=== PATIENT | female | born 1935 | race Caucasian/White ===

== ENCOUNTER 2017-11-16 11:58 | Emergency (ER) | payer MEDICARE, SELFPAY ==
--- NOTE | 2017-11-16 12:06 | DI.CT.S_ITS ---
PROCEDURE: CT HEAD/BRAIN WO CON INDICATIONS: syncope TECHNIQUE: Noncontrast 4.5 mm thick angled axial sections acquired from the foramen magnum to the vertex, with coronal and sagittal reformats. For radiation dose reduction, the following was used: automated exposure control, adjustment of mA and/or kV according to patient size. COMPARISON: None. FINDINGS: Image quality: Excellent. CSF spaces: Basal cisterns are patent. No extra-axial fluid collections. The ventricles are symmetric in size and shape. Brain: No intracranial bleeds or masses. There is cerebral volume loss for age, with resultant ventricular and sulcal prominence. There are periventricular and deep white matter chronic small vessel ischemic changes. There is intracranial internal carotid artery atherosclerosis. Skull and face: Calvarium and visualized facial bones appear intact, without suspicious lesions. Sinuses: Visualized sinuses and mastoids are clear. IMPRESSION: No trauma found, no source of syncopal episode is identified. Moderate microvascular atherosclerotic change in the deep white matter of each hemisphere is seen. Dictated by: Larry Lord M.D. on 11/16/2017 at 12:28 Approved by: Larry Lord M.D. on 11/16/2017 at 12:28
[2017-11-16 12:07] VITALS: BP 134/98; PULSE 77; RESP 20; TEMP 35.8; O2SAT 96; BMI 22.6
--- NOTE | 2017-11-16 12:22 | PC.NURSE ---
Miller Jesus left phone number for nurse to call if needed [phone]
[2017-11-16 12:35] VITALS: BP 124/86; PULSE 70; RESP 20; O2SAT 95
[2017-11-16 13:09] VITALS: BP 120/76; PULSE 77; RESP 16; O2SAT 94
[2017-11-16] MEDS: SODIUM CHLORIDE 0.9% 1,000 ML 200 ML IV (13:14)
[2017-11-16 13:57] LABS: Add Manual Diff / Slide Review NO; Basophils Percent Auto 0.4 % (0-2); Eosinophils Percent Auto 0.7 % (2-4); Hematocrit 36.4 % (36-46); Hemoglobin 11.9 g/dL (12.0-16.0); Lymphocytes Percent Auto 17.3 % (25-40); Mean Corpuscular HGB Conc 32.6 % (30-36); Mean Corpuscular Hemoglobin 28.5 PG (26-34); Mean Corpuscular Volume 87.4 fL (80-100); Neutrophils Absolute Auto 5300 /uL (3000-5900); Neutrophils Percent Auto 71.6 % (50-75); Platelet Count 136 X10^3/uL (150-400); Red Blood Cell Count 4.17 X10^6/uL (4.0-5.2); White Blood Cell Count 7.4 X10^3/uL (4.5-11.0)
[2017-11-16 14:04] LABS: INR 1.3 (0.9-1.3); Prothrombin Time 13.7 SECONDS (10.1-12.7)
[2017-11-16 14:10] VITALS: BP 128/95; PULSE 69; RESP 23; O2SAT 100
[2017-11-16 14:13] LABS: Alanine Aminotransferase 18 IU/L (9-52); Albumin Globulin Ratio 1.4 (1.0-2.8); Alkaline Phosphatase 78 U/L (38-126); Aspartate Aminotransferase 27 IU/L (14-36); BUN Creatinine Ratio 33.3 (6-22); Bilirubin Total 0.8 mg/dL (0.2-1.3); Blood Urea Nitrogen 20 mg/dL (7-17); Calcium 9.5 mg/dL (8.4-10.2); Carbon Dioxide 30 mmol/L (22-32); Chloride 105 mmol/L (98-107); Creatine Kinase 21 U/L (30-135); Estimated Glomerular Filt Rate > 60.0 mL/min (>60); Globulin 2.9 g/dL (1.7-4.1); Glucose 89 mg/dL (80-110); HEMOLYSIS 22 (0-50); Potassium 3.6 mmol/L (3.4-5.1); Sodium 144 mmol/L (137-145); Total Protein 6.9 g/dL (6.3-8.2)
[2017-11-16 14:29] LABS: Troponin I < 0.012 ng/mL (0.01-0.034)
--- NOTE | 2017-11-16 15:03 | ED.SYNCOPE ---
HPI - Syncope General Chief Complaint: Syncope Stated Complaint: Syncope Time Seen by Provider: 11/16/17 12:04 Source: patient, family and EMS Mode of arrival: EMS Limitations: no limitations History of Present Illness HPI narrative: Patient is a 81-year-old female presents after a syncopal episode. She is normally non-ambulatory in wheelchair. However today the son who is her primary caregiver saw her walking down the hallway. She Needed to use the restroom he got her into the restroom. When she was done she stood up and sat in the wheelchair off and then passed out for about 10 sec. He was able to get her out of the wheelchair and have her lie flat and she woke up. There was no trauma. She is acting normally except that she does not normally walk. She has no complaints she is able to follow commands and no sign of trauma MD complaint: almost passed out Prodromal symptoms: lightheaded Related Data Home Medications Medication Instructions Recorded Confirmed ascorbic acid (vitamin C) 500 mg PO QDAY #0 04/19/17 aspirin 81 mg PO QDAY #0 04/19/17 atorvastatin [Lipitor] 20 mg PO HS #0 04/19/17 escitalopram oxalate [Lexapro] 10 mg PO QDAY #0 04/19/17 losartan-hydrochlorothiazide 1 tab PO QDAY #0 04/19/17 [Hyzaar] Previous Rx's Medication Instructions Recorded metoprolol tartrate 100 mg PO BID #60 tab 04/22/17 Review of Systems Review of Systems All systems reviewed & are unremarkable except as noted in HPI and below Constitutional Denies chills, Denies fever(s), Denies lethargy and Denies weakness Eyes Denies change in vision, Denies eye discharge, Denies irritation and Denies loss of vision Cardiovascular Denies chest pain, Reports syncope, Denies irregular heart rhythm, Reports lightheadedness, Denies palpitations, Denies dyspnea, Denies dyspnea on exertion and Denies orthopnea Respiratory Denies cough, Denies dyspnea, Denies dyspnea on exertion and Denies wheezing Gastrointestinal Gastrointestinal: Denies abdominal pain, Denies change in bowel habits, Denies diarrhea, Denies nausea and Denies vomiting Musculoskeletal Denies back pain, Denies muscle weakness, Denies numbness and Denies tingling Integumentary/Breasts Denies pruritus, Denies erythema, Denies rash and Denies wounds Neurologic Reports syncope, Denies loss of vision, Denies numbness, Denies tingling and Denies weakness Endocrine Denies palpitations Allergic/Immunologic Denies wheezing Exam Initial Vital Signs Initial Vital Signs: Vital Signs Temperature 96.5 F L 11/16/17 12:07 Pulse Rate 77 11/16/17 12:07 Respiratory Rate 20 11/16/17 12:07 Blood Pressure 134/98 H 11/16/17 12:07 Pulse Oximetry 96 11/16/17 12:07 Const General: cooperative and frail appearing Nutritional Appearance: average body habitus Neck Neck: normal visual inspection, trachea midline, No midline deformity and No JVD Resp Effort & Inspection: normal respiratory effort, able to speak in complete sentences, no respiratory distress and no use of accessory muscles Auscultation: clear to auscultation bilaterally, no rales, no rhonchi and no wheezes Cardio Rate: regular rate Rhythm: regular rhythm Heart Sounds: no click, no gallops, no murmurs and no rubs Pulses: normal peripheral pulses Skin General: no rashes or lesions noted, No jaundice and No petechiae Neuro General: alert, oriented x3, gait normal and no focal motor deficits Speech: speech normal Course Orders Ordered: Discontinued Medications Sodium Chloride (Normal Saline 0.9%) 1,000 mls @ 200 mls/hr IV BOLUS ONE Stop: 11/16/17 17:04 Last Infusion: 11/16/17 15:19 Dose: 0 mls/hr Admin: 11/16/17 13:14 Dose: 200 mls/hr Vital Signs - 8 hr 11/16/17 12:07 11/16/17 12:35 11/16/17 13:09 Temperature 96.5 F L Pulse Rate 77 70 77 Respiratory Rate 20 20 16 Blood Pressure 134/98 H Blood Pressure [Left Arm] 124/86 H 120/76 Pulse Oximetry 96 95 94 11/16/17 14:10 Temperature Pulse Rate 69 Respiratory Rate 23 Blood Pressure Blood Pressure [Left Arm] 128/95 H Pulse Oximetry 100 MDM - Syncope Lab Data Result diagrams: 11/16/17 13:44 11/16/17 13:44 Lab Results 11/16/17 11/16/17 11/16/17 Range/Units 13:44 13:44 13:44 WBC 7.4 (4.5-11.0) X10^3/uL RBC 4.17 (4.0-5.2) X10^6/uL Hgb 11.9 L (12.0-16.0) g/dL Hct 36.4 (36-46) % MCV 87.4 (80-100) fL MCH 28.5 (26-34) PG MCHC 32.6 (30-36) % RDW 15.0 H (11.6-14.8) % Plt Count 136 L (150-400) X10^3/uL Neut % (Auto) 71.6 (50-75) % Lymph % (Auto) 17.3 L (25-40) % [place] % (Auto) 10.0 (3-14) % Eos % (Auto) 0.7 L (2-4) % Baso % (Auto) 0.4 (0-2) % Neut # (Auto) 5300 (8086-7862) /uL PT 13.7 H (10.1-12.7) SECONDS INR 1.3 (0.9-1.3) Sodium 144 (137-145) mmol/L Potassium 3.6 (3.4-5.1) mmol/L Chloride 105 (98-107) mmol/L Carbon Dioxide 30 (22-32) mmol/L BUN 20 H (7-17) mg/dL Creatinine 0.60 (0.52-1.04) mg/dL Estimated GFR > 60.0 (>60) mL/min BUN/Creatinine Ratio 33.3 H (6-22) Glucose 89 (80-110) mg/dL Calcium 9.5 (8.4-10.2) mg/dL Total Bilirubin 0.8 (0.2-1.3) mg/dL AST 27 (14-36) IU/L ALT 18 (9-52) IU/L Alkaline Phosphatase 78 (38-126) U/L Total Creatine Kinase 21 L (30-135) U/L Troponin I < 0.012 (0.01-0.034) ng/mL Total Protein 6.9 (6.3-8.2) g/dL Albumin 4.0 (3.5-5.0) g/dL Globulin 2.9 (1.7-4.1) g/dL Albumin/Globulin Ratio 1.4 (1.0-2.8) ECG Data Attestation: I personally reviewed and interpreted this ECG as follows: Prior ECG tracings: not available for review Interpretation: #1: AFib rate and with STDs freshened in precordial leads ST depressions have been present in the past and this is similar to previous EKG EKG 2. AFib rate 69 ST depressions persists no acute ST elevation MDM Narrative Medical decision making narrative: patient has no complaints home blood work within normal limits. The son is willing and able to take her home though he does admit they are looking for other alternatives. I urged him to discuss options with his primary care provider. But they were both of ready to go. Discharge Plan Departure Patient Disposition: Home, Self-Care Clinical Impression: Near syncope Discharge Date/Time: 11/16/17 15:21 Interventions: ED Discharge Assessment Last Done: 11/16/17 15:19 Instructions: DI for Syncope in Adults (Fainting) Activity Restrictions/Additional Instructions: *You have been diagnosed with lightheaded, fainting *What to do: Increase fluid intake,, monitor closely *Continue to take medications as directed *Follow up with your primary care provider in 2-3 days *Return to ER if you should have any new, worsening or concerning symptoms Prescriptions: No Action escitalopram oxalate [Lexapro] 10 MG tablet 10 mg PO QDAY Qty: 0 RF: 0 atorvastatin [Lipitor] 20 MG tablet 20 mg PO HS Qty: 0 RF: 0 losartan-hydrochlorothiazide [Hyzaar] 100 MG/25 MG tablet 1 tab PO QDAY Qty: 0 RF: 0 ascorbic acid (vitamin C) 500 MG tablet 500 mg PO QDAY Qty: 0 RF: 0 aspirin 81 MG tablet,chewable 81 mg PO QDAY Qty: 0 RF: 0 metoprolol tartrate 50 MG tablet 100 mg PO BID Qty: 60 RF: 0 Referrals: Shellie Philip MD [Primary Care Provider] -
[2017-11-16 15:19] VITALS: BP 135/87; PULSE 77; RESP 21
== END 2017-11-16 15:21 | disposition home or self-care (01) ==
PROVIDERS: Emergency Provider Emergency Medicine; PCP Internal Medicine
DX: R55 Syncope and collapse (principal)
CPT/HCPCS: 36415; 70450; 80053; 82550; 82553; 84484; 85025; 85610; 93005; 96360; 96361; 99283; 99285

== ENCOUNTER 2017-11-25 13:42 | Inpatient (IN) | payer MEDICARE, SELFPAY ==
[2017-11-25 13:45] VITALS: BP 152/112; PULSE 73; RESP 17; TEMP 36.9; O2SAT 100
[2017-11-25 13:54] LABS: Hemoglobin 12.8 g/dL (12.0-16.0); Mean Corpuscular HGB Conc 32.8 % (30-36); Mean Corpuscular Hemoglobin 28.4 PG (26-34); Mean Corpuscular Volume 86.6 fL (80-100); Platelet Count 141 X10^3/uL (150-400); Red Cell Distribution Width 15.1 % (11.6-14.8)
[2017-11-25 13:56] LABS: INR 1.2 (0.9-1.3); Prothrombin Time 13.4 SECONDS (10.1-12.7)
[2017-11-25 13:58] LABS: PTT Partial Thromboplastin Tim 41 SECONDS (26.4-36.2)
[2017-11-25 14:00] LABS: BUN Creatinine Ratio 22.9 (6-22); Blood Urea Nitrogen 16 mg/dL (7-17); Carbon Dioxide 33 mmol/L (22-32); Chloride 101 mmol/L (98-107); Estimated Glomerular Filt Rate > 60.0 mL/min (>60); Glucose 111 mg/dL (80-110); HEMOLYSIS < 15 (0-50); Potassium 3.5 mmol/L (3.4-5.1); Sodium 142 mmol/L (137-145)
--- NOTE | 2017-11-25 14:03 | DI.CT.S_ITS ---
PROCEDURE: CT ANGIO HEAD AND NECK INDICATIONS: sudden onset confussion TECHNIQUE: Pre-contrast 4.5 mm thick sections acquired from the foramen magnum to the vertex. After the administration of intravenous contrast, 1 mm thick sections acquired from the aortic arch through the [place] of [place]. Post-contrast 4.5 mm thick sections then re-acquired from the foramen magnum to the vertex. 3-dimensional pwtkjzy-whuabhbvd-ffmdgquadm (MIP) and/or volume rendering reformats were acquired of the central intracranial vasculature and neck separately. COMPARISON: [facility], CT, CT HEAD/BRAIN WO CON, 11/16/2017, 12:14. FINDINGS: Image quality: Diagnostic. BRAIN: CSF spaces: Ventricles are symmetrical in size and shape. Basal cisterns are patent. No extra-axial fluid collections. Brain: No midline shift. No intracranial bleeds or masses. [place]-white matter interface appears intact. There is ventricular and enlargement and widening of the sulci consistent with cerebral atrophy. Mild to moderate chronic deep white matter ischemic changes. Chronic lacunar infarct right basal ganglia. Skull and face: Calvarium and facial bones appear intact, without suspicious lesions. Orbits appear normal. Calcifications internal carotid arteries. Sinuses: Sinuses and mastoids are clear. HEAD CT ANGIOGRAPHY: Anterior circulation: Intracranial internal carotid arteries are normal in size and flow. The flow within the paired anterior cerebral arteries is normal and symmetric. There are mild irregularities throughout most of the anterior cerebral arteries. The flow within the middle cerebral arteries is normal and symmetric. The anterior communicating artery is seen with no aneurysms. On the sagittal sequence series 9, image 18, there is a calcification within the falx. Posterior circulation: Visualized portions of the vertebral arteries demonstrate normal caliber, and join to form a normal appearing basilar artery. Flow within the posterior cerebral arteries is normal and symmetric. No aneurysms are seen. NECK CT ANGIOGRAPHY: Carotid system: The great vessels demonstrate a conventional anatomy as they arise from the aortic arch. 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 The origins of the common carotid arteries appear patent. The common carotid arteries demonstrate normal caliber and courses. The bifurcation regions are both widely patent. The internal carotid arteries demonstrate normal calibers and courses. Posterior circulation: The origins of the vertebral arteries both appear widely patent. The more superior extracranial portions of both vertebral arteries also demonstrate normal courses and calibers. They join to form a normal appearing basilar artery. Soft tissues: Visualized neck soft tissues demonstrate no suspicious abnormalities. Bones: No suspicious bony lesions. Visualized cervical spine appears normally aligned. IMPRESSION: 1. No intracranial hemorrhage. 2. Age-related atrophy and chronic deep white matter ischemic changes. Chronic lacunar infarct right basal ganglia. 3. Carotid bifurcations show no significant stenosis on either side. 4. Intracranial vasculature shows calcifications at the siphons and mild atheromatous changes distally without focal stenosis or obstruction. Any quantitative measurements of stenosis were performed using NASCET criteria. Dictated by: Jm Jones M.D. on 11/25/2017 at 14:33 Approved by: Jm Jones M.D. on 11/25/2017 at 14:54
--- NOTE | 2017-11-25 14:03 | PC.NURSE ---
Code Stroke called 5 minutes prior to patient's arrival to the Emergency Department. Stroke team at bedside.
[2017-11-25 14:12] LABS: Troponin I < 0.012 ng/mL (0.01-0.034)
[2017-11-25 14:23] LABS: Neutrophils Absolute Manual 3300 /uL (3000-5900); Total Cells Counted 100
[2017-11-25 14:24] LABS: RBC Morphology Normal Morphology
--- NOTE | 2017-11-25 14:30 | PC.NURSE ---
son states pt has alzhiemers and dementia.
--- NOTE | 2017-11-25 14:48 | ED.WEAKNESS ---
HPI - Weakness General Chief complaint: Weakness Stated complaint: Stroke Time Seen by Provider: 11/25/17 13:46 Source: family and EMS Mode of arrival: EMS Limitations: altered mental status History of Present Illness HPI Narrative: Patient is an 82-year-old female brought in by EMS for concerns of a possible stroke. EMS was called by the patient's son whom she lives with. Patient has done reports that patient was at her baseline state of health yesterday evening when she went to bed. This was approximately 8 o'clock. He states that this morning when he went to check on his mother he thought that she was just more tired than normal so he let her sleep in. He states that he went to check on her multiple times in she seemed to be very tired so he continue to let her sleep. At approximately 1230 he got her up out of bed and took her to the kitchen and tried to give her her medications when he noticed that she did not want to take her medications and then he noticed that the left side of her face was drooping he called 911. He reports that the patient does have a history of Alzheimer's dementia and the patient's son states that she has ?good days and bad days ?where she sometimes interacts and sometimes does not. Related Data Home Medications Medication Instructions Recorded Confirmed ascorbic acid (vitamin C) 500 mg PO QDAY #0 04/19/17 11/25/17 atorvastatin [Lipitor] 20 mg PO BEDTIME #0 04/19/17 11/25/17 escitalopram oxalate [Lexapro] 10 mg PO QDAY #0 04/19/17 11/25/17 losartan-hydrochlorothiazide 1 tab PO QDAY #0 04/19/17 11/25/17 [Hyzaar] aspirin 81 mg PO DAILY 11/25/17 11/25/17 calcium carbonate [Calcium 500] 1 tab PO BIDWM 11/25/17 11/25/17 Previous Rx's Medication Instructions Recorded metoprolol tartrate 100 mg PO BID #60 tab 04/22/17 Allergies Allergy/AdvReac Type Severity Reaction Status Date / Time No Known Drug Allergies Allergy Verified 11/25/17 14:32 Review of Systems Review of Systems unobtainable due to mental condition PFS Comment: Past medical history surgical history family history reviewed Exam Initial Vital Signs Initial Vital Signs: Vital Signs Temperature 98.4 F 11/25/17 13:45 Pulse Rate 73 11/25/17 13:45 Respiratory Rate 17 11/25/17 13:45 Blood Pressure 152/112 H 11/25/17 13:45 Pulse Oximetry 100 11/25/17 13:45 Const General: comfortable and No acute distress Orientation: alert, awake and not oriented x3 Limitations: altered mental status HENMT Head: normal to inspection, normocephalic and atraumatic Eyes Pupils: PERRL Resp Effort & Inspection: normal respiratory effort Auscultation: clear to auscultation bilaterally Cardio Rate: regular rate Rhythm: regular rhythm Pulses: radial pulses present GI Inspection: non-distended Palpation: soft and No tender Skin Lesions: no lesions Rashes: no rashes Neuro General: alert and awake Other: Patient was alert and arousable Knew her name but did not know the year she did state that she was in the hospital she did not know the circumstances while she was here She did follow some commands like wiggling her toes and moving her arms however would not follow all commands During my exam would not look to the left however on nursing exam they stated that the patient was looking to the left Patient did have some words that were coherent however did slur many for words Did have left-sided facial droop compared to the right Head difficulty closing her eyes Was able to hold both hands up in the air her they did drift toward the bed. I have suspicion that this was due to effort Patient was unable to lift her legs up off the bed or hold them up I also suspicion that this was due to effort Extrem Other: No gross deformities Psych Appearance: grossly normal and well kempt Course Orders Ordered: ED Orders 11/25/17 13:48 EKG-12 Lead Stat 11/25/17 14:03 CT angio head and neck Stat Vital Signs - 8 hr 11/25/17 13:45 Temperature 98.4 F Pulse Rate 73 Respiratory Rate 17 Blood Pressure 152/112 H Pulse Oximetry 100 MDM - Weakness Medical Records Attestation: I reviewed the patient's medical records. Lab Data Attestation: I reviewed the patient's lab results. Result diagrams: 11/25/17 Unknown 11/25/17 Unknown Lab Results 11/25/17 11/25/17 11/25/17 Range/Units 16:00 Unknown Unknown WBC 6.0 (4.5-11.0) X10^3/uL RBC 4.50 (4.0-5.2) X10^6/uL Hgb 12.8 (12.0-16.0) g/dL Hct 39.0 (36-46) % MCV 86.6 (80-100) fL MCH 28.4 (26-34) PG MCHC 32.8 (30-36) % RDW 15.1 H (11.6-14.8) % Plt Count 141 L (150-400) X10^3/uL Total Counted 100 Seg Neutrophils % 54.0 (38-70) % Band Neutrophils % 1.0 L (3-7) % Lymphocytes % (Manual) 32.0 (25-45) % Monocytes % (Manual) 12.0 H (2-11) % Eosinophils % (Manual) 1.0 L (2-4) % Neutrophils # (Manual) 3300 (7633-5345) /uL RBC Morphology Normal morphology PT 13.4 H (10.1-12.7) SECONDS INR 1.2 (0.9-1.3) APTT 41 H (26.4-36.2) SECONDS Sodium (137-145) mmol/L Potassium (3.4-5.1) mmol/L Chloride (98-107) mmol/L Carbon Dioxide (22-32) mmol/L BUN (7-17) mg/dL Creatinine (0.52-1.04) mg/dL Estimated GFR (>60) mL/min BUN/Creatinine Ratio (6-22) Glucose (80-110) mg/dL Calcium (8.4-10.2) mg/dL Troponin I (0.01-0.034) ng/mL Urine Color Cancelled Urine Appearance Cancelled Urine pH Cancelled Ur Specific [place] Cancelled Urine Protein Cancelled Urine Glucose (UA) Cancelled Urine Ketones Cancelled Urine Occult Blood Cancelled Urine Nitrate Cancelled Urine Bilirubin Cancelled Urine Urobilinogen Cancelled Ur Leukocyte Esterase Cancelled Urine RBC Cancelled Urine WBC Cancelled Ur Squamous Epith Cells Cancelled Ur Transition Epith Cell Cancelled Ur Renal Epithelial Cell Cancelled Calcium Oxalate Crystal Cancelled Uric Acid Crystals Cancelled Triple Phos Crystals Cancelled Other Crystals Cancelled Amorphous Sediment Cancelled Urine Bacteria Cancelled Hyaline Casts Cancelled Granular Casts Cancelled RBC Casts Cancelled WBC Casts Cancelled Other Casts Cancelled Urine Mucus Cancelled Urine Trichomonas Cancelled Urine Yeast Cancelled Urine Sperm Cancelled Ur Culture Indicated? Cancelled Micro UA Comment Cancelled 11/25/17 11/25/17 Range/Units Unknown Unknown WBC (4.5-11.0) X10^3/uL RBC (4.0-5.2) X10^6/uL Hgb (12.0-16.0) g/dL Hct (36-46) % MCV (80-100) fL MCH (26-34) PG MCHC (30-36) % RDW (11.6-14.8) % Plt Count (150-400) X10^3/uL Total Counted Seg Neutrophils % (38-70) % Band Neutrophils % (3-7) % Lymphocytes % (Manual) (25-45) % Monocytes % (Manual) (2-11) % Eosinophils % (Manual) (2-4) % Neutrophils # (Manual) (4409-3224) /uL RBC Morphology PT (10.1-12.7) SECONDS INR (0.9-1.3) APTT (26.4-36.2) SECONDS Sodium 142 (137-145) mmol/L Potassium 3.5 (3.4-5.1) mmol/L Chloride 101 (98-107) mmol/L Carbon Dioxide 33 H (22-32) mmol/L BUN 16 (7-17) mg/dL Creatinine 0.70 (0.52-1.04) mg/dL Estimated GFR > 60.0 (>60) mL/min BUN/Creatinine Ratio 22.9 H (6-22) Glucose 111 H (80-110) mg/dL Calcium 10.0 (8.4-10.2) mg/dL Troponin I < 0.012 (0.01-0.034) ng/mL Urine Color Urine Appearance Urine pH Ur Specific [place] Urine Protein Urine Glucose (UA) Urine Ketones Urine Occult Blood Urine Nitrate Urine Bilirubin Urine Urobilinogen Ur Leukocyte Esterase Urine RBC 0-1/hpf Urine WBC 1-5/hpf Ur Squamous Epith Cells 0-1 /hpf Ur Transition Epith Cell Ur Renal Epithelial Cell Calcium Oxalate Crystal Uric Acid Crystals Triple Phos Crystals Other Crystals Amorphous Sediment Urine Bacteria Many (>30) H Hyaline Casts Granular Casts RBC Casts WBC Casts Other Casts Urine Mucus Urine Trichomonas Urine Yeast Urine Sperm Ur Culture Indicated? Specimen cultured Micro UA Comment Not Reportable Imaging Data CT scan - head: Radiologist's impression: PROCEDURE: CT HEAD/BRAIN WO CON INDICATIONS: syncope TECHNIQUE: Noncontrast 4.5 mm thick angled axial sections acquired from the foramen magnum to the vertex, with coronal and sagittal reformats. For radiation dose reduction, the following was used: automated exposure control, adjustment of mA and/or kV according to patient size. COMPARISON: None. FINDINGS: Image quality: Excellent. CSF spaces: Basal cisterns are patent. No extra-axial fluid collections. The ventricles are symmetric in size and shape. Brain: No intracranial bleeds or masses. There is cerebral volume loss for age, with resultant ventricular and sulcal prominence. There are periventricular and deep white matter chronic small vessel ischemic changes. There is intracranial internal carotid artery atherosclerosis. Skull and face: Calvarium and visualized facial bones appear intact, without suspicious lesions. Sinuses: Visualized sinuses and mastoids are clear. IMPRESSION: No trauma found, no source of syncopal episode is identified. Moderate microvascular atherosclerotic change in the deep white matter of each hemisphere is seen. Dictated by: Larry Lord M.D. on 11/16/2017 at 12:28 Approved by: Larry Lord M.D. on 11/16/2017 at 12:28 CTA head and neck: Radiologist's impression: PROCEDURE: CT ANGIO HEAD AND NECK INDICATIONS: sudden onset confussion TECHNIQUE: Pre-contrast 4.5 mm thick sections acquired from the foramen magnum to the vertex. After the administration of intravenous contrast, 1 mm thick sections acquired from the aortic arch through the [place] of [place]. Post-contrast 4.5 mm thick sections then re-acquired from the foramen magnum to the vertex. 3-dimensional kncxfkm-xbmyhwuju-hgdoaniqya (MIP) and/or volume rendering reformats were acquired of the central intracranial vasculature and neck separately. COMPARISON: [facility], CT, CT HEAD/BRAIN WO CON, 11/16/2017, 12:14. FINDINGS: Image quality: Diagnostic. BRAIN: CSF spaces: Ventricles are symmetrical in size and shape. Basal cisterns are patent. No extra-axial fluid collections. Brain: No midline shift. No intracranial bleeds or masses. [place]-white matter interface appears intact. There is ventricular and enlargement and widening of the sulci consistent with cerebral atrophy. Mild to moderate chronic deep white matter ischemic changes. Chronic lacunar infarct right basal ganglia. Skull and face: Calvarium and facial bones appear intact, without suspicious lesions. Orbits appear normal. Calcifications internal carotid arteries. Sinuses: Sinuses and mastoids are clear. HEAD CT ANGIOGRAPHY: Anterior circulation: Intracranial internal carotid arteries are normal in size and flow. The flow within the paired anterior cerebral arteries is normal and symmetric. There are mild irregularities throughout most of the anterior cerebral arteries. The flow within the middle cerebral arteries is normal and symmetric. The anterior communicating artery is seen with no aneurysms. On the sagittal sequence series 9, image 18, there is a calcification within the falx. Posterior circulation: Visualized portions of the vertebral arteries demonstrate normal caliber, and join to form a normal appearing basilar artery. Flow within the posterior cerebral arteries is normal and symmetric. No aneurysms are seen. NECK CT ANGIOGRAPHY: Carotid system: The great vessels demonstrate a conventional anatomy as they arise from the aortic arch. 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 The origins of the common carotid arteries appear patent. The common carotid arteries demonstrate normal caliber and courses. The bifurcation regions are both widely patent. The internal carotid arteries demonstrate normal calibers and courses. Posterior circulation: The origins of the vertebral arteries both appear widely patent. The more superior extracranial portions of both vertebral arteries also demonstrate normal courses and calibers. They join to form a normal appearing basilar artery. Soft tissues: Visualized neck soft tissues demonstrate no suspicious abnormalities. Bones: No suspicious bony lesions. Visualized cervical spine appears normally aligned. IMPRESSION: 1. No intracranial hemorrhage. 2. Age-related atrophy and chronic deep white matter ischemic changes. Chronic lacunar infarct right basal ganglia. 3. Carotid bifurcations show no significant stenosis on either side. 4. Intracranial vasculature shows calcifications at the siphons and mild atheromatous changes distally without focal stenosis or obstruction. Any quantitative measurements of stenosis were performed using NASCET criteria. Dictated by: Jm Jones M.D. on 11/25/2017 at 14:33 Approved by: Jm Jones M.D. on 11/25/2017 at 14:54 ECG Data Attestation: I personally reviewed and interpreted this ECG as follows: Prior ECG tracings: not available for review Interpretation: Atrial fibrillation Ventricular rate is 71 LVH Wandering baseline Normal QRS No ST T wave changes MDM Narrative Medical decision making narrative: Patient's last known normal was sometime last evening. Initially NIH score was 18 however I did have some concerns as to whether not the patient actually had deficits or whether it was a effort issue. Patient does have a history of atrial fibrillation. Patient is outside the window for tPA. No findings on the CTA that would warrant catheter directed tPA. After my initial evaluation some of the deficits such as the patient's lower extremity weakness and left-sided neglect seem to have resolved because she was moving all 4 extremities without problems. Discussed case with Dr. Burrell who will admit the patient for further evaluation and treatment. Discharge Plan Departure Patient Disposition: Admitted as Observation Clinical Impression: Acute CVA (cerebrovascular accident)
[2017-11-25 16:27] LABS: Bacteria Urine Many (>30); Culture Indicated Urine Specimen Cultured; RBC Urine 0-1/HPF (0-5/HPF); Squamous Epithelial Cell Urine 0-1 /HPF; WBC Urine 1-5/HPF (0-5/HPF)
[2017-11-25 18:10] VITALS: BP 116/114; PULSE 78; RESP 18; TEMP 36.2; O2SAT 96
[2017-11-25 18:26] VITALS: BMI 20.9
[2017-11-25] MEDS: SODIUM CHLORIDE 0.45% 1,000 ML 60 ML IV (20:20)
[2017-11-25 20:31] VITALS: BP 147/106; PULSE 70; RESP 18; TEMP 36.8; O2SAT 93
--- NOTE | 2017-11-25 20:44 | PC.NURSE ---
Patient is alert to self sometimes, was able to verbalize her age and that she just had a birthday recently. Patient was also able to recognize son at bedside but was not able to give name when asked. Patient is calm and cooperative w/ staff and able to follow some but not all ques. NIH screen done w/ patient but it is unclear if this is a true scoring as patient often times was unable to not perform task or gave a blank stare and was not able to articulate information in NIH screen packet likely due to advanced dementia. Patient performed a bedside nurse swallow eval and passed with flying colors, discussed eval with Dr. Burrell and he gave the verbal orders to change patients diet to GEN. Care management order to be placed to discuss options for outside services of care for patient. Patient's son cares for patient currently at home but needs are becoming more advanced and Son and Daughter have both voiced concerns of advancement in Dementia. Discussed with Son at bedside regarding care management coming in to discuss further options for d/c and care facilities and Son is onboard for discussing options.
[2017-11-25 21:01] VITALS: O2SAT 93
[2017-11-25] MEDS: ASPIRIN 81 MG TAB 324 MG PO (21:17)
[2017-11-25] MEDS: METOPROLOL 50 MG TABLET 100 MG PO (21:18)
[2017-11-25] MEDS: ATORVASTATIN 20 MG TABLET PO (21:18)
[2017-11-26] VITALS (12 sets, daily range): BP systolic 107–163; BP diastolic 49–117; PULSE 60–81; RESP 15–20; TEMP 36.7–37.6; O2SAT 92–97
--- NOTE | 2017-11-26 06:37 | PC.NURSE ---
[employer] Dipper- Monitored BP throughout night. BP range 151/107-145/109, pulse 60's and irregular, on telemetry monitoring. Paged Dr. Burrell at 0255 for prn BP med or parameters. Dr. Burrell called unit right away. New order rec'd for Labetalol 10mg IV Q4hr prn for diastolic BP above 100. At bedside, BP rechecked prior to giving medication and BP 133/74, therefore held Labetalol prn at this time. Blood pressure checked on SHAVON. NIH scale score 12 at 0020. no new symptoms noted.
[2017-11-26] MEDS: LABETALOL 100 MG/20ML MDV 10 MG IV (08:36)
[2017-11-26] MEDS: LOSARTAN 50 MG TABLET 100 MG PO (09:03)
[2017-11-26] MEDS: ASCORBIC ACID 500 MG TABLET PO (09:03)
[2017-11-26] MEDS: CALCIUM CARBONATE 500 MG TAB PO (09:03)
[2017-11-26] MEDS: hydroCHLOROthiazide 25 MG TABLET PO (09:03)
[2017-11-26] MEDS: ASPIRIN EC 81 MG TABLET PO (09:03)
[2017-11-26] MEDS: ESCITALOPRAM 10 MG TABLET PO (09:03)
[2017-11-26] MEDS: METOPROLOL 50 MG TABLET 100 MG PO ×2 (09:49→20:40)
--- NOTE | 2017-11-26 10:25 | P.HP_ITS ---
History of Present Illness Date Patient Seen: 11/26/17 Time Patient Seen: 10:00 Chief complaint: Stroke Narrative: 82-year-old female, under the primary care of Dr. Shellie Philip who was admitted to the [facility] yesterday with concern of possible stroke. Patient was noticed to have left-sided weakness and left facial droop yesterday around noon. She was brought to the [facility] Emergency Room. She does have history of atrial fibrillation. She was followed by Dr. Yepez. Anticoagulation was not recommended. She was on a baby aspirin. Her CT angiogram yesterday did not reveal significant stenosis in the blood vessels. MRI of the brain was ordered and is still pending. Patient herself has dementia and is not able to provide much history. 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 She lives with her son who is her primary caregiver. No alcohol drinking or cigarette smoking. Meds Home Medications Medication Instructions Recorded Confirmed Type ascorbic acid (vitamin C) 500 mg PO QDAY #0 04/19/17 11/25/17 History atorvastatin [Lipitor] 20 mg PO BEDTIME #0 04/19/17 11/25/17 History escitalopram oxalate [Lexapro] 10 mg PO QDAY #0 04/19/17 11/25/17 History losartan-hydrochlorothiazide 1 tab PO QDAY #0 04/19/17 11/25/17 History [Hyzaar] metoprolol tartrate 100 mg PO BID #60 tab 04/22/17 11/25/17 Rx aspirin 81 mg PO DAILY 11/25/17 11/25/17 History calcium carbonate [Calcium 500] 1 tab PO BIDWM 11/25/17 11/25/17 History Allergies Allergy/AdvReac Type Severity Reaction Status Date / Time No Known Drug Allergies Allergy Verified 11/25/17 14:32 Review of Systems Review of Systems Complete review of systems unable to obtain due to patient's severe dementia Exam Vital Signs (past 8 hours): - 11/26/17 02:40 11/26/17 03:51 11/26/17 03:54 Temperature 98.2 F Pulse Rate 61 Respiratory Rate 15 Blood Pressure 145/109 H 133/74 H Pulse Oximetry 92 Oxygen Delivery Method Room Air Oxygen Flow Rate 0 Narrative Exam Narrative: GENERAL: Elderly woman in no acute distress. HEENT: Head normocephalic, atraumatic. Eyes pupils equal round NECK: Supple, no JVD, CHEST: Breath sounds equal bilaterally, no wheezes rales or rhonchi. CARDIAC: Irregular rhythm, 2/6 systolic murmur best heard at the left sternal border.no rubs or gallops. ABDOMEN: Soft, nontender. Normoactive bowel sounds all 4 quadrants. No guarding or rebound. EXTREMITIES: Normal range of motion, no clubbing or edema. NEUROLOGICAL: Alert and oriented to self; left-sided facial weakness, left arm was able to lift against gravity, however weaker compared to the right. She was not lifting both of her legs off the bed, possibly secondary to not able to follow commands.. SKIN: Warm, dry, no petechiae, no rashes or lesions. Objective Imaging CT scan - head: Radiologist's impression: 1. No intracranial hemorrhage. 2. Age-related atrophy and chronic deep white matter ischemic changes. Chronic lacunar infarct right basal ganglia. 3. Carotid bifurcations show no significant stenosis on either side. 4. Intracranial vasculature shows calcifications at the siphons and mild atheromatous changes distally without focal stenosis or obstruction. Labs Result Diagrams: 11/25/17 Unknown 11/25/17 Unknown Labs: Laboratory Results - last 24 hr 11/25/17 11/25/17 11/25/17 16:00 Unknown Unknown WBC 6.0 RBC 4.50 Hgb 12.8 Hct 39.0 MCV 86.6 MCH 28.4 MCHC 32.8 RDW 15.1 H Plt Count 141 L Total Counted 100 Seg Neutrophils % 54.0 Band Neutrophils % 1.0 L Lymphocytes % (Manual) 32.0 Monocytes % (Manual) 12.0 H Eosinophils % (Manual) 1.0 L Neutrophils # (Manual) 3300 RBC Morphology Normal morphology PT 13.4 H INR 1.2 APTT 41 H Sodium Potassium Chloride Carbon Dioxide BUN Creatinine Estimated GFR BUN/Creatinine Ratio Glucose Calcium Troponin I Urine Color Cancelled Urine Appearance Cancelled Urine pH Cancelled Ur Specific [place] Cancelled Urine Protein Cancelled Urine Glucose (UA) Cancelled Urine Ketones Cancelled Urine Occult Blood Cancelled Urine Nitrate Cancelled Urine Bilirubin Cancelled Urine Urobilinogen Cancelled Ur Leukocyte Esterase Cancelled Urine RBC Cancelled Urine WBC Cancelled Ur Squamous Epith Cells Cancelled Ur Transition Epith Cell Cancelled Ur Renal Epithelial Cell Cancelled Calcium Oxalate Crystal Cancelled Uric Acid Crystals Cancelled Triple Phos Crystals Cancelled Other Crystals Cancelled Amorphous Sediment Cancelled Urine Bacteria Cancelled Hyaline Casts Cancelled Granular Casts Cancelled RBC Casts Cancelled WBC Casts Cancelled Other Casts Cancelled Urine Mucus Cancelled Urine Trichomonas Cancelled Urine Yeast Cancelled Urine Sperm Cancelled Ur Culture Indicated? Cancelled Micro UA Comment Cancelled 11/25/17 11/25/17 Unknown Unknown WBC RBC Hgb Hct MCV MCH MCHC RDW Plt Count Total Counted Seg Neutrophils % Band Neutrophils % Lymphocytes % (Manual) Monocytes % (Manual) Eosinophils % (Manual) Neutrophils # (Manual) RBC Morphology PT INR APTT Sodium 142 Potassium 3.5 Chloride 101 Carbon Dioxide 33 H BUN 16 Creatinine 0.70 Estimated GFR > 60.0 BUN/Creatinine Ratio 22.9 H Glucose 111 H Calcium 10.0 Troponin I < 0.012 Urine Color Urine Appearance Urine pH Ur Specific [place] Urine Protein Urine Glucose (UA) Urine Ketones Urine Occult Blood Urine Nitrate Urine Bilirubin Urine Urobilinogen Ur Leukocyte Esterase Urine RBC 0-1/hpf Urine WBC 1-5/hpf Ur Squamous Epith Cells 0-1 /hpf Ur Transition Epith Cell Ur Renal Epithelial Cell Calcium Oxalate Crystal Uric Acid Crystals Triple Phos Crystals Other Crystals Amorphous Sediment Urine Bacteria Many (>30) H Hyaline Casts Granular Casts RBC Casts WBC Casts Other Casts Urine Mucus Urine Trichomonas Urine Yeast Urine Sperm Ur Culture Indicated? Specimen cultured Micro UA Comment Not Reportable Assessment & Plan Plan: Assessment/Plan Narrative: 1. Probable acute CVA: MRI of the brain is still pending. Continue full-dose aspirin. Increase atorvastatin from 20 mg once a day to 40 mg once a day. Discontinue hydrochlorothiazide. Continue losartan and metoprolol. Add amlodipine if her blood pressure becomes elevated. Continue PT/OT/speech therapy evaluation and treatment. 2. Chronic atrial fibrillation: Her ventricular rate is adequately controlled. She is not currently on anticoagulation due to risk of bleeding and frequent falls. 3. Hypertension: Discontinue hydrochlorothiazide due to risk of dehydration. Continue metoprolol and losartan. Add amlodipine if her blood pressure is not adequately controlled. 4. Hyperlipidemia: Her last lipid panel was done in 2017. Her LDL was 104. We will increase her atorvastatin from 20 mg once a day to 40 mg once a day. 5. Code status: Do not resuscitate. Code status was discussed with patient's son 6. Disposition: Likely require penitentiary facility placement at the time of discharge. Quality VTE Deep Vein Thrombosis/Pulmonary Embolism Present on Admission: No
--- NOTE | 2017-11-26 11:25 | PT.IIE ---
Medical History (Last Reviewed 11/26/17 @ 10:26 by Shellie Philip MD) Dementia (Acute) Broken foot (Acute) 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) A-fib (Acute) Stroke (Acute) Physical Therapy Inpatient Evaluation/Re-Eval M1 PT/OT-IP Prior Functional Status Start: 11/26/17 12:42 Freq: Status: Active Protocol: Document 11/26/17 11:25 [facility] (Rec: 11/26/17 12:56 [facility] [id number]) Medical Review Prior Functional Status Medical History Reviewed Yes Communication responds to some comments/ questions (h/o Alzheimer's) Mobility and Gait per son, pt using w/c with assistance most days. She has not left the home in quite some time, the last 2 times being by ambulance. She is able to stand occasionally with no assitance. Activities of Daily Living and IADL's assistance required. Social History Household Members family Living Arrangements House Number of Floors (Floors) One Floor Number of Stairs To Enter/Railing? 1 step up Home Environment Walk in Shower Tub/Shower Home Equipment Manual Wheelchair Additional Social History Comment son lives with pt, has been 24 /7 caregiver. M2 PT-IP Current Condition Start: 11/26/17 12:42 Freq: Status: Active Protocol: Document 11/26/17 11:25 [facility] (Rec: 11/26/17 12:56 [facility] [id number]) Physical Therapy Current Condition Current Condition Evaluation Date 11/26/17 Treatment Diagnosis possible CVA, impaired mobility M3 PT-IP Subjective Start: 11/26/17 12:42 Freq: Status: Active Protocol: Document 11/26/17 11:25 RCC (Rec: 11/26/17 12:56 [facility] [id number]) Subjective Physical Therapy Visit Type Type Initial Evaluation Visit Start Time 11:00 Visit Stop Time 11:25 Total Visit Minutes 25 Notes son in room during session. Pt presented with L sided facial droop to ER, possibly LE and UE weakness but unable to be formally tested. MRI is ordered and pending. Number of GENERAL FARM HAND Visits 0 Physical Therapy Visit Comments Patient Comments Pt agreeable to get to chair. Short Term Goals unable to state. Therapy Pain Assessment Pain Present Pain Present Denied Pain M4 PT-IP Mobility and Gait Start: 11/26/17 12:42 Freq: Status: Active Protocol: Document 07/28/18 11:25 [facility] (Rec: 11/26/17 12:56 [facility] [id number]) PT-Bed Mobility Assessment Supine to Sit Supine to Sit Moderate Assistance 1 Person Assistance Head of Bed Elevated Scooting Scooting to Edge of Bed Maximum Assistance PT-Transfer Assessment Sit to and From Stand Sit to and from Stand Moderate Assistance 1 Person Assistance Use of Upper Extremities Equipment Transfer Assistive Device Gait Belt Front Wheeled Walker Transfers Transfer Destination Chair Transfer Technique Stand Step Pivot Transfer Ability Level of Assist Maximum Assistance 1 Person Assistance Use of Upper Extremities Comments Mobility Comments posterior lean, greater difficulty moving the LLE vs the RLE for stepping PT-Balance Assessment Sitting Balance and Reactions Static Sitting Balance Ability Good Dynamic Sitting Balance Ability Poor Standing Balance and Reactions Static Standing Balance Ability Poor Dynamic Standing Balance Ability Poor Device Used FWW M5 PT-IP Objective Assessments Start: 11/26/17 12:42 Freq: Status: Active Protocol: Document 11/26/17 11:25 [facility] (Rec: 11/26/17 12:56 [facility] [id number]) Orientation Orientation/Cognition Orientation Birthday Gross Range of Motion Lower Extremity ROM Impairments able to lift B shoulders to > 90 deg of flexion and hold for at least 3 sec. Strength Comments Strength Comments able to lift B shoulders to > 90 deg of flexion and hold for at least 3 sec. Unable to perform MMT due to cognitiion. Coordination Assessment Assessment Coordination Comments difficult to assess, does not follow commands of formal testing. M6 PT-IP Treatment Start: 11/26/17 12:42 Freq: Status: Active Protocol: Document 11/26/17 11:25 RCC (Rec: 11/26/17 12:56 [facility] [id number]) Physical Therapy Treatment Education Education Provided Safety M7 PT-IP Assessment and Plan Start: 11/26/17 12:42 Freq: Status: Active Protocol: Document 11/26/17 11:25 RCC (Rec: 11/26/17 12:56 [facility] [id number]) PT Summary Assessment and Plan Potential Rehabilitation Potential Good Status of Condition at Evaluation Evolving Summary Impairments Strength Balance Cognition Bed Mobility Transfers Assessment Summary Pt with greater difficulty stepping with the L foot compared to the R foot with transfer steps, but unable to perform manual muscle testing on pt due to cognitive status. Pt was able to stand and transfer using a FWW to the chair, with mod to max assist for mobility. At this time the burden of care is too high for the pt's son to safely manage at home, and she would greatly benefit from SNF rehabilitation to progress her mobility and improve strength and function. Pt may need higher level of care once appropriate to d/c from SNF ( likely memory care facility). Goals Bed Mobility Goal Minimal Assistance Transfer Goal Minimal Assistance Front Wheeled Walker Gait Goal Minimal Assistance Front Wheel Walker Gait Distance 10 Frequency of Treatment Frequency Of Treatment Once a Day Treatment Plan Physical Therapy Treatment Plan Bed Mobility Training Transfer Training Gait Training Therapeutic Exercise Balance Retraining Discharge Planning Neuromuscular Re-ed Recommendations To Nursing Amount of Assist Needed 2 Person Assist Discharge Recommendations PT Discharge Recommendations SNF Rehab
[2017-11-26] MEDS: ASPIRIN EC 325 MG TABLET PO (12:19)
[2017-11-26] MEDS: SODIUM CHLORIDE 0.45% 1,000 ML 60 ML IV (13:09)
--- NOTE | 2017-11-26 14:31 | ST.IPIE ---
Visit Care Team Role Provider Type Shellie Philip MD Primary Care Provider Physician Specialty: Internal Medicine Address: [address] [place] [address] Email: Aly Kang DO Emergency Provider Physician Specialty: Emergency Medicine Address: [address] [place] [address] Email: Abilio Burrell MD Admit Provider Physician Attending Provider Specialty: Internal Medicine Address: [address] [place] [address] Email: Past Medical History (Last Reviewed 11/26/17 @ 10:26 by Shellie Philip MD) Dementia (Acute Medical) Broken foot (Acute Medical) 1999, tried to stop a golf cart while rolling away. 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 Medical) A-fib (Acute Medical) Stroke (Acute Medical) in 2002 ST IP Initial Evaulation Report ENGLISH COMPOSITION INSTRUCTOR Clinical Swallow Evaluation Start: 11/26/17 14:09 Freq: Status: Active Protocol: Document 11/26/17 14:09 LNK (Rec: 11/26/17 14:10 [facility] [id number]) Clinical Swallow Evaluation Session Time Visit Start Time 12:00 Visit Stop Time 12:45 Total Visit Minutes 45 Setting Assessment Location Acute Care Visit Type Note Type Initial Evaluation Next Note Type Next Note Type Discharge Summary Patient Information Identification Type Name ID Wristband History 82-year-old female, under the primary care of Dr. Shellie Philip who was admitted to the [facility] yesterday with concern of possible stroke. Patient was noticed to have left-sided weakness and left facial droop yesterday around noon. She was brought to the [facility] Emergency Room. She does have history of atrial fibrillation. 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 Pt indicated that she was hungry. She was able to answer simple questions. She was unable to tell me the names of the family members present. Evaluation Liquids Trialed Ice Chips Thin Solids Trialed Dysphagia Advanced Mechanical Soft Regular Administration Type Tea Spoon Cup Single Sip Controlled Cup Sip Cup Consecutive Sips Straw Oral Impairment WFL Oral Strategies Upright at 90 degrees Dementia Strategies Oral Phase Comments Good bolus formation and control. No oral residue observed. Good lip seal. a left side droop was initially described. During the evaluation there was no observable left side droop or weakness. No pocketing left side. Pt chews her pills. When given a coated aspirin, the pt chewed it nd did not swallow the pill whole. Pharyngeal Impairment WFL Pharyngeal Strategies Sitting Upright (90 deg) Pharyngeal Phase Comments Prompt swallow response with good hyolaryngeal elevation and hyoid excursion. No wet voicing, no cough or throat- clear observed Findings Dysphagia Type No dysphagia noted. Swallow WFL Impressions The pt presented with swallowing WFL. Pt was able to safely tolerate regular diet and thin liquids. She needed 1:1 assisted feeding secondary to cognition. The pt was very distractable, watching her tv, listening to and watching people in the [place] and looking outside. These distractions would interupther chewing and she needed cues to continue to chew/swallow. Diet Recommendations Liquids Order Thin Diet Order Regular Medication Recommendations Crushed Crushed in Carrier Additional Dietary Needs 1:1 Assistance Encourage to Self-Feed Aspiration Precautions Recommended Precautions Upright at 90 Degrees Small Bites/Sips Treatment Plan Placement Recommendations after Financial Administrative Assistant Care Facility Discharge Appropriate for Therapy No ENGLISH COMPOSITION INSTRUCTOR Follow Up n/a
--- NOTE | 2017-11-26 15:47 | CM.DANOTE ---
[facility] Assessment: Primary CG is fausto Jesus- althea [phone] Contacted Harper @ [facility] to consider rehab placement. Informed that pt has only MCR A/B Questions about financial POA- he states writes the checks but no formal document. Informed to f/u with her bank. Plan: F/U w/ [facility] for rehab at [place]. Son will probably need help w/ [facility] jose. F/U to see if JANET contacted him. Continue to support. Daniel Thompson RN
--- NOTE | 2017-11-26 15:55 | PC.NURSE ---
Pt had an elevated bp of 152/118 at approx. 0800. Pt was administered 10mg PRN labetolol. BP dropped to a diastoloc of 101. Pt was further administered morning dose of 100mg metoprolol at approx. 0900. BP's normalized to 123/49 upon reassessment
--- NOTE | 2017-11-26 16:32 | OT.IP.TRT ---
Occupational Therapy Treatment Note M3 OT- IP Subjective and Pain Start: 11/26/17 16:29 Freq: Status: Active Protocol: Document 11/26/17 16:29 [facility] (Rec: 11/26/17 16:32 [facility] [id number]) OT- Subjective Occupational Therapy Visit Type Type Treatment Note Visit Start Time 16:15 Visit Stop Time 16:25 Total Visit Minutes 10 Notes Pt sitting in recliner, pleasant and delayed time to respond to questions. Pt O x name, year , and age. Pt needing increased time and PECHANGA assist for comb to initiate to brush her hair and needing MODA for completeness . Pt able to wash her face after vc cue and wash cloth placed in her hand. Unable to do OT eval, therefore OT eval on Tuesday when OT next available.
--- NOTE | 2017-11-26 17:07 | PC.NURSE ---
patient is A&O to age and being in the hospital. Patient otherwise is very advanced dementia. NIH screen was 17, though this is a difficult task with patient as she has advanced dementia and it is unclear if this is a true scoring. Patient was able to follow some commands but not all, patient was unable to do any of the NIH packet. If asked questions patient will accurately agree to nurse but is not able to accurate articulate correct answers. Patient is up to chair now, dinner has arrived, patient is a one on one feeding to help and monitor for pocketing of food. Patient has a good appetite and will eat meal if assisted. Call light w/ in reach, however, patient does not use w/ needs. Patient's door is left open an patient is located close to nursing station for close monitoring.
[2017-11-26] MEDS: ATORVASTATIN 20 MG TABLET 40 MG PO (20:35)
[2017-11-27] VITALS (9 sets, daily range): BP systolic 118–153; BP diastolic 66–106; PULSE 62–98; RESP 14–20; TEMP 36.1–37.1; O2SAT 92–98
--- NOTE | 2017-11-27 | DI.MRI.S_ITS ---
PROCEDURE: MR HEAD/BRAIN WO CON INDICATIONS: Confusion TECHNIQUE: Non-contrast axial T1 spin echo, axial T2 fast spin echo, sagittal and axial FLAIR, coronal T2 fast spin echo, axial gradient echo, axial diffusion and ADC through the brain. COMPARISON: [facility], CT, CT ANGIO HEAD AND NECK, 11/25/2017, 13:38. [facility], CT, HEAD WITHOUT CONTRAST, 04/19/2017, 14:19. [facility], CT, CT HEAD/BRAIN WO CON, 11/16/2017, 12:14. [facility], MR, BRAIN WITHOUT CONTRAST, 05/12/2016, 15:12. FINDINGS: Image quality: Excellent. CSF spaces: Ventricles appear symmetric in size and shape. Basal cisterns are patent. No extra-axial fluid collections. Brain: No definite acute intracranial bleeds, or mass effects. There is cerebral volume loss for age. There are periventricular and deep white matter chronic small vessel ischemic changes. Brainstem appears normal. Diffusion-weighted images show definite acute ischemic insults involving the right hemisphere, but small in size. These are located superiorly at the right parietal cortex (series 3 image 64) and within the right occipital lobe (series 3 image 58). A more subtle focus is seen within the right posterior temporal occipital junction, series 3 image 56. There is a new finding of hemosiderin deposition or other cause of susceptibility artifact at the deep white matter of the lentiform nuclei medially near the right lateral border of the third ventricle (series 8 image 12). This is posterior to the frontal horn of the right lateral ventricle in an area previously free of such abnormality during MR scanning 05/12/16. A small lacunar infarction involving the posterior margin of the head of the caudate nucleus on the right is again noted. No chronic ischemic insults. Normal intravascular flow voids are present. Skull and face: Calvarial bone marrow is normal in signal. Orbits are normal. Sinuses: Sinuses and mastoids are clear. IMPRESSION: 3 separate disparate foci of acute/subacute ischemic injury are present at the right hemisphere as discussed above, superior parietal cortex, posterior occipital lobe, and right temporal occipital junction. Each of these are small in size, without mass effect. Microembolic disease is the likely cause given the separate vascular distributions involved. Focal hemosiderin deposition or susceptibility artifact has developed within the deep white matter of the right lentiform nuclei, centrally. This was not present in May 2016 but the focus is very small and indeterminate in etiology. No hemorrhagic transformation of the current small foci of acute/subacute ischemic injury is found. Moderate microvascular atherosclerotic change in the deep white matter of each hemisphere. Dictated by: Larry Lord M.D. on 11/28/2017 at 16:23 Approved by: Larry Lord M.D. on 11/28/2017 at 16:32
[2017-11-27] MEDS: LABETALOL 100 MG/20ML MDV 10 MG IV (02:20)
--- NOTE | 2017-11-27 02:46 | PC.NURSE ---
Pt asleep, assumed care of pt from outgoing shift at 2300. Pt woken around 0130 to be changed and assess. Pt unable to comprehend much of NIH scale. needs frequent cueing, and still does not follow directions. unable to assess many items on NIH scale. Pt did squeeze left hand a bit. Patient has a strange tick that she jolts her head forward. Pt repositioned. Pt changed. Pt BP elevated and lebatolol administered per JUN. Pt bed alarm on, side rails upx3. belongings and call light within reach. tolerating fluids well. pt mimics this creative services writer but unable to answer questions. will continue to monitor. bed alarm on. side rails upx3.
[2017-11-27 05:23] LABS: Cholesterol 96 mg/dL (140-199); HDL Cholesterol 38 mg/dL (40-60); LDL Cholesterol Calculated 47 mg/dL (<100); Triglycerides 54 mg/dL (35-150)
[2017-11-27] MEDS: SODIUM CHLORIDE 0.45% 1,000 ML 60 ML IV ×2 (05:54→20:31)
--- NOTE | 2017-11-27 08:50 | PC.NURSE ---
Pt has been unable to completely participate in NIH stroke scale this am most like r/t advanced dementia. She often cannot follow commands and sometimes appears not to register conversation/questions.
--- NOTE | 2017-11-27 09:35 | PT.IPTN ---
Addendum entered and electronically signed by Keith Sepulveda, PT 11/27/17 10:16: BP prior to session in L arm: 120/90 Original Note: Current Diagnoses Cerebral infarction, unspecified (11/25/17) Physical Therapy Treatment Note M2 PT-IP Current Condition Start: 11/26/17 12:42 Freq: Status: Active Protocol: Document 11/26/17 11:25 RCC (Rec: 11/26/17 12:56 [facility] [id number]) Physical Therapy Current Condition Current Condition Evaluation Date 11/26/17 Treatment Diagnosis possible CVA, impaired mobility M3 PT-IP Subjective Start: 11/26/17 12:42 Freq: Status: Active Protocol: Document 11/27/17 09:35 RCC (Rec: 11/27/17 10:16 RCC [id number]) Subjective Physical Therapy Visit Type Type Treatment Note Visit Start Time 09:00 Visit Stop Time 09:35 Total Visit Minutes 35 Number of SAP HANA DEVELOPER Visits 0 Physical Therapy Visit Comments Patient Comments Pt agreeable to get up Therapy Pain Assessment Pain Present Pain Present Denied Pain M4 PT-IP Mobility and Gait Start: 11/26/17 12:42 Freq: Status: Active Protocol: Document 11/27/17 09:35 RCC (Rec: 11/27/17 10:16 RCC [id number]) PT-Bed Mobility Assessment Supine to Sit Supine to Sit Moderate Assistance 1 Person Assistance Scooting Scooting to Edge of Bed Moderate Assistance PT-Transfer Assessment Sit to and From Stand Sit to and from Stand Moderate Assistance 1 Person Assistance Equipment Transfer Assistive Device Gait Belt Front Wheeled Walker Transfers Transfer Destination Chair Bedside Commode Transfer Technique Stand Step Pivot Transfer Ability Level of Assist Maximum Assistance 1 Person Assistance Comments Mobility Comments Initially attempted transfer again with FWW- pt distracted by IV and pulse ox lines, frequent cuing and redirecting . Pt kept attempting to take hands off walker to touch the IV and pulse ox lines, therefore the transfer to chair and BSC and back all occurred with PT in front of pt, no FWW used. Gait Assessment Gait Gait Assistance Required: Maximum Assistance 1 Person Assist Distance (Feet) (feet) 5 Assistive Devices Assistive Device Gait Belt Orthotic/Prosthetic Devices or Brace: No Gait Deviations General Gait Pattern Decreased Stride Length Decreased Feet Clearance Narrow Based Gait Comments Gait Comments PT in front of pt, max assist for anterolateral weight shifting and advancement of lower body for gait. M5 PT-IP Objective Assessments Start: 11/26/17 12:42 Freq: Status: Active Protocol: Document 11/27/17 09:35 RCC (Rec: 11/27/17 10:16 RCC [id number]) Orientation Orientation/Cognition Safety Awareness Decreased Safety Awareness M6 PT-IP Treatment Start: 11/26/17 12:42 Freq: Status: Active Protocol: Document 11/27/17 09:35 RCC (Rec: 11/27/17 10:16 RCC [id number]) Physical Therapy Treatment Education Education Provided Safety M7 PT-IP Assessment and Plan Start: 11/26/17 12:42 Freq: Status: Active Protocol: Document 11/27/17 09:35 RCC (Rec: 11/27/17 10:16 RCC [id number]) PT Summary Assessment and Plan Summary Impairments Strength Balance Cognition Bed Mobility Transfers Gait Activity Tolerance Assessment Summary Pt unable to use a FWW for transfer or gait today, likely due to increased distractions in room environment. Pt had incontinence of bowel and bladder, CANTEEN OPERATOR assisted with pericare after transfer to [facility] . Pt would be unable to care for herself with ADLs without assistance, and right now the burden of care is too high for her son to be able to manage safely. Goals Bed Mobility Goal Minimal Assistance Transfer Goal Minimal Assistance Front Wheeled Walker Gait Goal Minimal Assistance Front Wheel Walker Gait Distance 10 Frequency of Treatment Frequency Of Treatment Once a Day Treatment Plan Other Recommendations and Next Treatment transfers, bed mobility, gait Focus if appropriate Recommendations To Nursing Amount of Assist Needed 2 Person Assist Discharge Recommendations PT Discharge Recommendations SNF Rehab
[2017-11-27] MEDS: CALCIUM CARBONATE 500 MG TAB PO ×2 (09:44→16:19)
[2017-11-27] MEDS: ASCORBIC ACID 500 MG TABLET PO (09:44)
[2017-11-27] MEDS: ASPIRIN EC 325 MG TABLET PO (09:44)
[2017-11-27] MEDS: METOPROLOL 50 MG TABLET 100 MG PO ×2 (09:45→20:31)
[2017-11-27] MEDS: ESCITALOPRAM 10 MG TABLET PO (09:45)
[2017-11-27] MEDS: LOSARTAN 50 MG TABLET 100 MG PO (09:45)
--- NOTE | 2017-11-27 11:09 | CM.DPC ---
DCP Cont: Met with patient and son. Son stated that he would be going by [facility] office tomorrow to get paperwork filled out for [facility] paperwork. Patient has been living at home with son, but he stated that she needs a permanent placement, as is difficult for him to care for her. Stated that he had looked at assisted living facilities that were too expensive, and she could not afford. P: Patient admission status on 11/26. Would need 3 days to qualify for skilled. Plan is to go to [facility], and son is to complete paperwork for [facility]. Arianna Rivero RN/District Court Administrator
--- NOTE | 2017-11-27 12:00 | PM.PN.1 ---
Subjective Date Patient Seen: 11/27/17 Time Patient Seen: 11:45 Exam Vital Signs (past 8 hours): - 11/27/17 05:05 11/27/17 07:20 Temperature 97 F L 98 F Pulse Rate 97 H 98 H Respiratory Rate 14 16 Blood Pressure 149/106 H 123/86 H Pulse Oximetry 95 97 Oxygen Delivery Method Room Air Oxygen Flow Rate 0 Narrative Exam Narrative: GENERAL: Elderly woman in no acute distress. CHEST: Breath sounds equal bilaterally, no wheezes rales or rhonchi. CARDIAC: Irregular rhythm, 2/6 systolic murmur best heard at the left sternal border.no rubs or gallops. ABDOMEN: Soft, nontender. Normoactive bowel sounds all 4 quadrants. No guarding or rebound. EXTREMITIES: Normal range of motion, no clubbing or edema. NEUROLOGICAL: Alert and oriented to self; left-sided facial weakness, she was not lifting her left arm off the chair. Her cessation systems outreach specialist strength was also weak.. She was not lifting both of her legs off the bed, possibly secondary to not able to follow commands.. SKIN: Warm, dry, no petechiae, no rashes or lesions. Objective Labs Result Diagrams: 11/25/17 Unknown 11/25/17 Unknown Labs: Laboratory Results - last 24 hr 11/27/17 04:55 Triglycerides 54 Cholesterol 96 L LDL Cholesterol, Calc 47 HDL Cholesterol 38 L Assessment & Plan Plan: Assessment/Plan Narrative: 1. Probable acute CVA: MRI of the brain is still pending. Continue full-dose aspirin. Atorvastatin was increased from 20 mg once a day to 40 mg once a day. Hhydrochlorothiazide was discontinued. Continue losartan and metoprolol. Continue PT/OT/speech therapy evaluation and treatment. 2. Chronic atrial fibrillation: Her ventricular rate is adequately controlled. She is not currently on anticoagulation due to risk of bleeding and frequent falls. 3. Hypertension: Continue metoprolol and losartan. Hydrochlorothiazide was discontinued on November 26 2017 due to risk of dehydration. Add amlodipine if her blood pressure is not adequately controlled. 4. Hyperlipidemia: Her last lipid panel was done in 2016. Her LDL was 104. Atorvastatin was increased from 20 mg once a day to 40 mg once a day for higher intensity statin treatment. 5. Code status: Do not resuscitate. Code status was discussed with patient's son 6. Disposition: Likely require nursing home facility placement at the time of discharge, possibly in 1-2 days. Quality VTE Deep Vein Thrombosis/Pulmonary Embolism Present on Admission: No
--- NOTE | 2017-11-27 12:05 | P.PN_ITS ---
Subjective Date Patient Seen: 11/27/17 Time Patient Seen: 11:45 Exam Vital Signs (past 8 hours): - 11/27/17 05:05 11/27/17 07:20 Temperature 97 F L 98 F Pulse Rate 97 H 98 H Respiratory Rate 14 16 Blood Pressure 149/106 H 123/86 H Pulse Oximetry 95 97 Oxygen Delivery Method Room Air Oxygen Flow Rate 0 Narrative Exam Narrative: GENERAL: Elderly woman in no acute distress. CHEST: Breath sounds equal bilaterally, no wheezes rales or rhonchi. CARDIAC: Irregular rhythm, 2/6 systolic murmur best heard at the left sternal border.no rubs or gallops. ABDOMEN: Soft, nontender. Normoactive bowel sounds all 4 quadrants. No guarding or rebound. EXTREMITIES: Normal range of motion, no clubbing or edema. NEUROLOGICAL: Alert and oriented to self; left-sided facial weakness, she was not lifting her left arm off the chair. Her driver guard strength was also weak.. She was not lifting both of her legs off the bed, possibly secondary to not able to follow commands.. SKIN: Warm, dry, no petechiae, no rashes or lesions. Objective Labs Result Diagrams: 11/25/17 Unknown 11/25/17 Unknown Labs: Laboratory Results - last 24 hr 11/27/17 04:55 Triglycerides 54 Cholesterol 96 L LDL Cholesterol, Calc 47 HDL Cholesterol 38 L Assessment & Plan Plan: Assessment/Plan Narrative: 1. Probable acute CVA: MRI of the brain is still pending. Continue full-dose aspirin. Atorvastatin was increased from 20 mg once a day to 40 mg once a day. Hhydrochlorothiazide was discontinued. Continue losartan and metoprolol. Continue PT/OT/speech therapy evaluation and treatment. 2. Chronic atrial fibrillation: Her ventricular rate is adequately controlled. She is not currently on anticoagulation due to risk of bleeding and frequent falls. 3. Hypertension: Continue metoprolol and losartan. Hydrochlorothiazide was discontinued on November 26 2017 due to risk of dehydration. Add amlodipine if her blood pressure is not adequately controlled. 4. Hyperlipidemia: Her last lipid panel was done in 2016. Her LDL was 104. Atorvastatin was increased from 20 mg once a day to 40 mg once a day for higher intensity statin treatment. 5. Code status: Do not resuscitate. Code status was discussed with patient's son 6. Disposition: Likely require intermediate facility placement at the time of discharge, possibly in 1-2 days. Quality VTE Deep Vein Thrombosis/Pulmonary Embolism Present on Admission: No
--- NOTE | 2017-11-27 15:50 | PC.NURSE ---
Patient is resting peacfully in bed at this time. Minimal engagement w/ staff during day per day nurse. A&O to self (sometimes) is able to state her age but not much else. Patient denies pain at this time. NIH screen is unobtainable as patient just laughs and will mainly stare at this nurse. Dementia is advanced and it is in this nurses opinion that this is contributing to why patient is not able to perform commands or articulate through NIH packet. I believe that had patient not have such advanced dementia that many commands and task would be accomplished. Patient was really only able to follow commands of squezzing hands and smiling at this nurse otherwise patient just looked at nurse and laughed. Call light w/in reach, bed in low pos. alarm active. Patient to be a 1:1 for eating meals and monitoring for pocketing. Pills to be crushed in carrier, perf. apple sauce.
[2017-11-27] MEDS: ATORVASTATIN 20 MG TABLET 40 MG PO (20:31)
--- NOTE | 2017-11-28 01:09 | PC.NURSE ---
Pt asleep, assumed care of pt from outgoing shift at 2300 7-29. Pt awake, assessment completed and charted. pt knew month of birthday when asked specifically- knew year as well but had a difficult time remembering the day. I started to ask specific dates, when i.e.6th?, 20? 32? ? 16?-- then she interrupted, yeah, it was the . she did know that it was recent that she had a birthday. this speech writer and SOILS ENGINEER were talking about pt's BP as it was elevated and pt states you know, I never used to have this high of blood pressure, I do take medicine, I used to take two pills but now I only take one because it got better, but I don't know (and pt shrugged). able to participate and mimic part of NIH scale (see intervention) - pt seems to not know that she has a left hand/arm, she looks at it as if she doesn't recognize it. Pt does not comprehend the majority of the questions and tasks in order to complete the scale. Pt bed alarm on, side rails upx3. belongings and call light within reach. will continue to monitor. bed alarm on. side rails upx3.
[2017-11-28 03:36] VITALS: BP 140/84; PULSE 66; RESP 20; TEMP 36.7; O2SAT 97
[2017-11-28] MEDS: CALCIUM CARBONATE 500 MG TAB PO ×2 (08:40→17:21)
[2017-11-28] MEDS: ASPIRIN EC 325 MG TABLET PO (08:40)
[2017-11-28] MEDS: ESCITALOPRAM 10 MG TABLET PO (08:40)
[2017-11-28] MEDS: METOPROLOL 50 MG TABLET 100 MG PO ×2 (08:40→20:50)
[2017-11-28] MEDS: LOSARTAN 50 MG TABLET 100 MG PO (08:40)
[2017-11-28] MEDS: ASCORBIC ACID 500 MG TABLET PO (08:40)
--- NOTE | 2017-11-28 10:04 | PC.NURSE ---
Addendum entered by Mae Fontanez R.N. 11/28/17 14:28: neuro - when pt more awake this afternoon, was able to perform smile and able to raise both arms equally without drift, does have l weakness when asked to smile, following basic directions, fed yogurt and took sips boost, does have the exaggerated head/neck movement at times, not just when taking in po, no cough present. Original Note: Addendum entered by Mae Fontanez R.N. 11/28/17 14:02: NEURO - napped this am after breakfast, awoken for lunch, does not want po yet, later brought in boost, continues to have l arm weakness but pt is unable to follow any commands for NIH evaluation. Incont soft stool, sylvain care performed. bed alarm set after repositioning. Original Note: AM NOTE - pt is sitting up in bed, oriented to self only, can follow basic short instructions , I didn't know you were open all night, oriented to hospital, denies discomfort, speech is clear, hr irreg 70, bs coarse 98% ra, doesn't lay still, checked brief, repositioned for breakfast, sat upright, pt has an exaggerated facial movement with swallow, assisted with cues and taking in po, swallows without coughing, slight weakness l ue but pt unable to follow instructions NIH, occupational therapy was at bedside throughout meal.
[2017-11-28 10:15] VITALS: BP 151/97; PULSE 71; RESP 16; TEMP 36.6; O2SAT 98
--- NOTE | 2017-11-28 10:35 | OT.IP.EVAL ---
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 She has not left the home in quite some time, the last 2 times being by ambulance. She is able to stand occasionally with no assitance. Activities of Daily Living and IADL's assistance required. Social History Household Members family Living Arrangements House Number of Floors (Floors) One Floor Number of Stairs To Enter/Railing? 1 step up Home Environment Walk in Shower Tub/Shower Home Equipment Manual Wheelchair Additional Social History Comment son lives with pt, has been 24 /7 caregiver. M1 PT/OT-IP Prior Functional Status Start: 11/26/17 16:29 Freq: NEEDED Status: Active Protocol: Document 11/28/17 10:06 [facility] (Rec: 11/28/17 10:35 [facility] [id number]) Medical Review Prior Functional Status Medical History Reviewed Yes Communication responds to some comments/ questions (h/o Alzheimer's) Mobility and Gait per son, pt using w/c with assistance most days. She has not left the home in quite some time, the last 2 times being by ambulance. She is able to stand occasionally with no assitance. Activities of Daily Living and IADL's assistance required. Social History Household Members family Living Arrangements Apartment/Condo Number of Floors (Floors) One Floor Number of Stairs To Enter/Railing? 1 step up Home Environment Walk in Shower Tub/Shower Home Equipment Manual Wheelchair Additional Social History Comment son lives with pt, has been 24 /7 caregiver. M2 OT-IP Current Condition Start: 11/26/17 16:29 Freq: Status: Active Protocol: Document 11/28/17 10:06 [facility] (Rec: 11/28/17 10:35 [facility] [id number]) Occupational Therapy Current Condition Current Condition Evaluation Date 11/28/17 Treatment Diagnosis Possible CVA/weakness Diagnosis Onset Date 11/25/17 Weight Bearing Status Weight Bearing Status Full Weight Bearing M3 OT- IP Subjective and Pain Start: 11/26/17 16:29 Freq: Status: Active Protocol: Document 11/28/17 10:06 [facility] (Rec: 11/28/17 10:35 [facility] [id number]) OT- Subjective Occupational Therapy Visit Type Type Initial Evaluation Visit Start Time 08:40 Visit Stop Time 09:25 Total Visit Minutes 45 Occupational Therapy Visit Comments Patient Comments Pt cooperative however has trouble follow directions due to dementia. OT Pain Assessment Pain When Pain Assessed At Rest Pain Present Pain Present Denied Pain M4 OT- IP ADL's Start: 11/26/17 16:29 Freq: Status: Active Protocol: Document 11/28/17 10:06 [facility] (Rec: 11/28/17 10:35 [facility] [id number]) OT GNQ-Eceg-[id number] General Evaluation Self-Feeding Ability Moderate Assistance Areas Needing Assistance Opening Containers Comments OT Self-Feeding Comments VC to initiate, at times placement of utensil to start, vc for use of correct utensil as pt noted trying to use left hand to eat versus her right hand , and trying to sip her spoon as forgot that she was eating her yogurt. OT ADL-Grooming General Evaluation Grooming Ability Moderate Assistance Areas Needing Assistance Retrieving/Set-up of Grooming Items Combing/Brushing Hair Comments OT Grooming Comments Pt able to wash her face after set-up of wash cloth. OT ADL-Dressing General Eval Lower Body Dressing Ability Total Assistance Areas Needing Assistance Underpants/Brief Socks OT ADL-Toileting General Evaluation Toileting Ability Total Assistance Areas Needing Assistance Manage Clothing Perform Perineal Hygiene Comments OT Toileting Comments Pt incontinent. Two person , one to stand pt and another for pericare needs. OT ADL-Bathing Bathing Type Bathing Type Sponge Bath General Evaluation Bathing Ability Maximal Assistance Areas Needing Assistance Retrieving/Setting Up Items Wash/Dry Back Wash/Dry Perineal Area Wash/Dry Lower Extremities Comments OT Bathing Comments pt ablee to wash her face, arm , and some of her body after given cues. M6 OT- IP Functional Cognition Start: 11/26/17 16:29 Freq: Status: Active Protocol: Document 11/28/17 10:06 [facility] (Rec: 11/28/17 10:35 [facility] [id number]) Cognitive Factors Limiting Selfcare Function Cognitive Ability Level of Alertness Alert Patient Orientation Name Attention Span Ability Capable of Focused Attention Unable to Focus Unable to Sustain Attention Ability to Follow Commands Able to Follow One Step Commands with Increased Time Able to Follow One Step Commands with Repetition Memory Description Immediate Impaired Short Term Impaired Staff Editor Impaired Working Impaired Safety Awareness Underestimates Need for Assistance Problem Solving Ability Needs Assist to Identify Solutions Cognitive Comments Cognitive Assessment Comments Pt able to state eating breakfast, however 5 minutes later thought she was eating dinner. Pt needing MOD vc for seuquencing through task of eating. Pt will need 24/ asisst if going home. OT- Vision and Hearing OT- Hearing Assessment OT- Hearing Assessment WFL M7 OT- IP Mobility and Balance Start: 11/26/17 16:29 Freq: Status: Active Protocol: Document 11/28/17 10:06 [facility] (Rec: 11/28/17 10:35 [facility] [id number]) OT- Bed Mobility Assessment Rolling Type of Rolling Roll to Left Supine to Sit Supine to Sit Assist Maximum Assistance Sit to Supine Sit to Supine Assist Maximum Assistance Scooting Scooting to Edge of Bed Moderate Assistance OT-Transfer Assessment Sit to and From Stand Sit to and from Stand Maximum Assistance 1 Person Assistance Transfers Transfer Ability Maximum Assistance 2 Person Assistance Technique Transfer Destination Bed Bedside Commode Transfer Technique Stand Step Pivot Devices Transfer Assistive Devices Gait Belt Front Wheeled Walker Comments Mobility Comments Pt tends to lean into posterior tilt and needing NIKOLAI assist to place hands on the walker. OT- Balance Assessment Sitting Balance and Reactions Static Sitting Balance Ability Fair M8 OT- IP Objective Assessments Start: 11/26/17 16:29 Freq: Status: Active Protocol: Document 11/28/17 10:06 [facility] (Rec: 11/28/17 10:35 [facility] [id number]) OT Gross Range of Motion Upper Extremity Range of Motion ROM Impairments Pt AROM RUE 0-90 and LUE 0-80. M9 OT- IP Assessment and Plan Start: 11/26/17 16:29 Freq: Status: Active Protocol: Document 11/28/17 10:06 [facility] (Rec: 11/28/17 10:35 [facility] [id number]) OT Summary Assessment and Plan Potential Rehabilitation Potential Fair Analytic Complexity at Evaluation Low Summary OT Impairments Strength Balance Coordination Functional Cognition Functional Mobility Self-Feeding Grooming Dressing Toileting Bathing Toilet Transfers Shower Transfers Progress Towards Goals Slow Progress due to Activity Tolerance Slow Progress due to Cognition Assessment Summary Pt here for possible CVA, prior has dementia and therefore has difficulty to follow directions and now needing two person assist for all ADL and functional mobility needs. Pt will benefit from SNF. Goals Self-Feeding Goal Minimal Assistance Grooming Goal Minimal Assistance Dressing Goal Moderate Assistance Toilet Transfer Goal Moderate Assistance Patient/Caregiver Education Goal Caregiver Independent Assisting Patient Days to Meet Goals 7 Frequency of Treatment Frequency Of Treatment Once a Day Treatment Plan OT Treatment Plan ADL Training Functional Cognition Training Functional Mobility Patient/Family Education Discharge Planning Other Treatment Recommendations and Next [place] with eating/ Treatment Focus grooming needs. Discharge Recommendations OT Discharge Recommendations SNF Rehab Home Equipment Needs Defer to SNF
[2017-11-28 11:47] VITALS: BMI 20.8
--- NOTE | 2017-11-28 12:05 | CM.DPC ---
DCP Cont: Per PT/OT, still recommending SNF rehab at d/c. Pt was changed to Inpt Status on 11/26/17 and will meet 3 night qualifying stay after midnight tonight. Per RN, pt to have MRI today. [facility] Catrina assessed bedside and confirmed that they can accept the pt at d/c. SW met bedside with pt, who is demented and did not participate in conversation but rested and then smiled, and pt's son Edin and explained role and son confirmed that his preference is [facility] at d/c. Son states that he went down to [facility] and their volunteer was not available today but he also plans to go to the [facility] towards working on Medicaid application that d/c train planner gave him this weekend towards LTC in the near future for the pt. Son also states that his sister, pt's Dtr, will be up to visit from [place] next week and can help with future plans for the pt's needs. SW provided pt's Medicare Rights to the pt's son and he acknowledged understanding and signed her Medicare Message due to pt's dementia. SW completed PASRR. Plan: SW to follow for possible d/c to [facility] tomorrow if medically stable. SW to keep son updated if he is not bedside and son is following through with applying for Medicaid for the pt towards LTC. CJ Henderson
[2017-11-28] MEDS: SODIUM CHLORIDE 0.45% 1,000 ML 60 ML IV (13:46)
[2017-11-28] MEDS: LORazepam 0.5 MG TABLET PO (14:23)
[2017-11-28 15:43] VITALS: BP 117/75; PULSE 63; RESP 16; TEMP 36.7; O2SAT 98
--- NOTE | 2017-11-28 16:49 | PT.IPTN ---
Current Diagnoses Cerebral infarction, unspecified (11/25/17) Physical Therapy Treatment Note M2 PT-IP Current Condition Start: 11/26/17 12:42 Freq: Status: Active Protocol: Document 11/26/17 11:25 [facility] (Rec: 11/26/17 12:56 [facility] [id number]) Physical Therapy Current Condition Current Condition Evaluation Date 11/26/17 Treatment Diagnosis possible CVA, impaired mobility M3 PT-IP Subjective Start: 11/26/17 12:42 Freq: Status: Active Protocol: Document 11/28/17 16:49 MDD (Rec: 11/28/17 16:56 MDD [id number]) Subjective Physical Therapy Visit Type Type Treatment Note Visit Start Time 16:32 Visit Stop Time 16:49 Total Visit Minutes 17 Number of COOK DESSERT Visits 0 Physical Therapy Visit Comments Patient Comments Pt minimally responding to cueing. Does nod her head when asked if she'd like to get up to the chair. M4 PT-IP Mobility and Gait Start: 11/26/17 12:42 Freq: Status: Active Protocol: Document 11/27/17 09:35 [facility] (Rec: 11/27/17 10:16 [facility] [id number]) PT-Bed Mobility Assessment Supine to Sit Supine to Sit Moderate Assistance 1 Person Assistance Scooting Scooting to Edge of Bed Moderate Assistance PT-Transfer Assessment Sit to and From Stand Sit to and from Stand Moderate Assistance 1 Person Assistance Equipment Transfer Assistive Device Gait Belt Front Wheeled Walker Transfers Transfer Destination Chair Bedside Commode Transfer Technique Stand Step Pivot Transfer Ability Level of Assist Maximum Assistance 1 Person Assistance Comments Mobility Comments Initially attempted transfer again with FWW- pt distracted by IV and pulse ox lines, frequent cuing and redirecting . Pt kept attempting to take hands off walker to touch the IV and pulse ox lines, therefore the transfer to chair and BSC and back all occurred with PT in front of pt, no FWW used. Gait Assessment Gait Gait Assistance Required: Maximum Assistance 1 Person Assist Distance (Feet) (feet) 5 Assistive Devices Assistive Device Gait Belt Orthotic/Prosthetic Devices or Brace: No Gait Deviations General Gait Pattern Decreased Stride Length Decreased Feet Clearance Narrow Based Gait Comments Gait Comments PT in front of pt, max assist for anterolateral weight shifting and advancement of lower body for gait. M5 PT-IP Objective Assessments Start: 11/26/17 12:42 Freq: Status: Active Protocol: Document 11/27/17 09:35 [facility] (Rec: 11/27/17 10:16 [facility] [id number]) Orientation Orientation/Cognition Safety Awareness Decreased Safety Awareness M6 PT-IP Treatment Start: 11/26/17 12:42 Freq: Status: Active Protocol: Document 11/28/17 16:49 MDD (Rec: 11/28/17 16:56 MDD [id number]) Physical Therapy Treatment Other Treatments Other Treatment Performed Max A for log roll to left. Pt responding to minimal cues. Max A for supine to sit. Max A x 2 scooting to EOB and mod A x2 for sit to stand. Able to hold onto the walker this day, and shuffle her feet for stand pivot transfer to chair. Mod A x2 to maintain standing due to posterior right lean. Max cueing for stepping and reaching for the recliner before sitting. M7 PT-IP Assessment and Plan Start: 11/26/17 12:42 Freq: Status: Active Protocol: Document 11/28/17 16:49 MDD (Rec: 11/28/17 16:56 MDD [id number]) PT Summary Assessment and Plan Potential Rehabilitation Potential Good Status of Condition at Evaluation Evolving Summary Impairments Cognition Bed Mobility Transfers Gait Progress Towards Goals Slow Progress due to Medical Issues Assessment Summary Pt required max A for all bed mobility and max A x2 for stand pivot transfer, but was able to use walker today. Difficult to lang progress due to minimal response to cues. She should continue to benefit from inpatient therapy to maximize function. Goals Bed Mobility Goal Minimal Assistance Transfer Goal Minimal Assistance Front Wheeled Walker Gait Goal Minimal Assistance Front Wheel Walker Gait Distance 10 Frequency of Treatment Frequency Of Treatment Once a Day Treatment Plan Physical Therapy Treatment Plan Bed Mobility Training Transfer Training Gait Training Therapeutic Exercise Balance Retraining Discharge Planning Neuromuscular Re-ed Other Recommendations and Next Treatment transfers, bed mobility, gait Focus if appropriate Recommendations To Nursing Amount of Assist Needed 2 Person Assist Discharge Recommendations PT Discharge Recommendations SNF Rehab
--- NOTE | 2017-11-28 18:07 | PM.PN.1 ---
Subjective Date Patient Seen: 11/28/17 Time Patient Seen: 14:14 Interval history: History of present illness Follow-up on patient with suspected stroke. MRI today of the brain is pending to be done. Review of systems Patient denies having any chest pain or shortness of breath nor nausea Exam Vital Signs (past 8 hours): - 11/28/17 10:15 11/28/17 15:43 Temperature 98 F 98.1 F Pulse Rate 71 63 Respiratory Rate 16 16 Blood Pressure 151/97 H 117/75 Pulse Oximetry 98 98 Oxygen Delivery Method Room Air Oxygen Flow Rate 0 Const General: cooperative, healthy appearing, comfortable, well developed, well groomed and No acute distress Nutritional Appearance: average body habitus and well nourished Orientation: alert, awake and oriented to person Limitations: altered mental status Chest Chest: normal inspection of the chest, No crepitus and No pacemaker Resp Effort & Inspection: normal respiratory effort, no audible wheezes, no cough, no respiratory distress and no stridor Auscultation: clear to auscultation bilaterally, no rales, no rhonchi and no wheezes Cardio Rate: regular rate Rhythm: abnormal rhythm Heart Sounds: murmur (2/6 systolic murmur noted. ) and no rubs GI Inspection: normal to inspection Palpation: soft, no hepatosplenomegaly and No tender Auscultation: normal bowel sounds Skin General: no rashes or lesions noted Trauma: no lacerations or abrasions Neuro Motor: No strength 5/5 throughout, movement abnormality noted and strength abnormal (left arm strength diminished ) Objective Labs Result Diagrams: 11/25/17 Unknown 11/25/17 Unknown Assessment & Plan Plan: Assessment/Plan Narrative: 1. Probable acute CVA: MRI of the brain to be done today. Continue 325 mg aspirin daily. Atorvastatin increased to 40 mg once a day. Hhydrochlorothiazide was discontinued. Continue losartan and metoprolol continued. Continue physical therapy occupational therapy and speech 2. Chronic atrial fibrillation: Ventricular rate is controlled. Patient is not currently on anticoagulation due to risk of bleeding and frequent falls. 3. Hypertension: Continue metoprolol and losartan. Hydrochlorothiazide was discontinued on November 26 2017 due to risk of dehydration. Add amlodipine if her blood pressure is not adequately controlled. 4. Hyperlipidemia: Her last lipid panel was done in 2016. Her LDL was 104. Atorvastatin was increased to 40 mg once a day for higher intensity statin treatment. Code status: Do not resuscitate, as discussed with patient's son Discharge Planning: [facility] at the time of discharge in 1 to 2 days. Time Spent With Patient Time with patient: 25 - 35 minutes Quality VTE Deep Vein Thrombosis/Pulmonary Embolism Present on Admission: No
[2017-11-28 18:52] VITALS: BP 121/93; PULSE 72; RESP 16; TEMP 36.7; O2SAT 97
[2017-11-28] MEDS: ATORVASTATIN 20 MG TABLET 40 MG PO (20:50)
[2017-11-29] VITALS (7 sets, daily range): BP systolic 104–161; BP diastolic 67–108; PULSE 62–74; RESP 16–19; TEMP 36.1–36.9; O2SAT 93–97
--- NOTE | 2017-11-29 | DI.ECHO.S_ITS ---
[facility] +---------+ : : [address] : : : : [id number] : : : : Phone: [phone]+ Echocardiogram Report + + :Name: SANTOS DAVIES Study Date: 11/29/2017 Height: 69 in : :[facility] Weight: 141 lb : : Gender: Female BSA: 1.8 m2 : :: 1935 Age: 82 yrs BP: 117/75 mmHg: :Reason For Study: CVA : : Performed By: Becky Murphy : :Referring: UNSPECIFIED : + + Interpretation Summary Left ventricular wall thickness is mildly increased. Left ventricular systolic function is normal without focal wall motion abnormalities. The ejection fraction is estimated to be 60-65%. LVEF has not changed. The right ventricle is not well visualized. The right ventricle grossly appears normal in size with probable normal systolic function. The right ventricular systolic pressure is estimated at 34 mmHg assuming a right atrial pressure of 8 mm Hg. The left atrium is severely dilated. The right atrium is severely dilated. Injection of contrast documented no interatrial shunt. The interatrial septum is intact with no evidence for an atrial septal defect. No obvious thrombus for cardiac emoblic stroke but patient does have a-fib which could be the source for CVA. There is moderate aortic valve sclerosis. There is moderate aortic stenosis. The calculated aortic valve area is 1.1 cm2. The peak aortic velocity is 2.6 m/sec. The peak aortic velocity on the previous exam was 2.7 m/sec. This is unchanged compared to the previous study. There is mild to moderate tricuspid regurgitation. There is no other significant valvular heart disease. The aortic root is mildly dilated. The ascending aorta is moderate-severely enlarged which has borderline increased since prior study. The aortic arch is mild-moderately enlarged. Procedure: A two-dimensional transthoracic echocardiogram with color flow and Doppler was performed. The study quality was technically adequate. Comparison is made with the echocardiogram of 04-20-17. The patient was in atrial fibrillation with controlled ventricular rate during the exam. Left Ventricle: The left ventricle is normal in size. Left ventricular wall thickness is mildly increased. Left ventricular systolic function is normal without focal wall motion abnormalities. The ejection fraction is estimated to be 60-65%. Diastolic function could not be accurately assessed due to unobtainable data. Right Ventricle: The right ventricle is not well visualized. The right ventricle grossly appears normal in size with probable normal systolic function. Atria: The left atrium is severely dilated. The right atrium is severely dilated. Injection of contrast documented no interatrial shunt. The interatrial septum is intact with no evidence for an atrial septal defect. Mitral Valve: The mitral valve is grossly normal. There is trace mitral regurgitation. Aortic Valve: There is moderate aortic valve sclerosis. There is moderate aortic stenosis. The calculated aortic valve area is 1.1 cm2. The peak aortic velocity is 2.6 m/sec. The peak aortic velocity on the previous exam was 2.7 m/sec. The aortic valve mean gradient is 14 mmHg. Severity ratio is 0.27. This is unchanged compared to the previous study. There is trace aortic regurgitation. Tricuspid Valve: The tricuspid valve leaflets are thin and pliable. There is mild to moderate tricuspid regurgitation. The right ventricular systolic pressure is estimated at 34 mmHg assuming a right atrial pressure of 8 mm Hg. Pulmonic Valve: The pulmonic valve is normal in structure and function. There is no pulmonic valvular regurgitation. There is no other significant valvular heart disease. Great Vessels: The aortic root is mildly dilated. The ascending aorta is moderate-severely enlarged. The aortic arch is mild-moderately enlarged. The IVC is dilated (diameter is greater than 2.1 cm) yet it collapses greater than 50% with a sniff. This suggests a right atrial pressure of 8 mm Hg. Pericardium/ Pleura There is no pericardial effusion. There is no pleural effusion. MMode/2D Measurements & Calculations LVIDd: 4.6 cm LVOT diam: 2.3 cm LVIDs: 2.8 cm Ao root diam: 3.9 cm FS: 40.1 % Aortic Jxn: 3.8 cm IVSd: 1.2 cm asc Aorta Diam: 5.1 cm LVPWd: 0.94 cm Ao Arch Diam (Prox Trans): 3.7 cm LV cohn. diameter/BSA (cm/m^2): 2.6 LV sys. diameter/BSA (cm/m^2): 1.5 LA dimension: 4.7 cm RA long axis: 6.3 cm LA A2 area: 44.2 cm2 RA area: 30.2 cm2 LA A4 area: 40.4 cm2 RA vol: 123.2 ml LA length (vol): 6.8 cm RA : 69.2 ml/m2 LA vol: 221.8 ml IVC diam: 2.2 cm LA vol index: 124.6 ml/m2 VIJAY (plan): 1.1 cm2 Doppler Measurements & Calculations Ao V2 max: 259.3 cm/sec LVOT Max Lacho: 67.3 cm/sec Ao V2 mean: 174.9 cm/sec LV V1 max P.8 mmHg Ao max P.9 mmHg LV V1 VTI: 12.6 cm Ao mean P.1 mmHg VIJAY(I,D): 1.2 cm2 Ao V2 VTI: 46.6 cm VIJAY(V,D): 1.1 cm2 sev ratio: 0.27 VIJAY indexed to BSA (cm^2/m^2): 0.65 Med Peak E' Lacho: 5.1 cm/sec TR max lacho: 252.3 cm/sec Lat Peak E' Lacho: 7.3 cm/sec TR max P.5 mmHg MV P1/2t: 69.4 msec PA V2 max: 49.4 cm/sec MVA(VTI): 3.8 cm2 PA V2 mean: 31.5 cm/sec PA mean P.47 mmHg PA Accel Time: 0.15 sec MV V2 mean: 32.9 cm/sec MV P1/2t max lacho: 87.2 cm/sec MV mean P.72 mmHg MVA(P1/2t): 3.2 cm2 MV V2 VTI: 14.2 cm Reading Physician:PM
--- NOTE | 2017-11-29 04:15 | PC.NURSE ---
assumed care of pt from outgoing shift at 2300 7-30. Pt asleep and lethargic, difficult to arouse. unable to complete most of NIH scale as pt difficult to arouse, uncooperative and communication barrier. Patient uncooperative with brief change, brief wet with dark colored urine, very strong odor. Iv infusing. tolerating. Pt bed alarm on, side rails upx3. belongings and call light within reach. will continue to monitor.
[2017-11-29] MEDS: CALCIUM CARBONATE 500 MG TAB PO ×2 (08:35→17:07)
[2017-11-29] MEDS: ASPIRIN EC 325 MG TABLET PO (08:35)
[2017-11-29] MEDS: ASCORBIC ACID 500 MG TABLET PO (08:35)
[2017-11-29] MEDS: LOSARTAN 50 MG TABLET 100 MG PO (08:36)
[2017-11-29] MEDS: ESCITALOPRAM 10 MG TABLET PO (08:36)
[2017-11-29] MEDS: METOPROLOL 50 MG TABLET 100 MG PO ×2 (08:36→21:00)
--- NOTE | 2017-11-29 09:41 | PT.IPTN ---
Current Diagnoses Cerebral infarction, unspecified (11/25/17) Physical Therapy Treatment Note M2 PT-IP Current Condition Start: 11/26/17 12:42 Freq: Status: Active Protocol: Document 11/26/17 11:25 RCC (Rec: 11/26/17 12:56 RCC [id number]) Physical Therapy Current Condition Current Condition Evaluation Date 11/26/17 Treatment Diagnosis possible CVA, impaired mobility M3 PT-IP Subjective Start: 11/26/17 12:42 Freq: Status: Active Protocol: Document 11/29/17 09:41 AB (Rec: 11/29/17 10:34 AB [id number]) Subjective Physical Therapy Visit Type Type Treatment Note Visit Start Time 09:41 Visit Stop Time 10:15 Total Visit Minutes 34 Number of PANTOGRAPHER Visits 0 Physical Therapy Visit Comments Patient Comments i am fine Therapy Pain Assessment Pain Present Pain Present Denied Pain M4 PT-IP Mobility and Gait Start: 11/26/17 12:42 Freq: Status: Active Protocol: Document 11/29/17 09:41 AB (Rec: 11/29/17 10:34 AB [id number]) PT-Transfer Assessment Sit to and From Stand Sit to and from Stand Maximum Assistance 1 Person Assistance Use of Upper Extremities Equipment Transfer Assistive Device Bed Rail Front Wheeled Walker Transfers Transfer Destination Toilet Transfer Technique pt ambulated to the toile using FWW Gait Assessment Gait Gait Assistance Required: Maximum Assistance 1 Person Assist Distance (Feet) (feet) 12 Able to Maintain Weight Bearing Status Yes During Gait Assistive Devices Assistive Device Gait Belt Front Wheeled Walker Orthotic/Prosthetic Devices or Brace: No Gait Deviations General Gait Pattern Narrow Based Gait Factors Limiting Gait Function Factors Limiting Gait Function Decreased Activity Tolerance Decreased Strength Difficulty Following Directions Incoordination Poor Balance Poor Safety Awareness Comments Gait Comments pt completed sit to stand max A and max cues pt instructed to ambulate but unable to follow. pt with (+) posterior LOB requiring max A for recovery. instructed pt to sit back down with max cues. pt completed sit to stand again max A and instructed to ambulate in room using FWW completed ~ 5 ft max A and max cues and stated that she needs to use the toilet requiring max A and max cues for ambulated using FWW to the toilet. pt tends to leave walker and put to the side during ambulation. pt educated on safety. pt instructed to turn and sit on the toilet but pt with confusion. provided DESIGN ENGINEER instead to turn and be in front of the toilet max A an max cues. pt required max A for sit to stand from the toilet and nurse assisted with hygiene care. pt ambulated to the chair using FWW max A and max cues. chair alarm on. call light and table placed within reach. pt required max A with ambulation for balance and required assist with weight shifting to take steps. PT-Balance Assessment Standing Balance and Reactions Static Standing Balance Ability Poor Dynamic Standing Balance Ability Poor M5 PT-IP Objective Assessments Start: 11/26/17 12:42 Freq: Status: Active Protocol: Document 11/27/17 09:35 RCC (Rec: 11/27/17 10:16 RCC [id number]) Orientation Orientation/Cognition Safety Awareness Decreased Safety Awareness M6 PT-IP Treatment Start: 11/26/17 12:42 Freq: Status: Active Protocol: Document 11/28/17 16:49 MDD (Rec: 11/28/17 16:56 MDD [id number]) Physical Therapy Treatment Other Treatments Other Treatment Performed Max A for log roll to left. Pt responding to minimal cues. Max A for supine to sit. Max A x 2 scooting to EOB and mod A x2 for sit to stand. Able to hold onto the walker this day, and shuffle her feet for stand pivot transfer to chair. Mod A x2 to maintain standing due to posterior right lean. Max cueing for stepping and reaching for the recliner before sitting. M7 PT-IP Assessment and Plan Start: 11/26/17 12:42 Freq: Status: Active Protocol: Document 11/29/17 09:41 AB (Rec: 11/29/17 10:34 AB [id number]) PT Summary Assessment and Plan Potential Rehabilitation Potential Fair Summary Impairments Pain ROM Strength Balance Coordination Sensation Tone Cognition Bed Mobility Transfers Gait Activity Tolerance Progress Towards Goals Slow Progress due to Medical Issues Slow Progress due to Activity Tolerance Slow Progress - Other Assessment Summary pt required 1-2 person assist with mobility for balance and safety. pt with decrease cognitive level affecting instruction following and mobility. pt will require SNF rehab. Goals Bed Mobility Goal Minimal Assistance Transfer Goal Minimal Assistance Front Wheeled Walker Gait Goal Minimal Assistance Front Wheel Walker Gait Distance 40 Frequency of Treatment Frequency Of Treatment Once a Day Treatment Plan Physical Therapy Treatment Plan Bed Mobility Training Transfer Training Gait Training Therapeutic Exercise Balance Retraining Discharge Planning Neuromuscular Re-ed Other Recommendations and Next Treatment transfers, bed mobility, gait Focus if appropriate Recommendations To Nursing Amount of Assist Needed 2 Person Assist Discharge Recommendations PT Discharge Recommendations SNF Rehab
--- NOTE | 2017-11-29 09:49 | PC.NURSE ---
AM NOTE - awakened for breakfast, incont urine, assist x 2 person up to bsc,brief changed and sylvain care performed, tsf to chair, pt does lean to l side when seated, feet can slide under when standing but with enc did stand briefly and maintain balance before tsf to chair, needs freq cues and has difficulty following directions, can perform some tasks, smile has some l side weakness and she was able to hold out l arm without drift but not equal height to r, uvaldo weakness le and couldn't really follow eval commands, did swallow medications crushed without coughing and speech is clear, solid center winder fed meal, chair alarm set.
[2017-11-29] MEDS: SODIUM CHLORIDE 0.45% 1,000 ML 60 ML IV (10:01)
--- NOTE | 2017-11-29 12:25 | OT.IP.TRT ---
Current Diagnoses Cerebral infarction, unspecified (11/25/17) Occupational Therapy Treatment Note M2 OT-IP Current Condition Start: 11/26/17 16:29 Freq: Status: Active Protocol: Document 11/28/17 10:06 [facility] (Rec: 11/28/17 10:35 [facility] [id number]) Occupational Therapy Current Condition Current Condition Evaluation Date 11/28/17 Treatment Diagnosis Possible CVA/weakness Diagnosis Onset Date 11/25/17 Weight Bearing Status Weight Bearing Status Full Weight Bearing M3 OT- IP Subjective and Pain Start: 11/26/17 16:29 Freq: Status: Active Protocol: Document 11/29/17 12:25 PJM (Rec: 11/29/17 14:08 PJM [id number]) OT- Subjective Occupational Therapy Visit Type Type Treatment Note Visit Start Time 11:54 Visit Stop Time 12:25 Total Visit Minutes 31 Notes Son, Romain, present for part of tx. He reports able to feed self at home with no spilling. Occupational Therapy Visit Comments Patient/Caregiver Goals none verbalized OT Pain Assessment Pain When Pain Assessed After Treatment Pain Present Pain Present Denied Pain M4 OT- IP ADL's Start: 11/26/17 16:29 Freq: Status: Active Protocol: Document 11/29/17 12:25 PJM (Rec: 11/29/17 14:08 PJM [id number]) OT HUS-Mwds-Rqlnhfz General Evaluation Self-Feeding Ability Minimal Assistance Areas Needing Assistance Cutting Food Drinking From Cup/Glass Loading Utensil Opening Containers Comments OT Self-Feeding Comments Pt able to feed self after set up to open containers and cut food. Pt needs intermittent min assist to load utensil near bottom of bowl. Pt exhibited min spilling of food and moderates spilling when drinking from cup. Pt did better with straw and would benefit from cup with lid. Pt is R handed and using R hand to feed self today. OT ADL-Grooming General Evaluation Grooming Ability Standby Assistance Areas Needing Assistance Combing/Brushing Hair Face Washing Comments OT Grooming Comments Pt SBA with mod cues to wash face and hands after meal with fair thoroughness on hands, poor thoroughness on face. Pt combed hair with good thoroughness, spontaneously combing both sides, OT ADL-Oral Care Comments Oral Care Comments No pocketing noted after meal. M6 OT- IP Functional Cognition Start: 11/26/17 16:29 Freq: Status: Active Protocol: Document 11/29/17 12:25 PJM (Rec: 11/29/17 14:08 [facility] [id number]) Cognitive Factors Limiting Selfcare Function Cognitive Ability Level of Alertness Alert Patient Orientation Name Attention Span Ability Capable of Focused Attention Ability to Follow Commands Able to Follow One Step Commands Memory Description Short Term Impaired Problem Solving Ability Unable to Identify Errors Needs Assist to Identify Solutions Executive Function Ability Unable to Filter Distractions Cognitive Comments Cognitive Assessment Comments Pt distractible during meal and needs low stimulation environment during self care tasks. Pt oriented to self and son's name only. She is cooperative and follows one step commands with mild to moderate processing delay noted. M7 OT- IP Mobility and Balance Start: 11/26/17 16:29 Freq: Status: Active Protocol: Document 11/29/17 12:25 PJM (Rec: 11/29/17 14:08 [facility] [id number]) OT- Balance Assessment Sitting Balance and Reactions Static Sitting Balance Ability Poor Comments Other Balance Tests/Deviations/Treatment Pt leaning to left in chair : and unable to self correct, requires pillow for support. Document 11/29/17 12:25 PJM (Rec: 11/29/17 14:08 [facility] [id number]) OT Summary Assessment and Plan Summary OT Impairments Balance Functional Cognition Functional Mobility Self-Feeding Grooming Dressing Toileting Bathing Toilet Transfers Shower Transfers Assessment Summary Per son, pt is not at her baseline level of function for self feeding and grooming. Pt normally leans more to right in her w/c. Pt does not ambulate at home; son propels her w/c. Pt oriented to self only, but is cooperative and follows one step commands after processing delay. Pt currently needs 24 hr assist for safety with higher care needs than her baseline. Recommend SNF vs terminal operations supervisor memory care unit at d/c. Goals Self-Feeding Goal Standby Assistance Grooming Goal Minimal Assistance Dressing Goal Moderate Assistance Toilet Transfer Goal Moderate Assistance Days to Meet Goals 7 Frequency of Treatment Frequency Of Treatment Once a Day Treatment Plan OT Treatment Plan ADL Training Functional Cognition Training Functional Mobility Patient/Family Education Discharge Planning Discharge Recommendations OT Discharge Recommendations SNF Rehab Other Discharge Recommendations vs terminal operations supervisor memory care unit Home Equipment Needs defer to next rehab setting
--- NOTE | 2017-11-29 18:21 | PM.PN.1 ---
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 Review of systems Patient denies have any chest pain or shortness of breath or nausea Exam Vital Signs (past 8 hours): - 11/29/17 15:02 11/29/17 15:15 Temperature 98 F 97.4 F L Pulse Rate 64 71 Respiratory Rate 18 16 Blood Pressure 146/89 H 104/67 Pulse Oximetry 94 Oxygen Delivery Method Room Air Oxygen Flow Rate 0 Narrative Exam Narrative: Const General: cooperative, healthy appearing, comfortable, well developed, well groomed and No acute distress Nutritional Appearance: average body habitus and well nourished Orientation: alert, awake but only oriented to person Limitations: altered mental status Chest: normal inspection of the chest, No crepitus and No pacemaker Resp Effort & Inspection: normal respiratory effort, no audible wheezes, no cough, no respiratory distress and no stridor Auscultation: clear to auscultation bilaterally, no rales, no rhonchi and no wheezes Cardio Rate: regular rate Rhythm: abnormal rhythm Heart Sounds: murmur (2/6 systolic murmur noted. ) and no rubs GI Inspection: normal to inspection Palpation: soft, no hepatosplenomegaly and No tender Auscultation: normal bowel sounds Skin General: no rashes or lesions noted Trauma: no lacerations or abrasions Neuro Motor: No strength 5/5 throughout, movement abnormality noted and strength abnormal (left arm strength diminished ) Objective Labs Result Diagrams: 11/25/17 Unknown 11/25/17 Unknown Assessment & Plan Plan: Assessment/Plan Narrative: 1. 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 Continue 325 mg aspirin daily. Atorvastatin was increased to 40 mg once a day. Hydrochlorothiazide was discontinued. Continuing the losartan and metoprolol. Continue physical therapy occupational therapy and speech 2. Chronic atrial fibrillation: Ventricular rate is controlled. Patient is not currently on anticoagulation due to risk of bleeding and frequent falls. Echo 2D today notes Mod Aortic Valve Stenosis and Mild tricuspid valve regurgitation with right greater than left bi-atrial enlargement. 3. Hypertension: Continue metoprolol and losartan. Hydrochlorothiazide was discontinued on November 26 2017 due to risk of dehydration. Add amlodipine if her blood pressure is not adequately controlled. 4. Hyperlipidemia: Her last lipid panel was done in 2017. Her LDL was 104. Atorvastatin was increased to 40 mg once a day for higher intensity statin treatment. Code status: Do not resuscitate, as discussed with patient's son Discharge Planning: Patient tentatively planned for discharge to half-way facility tomorrow. Time Spent With Patient Time with patient: 25 - 35 minutes Quality VTE Deep Vein Thrombosis/Pulmonary Embolism Present on Admission: No
[2017-11-29] MEDS: ATORVASTATIN 20 MG TABLET 40 MG PO (21:00)
[2017-11-30] MEDS: SODIUM CHLORIDE 0.45% 1,000 ML 60 ML IV (02:33)
[2017-11-30 03:50] VITALS: BP 164/100; PULSE 70; RESP 18; TEMP 36.6; O2SAT 98
[2017-11-30 07:50] VITALS: BP 184/102; PULSE 76; RESP 16; TEMP 36.2; O2SAT 97
--- NOTE | 2017-11-30 08:27 | CM.DPC ---
Addendum entered by Roxann Herron LPN 11/30/17 08:30: Romain noted that he had difficulty understanding documents that were written and needed help with the details. Did provide him with the [employer] Q&A information and encouraged him to look at it and share it with his sister when/if she comes from [place] to assist in this transition for their mother. [employer] [facility] for [facility] care/Aged,Blind,Disabled coverage completed with info currently available. Pt with income limited to social security , $2000 but with a sum of money in an account from long ago divorce settlement. Romain identifies this as $50,000. He will look for documentation of this in paperwork his mother kept in their home. He is aware now that this will need to be used as a spend down before full medicaid will take over. This was faxed: [phone] and fax confirmation receipt received 11/29 3PM. [facility] form was then filled out and faxed to [phone]. Originals given to Romain for his records. Copies will go to the accepting snf for their ongoing followup. Pt will utilize her Medicare benefit for snf rehab as she is not at baseline. She was feeding herself and she has been able to mobilize a bit with therapy. At home Romain confirms she was w/c bound: bed to w/c and then to bathroom or whatever setting in house was next. Pt seemed at ease and pleasant during all interactions yesterday. MARIYA/Catrina is reviewing now after meeting with pt and Romain and discussing with her team. Idea would be [facility] for snf/medicare and then [facility] for mcc care. Alternate plan for snf to LTC at snf was discussed with Romain and encouraged. Referral given to Kate/[facility]. Total of 1.5 hours spend over course of yesterday to set safe and appropriate d/c plan. Original Note: DCP: continued: case received yesterday, EMR reviewed admission to present and met with pt and her son Romain re d/c issues and options. Confirmed early in morning that [facility] had not yet accepted and that Catrina/[facility] would be over later to look at pt and her case due to dementia and need for mcc care after a likely short snf stay. Discussed case in [facility] team meeting with plan set for d/c today if appropriate facility could be found. Sat with Romain and assisted him with the medicaid application.
--- NOTE | 2017-11-30 08:52 | CM.DPC ---
Addendum entered by Roxann Herron LPN 11/30/17 10:36: Received a call from Catrina/[facility] at 1015. She stated that her team did ok pt to come to [facility] and she may be able to stay on group home as currently [facility] does not have any beds. She wanted Romain to know this as an alternative if [facility] does not work out. Met then with Romain when he arrived at 1020 and imparted information. He agrees [facility] He is planning to check in with Kate and her team and to get this mother settled in. He notes he will likely take a job in [place] and does not necessarily intend to stay on in the apt he has shared with his mother. I need to get back to my own life. He is pleased that [facility] is next to [facility]. P: as per below. w/c van service is here now picking pt up. Original Note: Addendum entered by Roxann Herron LPN 11/30/17 09:21: Dr. Ta is working on the d/c to [facility] now. [facility] is faxed. Romain is updated and will be here before 1000 and will go to the snf to get his mother settled in. He said he is glad his mother willl not have to move more that once. MALICK Moreno is updated. P: [facility] today, 1030. Will update [facility] to release the referral. Original Note: DCP: continued: Left for Catrina/[facility] this morning to check on acceptance status and likely d/c today. Spoke now with Kate/[facility]. They can accept. Will start pt on rehab/snf benfit and continue to work closely with Romain and perhaps his sister to complete the medicaid ocean transportation intermediary care process. Kate aware that pt will need to stay on for ongoing care and agreeable to same (has discussed already with her team.). She would like to pick pt up today at 1030 if she is ready to d/c at that time. Will update Dr. Ta and Romain and follow closely.
[2017-11-30] MEDS: CALCIUM CARBONATE 500 MG TAB PO (09:19)
[2017-11-30] MEDS: ASPIRIN EC 325 MG TABLET PO (09:20)
[2017-11-30] MEDS: LOSARTAN 50 MG TABLET 100 MG PO (09:22)
[2017-11-30] MEDS: ESCITALOPRAM 10 MG TABLET PO (09:22)
[2017-11-30] MEDS: METOPROLOL 50 MG TABLET 100 MG PO (09:23)
--- NOTE | 2017-11-30 09:23 | PM.DS.1 ---
History of Present Illness Chief complaint: Stroke Discharge Providers Date of admission: 11/25/17 17:42 Primary care physician: Shellie Philip MD Consults: 11/25/17 18:42 Consult to Dietitian, Adult Routine Comment: Reason For Exam: malnutrition, decreased for age 0711/25/17 19:56 Consult to Discharge Planning Routine Comment: Consult to Occupational Therapy Evaluate & Treat Comment: Physician Instructions: Evaluate and treat Consult to Physical Therapy Evaluate & Treat Comment: Physician Instructions: Evaluate and Treat Consult to Speech Therapy Evaluate & Treat Comment: Physician Instructions: Evaluate and treat 11/25/17 20:55 Consult to Durability Engineer Routine Comment: desires placement in a memory care facility Discharge provider: Jose M Ta MD Summary Discharge Diagnosis: Discharge diagnosis History of atrial fibrillation. Cerebrovascular accident on admission suspected secondary to thromboembolic phenomena from atrial fibrillation Dementia Risk to fall Aortic stenosis, [id number] severity. Status at Discharge Functional status at discharge: wheelchair bound Overall status at discharge: patient is progressing back to baseline Time Spent with Patient Greater than 30 minutes Exam Vital Signs (past 8 hours): - 11/30/17 03:50 11/30/17 07:50 Temperature 97.8 F 97.1 F L Pulse Rate 70 76 Respiratory Rate 18 16 Blood Pressure 164/100 H 184/102 H Pulse Oximetry 98 97 Oxygen Delivery Method Room Air Oxygen Flow Rate 0 Narrative Exam Narrative: Patient is noted awake and alert in no apparent distress pleasantly confused cooperative oriented to self only Respiratory Clear to auscultation no wheezes no crackles Cardiovascular Regular in rate irregular in rhythm consistent with past stable rate controlled AFib GI Soft, nontender and at normal bowel sounds. Objective Labs Result Diagrams: 11/25/17 Unknown 11/25/17 Unknown Discharge Plan Discharge Plan Patient Disposition: SNF Transfer to: [facility] Transportation: [facility] Discharge comment: patient will require manager intermediate placement I certify the postop hospital long term care is medically necessary on a continuing basis for any conditions for which he/ she received care during this hospitalization.: Yes The receiving facility has agreed to accept transfer and provide medical treatment.: Yes Discharge Health Status Brief summary of current health status: pleasantly confused elderly lady. Very cooperative. Provider Discharge Instructions Diet: Diet as Tolerated Liquid consistency: Normal/Thin Food texture: Regular Diet comment: Minimize distractions, sit patient up at 90 degrees, meds crushed. Activity: 2 person assist with FWW and gait belt Other treatments: LUE weak with left facial droop. Special Rehabilitation Services Restrictions to mobility: risk to fall, advanced alzheimers. Discharge Data Primary Care Provider: Shellie Philip Attending Provider: Abilio Burrell Admit Date/Time: 11/25/17 17:42 Quality VTE Deep Vein Thrombosis/Pulmonary Embolism Present on Admission: No
[2017-11-30] MEDS: ASCORBIC ACID 500 MG TABLET PO (09:24)
--- NOTE | 2017-11-30 09:29 | P.DS_ITS ---
History of Present Illness Chief complaint: Stroke Discharge Providers Date of admission: 11/25/17 17:42 Primary care physician: Shellie Philip MD Consults: 11/25/17 18:42 Consult to Dietitian, Adult Routine Comment: Reason For Exam: malnutrition, decreased for age 0711/25/17 19:56 Consult to Discharge Planning Routine Comment: Consult to Occupational Therapy Evaluate & Treat Comment: Physician Instructions: Evaluate and treat Consult to Physical Therapy Evaluate & Treat Comment: Physician Instructions: Evaluate and Treat Consult to Speech Therapy Evaluate & Treat Comment: Physician Instructions: Evaluate and treat 11/25/17 20:55 Consult to Power Plant Operations Manager Routine Comment: desires placement in a memory care facility Discharge provider: Jose M Ta MD Summary Discharge Diagnosis: Discharge diagnosis History of atrial fibrillation. Cerebrovascular accident on admission suspected secondary to thromboembolic phenomena from atrial fibrillation Dementia Risk to fall Aortic stenosis, [id number] severity. Status at Discharge Functional status at discharge: wheelchair bound Overall status at discharge: patient is progressing back to baseline Time Spent with Patient Greater than 30 minutes Exam Vital Signs (past 8 hours): - 11/30/17 03:50 11/30/17 07:50 Temperature 97.8 F 97.1 F L Pulse Rate 70 76 Respiratory Rate 18 16 Blood Pressure 164/100 H 184/102 H Pulse Oximetry 98 97 Oxygen Delivery Method Room Air Oxygen Flow Rate 0 Narrative Exam Narrative: Patient is noted awake and alert in no apparent distress pleasantly confused cooperative oriented to self only Respiratory Clear to auscultation no wheezes no crackles Cardiovascular Regular in rate irregular in rhythm consistent with past stable rate controlled AFib GI Soft, nontender and at normal bowel sounds. Objective Labs Result Diagrams: 11/25/17 Unknown 11/25/17 Unknown Discharge Plan Discharge Plan Patient Disposition: SNF Transfer to: [facility] Transportation: [facility] Discharge comment: patient will require substance abuse therapist placement I certify the postop hospital nursing home care is medically necessary on a continuing basis for any conditions for which he/ she received care during this hospitalization.: Yes The receiving facility has agreed to accept transfer and provide medical treatment.: Yes Discharge Health Status Brief summary of current health status: pleasantly confused elderly lady. Very cooperative. Provider Discharge Instructions Diet: Diet as Tolerated Liquid consistency: Normal/Thin Food texture: Regular Diet comment: Minimize distractions, sit patient up at 90 degrees, meds crushed. Activity: 2 person assist with FWW and gait belt Other treatments: LUE weak with left facial droop. Special Rehabilitation Services Restrictions to mobility: risk to fall, advanced alzheimers. Discharge Data Primary Care Provider: Shellie Philip Attending Provider: Abilio Burrell Admit Date/Time: 11/25/17 17:42 Quality VTE Deep Vein Thrombosis/Pulmonary Embolism Present on Admission: No
--- NOTE | 2017-11-30 10:03 | PC.NURSE ---
Pt unable to participate fully in NIH scale assessment. Left sided facial droop present and LUE weakness greater than RUE. Pt is oriented to her name only when prompted but cannot answer any other questions or follow other commands at this time. She smiles and is interactive with staff.
--- NOTE | 2017-11-30 11:34 | PC.NURSE ---
Pt was discharged from [facility] and transported out of the hospital via wheelchair by [facility] transport staff. Report was called and attempt made nurse to nurse but [facility] RN was not available. [facility] nurses station number was left for receiving RN.
== END 2017-11-30 10:30 | DRG 65 ==
LOC: ED 16:31 → AC 11-26 07:22
PROVIDERS: Admitting Provider Internal Medicine; Emergency Provider Emergency Medicine; PCP Internal Medicine; Visit Provider Internal Medicine
DX: I63.8 Other cerebral infarction (principal); G81.94 Hemiplegia, unspecified affecting left nondominant side; E44.0 Moderate protein-calorie malnutrition; R29.810 Facial weakness; I48.2 Chronic atrial fibrillation; I10 Essential (primary) hypertension; E78.5 Hyperlipidemia, unspecified; F03.90 Unspecified dementia, unspecified severity, without behavioral disturbance, psychotic disturbance, mood disturbance, and anxiety; Z66 Do not resuscitate; R29.712 NIHSS score 12; I35.0 Nonrheumatic aortic (valve) stenosis
CPT/HCPCS: 36415; 36591; 36592; 70496; 70498; 70551; 80048; 80061; 81003; 81015; 82962; 84484; 85025; 85610; 85730; 87086; 92610; 93005; 93041; 93306; 94762; 97162; 97165; 97530; 97535; 99283; 99285; J7050; Q9967

== ENCOUNTER 2019-02-06 09:37 | Emergency (ER) | payer MEDICARE, SELFPAY ==
[2019-02-06 09:40] VITALS: BP 187/98; PULSE 60; RESP 16; TEMP 36.1; O2SAT 97
--- NOTE | 2019-02-06 09:48 | ED_ITS ---
HPI - Head Injury General Chief complaint: Wound/Laceration Stated complaint: fell hit head back laceration/blood thinners today Time Seen by Provider: 02/06/19 09:45 Source: patient and family Mode of arrival: Wheelchair Limitations: no limitations History of Present Illness HPI Narrative: 83-year-old female nonsmoker with history of hyperlipidemia and atrial fibrillation on Coumadin presents with her son (gastroenterology physician after a ground level fall in which she suffered a small laceration on her scalp. She has full recall and denies any loss some consciousness nor nausea or vomiting. She is acting at her baseline per her son. She is activated as a modified trauma given head injury on Coumadin. She denies any other injury. She has no chest pain or shortness of breath. Related Data Home Medications Medication Instructions Recorded Confirmed ascorbic acid (vitamin C) 500 mg PO QDAY #0 04/19/17 11/25/17 escitalopram oxalate [Lexapro] 10 mg PO QDAY #0 04/19/17 11/25/17 losartan-hydrochlorothiazide 1 tab PO QDAY #0 04/19/17 11/25/17 [Hyzaar] calcium carbonate [Calcium 500] 1 tab PO BIDWM 11/25/17 11/25/17 Previous Rx's Medication Instructions Recorded metoprolol tartrate 100 mg PO BID #60 tab 04/22/17 aspirin 325 mg PO DAILY #90 tab 11/30/17 atorvastatin [Lipitor] 40 mg PO BEDTIME #30 tab 11/30/17 Allergies Allergy/AdvReac Type Severity Reaction Status Date / Time No Known Drug Allergies Allergy Verified 11/25/17 14:32 Review of Systems Constitutional Constitutional: Denies chills, Denies fatigue, Denies fever(s), Denies frequent falls, Denies lethargy and Denies weakness Eyes Eyes: Denies change in vision, Denies eye discharge, Denies irritation and Denies loss of vision ENT Ears, Nose, Mouth, and Throat: Denies change in voice, Denies dizziness, Denies neck pain, Denies sore throat and Denies throat swelling Cardiovascular Cardiovascular: Denies chest pain, Denies irregular heart rhythm, Denies lightheadedness, Denies palpitations, Denies dyspnea, Denies dyspnea on exertion and Denies orthopnea Respiratory Respiratory: Denies cough, Denies dyspnea, Denies dyspnea on exertion and Denies wheezing Gastrointestinal Gastrointestinal: Denies abdominal pain, Denies change in bowel habits, Denies diarrhea, Denies nausea and Denies vomiting Genitourinary Genitourinary: Denies hematuria, Denies flank pain, Denies urinary incontinence and Denies urinary urgency Musculoskeletal Musculoskeletal: Denies back pain, Denies muscle weakness, Denies neck pain, Denies numbness and Denies tingling Integumentary/Breasts Skin/Breast: Denies pruritus, Denies erythema, Denies rash and Reports wounds Neurologic Neurologic: Denies behavioral changes, Denies confusion, Denies dizziness, Denies frequent falls, Denies loss of vision, Denies numbness, Denies tingling and Denies weakness Psychiatric Psychiatric: Denies anxiety, Denies behavioral changes, Denies confusion, Denies depression, Denies homicidal ideation and Denies suicidal ideation Endocrine Endocrine: Denies fatigue, Denies flushing and Denies palpitations Hematologic/Lymphatic Hematologic/Lymphatic: Denies easy bruising Allergic/Immunologic Allergic/Immunologic: Denies urticaria, Denies throat swelling and Denies wheezing [facility] Social History household members: family Smoking Status: Never smoker alcohol intake: never Social History household members: family Smoking Status: Never smoker alcohol intake: never Exam Narrative Exam Narrative: GENERAL he 3 year old patient appears stated age. Well- nourished, well-developed patient, in mild distress. GCS 15 HEAD: 1 cm scalp laceration without active bleeding, no depressed skull fracture EYES: Pupils equal round and reactive. Extraocular motions intact. No scleral icterus. No injection or drainage. ENT: Nose without bleeding, purulent drainage. Throat without erythema, tonsillar hypertrophy or exudate. Airway patent. NECK: Trachea midline. Non tender CARDIOVASCULAR: Regular rate and rhythm without murmurs, gallops, or rubs. RESPIRATORY: Clear to auscultation. Breath sounds equal bilaterally. No wheezes, rales, or rhonchi. GASTROINTESTINAL: Abdomen soft, non-tender, nondistended. EXTREMITIES: No edema or joint tenderness. BACK: Nontender without deformity or crepitance. No flank tenderness. NEURO: AOx3. At her baseline per son SKIN: No rash or erythema of visible areas Initial Vital Signs Initial Vital Signs: Vital Signs Temperature 97 F L 02/06/19 09:40 Pulse Rate 60 02/06/19 09:40 Respiratory Rate 16 02/06/19 09:40 Blood Pressure 187/98 H 02/06/19 09:40 Pulse Oximetry 97 02/06/19 09:40 Procedures Laceration Repair Laceration 1: Site: scalp Size (cm): 1 Description: linear Depth: simple, single layer Pre-repair: wound explored Skin layer closed with: jorge Course Vital Signs Vital signs: Vital Signs - 8 hr 02/06/19 09:40 Temperature 97 F L Pulse Rate 60 Respiratory Rate 16 Blood Pressure 187/98 H Pulse Oximetry 97 MDM - Head Injury MDM Narrative Medical decision making narrative: Patient's son and DPOA refuses CT scan and labs despite extensive discussion of risks and benefits. He understands that being on Coumadin puts her at a much higher risk for intracranial hemorrhage. He understands this risk could include permanent disability or . He states he understands this but she is acting at her baseline and her fall was very minimal and she actually hit her head on a basket not the floor or the wall. He has had extensive return precautions given and understands that he should return immediately if he changes his mind or for any change in symptoms Discharge Plan Departure Patient Disposition: Home Clinical Impression: Laceration of scalp Qualifiers: Encounter type: initial encounter Qualified Code(s): S01.01XA - Laceration without foreign body of scalp, initial encounter Discharge Date/Time: 02/06/19 10:00 Instructions: DI for Laceration Repair -- [place] Activity Restrictions/Additional Instructions: *You have been diagnosed with [scalp laceration from fall with head injury on Coumadin.] *What to do: * Please keep the wound clean and dry to the best of your ability. Please monitor for signs of infection such as redness to the skin or increasing pain. Have the sutures removed by your doctor in about 7 days. If you are unable to get into your doctor, we would be happy to remove the sutures in that same timeframe. *Return to ER if you should have any new, worsening or concerning symptoms, such as [vomiting, acting different than normal, stroke-like symptoms such as numbness, weakness or tingling. It was my strong recommendation to perform head CT and obtain blood work to evaluate Coumadin level. As we discussed by not performing this test we cannot rule out bleeding in her brain, she is at a much higher risk given the use of blood thinners. If you change her mind or have any questions please feel free to return immediately for the above-stated test] Prescriptions: No Action escitalopram oxalate [Lexapro] 10 MG tablet 10 mg PO QDAY Qty: 0 RF: 0 losartan-hydrochlorothiazide [Hyzaar] 100 MG/25 MG tablet 1 tab PO QDAY Qty: 0 RF: 0 ascorbic acid (vitamin C) 500 MG tablet 500 mg PO QDAY Qty: 0 RF: 0 metoprolol tartrate 50 MG tablet 100 mg PO BID Qty: 60 RF: 0 calcium carbonate [Calcium 500] 500 mg calcium (1,250 mg) Tablet 1 tab PO BIDWM RF: 0 atorvastatin [Lipitor] 20 mg Tablet 40 mg PO BEDTIME Qty: 30 RF: 0 aspirin 325 mg Tablet,Delayed Release (Dr/Ec) 325 mg PO DAILY Qty: 90 RF: 0 Referrals: Shellie Philip MD [Primary Care Provider] -
--- NOTE | 2019-02-06 10:22 | PC.NURSE ---
0940: md at bedside spoke with pt and pt son regarding care and what we would do with pts with falls/ and on blood thinner. son refused ct scan and blood work. said he takes care of her and will watch her. md spoke with them again to make sure he and she understood. and they did and still refused.
--- NOTE | 2019-02-06 10:35 | PC.NURSE ---
bleeding controlled/ jorge x 2 by
== END 2019-02-06 10:00 | disposition home or self-care (01) ==
LOC: ED 10:02
PROVIDERS: Emergency Provider Emergency Medicine; PCP Internal Medicine
DX: S01.01XA Laceration without foreign body of scalp, initial encounter (principal); W18.30XA Fall on same level, unspecified, initial encounter
CPT/HCPCS: 12001; 99283

== ENCOUNTER → 2019-02-15 14:44 | Outpatient (ROUT) | payer MEDICARE, SELFPAY ==
[2019-02-15 15:01] LABS: BUN Creatinine Ratio 38.6 (6-22); Blood Urea Nitrogen 27 mg/dL (7-17); Calcium 9.7 mg/dL (8.4-10.2); Carbon Dioxide 30 mmol/L (22-32); Chloride 105 mmol/L (98-107); Cholesterol 104 mg/dL (140-199); Estimated Glomerular Filt Rate > 60.0 mL/min (>60); Glucose 106 mg/dL (80-110); HDL Cholesterol 33 mg/dL (40-60); HEMOLYSIS < 15 (0-50); LDL Cholesterol Calculated 54 mg/dL (<100); Potassium 3.9 mmol/L (3.4-5.1); Sodium 142 mmol/L (137-145); Triglycerides 83 mg/dL (35-150)
[2019-02-15 15:09] LABS: Alanine Aminotransferase 1148 IU/L (9-52); Aspartate Aminotransferase 1128 IU/L (14-36)
== END ==
PROVIDERS: PCP Internal Medicine; Visit Provider Internal Medicine
DX: E78.5 Hyperlipidemia, unspecified (principal); I10 Essential (primary) hypertension
CPT/HCPCS: 80048; 80061; 84450; 84460

== ENCOUNTER 2019-02-18 17:14 | Inpatient (IN) | payer MEDICARE, SELFPAY ==
[2019-02-18] VITALS (10 sets, daily range): BP systolic 148–178; BP diastolic 104–127; PULSE 83–98; RESP 12–22; TEMP 36.6; O2SAT 94–97
--- NOTE | 2019-02-18 17:33 | DI.CT.S_ITS ---
PROCEDURE: CT HEAD/BRAIN WO CON INDICATIONS: aloc TECHNIQUE: Noncontrast 4.5 mm thick angled axial sections acquired from the foramen magnum to the vertex, with coronal and sagittal reformats. For radiation dose reduction, the following was used: automated exposure control, adjustment of mA and/or kV according to patient size. COMPARISON: [facility], CT, CT HEAD/BRAIN WO CON, 11/16/2017, 12:14. FINDINGS: Image quality: Excellent. CSF spaces: Basal cisterns are patent. No extra-axial fluid collections. The ventricles are unchanged in size and shape. There is [id number] cerebral volume loss, with resultant ventricular and sulcal prominence. Brain: No intracranial hemorrhage, mass, or mass effect. There are subcortical, periventricular and deep white matter hypodensities consistent with moderate chronic small vessel ischemic changes. A focal hypodensity is also redemonstrated within the right basal ganglia consistent with a prior lacunar infarct. There is intracranial internal carotid artery atherosclerosis. Skull and face: Calvarium and visualized facial bones appear intact, without suspicious lesions. Sinuses: Visualized sinuses and mastoids are clear. IMPRESSION: 1. No definite acute intracranial abnormality. 2. Moderate chronic white matter small vessel ischemic changes and mild to moderate cerebral volume loss. Dictated by: Piero Cook M.D. on 02/18/2019 at 19:21 Approved by: Piero Cook M.D. on 02/18/2019 at 19:23
--- NOTE | 2019-02-18 17:33 | DI.RAD.S_ITS ---
PROCEDURE: XR CHEST 1V INDICATIONS: cough, confusion TECHNIQUE: One view of the chest was acquired. COMPARISON: [facility], , CHEST 1 VIEW, 04/19/2017, 14:09. FINDINGS: Surgical changes and devices: None. Lungs and pleura: There are confluent increased left retrocardiac opacities consistent with consolidation/or atelectasis. A small left pleural effusion is demonstrated. Mild perihilar pulmonary vascular prominence is suggestive of mild edema. No pneumothorax. Mediastinum: Mediastinal contours appear unchanged. Heart size is enlarged. Bones and chest wall: No suspicious bony lesions. Overlying soft tissues appear unremarkable. IMPRESSION: 1. Small left pleural effusion with left retrocardiac atelectasis or consolidation. Given patient's history of cough, the findings may reflect pneumonia. 2. Perihilar pulmonary vascular prominence may reflect mild edema. Dictated by: Piero Cook M.D. on 02/18/2019 at 19:51 Approved by: Piero Cook M.D. on 02/18/2019 at 19:53
[2019-02-18 17:46] LABS: Add Manual Diff / Slide Review NO; Basophils Absolute Auto 0 /uL (0-100); Basophils Percent Auto 0.4 % (0-2); Eosinophils Absolute Auto 0 /uL (0-450); Eosinophils Percent Auto 0.4 % (2-4); Hematocrit 40.8 % (36-46); Hemoglobin 13.3 g/dL (12.0-16.0); Lymphocytes Absolute Auto 1600 /uL (1100-4500); Lymphocytes Percent Auto 20.8 % (25-40); Mean Corpuscular HGB Conc 32.6 % (30-36); Mean Corpuscular Hemoglobin 27.8 PG (26-34); Mean Corpuscular Volume 85.4 fL (80-100); Monocytes Absolute Auto 1100 /uL (0-900); Monocytes Percent Auto 15.2 % (3-14); Neutrophils Absolute Auto 4800 /uL (1500-7000); Neutrophils Percent Auto 63.2 % (50-75); Platelet Count 104 X10^3/uL (150-400); Red Blood Cell Count 4.77 X10^6/uL (4.0-5.2); Red Cell Distribution Width 15.5 % (11.6-14.8); White Blood Cell Count 7.6 X10^3/uL (4.5-11.0)
[2019-02-18 17:58] LABS: Albumin 3.8 g/dL (3.5-5.0); Albumin Globulin Ratio 1.1 (1.0-2.8); Alkaline Phosphatase 385 U/L (38-126); BUN Creatinine Ratio 35.7 (6-22); Bilirubin Total 1.9 mg/dL (0.2-1.3); Blood Urea Nitrogen 25 mg/dL (7-17); Calcium 9.3 mg/dL (8.4-10.2); Carbon Dioxide 26 mmol/L (22-32); Chloride 102 mmol/L (98-107); Estimated Glomerular Filt Rate > 60.0 mL/min (>60); Globulin 3.6 g/dL (1.7-4.1); Glucose 201 mg/dL (80-110); HEMOLYSIS < 15 (0-50); Potassium 3.5 mmol/L (3.4-5.1); Sodium 139 mmol/L (137-145); Total Protein 7.4 g/dL (6.3-8.2)
[2019-02-18 18:07] LABS: Alanine Aminotransferase 1149 IU/L (9-52); Aspartate Aminotransferase 1063 IU/L (14-36)
--- NOTE | 2019-02-18 18:09 | DI.US.S_ITS ---
PROCEDURE: US ABDOMEN LIMITED INDICATIONS: TRANSAMINITIS TECHNIQUE: Real-time focused scanning was performed of the right upper quadrant, with image documentation. COMPARISON: None. FINDINGS: The liver appears increased in echogenicity suggestive of fatty infiltration. There is a small cyst in the right hepatic lobe measuring up to 5 mm. Gallbladder demonstrates no gallstones, gallbladder wall thickening, or pericholecystic fluid. No intra-or extrahepatic biliary ductal dilatation. The visualized common bile duct measures up to 3 mm. The pancreas appears within normal limits sonographically. The right kidney measures up to 10.4 cm in length. No hydronephrosis. There are a few right renal cysts with the largest measuring up to 2.6 cm in the superior pole. IMPRESSION: 1. Increased hepatic echogenicity suggestive of steatosis. 2. No evidence of cholelithiasis or cholecystitis. 3. No biliary ductal dilatation. Dictated by: Piero Cook M.D. on 02/18/2019 at 20:22 Approved by: Piero Cook M.D. on 02/18/2019 at 20:26
[2019-02-18] MEDS: SODIUM CHLORIDE 0.9% 1,000 ML 1000 ML IV (18:20)
[2019-02-18 18:29] LABS: Appearance Urine UA SL CLOUDY; Bilirubin Urine UA NEGATIVE (NEGATIVE); Color Urine UA YELLOW; Glucose Urine UA TRACE g/dL (Negative); Ketones Urine UA NEGATIVE (NEGATIVE); Leukocyte Esterase Urine UA TRACE (NEGATIVE); Nitrite Urine UA NEGATIVE (Negative); Occult Blood Urine UA 1+ (Negative); Protein Urine UA TRACE (Negative)
[2019-02-18 18:37] LABS: Bacteria Urine Many (>30); Culture Indicated Urine Specimen Cultured; Mucus Urine 2+ (Negative); RBC Urine 1-5/HPF (0-5/HPF); Squamous Epithelial Cell Urine 1-5 /HPF (0-5/HPF); Transitional Epi Cells Urine 1-5/HPF (0-5/HPF); WBC Urine 1-5/HPF (0-5/HPF)
--- NOTE | 2019-02-18 18:56 | ED_ITS ---
HPI - Weakness <Remedios Ritter MD - Last Filed: 02/18/19 19:54> General Chief complaint: Weakness Stated complaint: Lethargic several days Time Seen by Provider: 02/18/19 17:18 Source: family and EMS Mode of arrival: Ambulatory Limitations: altered mental status History of Present Illness HPI Narrative: Patient is brought to the emergency department after her son called EMS because the patient ?was not acting right?. Son states that the patient had a ?mini-stroke? a couple of weeks ago, and at that time, was seen in the emergency department. Patient was admitted to the hospital and then discharged per son, and followed up in clinic several days ago with her primary care physician. Laboratory studies were done at that time, but son does not know the results. He states that the patient has ?mini strokes? ?all the time?. He characterizes these events as periods of the patient not acting as responsive as usual. Son states that he was told that the patient has ?something wrong with her liver? but he is not sure what. He denies any indication of pain on the patient's part. He states she has not seem to want to eat as much as usual lately. He denies fevers. The patient normally is oriented to self and occasionally to her son, but does not know where she is or what the date is. She needs help with all of her ADLs, and even needs assistance to walk. The son states that he has not put her in assisted living because of the expense. Patient had 2 jorge removed from her head yesterday after sustaining a scalp laceration about 12 days ago, and these were removed ye sterday. Son is not aware of any new trauma, though medics noted that the wound was oozing some blood. The son states that the patient was on Coumadin, but she was taken off several days ago. He is not certain why. Patient is still on aspirin. No other complaints at this time. Related Data Home Medications Medication Instructions Recorded Confirmed ascorbic acid (vitamin C) 500 mg PO QDAY #0 04/19/17 11/25/17 escitalopram oxalate [Lexapro] 10 mg PO QDAY #0 04/19/17 11/25/17 losartan-hydrochlorothiazide 1 tab PO QDAY #0 04/19/17 11/25/17 [Hyzaar] calcium carbonate [Calcium 500] 1 tab PO BIDWM 11/25/17 11/25/17 Previous Rx's Medication Instructions Recorded metoprolol tartrate 100 mg PO BID #60 tab 04/22/17 aspirin 325 mg PO DAILY #90 tab 11/30/17 atorvastatin [Lipitor] 40 mg PO BEDTIME #30 tab 11/30/17 Allergies Allergy/AdvReac Type Severity Reaction Status Date / Time No Known Drug Allergies Allergy Verified 11/25/17 14:32 Review of Systems <Remedios Ritter MD - Last Filed: 02/18/19 19:54> Review of Systems ROS Unobtainable: Unobtainable due to mental condition Patient History <Remedios Ritter MD - Last Filed: 02/18/19 19:54> Medical History A-fib (Acute) Broken foot (Acute) 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 There is a mild amount of fluctuance associated with the wound. No induration or obvious eryth tina. No new wound. Initial Vital Signs Initial Vital Signs: Vital Signs Temperature 97.9 F 02/18/19 17:24 Pulse Rate 98 H 02/18/19 17:24 Respiratory Rate 20 02/18/19 17:24 Blood Pressure 178/104 H 02/18/19 17:24 Pulse Oximetry 97 02/18/19 17:24 Const Nutritional Appearance: thin Orientation: awake and confused [facility] Head: normocephalic and laceration (See above) Ears: external ears normal Nose: external nose normal and No nasal discharge Face and sinus: face symmetric and No dry mucous membranes Mouth: oral mucosae normal and moist mucous membranes Teeth and gingiva: dentition normal Eyes General: appearance normal, both eyes and all related structures Eyelids: eyelids normal Conjunctivae: conjunctivae normal Sclera: sclerae normal Pupils: PERRL EOM: EOM intact bilaterally Neck Neck: normal visual inspection, trachea midline, No lymphadenopathy, No midline deformity and No JVD Lymphatic: No lymphedema Chest Chest: normal inspection of the chest Resp Effort & Inspection: normal respiratory effort, able to speak in complete sentences, no respiratory distress and no use of accessory muscles Auscultation: clear to auscultation bilaterally, no rales, no rhonchi and no wheezes Cardio Rate: regular rate Rhythm: regular rhythm Heart Sounds: no click, no gallops, no murmurs and no rubs Pulses: normal peripheral pulses GI Inspection: non-distended Palpation: soft, no hepatosplenomegaly, No guarding, No pulsatile mass and No tender Back/Spine/Pelvis Back: No CVA tenderness Cervical Spine: cervical ROM normal and No pain with cervical ROM Thoracic/Lumbar Spine: thoracic and lumbar spine normal to inspection Skin General: no rashes or lesions noted, No jaundice and No petechiae Neuro General: awake and no focal motor deficits Cranial Nerves: CN's II-XI intact bilaterally Cognition: abnormal cognition (Confused, minimally verbal) Motor: muscle tone normal throughout Other: Patient responds to her name and says ?yes??, but otherwise, is not able to answer any questions. When not stimulated, she has a vacant stare and repeatedly nods her head. Extrem General: full ROM, no clubbing, cyanosis or edema, no pedal edema and no calf tenderness Psych Appearance: well kempt Mental Status: mental status grossly normal Attitude: cooperative Thought Content: normal and suicidality Judgment: judgment good <Alexia Flores DO - Last Filed: 02/18/19 23:52> Initial Vital Signs Initial Vital Signs: Vital Signs Temperature 97.9 F 02/18/19 17:24 Pulse Rate 98 H 02/18/19 17:24 Respiratory Rate 20 02/18/19 17:24 Blood Pressure 178/104 H 02/18/19 17:24 Pulse Oximetry 97 02/18/19 17:24 Course <Remedios Ritter MD - Last Filed: 02/18/19 19:54> Course Course Narrative: The patient was worked up with laboratory studies, which showed significantly elevated LFTs, but a normal white blood cell count. The patient's son was agitated and upset that we were going to after run more tests and ?charge bunch more money?. I discussed with him that we really do not have any other way to assess why the patient is mental status has changed, and we cannot just go on last week's labs or CT from 2 weeks ago to determine why she is mentating poorly in an acute sense today. After much discussion, the patient's son ultimately agreed for the patient to receive the rest of her workup, but stated he was leaving and left his phone number. At this point, the patient is pending head CT, ammonia level, and ultrasound of the right upper quadrant. She has been signed out to Dr. Flores pending the above and disposition. Orders Ordered: ED Orders 02/18/19 17:25 Complete Blood Count AUTO DIFF Stat Comprehensive Metabolic Panel Stat Hepatitis Acute Panel Stat Lipase Stat Procalcitonin Stat 02/18/19 17:33 CT head/brain wo con Stat XR chest 1V Stat 02/18/19 18:09 US abdomen limited Stat 02/18/19 18:17 Urinalysis and Microscopic Stat Urine Culture Stat 02/18/19 18:30 Ammonia (NH3) Stat 02/18/19 22:34 Blood Culture Stat 02/18/19 22:38 Lactate (Lactic Acid) Stat Discontinued Medications Sodium Chloride (Normal Saline 0.9%) 1,000 mls @ 1,000 mls/hr IV BOLUS ONE Stop: 02/18/19 18:32 Last Infusion: 02/18/19 19:29 Dose: 0 mls/hr Documented by: Admin: 02/18/19 18:20 Dose: 1,000 mls/hr Documented by: ALEJANDRO Ceftriaxone Sodium/Dextrose (Rocephin) 1 gm in 50 mls @ 100 mls/hr IV NOW ONE Stop: 02/18/19 23:36 Last Admin: 02/18/19 23:17 Dose: 100 mls/hr Documented by: NEVILLE Lidocaine/Prilocaine (Lidocaine-Prilocaine Cream) 5 gm TOP NOW ONE Stop: 02/18/19 21:46 Last Admin: 02/18/19 22:04 Dose: 5 gm Documented by: NEVILLE Vital Signs Vital signs: Vital Signs - 8 hr 02/18/19 17:24 02/18/19 17:30 02/18/19 18:00 Temperature 97.9 F Pulse Rate 98 H 95 H 87 Respiratory Rate 20 14 14 Blood Pressure 178/104 H Blood Pressure [Left Arm] 162/120 H 148/116 H Pulse Oximetry 97 95 02/18/19 18:34 02/18/19 19:00 02/18/19 20:11 Temperature Pulse Rate 87 87 88 Respiratory Rate 12 22 13 Blood Pressure Blood Pressure [Left Arm] 155/120 H 175/127 H 169/113 H Pulse Oximetry 96 95 95 02/18/19 21:21 02/18/19 22:29 02/18/19 23:00 Temperature Pulse Rate 83 85 93 H Respiratory Rate Blood Pressure Blood Pressure [Left Arm] 170/124 H 159/106 H 172/117 H Pulse Oximetry 97 94 95 <Alexia Flores, DO - Last Filed: 02/18/19 23:52> Orders Ordered: ED Orders 02/18/19 17:25 Complete Blood Count AUTO DIFF Stat Comprehensive Metabolic Panel Stat Hepatitis Acute Panel Stat Lipase Stat Procalcitonin Stat 02/18/19 17:33 CT head/brain wo con Stat XR chest 1V Stat 02/18/19 18:09 US abdomen limited Stat 02/18/19 18:17 Urinalysis and Microscopic Stat Urine Culture Stat 02/18/19 18:30 Ammonia (NH3) Stat 02/18/19 22:34 Blood Culture Stat 02/18/19 22:38 Lactate (Lactic Acid) Stat Discontinued Medications Sodium Chloride (Normal Saline 0.9%) 1,000 mls @ 1,000 mls/hr IV BOLUS ONE Stop: 02/18/19 18:32 Last Infusion: 02/18/19 19:29 Dose: 0 mls/hr Documented by: Admin: 02/18/19 18:20 Dose: 1,000 mls/hr Documented by: ALEJANDRO Ceftriaxone Sodium/Dextrose (Rocephin) 1 gm in 50 mls @ 100 mls/hr IV NOW ONE Stop: 02/18/19 23:36 Last Admin: 02/18/19 23:17 Dose: 100 mls/hr Documented by: NEVILLE Lidocaine/Prilocaine (Lidocaine-Prilocaine Cream) 5 gm TOP NOW ONE Stop: 02/18/19 21:46 Last Admin: 02/18/19 22:04 Dose: 5 gm Documented by: NEVILLE Vital Signs Vital signs: Vital Signs - 8 hr 02/18/19 17:24 02/18/19 17:30 02/18/19 18:00 Temperature 97.9 F Pulse Rate 98 H 95 H 87 Respiratory Rate 20 14 14 Blood Pressure 178/104 H Blood Pressure [Left Arm] 162/120 H 148/116 H Pulse Oximetry 97 95 02/18/19 18:34 02/18/19 19:00 02/18/19 20:11 Temperature Pulse Rate 87 87 88 Respiratory Rate 12 22 13 Blood Pressure Blood Pressure [Left Arm] 155/120 H 175/127 H 169/113 H Pulse Oximetry 96 95 95 02/18/19 21:21 02/18/19 22:29 02/18/19 23:00 Temperature Pulse Rate 83 85 93 H Respiratory Rate Blood Pressure Blood Pressure [Left Arm] 170/124 H 159/106 H 172/117 H Pulse Oximetry 97 94 95 MDM - Weakness <Remedios Ritter MD - Last Filed: 02/18/19 19:54> Medical Records Attestation: I reviewed the patient's medical records. Lab Data Attestation: I reviewed the patient's lab results. Result diagrams: 02/18/19 17:25 02/18/19 17:25 Labs: Lab Results 02/18/19 02/18/19 02/18/19 Range/Units 17:25 17:25 17:25 WBC 7.6 (4.5-11.0) X10^3/uL RBC 4.77 (4.0-5.2) X10^6/uL Hgb 13.3 (12.0-16.0) g/dL Hct 40.8 (36-46) % MCV 85.4 (80-100) fL MCH 27.8 (26-34) PG MCHC 32.6 (30-36) % RDW 15.5 H (11.6-14.8) % Plt Count 104 L (150-400) X10^3/uL Neut % (Auto) 63.2 (50-75) % Lymph % (Auto) 20.8 L (25-40) % [place] % (Auto) 15.2 H (3-14) % Eos % (Auto) 0.4 L (2-4) % Baso % (Auto) 0.4 (0-2) % Neut # (Auto) 4800 (2697-7291) /uL Lymph # (Auto) 1600 (2713-2609) /uL [place] # (Auto) 1100 H (0-900) /uL Eos # (Auto) 0 (0-450) /uL Baso # (Auto) 0 (0-100) /uL Sodium 139 (137-145) mmol/L Potassium 3.5 (3.4-5.1) mmol/L Chloride 102 (98-107) mmol/L Carbon Dioxide 26 (22-32) mmol/L BUN 25 H (7-17) mg/dL Creatinine 0.70 (0.52-1.04) mg/dL Estimated GFR > 60.0 (>60) mL/min BUN/Creatinine Ratio 35.7 H (6-22) Glucose 201 H (80-110) mg/dL Lactate (0.7-2.1) mmol/L Calcium 9.3 (8.4-10.2) mg/dL Total Bilirubin 1.9 H (0.2-1.3) mg/dL AST 1063 H (14-36) IU/L ALT 1149 H (9-52) IU/L Alkaline Phosphatase 385 H (38-126) U/L Ammonia (9-30) umol/L Total Protein 7.4 (6.3-8.2) g/dL Albumin 3.8 (3.5-5.0) g/dL Globulin 3.6 (1.7-4.1) g/dL Albumin/Globulin Ratio 1.1 (1.0-2.8) Lipase (23-300) U/L Procalcitonin 0.19 (<0.5) ng/mL Urine Color Urine Appearance Urine pH (4.5-8.0) Ur Specific Dix (1.000-1.035) Urine Protein (Negative) Urine Glucose (UA) (Negative) g/dL Urine Ketones (NEGATIVE) Urine Occult Blood (Negative) Urine Nitrate (Negative) Urine Bilirubin (NEGATIVE) Urine Urobilinogen (0.2) E.U./dL Ur Leukocyte Esterase (NEGATIVE) Urine RBC (0-5/HPF) Urine WBC (0-5/HPF) Ur Squamous Epith Cells (0-5/HPF) Ur Transition Epith Cell (0-5/HPF) Urine Bacteria (None) Urine Mucus (Negative) Ur Culture Indicated? 02/18/19 02/18/19 02/18/19 Range/Units 17:25 18:17 18:30 WBC (4.5-11.0) X10^3/uL RBC (4.0-5.2) X10^6/uL Hgb (12.0-16.0) g/dL Hct (36-46) % MCV (80-100) fL MCH (26-34) PG MCHC (30-36) % RDW (11.6-14.8) % Plt Count (150-400) X10^3/uL Neut % (Auto) (50-75) % Lymph % (Auto) (25-40) % [place] % (Auto) (3-14) % Eos % (Auto) (2-4) % Baso % (Auto) (0-2) % Neut # (Auto) (4557-5151) /uL Lymph # (Auto) (0856-9867) /uL [place] # (Auto) (0-900) /uL Eos # (Auto) (0-450) /uL Baso # (Auto) (0-100) /uL Sodium (137-145) mmol/L Potassium (3.4-5.1) mmol/L Chloride (98-107) mmol/L Carbon Dioxide (22-32) mmol/L BUN (7-17) mg/dL Creatinine (0.52-1.04) mg/dL Estimated GFR (>60) mL/min BUN/Creatinine Ratio (6-22) Glucose (80-110) mg/dL Lactate (0.7-2.1) mmol/L Calcium (8.4-10.2) mg/dL Total Bilirubin (0.2-1.3) mg/dL AST (14-36) IU/L ALT (9-52) IU/L Alkaline Phosphatase (38-126) U/L Ammonia 26.0 (9-30) umol/L Total Protein (6.3-8.2) g/dL Albumin (3.5-5.0) g/dL Globulin (1.7-4.1) g/dL Albumin/Globulin Ratio (1.0-2.8) Lipase 98 (23-300) U/L Procalcitonin (<0.5) ng/mL Urine Color Yellow Urine Appearance Sl cloudy Urine pH 5.0 (4.5-8.0) Ur Specific Dix 1.010 (1.000-1.035) Urine Protein Trace H (Negative) Urine Glucose (UA) Trace H (Negative) g/dL Urine Ketones Negative (NEGATIVE) Urine Occult Blood 1+ H (Negative) Urine Nitrate Negative (Negative) Urine Bilirubin Negative (NEGATIVE) Urine Urobilinogen 1.0 (0.2) E.U./dL Ur Leukocyte Esterase Trace H (NEGATIVE) Urine RBC 1-5/hpf (0-5/HPF) Urine WBC 1-5/hpf (0-5/HPF) Ur Squamous Epith Cells 1-5 /hpf (0-5/HPF) Ur Transition Epith Cell 1-5/hpf (0-5/HPF) Urine Bacteria Many (>30) H (None) Urine Mucus 2+ H (Negative) Ur Culture Indicated? Specimen cultured 02/18/19 Range/Units 22:38 WBC (4.5-11.0) X10^3/uL RBC (4.0-5.2) X10^6/uL Hgb (12.0-16.0) g/dL Hct (36-46) % MCV (80-100) fL MCH (26-34) PG MCHC (30-36) % RDW (11.6-14.8) % Plt Count (150-400) X10^3/uL Neut % (Auto) (50-75) % Lymph % (Auto) (25-40) % [place] % (Auto) (3-14) % Eos % (Auto) (2-4) % Baso % (Auto) (0-2) % Neut # (Auto) (0328-4808) /uL Lymph # (Auto) (4056-7643) /uL [place] # (Auto) (0-900) /uL Eos # (Auto) (0-450) /uL Baso # (Auto) (0-100) /uL Sodium (137-145) mmol/L Potassium (3.4-5.1) mmol/L Chloride (98-107) mmol/L Carbon Dioxide (22-32) mmol/L BUN (7-17) mg/dL Creatinine (0.52-1.04) mg/dL Estimated GFR (>60) mL/min BUN/Creatinine Ratio (6-22) Glucose (80-110) mg/dL Lactate 1.1 (0.7-2.1) mmol/L Calcium (8.4-10.2) mg/dL Total Bilirubin (0.2-1.3) mg/dL AST (14-36) IU/L ALT (9-52) IU/L Alkaline Phosphatase (38-126) U/L Ammonia (9-30) umol/L Total Protein (6.3-8.2) g/dL Albumin (3.5-5.0) g/dL Globulin (1.7-4.1) g/dL Albumin/Globulin Ratio (1.0-2.8) Lipase (23-300) U/L Procalcitonin (<0.5) ng/mL Urine Color Urine Appearance Urine pH (4.5-8.0) Ur Specific Dix (1.000-1.035) Urine Protein (Negative) Urine Glucose (UA) (Negative) g/dL Urine Ketones (NEGATIVE) Urine Occult Blood (Negative) Urine Nitrate (Negative) Urine Bilirubin (NEGATIVE) Urine Urobilinogen (0.2) E.U./dL Ur Leukocyte Esterase (NEGATIVE) Urine RBC (0-5/HPF) Urine WBC (0-5/HPF) Ur Squamous Epith Cells (0-5/HPF) Ur Transition Epith Cell (0-5/HPF) Urine Bacteria (None) Urine Mucus (Negative) Ur Culture Indicated? Point of Care Testing Glucose POC 122 <Alexia Flores, DO - Last Filed: 02/18/19 23:52> Lab Data Attestation: I reviewed the patient's lab results. Labs: Lab Results 02/18/19 02/18/19 02/18/19 Range/Units 17:25 17:25 17:25 WBC 7.6 (4.5-11.0) X10^3/uL RBC 4.77 (4.0-5.2) X10^6/uL Hgb 13.3 (12.0-16.0) g/dL Hct 40.8 (36-46) % MCV 85.4 (80-100) fL MCH 27.8 (26-34) PG MCHC 32.6 (30-36) % RDW 15.5 H (11.6-14.8) % Plt Count 104 L (150-400) X10^3/uL Neut % (Auto) 63.2 (50-75) % Lymph % (Auto) 20.8 L (25-40) % [place] % (Auto) 15.2 H (3-14) % Eos % (Auto) 0.4 L (2-4) % Baso % (Auto) 0.4 (0-2) % Neut # (Auto) 4800 (8448-8925) /uL Lymph # (Auto) 1600 (1791-1229) /uL [place] # (Auto) 1100 H (0-900) /uL Eos # (Auto) 0 (0-450) /uL Baso # (Auto) 0 (0-100) /uL Sodium 139 (137-145) mmol/L Potassium 3.5 (3.4-5.1) mmol/L Chloride 102 (98-107) mmol/L Carbon Dioxide 26 (22-32) mmol/L BUN 25 H (7-17) mg/dL Creatinine 0.70 (0.52-1.04) mg/dL Estimated GFR > 60.0 (>60) mL/min BUN/Creatinine Ratio 35.7 H (6-22) Glucose 201 H (80-110) mg/dL Lactate (0.7-2.1) mmol/L Calcium 9.3 (8.4-10.2) mg/dL Total Bilirubin 1.9 H (0.2-1.3) mg/dL AST 1063 H (14-36) IU/L ALT 1149 H (9-52) IU/L Alkaline Phosphatase 385 H (38-126) U/L Ammonia (9-30) umol/L Total Protein 7.4 (6.3-8.2) g/dL Albumin 3.8 (3.5-5.0) g/dL Globulin 3.6 (1.7-4.1) g/dL Albumin/Globulin Ratio 1.1 (1.0-2.8) Lipase (23-300) U/L Procalcitonin 0.19 (<0.5) ng/mL Urine Color Urine Appearance Urine pH (4.5-8.0) Ur Specific Dix (1.000-1.035) Urine Protein (Negative) Urine Glucose (UA) (Negative) g/dL Urine Ketones (NEGATIVE) Urine Occult Blood (Negative) Urine Nitrate (Negative) Urine Bilirubin (NEGATIVE) Urine Urobilinogen (0.2) E.U./dL Ur Leukocyte Esterase (NEGATIVE) Urine RBC (0-5/HPF) Urine WBC (0-5/HPF) Ur Squamous Epith Cells (0-5/HPF) Ur Transition Epith Cell (0-5/HPF) Urine Bacteria (None) Urine Mucus (Negative) Ur Culture Indicated? 02/18/19 02/18/19 02/18/19 Range/Units 17:25 18:17 18:30 WBC (4.5-11.0) X10^3/uL RBC (4.0-5.2) X10^6/uL Hgb (12.0-16.0) g/dL Hct (36-46) % MCV (80-100) fL MCH (26-34) PG MCHC (30-36) % RDW (11.6-14.8) % Plt Count (150-400) X10^3/uL Neut % (Auto) (50-75) % Lymph % (Auto) (25-40) % [place] % (Auto) (3-14) % Eos % (Auto) (2-4) % Baso % (Auto) (0-2) % Neut # (Auto) (6378-8240) /uL Lymph # (Auto) (5075-8909) /uL [place] # (Auto) (0-900) /uL Eos # (Auto) (0-450) /uL Baso # (Auto) (0-100) /uL Sodium (137-145) mmol/L Potassium (3.4-5.1) mmol/L Chloride (98-107) mmol/L Carbon Dioxide (22-32) mmol/L BUN (7-17) mg/dL Creatinine (0.52-1.04) mg/dL Estimated GFR (>60) mL/min BUN/Creatinine Ratio (6-22) Glucose (80-110) mg/dL Lactate (0.7-2.1) mmol/L Calcium (8.4-10.2) mg/dL Total Bilirubin (0.2-1.3) mg/dL AST (14-36) IU/L ALT (9-52) IU/L Alkaline Phosphatase (38-126) U/L Ammonia 26.0 (9-30) umol/L Total Protein (6.3-8.2) g/dL Albumin (3.5-5.0) g/dL Globulin (1.7-4.1) g/dL Albumin/Globulin Ratio (1.0-2.8) Lipase 98 (23-300) U/L Procalcitonin (<0.5) ng/mL Urine Color Yellow Urine Appearance Sl cloudy Urine pH 5.0 (4.5-8.0) Ur Specific Dix 1.010 (1.000-1.035) Urine Protein Trace H (Negative) Urine Glucose (UA) Trace H (Negative) g/dL Urine Ketones Negative (NEGATIVE) Urine Occult Blood 1+ H (Negative) Urine Nitrate Negative (Negative) Urine Bilirubin Negative (NEGATIVE) Urine Urobilinogen 1.0 (0.2) E.U./dL Ur Leukocyte Esterase Trace H (NEGATIVE) Urine RBC 1-5/hpf (0-5/HPF) Urine WBC 1-5/hpf (0-5/HPF) Ur Squamous Epith Cells 1-5 /hpf (0-5/HPF) Ur Transition Epith Cell 1-5/hpf (0-5/HPF) Urine Bacteria Many (>30) H (None) Urine Mucus 2+ H (Negative) Ur Culture Indicated? Specimen cultured 02/18/19 Range/Units 22:38 WBC (4.5-11.0) X10^3/uL RBC (4.0-5.2) X10^6/uL Hgb (12.0-16.0) g/dL Hct (36-46) % MCV (80-100) fL MCH (26-34) PG MCHC (30-36) % RDW (11.6-14.8) % Plt Count (150-400) X10^3/uL Neut % (Auto) (50-75) % Lymph % (Auto) (25-40) % [place] % (Auto) (3-14) % Eos % (Auto) (2-4) % Baso % (Auto) (0-2) % Neut # (Auto) (7873-6915) /uL Lymph # (Auto) (4449-6906) /uL [place] # (Auto) (0-900) /uL Eos # (Auto) (0-450) /uL Baso # (Auto) (0-100) /uL Sodium (137-145) mmol/L Potassium (3.4-5.1) mmol/L Chloride (98-107) mmol/L Carbon Dioxide (22-32) mmol/L BUN (7-17) mg/dL Creatinine (0.52-1.04) mg/dL Estimated GFR (>60) mL/min BUN/Creatinine Ratio (6-22) Glucose (80-110) mg/dL Lactate 1.1 (0.7-2.1) mmol/L Calcium (8.4-10.2) mg/dL Total Bilirubin (0.2-1.3) mg/dL AST (14-36) IU/L ALT (9-52) IU/L Alkaline Phosphatase (38-126) U/L Ammonia (9-30) umol/L Total Protein (6.3-8.2) g/dL Albumin (3.5-5.0) g/dL Globulin (1.7-4.1) g/dL Albumin/Globulin Ratio (1.0-2.8) Lipase (23-300) U/L Procalcitonin (<0.5) ng/mL Urine Color Urine Appearance Urine pH (4.5-8.0) Ur Specific Dix (1.000-1.035) Urine Protein (Negative) Urine Glucose (UA) (Negative) g/dL Urine Ketones (NEGATIVE) Urine Occult Blood (Negative) Urine Nitrate (Negative) Urine Bilirubin (NEGATIVE) Urine Urobilinogen (0.2) E.U./dL Ur Leukocyte Esterase (NEGATIVE) Urine RBC (0-5/HPF) Urine WBC (0-5/HPF) Ur Squamous Epith Cells (0-5/HPF) Ur Transition Epith Cell (0-5/HPF) Urine Bacteria (None) Urine Mucus (Negative) Ur Culture Indicated? Point of Care Testing Glucose POC [address] scan - head: Radiologist's impression: [address] [address] XRay Report Signed Patient: Maricarmen Kowalski AMR#: [id number] : 8Acct:[id number] Age/Sex: 83 / FDate of Service: 02/18/19 Loc: ED Accession Number: [id number] Procedure: XR chest 1V Ordering Provider: Remedios Ritter MD PROCEDURE: XR CHEST 1V INDICATIONS: cough, confusion TECHNIQUE: One view of the chest was acquired. COMPARISON: [facility], CHEST 1 VIEW, 04/19/2017, 14:09. FINDINGS: Surgical changes and devices: None. Lungs and pleura: There are confluent increased left retrocardiac opacities consistent with consolidation/or atelectasis. A small left pleural effusion is demonstrated. Mild perihilar pulmonary vascular prominence is suggestive of mild edema. No pneumothorax. Mediastinum: Mediastinal contours appear unchanged. Heart size is enlarged. Bones and chest wall: No suspicious bony lesions. Overlying soft tissues appear unremarkable. IMPRESSION: 1. Small left pleural effusion with left retrocardiac atelectasis or consolidation. Given patient's history of cough, the findings may reflect pneumonia. 2. Perihilar pulmonary vascular prominence may reflect mild edema. Dictated by: Piero Cook M.D. on 02/18/2019 at 19:51 Approved by: Piero Cook M.D. on 02/18/2019 at 19:53 MDM Narrative Medical decision making narrative: Patient signed out to myself by Dr. bermeo. Patient was seen by myself. Her physical exam does not show any major changes other than she continues to have oozing from a scab on her posterior scalp there is a very small hematoma that seems to be the source. It did not resolve with direct pressure on the area was clean, topical prilocaine was placed and for small jorge were placed. This did seem to stop all the oozing. There is no open wound that appeared needed to be closed. Patient's head CT is negative, chest x-ray shows possible infectious change in the lungs, ultrasound shows steatosis, a small cyst in the right hepatic lobe measuring up to 5 mm. Ga llbladder demonstrates no stones, gallbladder wall thickening or pericholecystic fluid. No intra or extrahepatic biliary ductal dilation with a visualize common bile duct measuring up to 3 mm. Pancreas was within normal limits on a graphic Emily and the right kidney had a renal cyst the largest measuring 2.6 cm. Patient's labs showed a normal white count and hemoglobin with low platelets. Coags show a PTT of 41 and an INR of 1.2. Electrolytes are normal range, BUN 25, creatinine is normal. Glucose is 201. Bilirubin is 1.9 with elevated AST ALT in the 1000 range, he has were elevated on the 14 of February as well. Alk-phos is 385 with a normal ammonia 26. Lactate 1.1 with a negative pro calcitonin and a lipase of 98. Sources for patient's elevated amylase is could be secondary to infection, hepatitis or possibly cancer these were discussed with the son who would like patient to remain locally and does not wish for transfer. Patient has some leuks but no nitrates on urine and was sent for culture. She has had a decrease in her mental status but normally is pleasantly confused with her dementia. Discussed with son she is DNR/DNI. Discharge Plan Departure Patient Disposition: Admitted as Observation Clinical Impression: Weakness, Elevated LFTs Admit Date/Time: 02/18/19 23:43 Admit Provider: Alexandria Ledesma
--- NOTE | 2019-02-18 18:57 | PC.NURSE ---
Son initially refused care for his mother stating she doesn't have any money and I can't take care of her anymore...I hurt my back. Then agreed to care after discussion w/ Dr. Ritter. Pt left ED leaving number to call. Doris CORONA to call and further assess.
--- NOTE | 2019-02-18 19:00 | CM.SWNOTE ---
ED TILE CONDUIT LAYER Note Charge nurse asked TILE CONDUIT LAYER to call pt's son. There was some concern with how upset pt's son appeared as to whether or not he would pick pt up if she were to be discharged. TILE CONDUIT LAYER called pt's son, Edin Kowalski [phone] (home #) only call cell phone if Edin does not answer home phone. He and has sister are both NOK. No paperwork for DPOA. Pt's daughter Lakisha in [place] [phone] Pt's son expressed a lot of concerns regarding finances and getting a lot of bills from the hospital. TILE CONDUIT LAYER told son that he can go to the financial office at and speak to them about her inability to pay. Explained that if she is low income there may be either free care or financial plan. TILE CONDUIT LAYER inquired about pt's insurance as she only has Medicare and not Medicare Advantage or a gap plan or Medicaid. Encouraged pt's son to go to the resources center at to speak with someone about insurance for his mother in addition to her original Medicare. Edin reported that he is supposed to call Dr Philip's office first thing tomorrow morning. TILE CONDUIT LAYER asked if pt had ever had HH and encouraged him to discuss this with Dr Philip. Explained that a PCP's office is familiar with helping to set up HH and if she meets criteria Medicare will cover this. Explained that HH can involve an RN, FLATWARE MAKER, PT and a professor of social work. Since pt's son is concerned that he cannot care for his mother, mentioned that having professor of social work can be part of HH and to ask his PCP. Pt's son is aware that RN or provider willl call to update once tests are back and can provide him with information.
[2019-02-18] MEDS: LIDOCAINE/PRILOCAINE 5 GM TOP (22:04)
[2019-02-18 22:39] LABS: Lipase 98 U/L (23-300)
--- NOTE | 2019-02-18 22:54 | PC.NURSE ---
Addendum entered by Haylee Beasley CNA 02/18/19 22:57: Bandage was applied. Original Note: Cleansed wound on back of head to see where the bleeding was coming from.
[2019-02-18 22:59] LABS: Procalcitonin 0.19 ng/mL (<0.5)
[2019-02-18 23:01] LABS: Lactate (Lactic Acid) 1.1 mmol/L (0.7-2.1)
[2019-02-18] MEDS: CEFTRIAXONE 1 GM/50 ML FROZ.PIGGY IV (23:17)
[2019-02-19] VITALS (10 sets, daily range): BP systolic 125–178; BP diastolic 87–135; PULSE 68–94; RESP 16–22; TEMP 36.8–37.6; O2SAT 94–97; BMI 24.5
[2019-02-19] MEDS: SODIUM CHLORIDE 0.9% 1,000 ML 100 ML IV (01:35)
--- NOTE | 2019-02-19 01:46 | PM.HP.1 ---
History of Present Illness History of Present Illness Date Patient Seen: 02/18/19 Time Patient Seen: 23:00 Chief complaint: UTI Narrative: Maricarmen Kowalski is an 83-year-old female with late stage dementia who was brought in by her son due to being very lethargic and nonresponsive. 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 The patient is very limited verbally and is unable to provide a history. Much of this history is provided by the emergency department note and/or the provider. Per the emergency department provider she was seen on February 06 due to a fall at home and at that time she had a laceration on the back of her head that required a number of sutures. When she arrived today the sutures had been removed and she had appeared to of removed the roof of the scar causing her head bleed again. This was repaired in the emergency department today. Per the ED provider, the son states that he lives with his mother, he takes care of her ADLs, she knows who he is but is not oriented to the time, place, or other person's. He does not want to have her transferred anywhere. Per the ED provider the patient is a DNR/DNI. The patient provided her name and her birthday which was off by 1 year but the actual date and month were correct. She does not speak in full sentences, so I am unable to obtain any history or review of systems from the patient. Review of the patient's labs indicate a very low platelet count which is lower than her baseline, elevated liver enzymes which are new, and bacteria urinary urine of sufficient amount to require culture. 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) Dementia (Acute) Stroke (Acute) Social History household members: family Smoking Status: Never smoker alcohol intake: never Family & Social History Social History: household members son Tobacco & Substance use: Smoking Status Never smoker alcohol intake never Substance Use Type does not use Meds Home Medications and Allergies Home Medications Medication Instructions Recorded Confirmed Type ascorbic acid (vitamin C) 500 mg PO QDAY #0 04/19/17 11/25/17 History escitalopram oxalate [Lexapro] 10 mg PO QDAY #0 04/19/17 11/25/17 History losartan-hydrochlorothiazide 1 tab PO QDAY #0 04/19/17 11/25/17 History [Hyzaar] metoprolol tartrate 100 mg PO BID #60 tab 04/22/17 11/25/17 Rx calcium carbonate [Calcium 500] 1 tab PO BIDWM 11/25/17 11/25/17 History aspirin 325 mg PO DAILY #90 tab 11/30/17 Rx atorvastatin [Lipitor] 40 mg PO BEDTIME #30 tab 11/30/17 Rx Allergies Allergy/AdvReac Type Severity Reaction Status Date / Time No Known Drug Allergies Allergy Verified 11/25/17 14:32 Review of Systems Review of Systems ROS Unobtainable: unobtainable due to mental status Exam Vital Signs (past 8 hours): - 02/18/19 18:00 02/18/19 18:34 02/18/19 19:00 Temperature Pulse Rate 87 87 87 Respiratory Rate 14 12 22 Blood Pressure Blood Pressure [Left Arm] 148/116 H 155/120 H 175/127 H Pulse Oximetry 95 96 95 02/18/19 20:11 02/18/19 21:21 02/18/19 22:29 Temperature Pulse Rate 88 83 85 Respiratory Rate 13 Blood Pressure Blood Pressure [Left Arm] 169/113 H 170/124 H 159/106 H Pulse Oximetry 95 97 94 02/18/19 23:00 02/18/19 23:30 02/19/19 00:56 Temperature 98.6 F Pulse Rate 93 H 91 H 90 Respiratory Rate 14 20 Blood Pressure 174/102 H Blood Pressure [Left Arm] 172/117 H 165/116 H Pulse Oximetry 95 97 94 Oxygen Delivery Method Room Air Narrative Exam Narrative: Gen: Left arm, frail and cachectic appearing 83 y.o. female, pleasantly confused HEENT: She has a dressing on the top of her head that is secured with Coban, conjunctiva clear, sclera non-icteric, oral mucosa is dry Neck: supple, full ROM Resp: Lungs CTA, non-labored breathing CV: Irregularly irregular, no murmur or rubs Abd: soft, non-tender, normoactive BTs Skin: no lesions or rashes, dry and intact Neuro: Alert to voice, 1-2 word sentences, unable to carry on a conversation Extremities: Appears to be quite weak Psyche: Pleasant Objective Labs Result Diagrams: 02/18/19 17:25 02/18/19 17:25 Labs: Laboratory Results - last 24 hr 02/18/19 02/18/19 02/18/19 17:25 17:25 17:25 WBC 7.6 RBC 4.77 Hgb 13.3 Hct 40.8 MCV 85.4 MCH 27.8 MCHC 32.6 RDW 15.5 H Plt Count 104 L Neut % (Auto) 63.2 Lymph % (Auto) 20.8 L [place] % (Auto) 15.2 H Eos % (Auto) 0.4 L Baso % (Auto) 0.4 Neut # (Auto) 4800 Lymph # (Auto) 1600 [place] # (Auto) 1100 H Eos # (Auto) 0 Baso # (Auto) 0 Sodium 139 Potassium 3.5 Chloride 102 Carbon Dioxide 26 BUN 25 H Creatinine 0.70 Estimated GFR > 60.0 BUN/Creatinine Ratio 35.7 H Glucose 201 H Lactate Calcium 9.3 Total Bilirubin 1.9 H AST 1063 H ALT 1149 H Alkaline Phosphatase 385 H Ammonia Total Protein 7.4 Albumin 3.8 Globulin 3.6 Albumin/Globulin Ratio 1.1 Lipase Procalcitonin 0.19 Urine Color Urine Appearance Urine pH Ur Specific [place] Urine Protein Urine Glucose (UA) Urine Ketones Urine Occult Blood Urine Nitrate Urine Bilirubin Urine Urobilinogen Ur Leukocyte Esterase Urine RBC Urine WBC Ur Squamous Epith Cells Ur Transition Epith Cell Urine Bacteria Urine Mucus Ur Culture Indicated? 02/18/19 02/18/19 02/18/19 17:25 18:17 18:30 WBC RBC Hgb Hct MCV MCH MCHC RDW Plt Count Neut % (Auto) Lymph % (Auto) [place] % (Auto) Eos % (Auto) Baso % (Auto) Neut # (Auto) Lymph # (Auto) [place] # (Auto) Eos # (Auto) Baso # (Auto) Sodium Potassium Chloride Carbon Dioxide BUN Creatinine Estimated GFR BUN/Creatinine Ratio Glucose Lactate Calcium Total Bilirubin AST ALT Alkaline Phosphatase Ammonia 26.0 Total Protein Albumin Globulin Albumin/Globulin Ratio Lipase 98 Procalcitonin Urine Color Yellow Urine Appearance Sl cloudy Urine pH 5.0 Ur Specific [place] 1.010 Urine Protein Trace H Urine Glucose (UA) Trace H Urine Ketones Negative Urine Occult Blood 1+ H Urine Nitrate Negative Urine Bilirubin Negative Urine Urobilinogen 1.0 Ur Leukocyte Esterase Trace H Urine RBC 1-5/hpf Urine WBC 1-5/hpf Ur Squamous Epith Cells 1-5 /hpf Ur Transition Epith Cell 1-5/hpf Urine Bacteria Many (>30) H Urine Mucus 2+ H Ur Culture Indicated? Specimen cultured 02/18/19 22:38 WBC RBC Hgb Hct MCV MCH MCHC RDW Plt Count Neut % (Auto) Lymph % (Auto) [place] % (Auto) Eos % (Auto) Baso % (Auto) Neut # (Auto) Lymph # (Auto) [place] # (Auto) Eos # (Auto) Baso # (Auto) Sodium Potassium Chloride Carbon Dioxide BUN Creatinine Estimated GFR BUN/Creatinine Ratio Glucose Lactate 1.1 Calcium Total Bilirubin AST ALT Alkaline Phosphatase Ammonia Total Protein Albumin Globulin Albumin/Globulin Ratio Lipase Procalcitonin Urine Color Urine Appearance Urine pH Ur Specific [place] Urine Protein Urine Glucose (UA) Urine Ketones Urine Occult Blood Urine Nitrate Urine Bilirubin Urine Urobilinogen Ur Leukocyte Esterase Urine RBC Urine WBC Ur Squamous Epith Cells Ur Transition Epith Cell Urine Bacteria Urine Mucus Ur Culture Indicated? Assessment & Plan Assessment & Plan narrative: Maricarmen Kowalski will be admitted to the inpatient service for treatment and management of a urinary tract infection, and further workup of elevated liver enzymes. 1. Acute metabolic encephalopathy likely secondary to a urinary tract infection, acute, present on admission Patient is initiated on IV ceftriaxone 1 g q.i.d. Urine culture and sensitivities pending Lactate, Procalcitonin and lipase were negative 2. Elevated liver enzymes, acute, present on admission Patient was to have come to the hospital for monitoring of these labs for her PCP. We will repeat in the morning Acute hepatitis panel is pending 3. Essential hypertension Patient is has a home dose of metoprolol 100 mg p.o. b.i.d.. It appears as though she had not taken her evening dose and this will be started right now as her blood pressure last taken was 174/102. She also takes losartan hydrochlorothiazide 100/25 and losartan will be started in the morning. 4. Advanced dementia Patient may be experiencing delirium due to current acute disease state. Continue to monitor Patient is admitted inpatient as her stay is anticipated to exceed 2 midnights. FEN: 0.45 NS at 100 ml/hour, low sodium diet, chemistries in the am. VTE Prophylaxis: bilateral SCDs Disposition: Unknown at this time Code status: DNR/DNI per son Admission time: 55 minutes Meds reconciled: Partial, based on bottles brought in. Will need to confirm meds when her pharmacy is open. Time Spent With Patient Time with patient: less than 15 minutes Quality VTE Deep Vein Thrombosis/Pulmonary Embolism Present on Admission: No
[2019-02-19] MEDS: METOPROLOL IR 50 MG TABLET 100 MG PO ×3 (02:27→20:41)
[2019-02-19] MEDS: SODIUM CHLORIDE 0.45% 1,000 ML 100 ML IV ×3 (02:27→22:25)
--- NOTE | 2019-02-19 04:05 | PC.NURSE ---
Pt DNR/DNI. Pt admitted from ER with Acute Metabolic Encephalopathy, Elevated Liver Enzymes, Essential Hypertension, Advanced Dementia. Pt oriented to self, provides correct birthdate, unable to answer further orientation questions. Verbally limited, speaks 1-2 words at a time with delayed response. Deaf in left ear. Pt may be experiencing delirium due to current disease state. Pt BP 172/100's, HR 6-70's. Provider aware. Gave Metoprolol 100 mg IR x1 at 0230. BP remained elevated after one hour. No further orders given. Pt on daily scheduled antihypertensives. On tele for 24hrs, in rate controlled AFib. Bilat sclera mildly yellow Skin pale. Heels puffy, but blanchable. Floating heels overnight. +UTI at admit, harvey patent. Fall at home on 02/06 with head strike. Laceration to back of scalp with 4 jorge, bleeding at site stopped in ER. Hx mini strokes Last one in 2018. Right sided weakness both upper and lower, right side face/eye droop. Pt needs prompts to swallow pills with applesauce. Dry skin, dried scab to right angelo. See skin assessment. CXR shows small left pleural effusion, bilat atelectasis/consolidation. Pt without cough, on room air. BG 54 in ER. Rechecked BG at 0300, 98. Pt lives at home with son who is primary caregiver. Social Work consult requested by ER MD. PLAN :q2hr turns, dietary consult/possible mech soft in addition to low NA diet already order, reorient as needed, strict fall precautions, enc deep breathing, maintain skin integrity, f/u flu vaccine, monitor tele/HR/HTN, await plan for elevated LFT's, monitor for resolve of delirium.
[2019-02-19 05:30] LABS: Albumin 3.5 g/dL (3.5-5.0); Alkaline Phosphatase 333 U/L (38-126); Bilirubin Total 1.9 mg/dL (0.2-1.3); Blood Urea Nitrogen 18 mg/dL (7-17); Calcium 9.1 mg/dL (8.4-10.2); Carbon Dioxide 29 mmol/L (22-32); Chloride 104 mmol/L (98-107); Estimated Glomerular Filt Rate > 60.0 mL/min (>60); Globulin 3.6 g/dL (1.7-4.1); Glucose 96 mg/dL (80-110); HEMOLYSIS < 15 (0-50); Potassium 3.7 mmol/L (3.4-5.1); Sodium 141 mmol/L (137-145); Total Protein 7.1 g/dL (6.3-8.2)
[2019-02-19 05:40] LABS: Alanine Aminotransferase 1047 IU/L (9-52); Aspartate Aminotransferase 915 IU/L (14-36)
[2019-02-19] MEDS: LOSARTAN 50 MG TABLET 100 MG PO (09:15)
[2019-02-19] MEDS: ASPIRIN EC 325 MG TABLET PO (09:15)
--- NOTE | 2019-02-19 09:39 | PT-IP ANOTE ---
PT UPDATE Pt with RN and multiple family members, trying to wake her up and get her to eat some breakfast. Will attempt PT eval later in the day.
--- NOTE | 2019-02-19 10:00 | PT.IIE ---
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 Per RN, pt's son reports he has had to go most of the work for transfers. Per chart review, pt had been walking in recent history. Activities of Daily Living and IADL's pt unable to state, family not present at time of eval. Social History Household Members family Additional Social History Comment pt unable to state, family not present at time of eval. M2 PT-IP Current Condition Start: 02/19/19 08:31 Freq: NEEDED Status: Active Protocol: Document 02/19/19 10:00 RS (Rec: 02/19/19 13:21 RS [id number]) Physical Therapy Current Condition Current Condition Evaluation Date 02/19/19 Treatment Diagnosis impaired mobility M3 PT-IP Subjective Start: 02/19/19 08:31 Freq: NEEDED Status: Active Protocol: Document 02/19/19 10:00 RS (Rec: 02/19/19 13:21 [id number]) Subjective Physical Therapy Visit Type Type Initial Evaluation Visit Start Time 09:00 Visit Stop Time 10:00 Total Visit Minutes 60 Physical Therapy Visit Comments Patient Comments Pt non-verbal during this session, unable to answer questions. Patient Goals unable to state M4 PT-IP Mobility and Gait Start: 02/19/19 08:31 Freq: NEEDED Status: Active Protocol: Document 02/19/19 10:00 RS (Rec: 02/19/19 13:21 [id number]) PT-Bed Mobility Assessment Rolling Level of Assist Maximal Assistance Supine to Sit Supine to Sit Total Assistance,2 Person Assistance Sit to Supine Sit to Supine Total Assistance,2 Person Assistance Scooting Scooting Up and Down in Bed Dependent PT-Transfer Assessment Transfers Transfer Technique Mechanical Lift Transfer Ability Level of Assist Total Assistance Comments Mobility Comments Pt unable to follow directions consistently, needing near total assist for bed mobility. Unclear if this is more muscular/strength related or related to impaired cognition (or both). It is not safe at this time to attempt standing transfer. Rec mechanial lift for all transfers. Gait Assessment Comments Gait Comments not appropriate to assess Stair Climbing Assessment Comments Stair Climbing Comments not appropriate to assess PT-Balance Assessment Sitting Balance and Reactions Static Sitting Balance Ability Poor Dynamic Sitting Balance Ability Poor M5 PT-IP Objective Assessments Start: 02/19/19 08:31 Freq: NEEDED Status: Active Protocol: Document 02/19/19 10:00 RS (Rec: 02/19/19 13:21 RS [id number]) Orientation Orientation/Cognition Comments Difficult/unable to assess Gross Range of Motion Lower Extremity ROM Impairments passively WFL Strength Comments Strength Comments unable to perform formal strength testing M6 PT-IP Treatment Start: 02/19/19 08:31 Freq: NEEDED Status: Active Protocol: Document 02/19/19 10:00 RS (Rec: 02/19/19 13:21 RS [id number]) Physical Therapy Treatment Other Treatments Other Treatment Performed pt not appropriate for education at this time M7 PT-IP Assessment and Plan Start: 02/19/19 08:31 Freq: NEEDED Status: Active Protocol: Document 02/19/19 10:00 RS (Rec: 02/19/19 13:21 [id number]) PT Summary Assessment and Plan Potential Rehabilitation Potential Fair Status of Condition at Evaluation Evolving Summary Impairments Strength,Cognition,Bed Mobility,Transfers,Gait, Activity Tolerance Assessment Summary Pt with minimal participation in session, requiring up to dependent assist for all mobility. Pt's recent previous level of function at home did include walking with assist, but pt is definitely not able to perform this task currently . Pt does have guarded potential for functional improvement and will benefit from ongoing acute PT with transition to SNF rehab once medically ready. However, pt/ family might need to find more help or a new living environment after rehab if current level of assist is not available at home. Goals Bed Mobility Goal Minimal Assistance Transfer Goal Minimal Assistance Days to Meet Goals 10 Frequency of Treatment Frequency Of Treatment Once a Day Treatment Plan Physical Therapy Treatment Plan Bed Mobility Training,Transfer Training,Gait Training, Therapeutic Exercise,Balance Retraining,Post Op Education, Discharge Planning,Hot or Cold Pack,Neuromuscular Re-ed, Coordination Retraining,Manual Therapy Other Recommendations and Next Treatment start with 1x/day with Focus potential for increase to 2x/ day pending pt's ability to participate Recommendations To Nursing Amount of Assist Needed 2 Person Assist,Mechanical Lift Discharge Recommendations PT Discharge Recommendations SNF Rehab
--- NOTE | 2019-02-19 12:28 | CM.DANOTE ---
DCP: Case received, EMR reviewed and checked on patient. Called son, Edin, for he is primary caregiver, and was able to retrieve information from him via phone, regarding her care needs. Introduced self and role over the phone. Was able to compete DCP assessment/template based on information currently available. Patient is an 83 year old female who admitted yesterday evening to the care of the hospitalist team. PCP: Dr. Philip. Payer: confirmed: Medicare. Patient came to the hospital via ambulance secondary to increased confusion and weakness. Patient has dementia, and lives with son who is primary caregiver, Edin. Patient holds diagnosis of UTI, and is noted to have elevated liver enzymes. Patient is non-verbal, called son for baseline activity information. Son provides total care for patient. Patient is mostly in a wheel-chair, he assists with showers, meals, toileting. Stated that she is on limited income, and can't afford for her to go to assisted living. Looking at previous note, patient's son had been in contact with JANET, previous note, and had filled out [facility] paper work. Had discussed with patient's son today. P: DCP to continue to follow. Patient may need fdc, if inpatient, and is here for 3 days, will qualify. Son discussed FCC. Will consult with UR on inpatient status. Arianna Rivero RN/Lawyers
--- NOTE | 2019-02-19 14:27 | DIET.PN ---
Dietary Note Assessment: Ms. Kowalski is a 83 yof seen for UTI. She has severe dementia with delirium due to current disease state. She is deaf in the left ear. She is having difficulty swallowing. Son is main caregiver. He reports difficulty with meats and other chewy foods. She is able to drink on her own through a straw, but is primarily 1:1 feeding assist otherwise per nurse. She likes soups, yogurt, milk and eggs. HT: 152cm WT: 56.6kg UBW: 64.3kg BMI: 24.5 Labs: BUN: 18 Bili: 1.9 AST 915 ALT: 1047 ALP: 333 MNA: n/a (pt unable to answer assessment) Harsha: 14 Nutrition Diagnosis: Inadequate energy intake r/t decreased ability to consume sufficient energy aeb inability to independently consume foods, difficulty chewing/swallowing, conditions associated with diagnosis dementia. Interventions: 1. Unable to assess patient. RD will try to re-assess when son is available to provide hx. 2. Spoke w/ nurse. Agree mech soft, thin liquid at this time. Rec CLAIM EXAMINER eval. 3. ONS ensure enlive TID if PO's <70%. Diet Order: Low Sodium, Mech Soft/Easy Chew EER: [id number] mili @ 27-30cal/kg Pro: 73g @ 1.3g/kg Monitoring/Evaluations: PO's, weight, need for ONS enlive TID
[2019-02-19] MEDS: CEFTRIAXONE 1 GM/50 ML FROZ.PIGGY IV (18:40)
--- NOTE | 2019-02-19 20:03 | P.PN_ITS ---
Subjective Subjective Date Patient Seen: 02/19/19 Time Patient Seen: 11:30 Interval history: Patient was seen today for follow-up of markedly elevated transaminases as well as acute metabolic encephalopathy. She remains profoundly lethargic today and I was unable to obtain further history from her. No family was present at the bedside today as well. Exam Vital Signs (past 8 hours): - 02/19/19 15:40 02/19/19 16:36 Temperature 99.2 F Pulse Rate 89 Respiratory Rate 22 Blood Pressure 138/108 H Pulse Oximetry 97 97 Oxygen Delivery Method Room Air Oxygen Flow Rate 0 Narrative Exam Narrative: GENERAL APPEARANCE: Chronically ill appearing, somnolent. SKIN: Inspection of the skin reveals no rashes, ulcerations or petechiae. HEENT: The sclerae were anicteric and conjunctivae were pink and moist. Extraocular movements were intact and pupils were equal, round with normal accommodation. External inspection of the ears and nose showed no scars, lesions, or masses. Lips, teeth, and gums showed normal mucosa. The oral mucosa, hard and soft palate, tongue and posterior pharynx were unremarkable. NECK: Supple and symmetric. There was no thyroid enlargement, and no tenderness, or masses were felt. CHEST: Normal AP diameter and normal contour without any kyphoscoliosis. LUNGS: Auscultation of the lungs revealed no wheezes, rhonchi, or rales. CARDIOVASCULAR: There was a regular rate and rhythm without any murmurs, gallops, rubs. Peripheral pulses were 2+ and symmetric. ABDOMEN: Soft and nontender with normal bowel sounds. No ascites was noted. MUSCULOSKELETAL: There was no tenderness or effusions noted. Muscle strength and tone were normal. EXTREMITIES: No cyanosis, clubbing or edema. NEUROLOGIC: Opens eyes to name. Non-verbal this morning, appeared very leth argic. Objective Labs Result Diagrams: 02/18/19 17:25 02/19/19 04:51 Labs: Laboratory Results - last 24 hr 02/18/19 02/18/19 02/18/19 17:25 17:25 22:38 Sodium Potassium Chloride Carbon Dioxide BUN Creatinine Estimated GFR BUN/Creatinine Ratio Glucose Lactate 1.1 Calcium Total Bilirubin AST ALT Alkaline Phosphatase Total Protein Albumin Globulin Albumin/Globulin Ratio Lipase 98 Procalcitonin 0.19 02/19/19 04:51 Sodium 141 Potassium 3.7 Chloride 104 Carbon Dioxide 29 BUN 18 H Creatinine 0.60 Estimated GFR > 60.0 BUN/Creatinine Ratio 30.0 H Glucose 96 D Lactate Calcium 9.1 Total Bilirubin 1.9 H AST 915 H ALT 1047 H Alkaline Phosphatase 333 H Total Protein 7.1 Albumin 3.5 Globulin 3.6 Albumin/Globulin Ratio 1.0 Lipase Procalcitonin Assessment & Plan Assessment & Plan narrative: Maricarmen Kowalski will be admitted to the inpatient service for treatment and management of a urinary tract infection, and further workup of elevated liver enzymes. 1. Acute metabolic encephalopathy, acute, present on admission -likely secondary to elevated liver enzymes concerning for metabolic encephalopathy/hepatic encephalopathy. Her UTI is unlikely to make her this lethargic but it is still a possibility. Her ultrasound did not show any evidence of cirrhosis, and her LFTs have been improving but somewhat slowly. This may take some time to impr ove to her baseline. Patient is initiated on IV ceftriaxone 1 g q.i.d. Urine culture and sensitivities pending Lactate, Procalcitonin and lipase were negative see management below 2. Elevated liver enzymes, acute, present on admission - suspect hepatitis or DILI at this time given severity of elevations and slow improvement over the past few days. Hepatitis panel is pending, ultrasound showed no evidence of cirrhosis but just steatitis. - will try an add on a Tylenol level to morning labs, if not will check this. -will try and obtain other history for other possible medications -differential includes ischemia but she has no other evidence of this including lactate. 3. Essential hypertension Patient is has a home dose of metoprolol 100 mg p.o. b.i.d.. It appears as though she had not taken her evening dose and this will be started right now as her blood pressure last taken was 174/102. She also takes losartan hydrochlorothiazide 100/25 and losartan will be started in the morning. 4. Advanced dementia Patient may be experiencing delirium due to current acute disease state. Co ntinue to monitor Patient is admitted inpatient as her stay is anticipated to exceed 2 midnights. Code: DNR DVT: HSQ Quality VTE Deep Vein Thrombosis/Pulmonary Embolism Present on Admission: No
[2019-02-19 20:23] LABS: Acetaminophen < 10 ug/mL (10-30)
[2019-02-19] MEDS: ATORVASTATIN 20 MG TABLET 40 MG PO (20:40)
[2019-02-19] MEDS: HEPARIN 5,000 UNIT/ML VIAL 5000 UNIT SUBCUT (20:43)
[2019-02-20] VITALS (10 sets, daily range): BP systolic 140–168; BP diastolic 93–112; PULSE 76–101; RESP 16–22; TEMP 36.6–37.1; O2SAT 91–97
--- NOTE | 2019-02-20 03:41 | PC.NURSE ---
Pt VSS, lung sounds clear. Wears c-pap at night. States has head pain 3/10, denies pain in abdomen and denies nausea. Incisions are intact. Call light is in within reach, bed is low and locked.
--- NOTE | 2019-02-20 04:24 | PC.NURSE ---
Addendum entered by Bala Smith R.N. 02/20/19 07:02: Shavon CROSS notified of lab results K+ 3.2 at 0630. Verbal orders were given to stop IV fluids and to order 20 meq of K+, K rider. Original Note: Pt aroused to sound and touch. Was able to answer yes or no. . Pt VSS, except pt hypertensive 141/93 and Tachy P 84. Lung sounds clear/dim. FLACCA pain scale used and pt doesn't seem to be in pain or distress. When asked if she was in any pain pt said, no. Pt has Q2 turns. Offered water and mouth swab at Q2 turns. Pt drank some water and had her mouth swabbed. Pt call light within reach, Bed is low and locked. SCD's applied bilaterally.
[2019-02-20 05:34] LABS: Add Manual Diff / Slide Review NO; Basophils Absolute Auto 0 /uL (0-100); Basophils Percent Auto 0.6 % (0-2); Eosinophils Absolute Auto 100 /uL (0-450); Eosinophils Percent Auto 0.9 % (2-4); Hematocrit 37.9 % (36-46); Hemoglobin 12.3 g/dL (12.0-16.0); Lymphocytes Absolute Auto 1600 /uL (1100-4500); Lymphocytes Percent Auto 24.9 % (25-40); Mean Corpuscular HGB Conc 32.5 % (30-36); Mean Corpuscular Hemoglobin 27.7 PG (26-34); Mean Corpuscular Volume 85.2 fL (80-100); Monocytes Absolute Auto 1200 /uL (0-900); Monocytes Percent Auto 19.4 % (3-14); Neutrophils Absolute Auto 3500 /uL (1500-7000); Neutrophils Percent Auto 54.2 % (50-75); Platelet Count 97 X10^3/uL (150-400); Red Blood Cell Count 4.45 X10^6/uL (4.0-5.2); Red Cell Distribution Width 15.4 % (11.6-14.8); White Blood Cell Count 6.4 X10^3/uL (4.5-11.0)
[2019-02-20 05:46] LABS: Alanine Aminotransferase 779 IU/L (9-52); Albumin 3.1 g/dL (3.5-5.0); Alkaline Phosphatase 306 U/L (38-126); Aspartate Aminotransferase 699 IU/L (14-36); Bilirubin Total 2.1 mg/dL (0.2-1.3); Blood Urea Nitrogen 13 mg/dL (7-17); Calcium 8.5 mg/dL (8.4-10.2); Carbon Dioxide 27 mmol/L (22-32); Chloride 101 mmol/L (98-107); Estimated Glomerular Filt Rate > 60.0 mL/min (>60); Globulin 3.2 g/dL (1.7-4.1); Glucose 90 mg/dL (80-110); HEMOLYSIS < 15 (0-50); Potassium 3.2 mmol/L (3.4-5.1); Sodium 135 mmol/L (137-145); Total Protein 6.3 g/dL (6.3-8.2)
[2019-02-20] MEDS: POTASSIUM CHLORIDE 20 MEQ in SODIUM CHLORIDE 0.9% 250 ML 130 ML IV (06:46)
--- NOTE | 2019-02-20 07:36 | CM.DPC ---
Addendum entered by Arianna Rivero R.N. 02/20/19 14:25: SonEdin was in room. Collaborated with him on plan, and [facility] referral. Patient was sitting up in her bed, alert. Son had mentioned that he was concerned about his mom's liver, as well as his own, for he stopped drinking last Jun. Catrina from [facility] here to see patient. She met with son, and remembers patient from before. She mentioned that son was challenging at that time, but is easier to talk to now. She was also going to mention [facility]/Medicaid to son. Catrina will review with the team at [facility]. Son stated, I have a bad back, and I will need some time to recuperate before my mom comes home. Let son know that discharge planning will continue to work on discharge. Original Note: DCP Cont: Went ahead and sent referral to [facility]. Will follow up with them, and will also collaborate again with son today regarding discharge plan. P: DCP to follow closely regarding discharge plan. Arianna Rivero RN/Roof Fixer
[2019-02-20] MEDS: HEPARIN 5,000 UNIT/ML VIAL 5000 UNIT SUBCUT ×2 (07:41→20:59)
[2019-02-20] MEDS: LOSARTAN 50 MG TABLET 100 MG PO (07:41)
[2019-02-20] MEDS: METOPROLOL IR 50 MG TABLET 100 MG PO ×2 (07:42→21:00)
--- NOTE | 2019-02-20 12:02 | PT.IPTN ---
Current Diagnoses Metabolic encephalopathy (02/18/19) Physical Therapy Treatment Note M2 PT-IP Current Condition Start: 02/19/19 08:31 Freq: NEEDED Status: Active Protocol: Document 02/19/19 10:00 RS (Rec: 02/19/19 13:21 RS [id number]) Physical Therapy Current Condition Current Condition Evaluation Date 02/19/19 Treatment Diagnosis impaired mobility M3 PT-IP Subjective Start: 02/19/19 08:31 Freq: NEEDED Status: Active Protocol: Document 02/20/19 12:02 CLB (Rec: 02/20/19 12:48 CLB [id number]) Subjective Physical Therapy Visit Type Type Patient Unavailable Notes Spoke with RN thinking pt may be able to get to chair but pt was very sleepy and kept falling asleep when speaking to her. Will check back with pt this afternoon. M4 PT-IP Mobility and Gait Start: 02/19/19 08:31 Freq: NEEDED Status: Active Protocol: Document 02/19/19 10:00 RS (Rec: 02/19/19 13:21 RS [id number]) PT-Bed Mobility Assessment Rolling Level of Assist Maximal Assistance Supine to Sit Supine to Sit Total Assistance,2 Person Assistance Sit to Supine Sit to Supine Total Assistance,2 Person Assistance Scooting Scooting Up and Down in Bed Dependent PT-Transfer Assessment Transfers Transfer Technique Mechanical Lift Transfer Ability Level of Assist Total Assistance Comments Mobility Comments Pt unable to follow directions consistently, needing near total assist for bed mobility. Unclear if this is more muscular/strength related or related to impaired cognition (or both). It is not safe at this time to attempt standing transfer. Rec mechanial lift for all transfers. Gait Assessment Comments Gait Comments not appropriate to assess Stair Climbing Assessment Comments Stair Climbing Comments not appropriate to assess PT-Balance Assessment Sitting Balance and Reactions Static Sitting Balance Ability Poor Dynamic Sitting Balance Ability Poor M5 PT-IP Objective Assessments Start: 02/19/19 08:31 Freq: NEEDED Status: Active Protocol: Document 02/19/19 10:00 RS (Rec: 02/19/19 13:21 RS [id number]) Orientation Orientation/Cognition Comments Difficult/unable to assess Gross Range of Motion Lower Extremity ROM Impairments passively WFL Strength Comments Strength Comments unable to perform formal strength testing M6 PT-IP Treatment Start: 02/19/19 08:31 Freq: NEEDED Status: Active Protocol: Document 02/19/19 10:00 RS (Rec: 02/19/19 13:21 RS [id number]) Physical Therapy Treatment Other Treatments Other Treatment Performed pt not appropriate for education at this time M7 PT-IP Assessment and Plan Start: 02/19/19 08:31 Freq: NEEDED Status: Active Protocol: Document 02/19/19 10:00 RS (Rec: 02/19/19 13:21 RS [id number]) PT Summary Assessment and Plan Potential Rehabilitation Potential Fair Status of Condition at Evaluation Evolving Summary Impairments Strength,Cognition,Bed Mobility,Transfers,Gait, Activity Tolerance Assessment Summary Pt with minimal participation in session, requiring up to dependent assist for all mobility. Pt's recent previous level of function at home did include walking with assist, but pt is definitely not able to perform this task currently . Pt does have guarded potential for functional improvement and will benefit from ongoing acute PT with transition to SNF rehab once medically ready. However, pt/ family might need to find more help or a new living environment after rehab if current level of assist is not available at home. Goals Bed Mobility Goal Minimal Assistance Transfer Goal Minimal Assistance Days to Meet Goals 10 Frequency of Treatment Frequency Of Treatment Once a Day Treatment Plan Physical Therapy Treatment Plan Bed Mobility Training,Transfer Training,Gait Training, Therapeutic Exercise,Balance Retraining,Post Op Education, Discharge Planning,Hot or Cold Pack,Neuromuscular Re-ed, Coordination Retraining,Manual Therapy Other Recommendations and Next Treatment start with 1x/day with Focus potential for increase to 2x/ day pending pt's ability to participate Recommendations To Nursing Amount of Assist Needed 2 Person Assist,Mechanical Lift Discharge Recommendations PT Discharge Recommendations SNF Rehab
[2019-02-20] MEDS: ASPIRIN 81 MG CHEW TAB PO (12:47)
--- NOTE | 2019-02-20 13:45 | PT.IPTN ---
Current Diagnoses Metabolic encephalopathy (02/18/19) Physical Therapy Treatment Note M2 PT-IP Current Condition Start: 02/19/19 08:31 Freq: NEEDED Status: Active Protocol: Document 02/19/19 10:00 RS (Rec: 02/19/19 13:21 RS [id number]) Physical Therapy Current Condition Current Condition Evaluation Date 02/19/19 Treatment Diagnosis impaired mobility M3 PT-IP Subjective Start: 02/19/19 08:31 Freq: NEEDED Status: Active Protocol: Document 02/20/19 13:45 AB (Rec: 02/20/19 14:24 AB [id number]) Subjective Physical Therapy Visit Type Type Treatment Note Visit Start Time 13:45 Visit Stop Time 14:04 Total Visit Minutes 19 Number of STATEMENT REQUEST CLERK Visits 0 Physical Therapy Visit Comments Patient Comments pt is non verbal M4 PT-IP Mobility and Gait Start: 02/19/19 08:31 Freq: NEEDED Status: Active Protocol: Document 02/20/19 13:45 AB (Rec: 02/20/19 14:24 AB [id number]) PT-Bed Mobility Assessment Supine to Sit Supine to Sit Total Assistance,2 Person Assistance,Head of Bed Elevated Sit to Supine Sit to Supine Total Assistance,2 Person Assistance Scooting Scooting to Edge of Bed Dependent Scooting Up and Down in Bed Dependent PT-Transfer Assessment Sit to and From Stand Sit to and from Stand Total Assistance,2 Person Assistance,Use of Upper Extremities Equipment Transfer Assistive Device Gait Belt,Front Wheeled Walker Orthotic/Prosthetic Devices or Brace: No Comments Mobility Comments pt seems to have athetoid movement on her head and unable to keep head up right and keep eyes open. completed supine to sit with HOB elevated total A x 2 and max cues. required max A x 1-2 to maintain sitting on EOB. completed sit to stand x 3 reps. used FWW on 2 reps max A x 2 and max cues. pt unable to stand upright and increase posterior trunk leaning / pushing. completed sit to stand with PT in front of pt without AD and pt unable to fully stand up despite max A x 2 provided. assisted pt back to bed total A x 2 and max cues. positioned pt in bed. call light and table placed within reach. PT-Balance Assessment Sitting Balance and Reactions Static Sitting Balance Ability Poor Dynamic Sitting Balance Ability Poor M5 PT-IP Objective Assessments Start: 02/19/19 08:31 Freq: NEEDED Status: Active Protocol: Document 02/19/19 10:00 RS (Rec: 02/19/19 13:21 RS [id number]) Orientation Orientation/Cognition Comments Difficult/unable to assess Gross Range of Motion Lower Extremity ROM Impairments passively WFL Strength Comments Strength Comments unable to perform formal strength testing M6 PT-IP Treatment Start: 02/19/19 08:31 Freq: NEEDED Status: Active Protocol: Document 02/19/19 10:00 RS (Rec: 02/19/19 13:21 RS [id number]) Physical Therapy Treatment Other Treatments Other Treatment Performed pt not appropriate for education at this time M7 PT-IP Assessment and Plan Start: 02/19/19 08:31 Freq: NEEDED Status: Active Protocol: Document 02/20/19 13:45 AB (Rec: 02/20/19 14:24 AB [id number]) PT Summary Assessment and Plan Potential Rehabilitation Potential Fair Summary Impairments Strength,Balance,Coordination, Tone,Cognition,Bed Mobility, Transfers,Gait,Activity Tolerance Assessment Summary pt requires total A x 2 and max cues with all tasks. pt unable to follow directions and will require SNF rehab to improve strength and mobility. Goals Bed Mobility Goal Minimal Assistance Transfer Goal Minimal Assistance,Front Wheeled Walker Gait Goal Moderate Assistance,Front Wheel Walker Gait Distance 50 Days to Meet Goals 10 Frequency of Treatment Frequency Of Treatment Once a Day Treatment Plan Physical Therapy Treatment Plan Bed Mobility Training,Transfer Training,Gait Training, Therapeutic Exercise,Balance Retraining,Post Op Education, Discharge Planning,Hot or Cold Pack,Neuromuscular Re-ed, Coordination Retraining,Manual Therapy Other Recommendations and Next Treatment start with 1x/day with Focus potential for increase to 2x/ day pending pt's ability to participate Recommendations To Nursing Amount of Assist Needed 2 Person Assist,Mechanical Lift Discharge Recommendations PT Discharge Recommendations SNF Rehab
--- NOTE | 2019-02-20 13:58 | PC.NURSE ---
SHIFT SUMMARY: PATIENT VERY ALERT THIS AM. RESPONDED IN SHORT BUT FULL SENTENCES. KNEW HER BIRTHDAY, BUT NOT YEAR. WHEN ASKED IF SHE KNEW WHERE SHE WAS, SHE ASKED, WHERE AM I? SHE WAS SPEAKING WITH HER SON WHEN HE CAME IN THIS AM. HE WAS PLEASED TO SEE HER IMPROVED. SON WAS ABLE TO SPEAK W/ CM AND MD AT BEDSIDE THIS AM. PATIENT. JOSS VALLEJO'D AT 1110. INCONT OF BOWEL TODAY. WEARING BRIEF. PATIENT IS NOT REALLY VERBALLY RESPONSIVE ANY LONGER, STILL AWAKENS, TAKES BITES OF HER LUNCH. 1:1 FEEDER, BUT SEEMS TO WAX AND WANE WITH HER VERBALIZATION. MD NOTIFIED THAT SHE IS LESS VERBALLY RESPONSIVE THIS AFTERNOON, AND OF PERSISTENTLY HIGH DIASTOLIC BP'S. HE WILL REVIEW AND CONSIDER ADDING ANOTHER ANTI-HYPERTENSIVE. PATIENT REMAINS Q2 TURNS. BED ALARM ACTIVATED.
--- NOTE | 2019-02-20 14:48 | P.PN_ITS ---
Subjective Subjective Date Patient Seen: 02/20/19 Time Patient Seen: 09:50 Interval history: Maricarmen Kowalski is an 83-year-old female with advanced dementia, atrial fibrillation, hypertension and hyperlipidemia who presented with profound lethargy and was admitted for possible UTI but profound elevations in her liver enzymes. Her mental status is improved today but she continues to wax and wane. This morning she was alert and speaking, although very few words and really only able to answer yes no questions. However this afternoon she returned to quite somnolent. She denied any specific complaints this morning including fever, chills, abdominal pain, nausea, vomiting. Exam Vital Signs (past 8 hours): - 02/20/19 07:45 02/20/19 08:00 02/20/19 12:00 Temperature 98.5 F 98 F Pulse Rate 86 87 Respiratory Rate 16 17 Blood Pressure 140/101 H 154/112 H Pulse Oximetry 97 96 94 Oxygen Delivery Method Room Air Oxygen Flow Rate 0 Narrative Exam Narrative: GENERAL APPEARANCE: Chronically ill appearing, rocking her head back and forth, often leaning forward. Alert at times and somnolent others. Answers yes/no questions intermittently. SKIN: Inspection of the skin reveals no rashes, ulcerations or petechiae. HEENT: The sclerae were anicteric and conjunctivae were pink and moist. Extraocular movements were intact and pupils were equal, round with normal accommodation. External inspection of the ears and nose showed no scars, lesions, or masses. Lips, teeth, and gums showed normal mucosa. The oral mucosa, hard and soft palate, tongue and posterior pharynx were unremarkable. NECK: Supple and symmetric. There was no thyroid enlargement, and no tenderness, or masses were felt. CHEST: Normal AP diameter and normal contour without any kyphoscoliosis. LUNGS: Auscultation of the lungs revealed no wheezes, rhonchi, or rales. CARDIOVASCULAR: There was a regular rate and rhythm without any murmurs, gallops, rubs. Peripheral pulses were 2+ and symmetric. ABDOMEN: Soft and nontender with normal bowel sounds. No ascites was noted. MUSCULOSKELETAL: There was no tenderness or effusions noted. Muscle strength and tone were normal. EXTREMITIES: No cyanosis, clubbing or edema. NEUROLOGIC: no focal deficits, intermittently follows commands, unable to ambulate. Objective Labs Result Diagrams: 02/20/19 05:11 02/20/19 05:11 Labs: Laboratory Results - last 24 hr 02/19/19 02/20/19 02/20/19 04:51 05:11 05:11 WBC 6.4 RBC 4.45 Hgb 12.3 Hct 37.9 MCV 85.2 MCH 27.7 MCHC 32.5 RDW 15.4 H Plt Count 97 L Neut % (Auto) 54.2 Lymph % (Auto) 24.9 L Clay % (Auto) 19.4 H Eos % (Auto) 0.9 L Baso % (Auto) 0.6 Neut # (Auto) 3500 Lymph # (Auto) 1600 Clay # (Auto) 1200 H Eos # (Auto) 100 Baso # (Auto) 0 Sodium 135 L Potassium 3.2 L Chloride 101 Carbon Dioxide 27 BUN 13 Creatinine 0.50 L Estimated GFR > 60.0 BUN/Creatinine Ratio 26.0 H Glucose 90 Calcium 8.5 Total Bilirubin 2.1 H AST 699 H ALT 779 H Alkaline Phosphatase 306 H Total Protein 6.3 Albumin 3.1 L Globulin 3.2 Albumin/Globulin Ratio 1.0 Acetaminophen < 10 L Assessment & Plan Assessment & Plan narrative: Maricarmen Kowalski will be admitted to the inpatient [facility] for treatment and management of a urinary tract infection, and further workup of elevated liver enzymes. 1. Acute metabolic encephalopathy, acute, present on admission -likely secondary to elevated liver enzymes concerning for metabolic encephalopathy/hepatic encephalopathy. Her UTI is unlikely to make her this lethargic but it is still a possibility. Her ultrasound did not show any evidence of cirrhosis, and her LFTs have been improving but somewhat slowly. This may take some time to improve to her baseline. She, today is waxing and waning but overall improved. Continue IV ceftriaxone 1 g q.i.d. Urine culture with multiple organisms Lactate, Procalcitonin and lipase were negative see management below re elevated liver enzymes. 2. Elevated liver enzymes, acute, present on admission - suspect hepatitis or DILI at this time given severity of elevations and slow improvement over the past few days. Hepatitis panel is pending, ultrasound showed no evidence of cirrhosis but just steatitis. - Tylenol level was negative -no new medications or herbal supplements recently per the patient's son. -differential includes ischemia but she has no other evidence of this including lactate. 3. Essential hypertension Patient is has a home dose of metoprolol 100 mg p.o. b.i.d.. It appears as though she had not taken her evening dose and this will be started right now as her blood pressure last taken was 174/102. She also takes losartan hydrochlorothiazide 100/25 and losartan will be started in the morning. 4. Advanced dementia Patient may be experiencing delirium due to current acute disease state. Continue to monitor 5. atrial fibrillation, previously noted as chronic, now paroxysmal as patient is in sinus rhythm - continue metoprolol. Quality VTE Deep Vein Thrombosis/Pulmonary Embolism Present on Admission: No
[2019-02-20] MEDS: CEFTRIAXONE 1 GM/50 ML FROZ.PIGGY IV (18:26)
[2019-02-20] MEDS: ATORVASTATIN 20 MG TABLET 40 MG PO (21:00)
[2019-02-21] VITALS (8 sets, daily range): BP systolic 130–163; BP diastolic 85–118; PULSE 73–96; RESP 16–20; TEMP 36.3–36.8; O2SAT 94–97
[2019-02-21 06:01] LABS: Add Manual Diff / Slide Review NO; Basophils Absolute Auto 0 /uL (0-100); Basophils Percent Auto 0.8 % (0-2); Eosinophils Absolute Auto 100 /uL (0-450); Eosinophils Percent Auto 1.1 % (2-4); Hematocrit 38.4 % (36-46); Hemoglobin 12.7 g/dL (12.0-16.0); Lymphocytes Absolute Auto 1400 /uL (1100-4500); Lymphocytes Percent Auto 22.1 % (25-40); Mean Corpuscular HGB Conc 33.2 % (30-36); Mean Corpuscular Hemoglobin 28.2 PG (26-34); Mean Corpuscular Volume 85.2 fL (80-100); Monocytes Absolute Auto 1300 /uL (0-900); Monocytes Percent Auto 20.7 % (3-14); Neutrophils Absolute Auto 3400 /uL (1500-7000); Neutrophils Percent Auto 55.3 % (50-75); Platelet Count 101 X10^3/uL (150-400); Red Blood Cell Count 4.51 X10^6/uL (4.0-5.2); Red Cell Distribution Width 15.3 % (11.6-14.8); White Blood Cell Count 6.2 X10^3/uL (4.5-11.0)
[2019-02-21 06:06] LABS: Alanine Aminotransferase 697 IU/L (9-52); Albumin 3.1 g/dL (3.5-5.0); Albumin Globulin Ratio 0.9 (1.0-2.8); Alkaline Phosphatase 328 U/L (38-126); Aspartate Aminotransferase 633 IU/L (14-36); Bilirubin Total 2.6 mg/dL (0.2-1.3); Blood Urea Nitrogen 11 mg/dL (7-17); Calcium 8.7 mg/dL (8.4-10.2); Chloride 104 mmol/L (98-107); Estimated Glomerular Filt Rate > 60.0 mL/min (>60); Globulin 3.4 g/dL (1.7-4.1); Glucose 88 mg/dL (80-110); HEMOLYSIS < 15 (0-50); Potassium 3.2 mmol/L (3.4-5.1); Sodium 137 mmol/L (137-145); Total Protein 6.5 g/dL (6.3-8.2)
[2019-02-21 06:07] LABS: Carbon Dioxide 26 mmol/L (22-32)
[2019-02-21] MEDS: POTASSIUM CHLORIDE 20 MEQ TAB 40 MEQ PO (06:39)
--- NOTE | 2019-02-21 06:48 | PC.NURSE ---
Pt responds very minimally. Would not follow commands last night or respond verbally. However this morning she did respond in saying yes. She appears to have a somewhat difficult time swallowing in the sense that she is constantly bobbing her head back and forth and will take a while to swallow. She did not cough however, but she does not have a strong swallow. Sometimes sounding like shes air swallowing. Will pass along to next nurse. K+ replaced with crushed PO med in yogurt. Incontinent of urine, frequent changes. T&P q2h. B/L heels on foam cushions and floated. Tele: [facility]
[2019-02-21] MEDS: LOSARTAN 50 MG TABLET 100 MG PO (08:13)
[2019-02-21] MEDS: HEPARIN 5,000 UNIT/ML VIAL 5000 UNIT SUBCUT ×2 (08:13→20:20)
[2019-02-21] MEDS: ASPIRIN 81 MG CHEW TAB PO (08:14)
[2019-02-21] MEDS: SODIUM CHLORIDE 0.9% FLUSH 10 ML IV ×2 (08:14→20:25)
[2019-02-21] MEDS: METOPROLOL IR 50 MG TABLET 100 MG PO ×2 (08:14→20:20)
--- NOTE | 2019-02-21 11:10 | PT.IPTN ---
Current Diagnoses Metabolic encephalopathy (02/18/19) Physical Therapy Treatment Note M2 PT-IP Current Condition Start: 02/19/19 08:31 Freq: NEEDED Status: Active Protocol: Document 02/19/19 10:00 RS (Rec: 02/19/19 13:21 RS [id number]) Physical Therapy Current Condition Current Condition Evaluation Date 02/19/19 Treatment Diagnosis impaired mobility M3 PT-IP Subjective Start: 02/19/19 08:31 Freq: NEEDED Status: Active Protocol: Document 02/21/19 11:39 GGD (Rec: 02/21/19 11:46 GGD [email or web address]) Subjective Physical Therapy Visit Type Type Treatment Note Visit Start Time 10:50 Visit Stop Time 11:10 Total Visit Minutes 20 Number of SAFETY OFFICER Visits 1 Physical Therapy Visit Comments Patient Comments Pt son is in room, states that she been using gait belt and hand hold assist to transfer to w/c. M4 PT-IP Mobility and Gait Start: 02/19/19 08:31 Freq: NEEDED Status: Active Protocol: Document 02/21/19 11:39 GGD (Rec: 02/21/19 11:46 GGD [email or web address]) PT-Bed Mobility Assessment Supine to Sit Supine to Sit Moderate Assistance,1 Person Assistance,Head of Bed Elevated Scooting Scooting to Edge of Bed Moderate Assistance PT-Transfer Assessment Sit to and From Stand Sit to and from Stand Minimal Assistance,2 Person Assistance,Use of Upper Extremities Equipment Transfer Assistive Device Gait Belt Orthotic/Prosthetic Devices or Brace: No Transfers Transfer Destination Chair Transfer Ability Level of Assist Moderate Assistance,2 Person Assistance Gait Assessment Gait Gait Assistance Required: Moderate Assistance,2 Person Assist Distance (Feet) 4 Able to Maintain Weight Bearing Status Yes During Gait Assistive Devices Assistive Device Gait Belt Orthotic/Prosthetic Devices or Brace: No Gait Deviations General Gait Pattern Decreased Stride Length, Decreased Feet Clearance, Festinating,Step-to Gait,Wide Based Gait Factors Limiting Gait Function Factors Limiting Gait Function Decreased Activity Tolerance, Decreased Sensation,Decreased Strength,Difficulty Following Directions,Incoordination,Poor Balance,Poor Safety Awareness Comments Gait Comments Pt ambulated to chair with hand hold A and gait belt with mod A x 2 person. M5 PT-IP Objective Assessments Start: 02/19/19 08:31 Freq: NEEDED Status: Active Protocol: Document 02/19/19 10:00 RS (Rec: 02/19/19 13:21 RS [id number]) Orientation Orientation/Cognition Comments Difficult/unable to assess Gross Range of Motion Lower Extremity ROM Impairments passively WFL Strength Comments Strength Comments unable to perform formal strength testing M6 PT-IP Treatment Start: 02/19/19 08:31 Freq: NEEDED Status: Active Protocol: Document 02/19/19 10:00 RS (Rec: 02/19/19 13:21 RS [id number]) Physical Therapy Treatment Other Treatments Other Treatment Performed pt not appropriate for education at this time M7 PT-IP Assessment and Plan Start: 02/19/19 08:31 Freq: NEEDED Status: Active Protocol: Document 02/21/19 11:39 GGD (Rec: 02/21/19 11:46 GGD [email or web address]) PT Summary Assessment and Plan Summary Assessment Summary Pt improving with mobility. She needed less assist with bed mobility. She was able to ambulated short distance to chair with 2 person assist. Pt able to follow simple direction with extra time. Frequency of Treatment Frequency Of Treatment Once a Day Treatment Plan Physical Therapy Treatment Plan Bed Mobility Training,Transfer Training,Gait Training, Therapeutic Exercise,Balance Retraining,Post Op Education, Discharge Planning,Hot or Cold Pack,Neuromuscular Re-ed, Coordination Retraining,Manual Therapy Recommendations To Nursing Amount of Assist Needed 2 Person Assist Discharge Recommendations PT Discharge Recommendations SNF Rehab
--- NOTE | 2019-02-21 11:14 | CM.DPC ---
DCP SNF Planning: Per MD, pt making progress and waiting for Hep panel to confirm pt's liver functioning towards likely d/c to SNF tomorrow if stable. SW called [facility] and confirmed they can accept pt at d/c and SW updated that pt likely ready for d/c tomorrow if stable. SW met bedside with pt and son/CG Jose M and updated that [facility] can accept and pt may be ready for d/c tomorrow and son very appreciative. Discussed Medicaid again and encouraged son to work with [facility] on completing the application as son willing and interested but seems to need support with completing the pwk. Pt's dementia limits her ability to participate in discussion. PASRR completed in anticipation of SNF tomorrow 02/22/19. SW checked pt's chart for DPOA pwk and none available and son no longer bedside to inquire about a copy of DPOA. Plan: SW to follow for likely pt d/c to [facility] tomorrow if medically stable. SW to follow with son regarding a copy of DPOA pwk if available. Caren Bah MSW
--- NOTE | 2019-02-21 13:24 | P.PN_ITS ---
Subjective Subjective Date Patient Seen: 02/21/19 Time Patient Seen: 13:24 Interval history: Maricarmen Kowalski is an 83-year-old female with advanced dementia, atrial fibrillation, hypertension and hyperlipidemia who presented with profound lethargy and was admitted for possible UTI but profound elevations in her liver enzymes. Her mental status is improved today but she continues to wax and wane. This morning she was alert and speaking, although very few words and really only able to answer yes no questions. However this afternoon she returned to quite somnolent. She denied any specific complaints this morning including fever, chills, abdominal pain, nausea, vomiting. Exam Vital Signs (past 8 hours): - 02/21/19 07:50 02/21/19 08:00 02/21/19 11:56 Temperature 97.4 F L 98 F Pulse Rate 81 73 Respiratory Rate 16 16 Blood Pressure 155/118 H 130/85 Pulse Oximetry 96 96 96 Oxygen Delivery Method Room Air Oxygen Flow Rate 0 Narrative Exam Narrative: GENERAL APPEARANCE: Chronically ill appearing, often leaning forward. Alert at times and somnolent others. Answers yes/no questions intermittently. Somewhat more alert today. SKIN: Inspection of the skin reveals no rashes, ulcerations or petechiae. HEENT: The sclerae were anicteric and conjunctivae were pink and moist. Extraocular movements were intact and pupils were equal, round with normal accommodation. External inspection of the ears and nose showed no scars, lesions, or masses. Lips, teeth, and gums showed normal mucosa. The oral mucosa, hard and soft palate, tongue and posterior pharynx were unremarkable. NECK: Supple and symmetric. There was no thyroid enlargement, and no tenderness, or masses were felt. CHEST: Normal AP diameter and normal contour without any kyphoscoliosis. LUNGS: Auscultation of the lungs revealed no wheezes, rhonchi, or rales. CARDIOVASCULAR: There was a regular rate and rhythm without any murmurs, gallops, rubs. Peripheral pulses were 2+ and symmetric. ABDOMEN: Soft and nontender with normal bowel sounds. No ascites was noted. MUSCULOSKELETAL: There was no tenderness or effusions noted. Muscle strength and tone were normal. EXTREMITIES: No cyanosis, clubbing or edema. NEUROLOGIC: no focal deficits, intermittently follows commands but this appears to be improving, unable to ambulate. Objective Labs Result Diagrams: 02/21/19 05:30 10/23/19 05:30 Labs: Laboratory Results - last 24 hr 02/21/19 02/21/19 05:30 05:30 WBC 6.2 RBC 4.51 Hgb 12.7 Hct 38.4 MCV 85.2 MCH 28.2 MCHC 33.2 RDW 15.3 H Plt Count 101 L Neut % (Auto) 55.3 Lymph % (Auto) 22.1 L [place] % (Auto) 20.7 H Eos % (Auto) 1.1 L Baso % (Auto) 0.8 Neut # (Auto) 3400 Lymph # (Auto) 1400 [place] # (Auto) 1300 H Eos # (Auto) 100 Baso # (Auto) 0 Sodium 137 Potassium 3.2 L Chloride 104 Carbon Dioxide 26 BUN 11 Creatinine 0.50 L Estimated GFR > 60.0 BUN/Creatinine Ratio 22.0 Glucose 88 Calcium 8.7 Total Bilirubin 2.6 H AST 633 H ALT 697 H Alkaline Phosphatase 328 H Total Protein 6.5 Albumin 3.1 L Globulin 3.4 Albumin/Globulin Ratio 0.9 L Assessment & Plan Assessment & Plan narrative: Maricarmen Kowalski will be admitted to the inpatient service for treatment and management of a urinary tract infection, and further workup of elevated liver enzymes. 1. Acute metabolic encephalopathy, acute, present on admission -likely secondary to elevated liver enzymes concerning for metabolic encephalopathy/hepatic encephalopathy. Her UTI is unlikely to make her this lethargic but it is still a possibility. Her ultrasound did not show any evidence of cirrhosis, and her LFTs have been improving but somewhat slowly. This may take some time to improve to her baseline. She, today is waxing and waning but overall improved. Continue IV ceftriaxone 1 g q.i.d., today is day 3. She can be transitioned to oral medications upon discharge for a 7 day course. Urine culture with multiple organisms Lactate, Procalcitonin and lipase were negative see management below re elevated liver enzymes. 2. Elevated liver enzymes, acute, present on admission - suspect hepatitis or DILI at this time given severity of elevations and slow improvement over the past few days. LFTs are improving but bilirubin increasing, bilirubin tends to lag behind the enzymes and her mental status is improving. Hepatitis panel is pending, ultrasound showed no evidence of cirrhosis but just steatitis. - Tylenol level was negative -no new medications or herbal supplements recently per the patient's son. -differential includes ischemia but she has no other evidence of this including lactate. - 3. Essential hypertension Patient is has a home dose of metoprolol 100 mg p.o. b.i.d. which is continued She also takes losartan hydrochlorothiazide 100/25. Currently holding HCTZ. 4. Advanced dementia Patient may be experiencing delirium due to current acute disease state. Continue to monitor 5. atrial fibrillation, previously noted as chronic, now paroxysmal as patient is in sinus rhythm - continue metoprolol. Dispo: likely SNF placement. Code: DNR Quality VTE Deep Vein Thrombosis/Pulmonary Embolism Present on Admission: No
[2019-02-21] MEDS: CEFTRIAXONE 1 GM/50 ML FROZ.PIGGY IV (19:45)
[2019-02-21] MEDS: ATORVASTATIN 20 MG TABLET 40 MG PO (20:20)
[2019-02-22] VITALS (8 sets, daily range): BP systolic 127–164; BP diastolic 75–117; PULSE 76–113; RESP 12–20; TEMP 36.4–37.2; O2SAT 95–99
[2019-02-22] MEDS: HYDRALAZINE 20 MG/ML VIAL 5 MG IV (04:11)
[2019-02-22 05:41] LABS: Add Manual Diff / Slide Review NO; Basophils Absolute Auto 0 /uL (0-100); Basophils Percent Auto 0.7 % (0-2); Eosinophils Absolute Auto 200 /uL (0-450); Eosinophils Percent Auto 2.8 % (2-4); Hematocrit 40.4 % (36-46); Hemoglobin 13.4 g/dL (12.0-16.0); Lymphocytes Absolute Auto 1500 /uL (1100-4500); Mean Corpuscular HGB Conc 33.1 % (30-36); Mean Corpuscular Volume 84.6 fL (80-100); Monocytes Absolute Auto 1200 /uL (0-900); Neutrophils Absolute Auto 3900 /uL (1500-7000); Neutrophils Percent Auto 57.5 % (50-75); Platelet Count 115 X10^3/uL (150-400); Red Blood Cell Count 4.78 X10^6/uL (4.0-5.2); Red Cell Distribution Width 15.1 % (11.6-14.8); White Blood Cell Count 6.8 X10^3/uL (4.5-11.0)
--- NOTE | 2019-02-22 06:11 | PC.NURSE ---
Patient had an increase in her diastolic bp. Taken several times and BP was 159/117. Pt in no acute distress, sleeping in bed. AMERICA Bliss notified and ordered 5mg IV Hydralazine. After admin BP 140/93. Patient not verbally responding to me this shift. T&P q2h. Heels with foam cushions and floated. Frequent urinary incontinence changes.
[2019-02-22 08:30] LABS: Alanine Aminotransferase 718 IU/L (9-52); Albumin 3.1 g/dL (3.5-5.0); Albumin Globulin Ratio 0.9 (1.0-2.8); Alkaline Phosphatase 394 U/L (38-126); Aspartate Aminotransferase 708 IU/L (14-36); Bilirubin Total 3.1 mg/dL (0.2-1.3); Blood Urea Nitrogen 12 mg/dL (7-17); Carbon Dioxide 25 mmol/L (22-32); Chloride 102 mmol/L (98-107); Estimated Glomerular Filt Rate > 60.0 mL/min (>60); Globulin 3.6 g/dL (1.7-4.1); Glucose 94 mg/dL (80-110); HEMOLYSIS 31 (0-50); Potassium 3.8 mmol/L (3.4-5.1); Sodium 137 mmol/L (137-145); Total Protein 6.7 g/dL (6.3-8.2)
[2019-02-22] MEDS: METOPROLOL IR 50 MG TABLET 100 MG PO ×2 (08:54→21:41)
[2019-02-22] MEDS: ASPIRIN 81 MG CHEW TAB PO (08:54)
[2019-02-22] MEDS: LOSARTAN 50 MG TABLET 100 MG PO (08:54)
[2019-02-22] MEDS: HEPARIN 5,000 UNIT/ML VIAL 5000 UNIT SUBCUT ×2 (08:54→21:40)
[2019-02-22] MEDS: SODIUM CHLORIDE 0.9% FLUSH 10 ML IV ×2 (09:49→21:42)
--- NOTE | 2019-02-22 12:08 | PT.IPTN ---
Addendum entered and electronically signed by Rosalinda Smith, REFERENCE SERVICES HEAD 02/22/19 17:18: Pt was up in her chair with alarm on and call light in her lap when REFERENCE SERVICES HEAD left at 1208. Nursing aid was present. Original Note: Current Diagnoses Metabolic encephalopathy (02/18/19) Physical Therapy Treatment Note M2 PT-IP Current Condition Start: 02/19/19 08:31 Freq: NEEDED Status: Active Protocol: Document 02/19/19 10:00 RS (Rec: 02/19/19 13:21 RS [id number]) Physical Therapy Current Condition Current Condition Evaluation Date 02/19/19 Treatment Diagnosis impaired mobility M3 PT-IP Subjective Start: 02/19/19 08:31 Freq: NEEDED Status: Active Protocol: Document 02/22/19 12:08 SP (Rec: 02/22/19 12:34 SP [email or web address]) Subjective Physical Therapy Visit Type Type Treatment Note Visit Start Time 11:42 Visit Stop Time 12:08 Total Visit Minutes 21 Number of REFERENCE SERVICES HEAD Visits 2 Physical Therapy Visit Comments Patient Comments Pt stated Ok when asked if willing to work with PT and assist up in the chair. therapy assistant in room to assist. M4 PT-IP Mobility and Gait Start: 02/19/19 08:31 Freq: NEEDED Status: Active Protocol: Document 02/22/19 12:08 SP (Rec: 02/22/19 12:34 SP [email or web address]) PT-Bed Mobility Assessment Rolling Type of Rolling Roll to Right Level of Assist Maximal Assistance,1 Person Assistance Supine to Sit Supine to Sit Moderate Assistance,Maximum Assistance,2 Person Assistance Scooting Scooting to Edge of Bed Maximum Assistance PT-Transfer Assessment Sit to and From Stand Sit to and from Stand Minimal Assistance,Maximum Assistance,2 Person Assistance Equipment Transfer Assistive Device Gait Belt,Front Wheeled Walker Orthotic/Prosthetic Devices or Brace: No Transfers Transfer Destination Chair Transfer Technique Stand Pivot Transfer Ability Level of Assist Moderate Assistance,Maximum Assistance,2 Person Assistance Comments Mobility Comments Pt seemed to have athetoid movement with her head and challenged to keep her head upright, mostly with cues to look up during sitting, transfers to assist posture. Pt demonstrated retro extension posturing, cued for bending foward for supine> sitting and scooting to EOB with Max A x1, mod x1. Pt initially required seated Mod support with cuing for righting to left to neutral and contact facilitation with RUE to WB on bed for increased self support. Trialled STS x4 with max cuing for upright standing look over my should Maricarmen brief carryover. Max A x1 for standing FWW in front for nursing asst for hygiene brief changing, support to anterior feet to prevent sliding forward. Pt was able to complete Stand pivot with no AD Max A x1 Mod A x1 bed> chair (Right) with Max cuing for directioning of BUE and LE , pivoting her feet (B knees pushing into extension). PT-Balance Assessment Sitting Balance and Reactions Static Sitting Balance Ability Poor Dynamic Sitting Balance Ability Poor Standing Balance and Reactions Static Standing Balance Ability Poor Dynamic Standing Balance Ability Poor Device Used FWW and no AD M5 PT-IP Objective Assessments Start: 02/19/19 08:31 Freq: NEEDED Status: Active Protocol: Document 02/19/19 10:00 RS (Rec: 02/19/19 13:21 RS [id number]) Orientation Orientation/Cognition Comments Difficult/unable to assess Gross Range of Motion Lower Extremity ROM Impairments passively WFL Strength Comments Strength Comments unable to perform formal strength testing M6 PT-IP Treatment Start: 02/19/19 08:31 Freq: NEEDED Status: Active Protocol: Document 02/19/19 10:00 RS (Rec: 02/19/19 13:21 RS [id number]) Physical Therapy Treatment Other Treatments Other Treatment Performed pt not appropriate for education at this time M7 PT-IP Assessment and Plan Start: 02/19/19 08:31 Freq: NEEDED Status: Active Protocol: Document 02/22/19 12:08 SP (Rec: 02/22/19 12:34 SP [email or web address]) PT Summary Assessment and Plan Potential Rehabilitation Potential Fair Summary Impairments Strength,Balance,Coordination, Tone,Cognition,Bed Mobility, Transfers,Gait,Activity Tolerance Assessment Summary Pt required required increased assistance today: max A x 1, Mod A x1 and max cues with all tasks. pt unable to follow directions and will require SNF rehab to improve strength and mobility. Goals Bed Mobility Goal Minimal Assistance Transfer Goal Minimal Assistance,Front Wheeled Walker Gait Goal Moderate Assistance,Front Wheel Walker Gait Distance 50 Days to Meet Goals 10 Frequency of Treatment Frequency Of Treatment Once a Day Treatment Plan Physical Therapy Treatment Plan Bed Mobility Training,Transfer Training,Gait Training, Therapeutic Exercise,Balance Retraining,Post Op Education, Discharge Planning,Hot or Cold Pack,Neuromuscular Re-ed, Coordination Retraining,Manual Therapy Other Recommendations and Next Treatment 1x/day with potential for Focus increase to 2x/day pending pt' s ability to participate Recommendations To Nursing Amount of Assist Needed 2 Person Assist Discharge Recommendations PT Discharge Recommendations SNF Rehab
--- NOTE | 2019-02-22 15:38 | CM.DPC ---
DCP continued: EMR reviewed: Dagoberto met with patient, sister and son at bedside to discussed d/c plan with family. Patient was planning on d/c to [facility] today but patient liver enzymes were elevated today and Dr. Baldwin wants to keep the patient another night to keep following her labs. To make sure patient is medically stable for d/c. Jaleesa called at [facility] and notified that patient wont be D/C today but that they could d/c tomorrow. Patients family stated understanding. Plan: D.c to [facility] when medically stable. Shellie Masters RN.
[2019-02-22 16:26] LABS: Hepatitis B Surface Antigen NEGATIVE s/c (NEGATIVE)
[2019-02-22 16:54] LABS: Hep C Virus Ab w/Reflex Quant NEGATIVE s/c (NEGATIVE)
[2019-02-22 17:16] LABS: Hepatitis A Antibody IgM NONREACTIVE; Hepatitis Acute Panel Interp 0.04; Hepatitis B Core Antibody IgM NONREACTIVE; Hepatitis B Surface Antigen NONREACTIVE; Hepatitis C Antibody NONREACTIVE
[2019-02-22] MEDS: CEFTRIAXONE 1 GM/50 ML FROZ.PIGGY IV (19:04)
[2019-02-22] MEDS: ATORVASTATIN 20 MG TABLET 40 MG PO (21:41)
--- NOTE | 2019-02-22 22:08 | PM.PN.1 ---
Subjective Subjective Date Patient Seen: 02/22/19 Time Patient Seen: 12:00 Interval history: Maricarmen Kowalski is an 83-year-old female with advanced dementia, atrial fibrillation, hypertension and hyperlipidemia who presented with profound lethargy and was admitted for possible UTI but profound elevations in her liver enzymes. Her mental status is improved today This morning she was alert and speaking and was alert and orient to name. She denied any specific complaints this morning including fever, chills, abdominal pain, nausea, vomiting. She was to be discharged to rehab today, however she had a slight bump in her LFTs. Hepatitis panel is still pending and her workup has otherwise largely been unremarkable so I reordered some hepatitis serologies which should come back more quickly. Exam Vital Signs (past 8 hours): - 02/22/19 15:48 02/22/19 19:48 Temperature 97.5 F L 97.8 F Pulse Rate 89 101 H Respiratory Rate 18 18 Blood Pressure 134/96 H 127/91 H Pulse Oximetry 95 97 Oxygen Delivery Method Room Air Oxygen Flow Rate 0 Narrative Exam Narrative: GENERAL APPEARANCE: Chronically ill appearing, often leaning forward. More alert today. SKIN: Inspection of the skin reveals no rashes, ulcerations or petechiae. HEENT: The sclerae were anicteric and conjunctivae were pink and moist. Extraocular movements were intact and pupils were equal, round with normal accommodation. External inspection of the ears and nose showed no scars, lesions, or masses. Lips, teeth, and gums showed normal mucosa. The oral mucosa, hard and soft palate, tongue and posterior pharynx were unremarkable. NECK: Supple and symmetric. There was no thyroid enlargement, and no tenderness, or masses were felt. CHEST: Normal AP diameter and normal contour without any kyphoscoliosis. LUNGS: Auscultation of the lungs revealed no wheezes, rhonchi, or rales. CARDIOVASCULAR: There was a regular rate and rhythm without any murmurs, gallops, rubs. Peripheral pulses were 2+ and symmetric. ABDOMEN: Soft and nontender with normal bowel sounds. No ascites was noted. MUSCULOSKELETAL: There was no tenderness or effusions noted. Muscle strength and tone were normal. EXTREMITIES: No cyanosis, clubbing or edema. NEUROLOGIC: no focal deficits, alert and oriented x1. Objective Labs Result Diagrams: 02/22/19 05:24 02/22/19 05:24 Labs: Laboratory Results - last 24 hr 02/18/19 02/22/19 02/22/19 17:25 05:24 05:24 WBC 6.8 RBC 4.78 Hgb 13.4 Hct 40.4 MCV 84.6 MCH 28.0 MCHC 33.1 RDW 15.1 H Plt Count 115 L Neut % (Auto) 57.5 Lymph % (Auto) 22.0 L [place] % (Auto) 17.0 H Eos % (Auto) 2.8 Baso % (Auto) 0.7 Neut # (Auto) 3900 Lymph # (Auto) 1500 [place] # (Auto) 1200 H Eos # (Auto) 200 Baso # (Auto) 0 Sodium Potassium Chloride Carbon Dioxide BUN Creatinine Estimated GFR BUN/Creatinine Ratio Glucose Calcium Total Bilirubin AST ALT Alkaline Phosphatase Ammonia 14.0 Total Protein Albumin Globulin Albumin/Globulin Ratio Hepatitis A IgM Ab Nonreactive Hep Bs Antigen Nonreactive Hep B Core IgM Ab Nonreactive Hepatitis C Antibody Nonreactive Hep C Ab Signal/Cutoff 0.04 02/22/19 02/22/19 05:24 14:15 WBC RBC Hgb Hct MCV MCH MCHC RDW Plt Count Neut % (Auto) Lymph % (Auto) [place] % (Auto) Eos % (Auto) Baso % (Auto) Neut # (Auto) Lymph # (Auto) [place] # (Auto) Eos # (Auto) Baso # (Auto) Sodium 137 Potassium 3.8 Chloride 102 Carbon Dioxide 25 BUN 12 Creatinine 0.40 L Estimated GFR > 60.0 BUN/Creatinine Ratio 30.0 H Glucose 94 Calcium 9.0 Total Bilirubin 3.1 H AST 708 H ALT 718 H Alkaline Phosphatase 394 H Ammonia Total Protein 6.7 Albumin 3.1 L Globulin 3.6 Albumin/Globulin Ratio 0.9 L Hepatitis A IgM Ab Hep Bs Antigen Negative Hep B Core IgM Ab Hepatitis C Antibody Negative Hep C Ab Signal/Cutoff Assessment & Plan Assessment & Plan narrative: Maricarmen Kowalski will be admitted to the inpatient service for treatment and management of a urinary tract infection, and further workup of elevated liver enzymes. 1. Acute metabolic encephalopathy, acute, present on admission -likely secondary to elevated liver enzymes concerning for metabolic encephalopathy/hepatic encephalopathy. Her UTI is unlikely to make her this lethargic but it is still a possibility. Her ultrasound did not show any evidence of cirrhosis, and her LFTs have been improving but somewhat slowly. This may take some time to improve to her baseline. She, today is waxing and waning but overall improved. Will stop IV ceftriaxone 1 g q.i.d., today is day 4. Urine culture with multiple organisms Lactate, Procalcitonin and lipase were negative see management below re elevated liver enzymes. 2. Elevated liver enzymes, acute, present on admission - suspect hepatitis or DILI at this time given severity of elevations and slow improvement over the past few days. LFTs were improving but miles again today, and bilirubin increasing, bilirubin tends to lag behind the enzymes and her mental status is improving. Hepatitis panel and resent serologies are pending, ultrasound showed no evidence of cirrhosis but just steatitis. - Tylenol level was negative -no new medications or herbal supplements recently per the patient's son. -differential includes ischemia but she had no other evidence of this including lactate, renal failure, etc. 3. Essential hypertension Patient is has a home dose of metoprolol 100 mg p.o. b.i.d. which is continued She also takes losartan hydrochlorothiazide 100/25. Currently holding HCTZ. 4. Advanced dementia, patient appears to be close to baseline mental status per son. 5. atrial fibrillation, previously noted as chronic, now paroxysmal as patient is in sinus rhythm - continue metoprolol. Dispo: likely SNF placement after improvement in LFTs. Code: DNR Quality VTE Deep Vein Thrombosis/Pulmonary Embolism Present on Admission: No
[2019-02-23] VITALS (9 sets, daily range): BP systolic 121–141; BP diastolic 70–101; PULSE 68–107; RESP 16–18; TEMP 36.1–37.4; O2SAT 92–99
[2019-02-23 08:21] LABS: Alanine Aminotransferase 716 IU/L (9-52); Albumin 3.4 g/dL (3.5-5.0); Alkaline Phosphatase 385 U/L (38-126); Aspartate Aminotransferase 742 IU/L (14-36); Bilirubin Total 2.9 mg/dL (0.2-1.3); Blood Urea Nitrogen 12 mg/dL (7-17); Calcium 9.1 mg/dL (8.4-10.2); Carbon Dioxide 26 mmol/L (22-32); Chloride 102 mmol/L (98-107); Estimated Glomerular Filt Rate > 60.0 mL/min (>60); Globulin 3.5 g/dL (1.7-4.1); Glucose 97 mg/dL (80-110); HEMOLYSIS < 15 (0-50); Potassium 3.7 mmol/L (3.4-5.1); Sodium 138 mmol/L (137-145); Total Protein 6.9 g/dL (6.3-8.2)
--- NOTE | 2019-02-23 09:11 | DI.MRI.S_ITS ---
PROCEDURE: MR ABDOMEN WO CON INDICATIONS: Elevated LFTs TECHNIQUE: Coronal HASTE through the abdomen, axial 2-D FLASH in- and [id number], and breath-hold T2 FSE with fat saturation through the biliary system and pancreas. Oblique coronal and axial thin-slice HASTE, radial thick-slab HASTE centered on the extrahepatic bile ducts. COMPARISON: Abdominal ultrasound 02/18/2019. CT pulmonary angiogram 04/19/2017 FINDINGS: Image quality: Fair. Motion artifact. Pancreas and biliary system: Intra- and extra-hepatic biliary ducts are non dilated. Pancreas is normal in morphology, without adjacent soft tissue edema. Pancreatic duct is normal in caliber, without developmental anomalies. Gallbladder is nondistended.. Other solid organs: Liver is normal in size. A few small T2 hyperintense foci in the liver, some of which are faintly visualized on the CT pulmonary angiogram from 2017 and most likely a benign cyst or hemangioma but incompletely characterized without IV contrast. Hepatic steatosis. Spleen is normal in size. No adrenal nodules. Both kidneys are normal in size, without hydronephrosis. A few simple cysts bilaterally. Small bilateral peripelvic cysts. Nodes and vessels: No retroperitoneal or mesenteric adenopathy by size criteria. Abdominal aortic ectasia. Bowel and peritoneum: Unenhanced bowel loops are normal in caliber. No free fluid. Lung bases: No pleural effusions. Cardiomegaly. Ascending aortic aneurysm measuring approximately 4.7 cm. Bones and soft tissues: No ventral hernias. Bone marrow is of normal overall signal. No aggressive appearing lesion. IMPRESSION: 1. No biliary or pancreatic ductal dilatation. 2. Gallbladder is nondistended. No pericholecystic fluid. 3. Hepatic steatosis. 4. Small T2 hyperintense foci in the liver. Statistically these most likely represent benign cyst or hemangioma but are incompletely characterized without IV contrast. 5. Cardiomegaly and ascending aortic aneurysm. No pleural effusion. Dictated by: Jhonny Cuba M.D. on 02/23/2019 at 12:25 Approved by: Jhonny Cuba M.D. on 02/23/2019 at 12:36
[2019-02-23] MEDS: METOPROLOL IR 50 MG TABLET 100 MG PO ×2 (10:00→21:34)
[2019-02-23] MEDS: LOSARTAN 50 MG TABLET 100 MG PO (10:00)
[2019-02-23] MEDS: HEPARIN 5,000 UNIT/ML VIAL 5000 UNIT SUBCUT ×2 (10:01→21:34)
[2019-02-23] MEDS: SODIUM CHLORIDE 0.9% FLUSH 10 ML IV ×2 (10:01→21:34)
[2019-02-23] MEDS: ASPIRIN 81 MG CHEW TAB PO (10:02)
--- NOTE | 2019-02-23 12:00 | PT.IPTN ---
Current Diagnoses Metabolic encephalopathy (02/18/19) Physical Therapy Treatment Note M2 PT-IP Current Condition Start: 02/19/19 08:31 Freq: NEEDED Status: Active Protocol: Document 02/19/19 10:00 RS (Rec: 02/19/19 13:21 RS [id number]) Physical Therapy Current Condition Current Condition Evaluation Date 02/19/19 Treatment Diagnosis impaired mobility M3 PT-IP Subjective Start: 02/19/19 08:31 Freq: NEEDED Status: Active Protocol: Document 02/23/19 12:00 GGD (Rec: 02/23/19 13:53 GGD [id number]) Subjective Physical Therapy Visit Type Type Treatment Note Visit Start Time 11:43 Visit Stop Time 11:59 Total Visit Minutes 16 Number of PATENTS EXAMINER Visits 3 Physical Therapy Visit Comments Patient Comments Pt willing to work with therapy. M4 PT-IP Mobility and Gait Start: 02/19/19 08:31 Freq: NEEDED Status: Active Protocol: Document 02/23/19 12:00 GGD (Rec: 02/23/19 13:53 GGD [id number]) PT-Bed Mobility Assessment Supine to Sit Supine to Sit Moderate Assistance,1 Person Assistance,Head of Bed Elevated Scooting Scooting to Edge of Bed Moderate Assistance PT-Transfer Assessment Sit to and From Stand Sit to and from Stand Minimal Assistance,1 Person Assistance,Use of Upper Extremities Equipment Transfer Assistive Device Gait Belt,Front Wheeled Walker Orthotic/Prosthetic Devices or Brace: No Transfers Transfer Destination Chair Transfer Technique Stand Step Pivot Transfer Ability Level of Assist Moderate Assistance,1 Person Assistance,Use of Upper Extremities Comments Mobility Comments sit to stand from bed x 3 M5 PT-IP Objective Assessments Start: 02/19/19 08:31 Freq: NEEDED Status: Active Protocol: Document 02/19/19 10:00 RS (Rec: 02/19/19 13:21 RS [id number]) Orientation Orientation/Cognition Comments Difficult/unable to assess Gross Range of Motion Lower Extremity ROM Impairments passively WFL Strength Comments Strength Comments unable to perform formal strength testing M6 PT-IP Treatment Start: 02/19/19 08:31 Freq: NEEDED Status: Active Protocol: Document 02/19/19 10:00 RS (Rec: 02/19/19 13:21 RS [id number]) Physical Therapy Treatment Other Treatments Other Treatment Performed pt not appropriate for education at this time M7 PT-IP Assessment and Plan Start: 02/19/19 08:31 Freq: NEEDED Status: Active Protocol: Document 02/23/19 12:00 GGD (Rec: 02/23/19 13:53 GGD [id number]) PT Summary Assessment and Plan Summary Assessment Summary Pt needing mod A. with mobility. She is inconsistent with ability to follow cues. Pt would benefit from SNF rehab to improve functional mobility. Frequency of Treatment Frequency Of Treatment Once a Day Treatment Plan Physical Therapy Treatment Plan Bed Mobility Training,Transfer Training,Gait Training, Therapeutic Exercise,Balance Retraining,Post Op Education, Discharge Planning,Hot or Cold Pack,Neuromuscular Re-ed, Coordination Retraining,Manual Therapy Recommendations To Nursing Amount of Assist Needed 2 Person Assist Discharge Recommendations PT Discharge Recommendations SNF Rehab
--- NOTE | 2019-02-23 12:19 | DIET.PN ---
Dietary Progress Note RD f/u since last seeing Ms. Kowalski 4d ago. Pt consuming 50-75% of meals so we will go ahead and add a yogurt c breakfast tray and Ensure Enlive c lunch tray to fill the gap in order to meet EERs (adding 30g PRO). Pt has been weight steady since initial consult. HT: 152cm WT: 56.3kg UBW: 64.3kg BMI: 24.4 Labs: BUN: 12 Bili: 2.9 H AST 742 H ALT: 716 H ALP: 385 MNA: n/a (pt unable to answer assessment) Harsha: 14 Nutrition Diagnosis: Inadequate energy intake r/t decreased ability to consume sufficient energy aeb inability to independently consume foods, difficulty chewing/swallowing, conditions associated with diagnosis dementia. Interventions: Initiate added PRO via yogurt 1x/d breakfast, enlive 1x/d lunch Diet Order: Low Sodium, Mech Soft/Easy Chew EER: 7320-5389 mili @ 27-30cal/kg Pro: 73g @ 1.3g/kg Monitoring/Evaluations: PO's, weight Initialized on 02/19/19 14:27 - END OF NOTE
--- NOTE | 2019-02-23 16:48 | P.PN_ITS ---
Subjective Subjective Date Patient Seen: 02/23/19 Interval history: Clayton Kowalski is an 83-year-old female with a past medical history significant for hypertension, paroxysmal atrial fibrillation and advanced dementia who was brought to the ED by her son for lethargy and decreased responsiveness. Patient is resting in bed comfortably. She answers questions occasionally with 1 word answers. She denies pain. Discussed with patient's son her overall decline in mental status over the last 3 years which is likely due to advancing dementia and patient's liver enzyme elevation and likelihood that this is fatty liver disease versus drug-induced liver injury. Patient is incontinent but voiding and eliminating without difficulty. Patient is unable to carry out any of her own ADLs and requires assistance with feeding. Exam Vital Signs (past 8 hours): - 02/23/19 10:00 Pulse Rate 107 H Blood Pressure 128/86 Oxygen Delivery Method Room Air Oxygen Flow Rate 0 Narrative Exam Narrative: General: Elderly thin female lying in bed and in no acute distress, advanced dementia, occasionally answers questions with 1 word answers. HEENT: Normocephalic, atraumatic. External ears without defect. Pupils equal, round, and reactive to light. Anicteric sclerae, moist conjunctivae, and no lid lag. Neck: Supple with full range of motion. No lymphadenopathy or thyromegaly. Cardiovascular: Regular rate and rhythm without murmurs, rubs, or gallops appreciated Pulmonary: Clear to auscultation bilaterally without crackles, wheezes, or rhonchi. Normal respiratory effort with no use of accessory muscles. Abdomen: Soft, bowel sounds present, nontender, nondistended. No hepatosplenomegaly or masses appreciated. Extremities: No clubbing, cyanosis, or edema. Skin: Normal temperature, turgor, and texture; no rash, ulcers, or subcutaneous nodules appreciated. Neurological: Cranial nerves grossly intact. Psychiatric: Rocks back and forth. Advanced dementia and oriented to person only. Objective Labs Result Diagrams: 02/22/19 05:24 02/24/19 05:15 Labs: Laboratory Results - last 24 hr 02/18/19 02/22/19 02/23/19 17:25 14:15 07:42 Sodium 138 Potassium 3.7 Chloride 102 Carbon Dioxide 26 BUN 12 Creatinine 0.60 Estimated GFR > 60.0 BUN/Creatinine Ratio 20.0 Glucose 97 Calcium 9.1 Total Bilirubin 2.9 H AST 742 H ALT 716 H Alkaline Phosphatase 385 H Total Protein 6.9 Albumin 3.4 L Globulin 3.5 Albumin/Globulin Ratio 1.0 Hepatitis A IgM Ab Nonreactive Hep Bs Antigen Nonreactive Hep B Core IgM Ab Nonreactive Hepatitis C Antibody Nonreactive Negative Hep C Ab Signal/Cutoff 0.04 Assessment & Plan Assessment & Plan narrative: Clayton Kowalski is an 83-year-old female with a past medical history significant for hypertension, paroxysmal atrial fibrillation and advanced dementia who was brought to the ED by her son for lethargy and decreased responsiveness. 1. Acute metabolic encephalopathy in setting of advanced dementia, present on admission. Acute metabolic encephalopathy resolved. -Acute alteration in mental status likely secondary to UTI versus stepwise decline and advancing dementia. Initially concerned for hepatic encephalopathy in setting of elevated liver enzymes, however, ammonia level normal at 14. -Continued to treat UTI as below. -Patient is close to baseline mentation per son and mental status tends to wax and wane. 2. Acute UTI, present on admission. Resolved. -Urinalysis appeared grossly infected, however, urine culture grew multiple organisms consistent with contamination. -Patient received ceftriaxone x5 days with mild improvement in overall mental status. 3. Elevated liver enzymes, acute, present on admission. Resolving. -Suspect VILLA vs. DILI at this time given severity of elevations and slow improvement over the past few days. Differential includes ischemia but she had no other evidence of this including lactate, renal failure, etc. -Tylenol level was negative. -No new medications or herbal supplements recently per the patient's son. -Discontinued statin. -Abdominal ultrasound demonstrated increased hepatic echogenicity suggestive of steatosis without evidence of cholelithiasis, cholecystitis or biliary ductal dilatation. -Ordered MRCP to rule out hepatic/biliary pathology, pending. 4. Hypertension, chronic, present on admission. Stable. -Continue metoprolol tartrate 100 mg twice daily and losartan 100 mg daily. Discontinued hydrochlorothiazide as the patient is highly susceptible for dehydration. 5. Paroxysmal atrial fibrillation, present on admission. Stable. -Previously noted as chronic but actually paroxysmal as patient is in sinus rhythm. -Continue metoprolol tartrate 100 mg twice daily. Code: DNR Disposition: Patient will discharge to nursing home facility tomorrow pending MRCP to rule out hepatic/biliary pathology. Quality VTE Deep Vein Thrombosis/Pulmonary Embolism Present on Admission: No
--- NOTE | 2019-02-23 22:14 | PC.NURSE ---
2200 - Pt resting in bed. Smiles in response to interaction. Slow, only occasional verbal response. Am I okay? Able to take po med in carrier. Bed alarm on.
[2019-02-24] VITALS: O2SAT 98
[2019-02-24] MEDS: CEFTRIAXONE 2 GM/50 ML FROZ.PIGGY IV (00:01)
[2019-02-24 04:20] VITALS: BP 145/87; PULSE 73; RESP 16; TEMP 36.6; O2SAT 97
[2019-02-24 05:34] LABS: Alanine Aminotransferase 660 IU/L (9-52); Albumin Globulin Ratio 0.8 (1.0-2.8); Alkaline Phosphatase 347 U/L (38-126); Aspartate Aminotransferase 680 IU/L (14-36); Bilirubin Total 2.2 mg/dL (0.2-1.3); Blood Urea Nitrogen 13 mg/dL (7-17); Carbon Dioxide 29 mmol/L (22-32); Chloride 103 mmol/L (98-107); Estimated Glomerular Filt Rate > 60.0 mL/min (>60); Globulin 3.6 g/dL (1.7-4.1); Glucose 93 mg/dL (80-110); HEMOLYSIS < 15 (0-50); Potassium 3.6 mmol/L (3.4-5.1); Sodium 136 mmol/L (137-145); Total Protein 6.6 g/dL (6.3-8.2)
[2019-02-24 08:00] VITALS: BP 134/99; PULSE 86; RESP 18; TEMP 36.4; O2SAT 97
--- NOTE | 2019-02-24 09:33 | PC.NURSE ---
Patient sitting up in bed. Responds with nodding and an occasional Okay or no in response to questions. SCD's and blue foam heel protectors removed for skin and circulatory assessment. Reapplied. Lung sounds clear, breathing is unlabored. Tele is in place. Patient is unable to squeeze hands bilaterally. No grimacing, guarding or wincing noted during assessment. Patient asked if she was in any pain. Patient said no. IV is clean and intact in the left wrist. Bed alarm on. Call light and tray table placed in reach.
[2019-02-24] MEDS: METOPROLOL IR 50 MG TABLET 100 MG PO (09:41)
[2019-02-24] MEDS: SODIUM CHLORIDE 0.9% FLUSH 10 ML IV (09:41)
[2019-02-24] MEDS: ASPIRIN 81 MG CHEW TAB PO (09:41)
[2019-02-24] MEDS: LOSARTAN 50 MG TABLET 100 MG PO (09:41)
[2019-02-24] MEDS: HEPARIN 5,000 UNIT/ML VIAL 5000 UNIT SUBCUT (09:41)
--- NOTE | 2019-02-24 10:21 | P.DS_ITS ---
History of Present Illness History of Present Illness Date Patient Seen: 02/18/19 Chief complaint: UTI Narrative: Written by Alexandria CROSS: Maricarmen Kowalski is an 83-year-old female with late stage dementia who was brought in by her son due to being very lethargic and nonresponsive. 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 The patient is very limited verbally and is unable to provide a history. Much of this history is provided by the emergency department note and/or the provider. Per the emergency department provider she was seen on February 06 due to a fall at home and at that time she had a laceration on the back of her head that required a number of sutures. When she arrived today the sutures had been removed and she had appeared to of removed the roof of the scar causing her head bleed again. This was repaired in the emergency department today. Per the ED provider, the son states that he lives with his mother, he takes care of her ADLs, she knows who he is but is not oriented to the time, place, or other person's. He does not want to have her transferred anywhere. Per the ED provider the patient is a DNR/DNI. The patient provided her name and her birthday which was off by 1 year but the actual date and month were correct. She does not speak in full sentences, so I am unable to obtain any history or r eview of systems from the patient. Review of the patient's labs indicate a very low platelet count which is lower than her baseline, elevated liver enzymes which are new, and bacteria urinary urine of sufficient amount to require culture. Discharge Providers Provider Date of admission: 02/18/19 23:43 Discharge Date: 02/24/19 Primary care physician: Shellie Philip MD Consults: 02/19/19 00:05 Consult to Physical Therapy Evaluate & Treat Comment: weakness Physician Instructions: Evaluate and Treat 02/19/19 03:50 Consult to Dietitian, Adult Routine Comment: Reason For Exam: difficulty swallowing Discharge provider: Gianna Richter DO Summary Hospital Course Discharge Diagnosis: 1. Acute metabolic encephalopathy in setting of advanced dementia, present on admission. Acute metabolic encephalopathy resolved. 2. Acute UTI, present on admission. Resolved. 3. Elevated liver enzymes, acute, present on admission. Resolving. 4. Hypertension, chronic, present on admission. Stable. 5. Paroxysmal atrial fibrillation, present on admission. Stable. Hospital Course: Maricarmen Kowalski is an 83-year-old female with a past medical history significant for hypertension, paroxysmal atrial fibrillation and advanced dementia who was brought to the ED by her son for lethargy and decreased responsiveness. 1. Acute metabolic encephalopathy in setting of advanced dementia, present on admission. Acute metabolic encephalopathy resolved. -Patient with longstanding advanced dementia. Patient presented with abrupt onset lethargy and unrensponsiveness. Patient typically will respond to questions with one word answers and is able to follow some commands. -Acute alteration in mental status likely secondary to UTI versus stepwise decline and advancing dementia. Initially concerned for hepatic encephalopathy in setting of elevated liver enzymes, however, ammonia level normal at 14. -Continued to treat UTI as below which significantly improved mentation per son and medical staff.Patient is at baseline mentation per son and mental status tends to wax and wane with ing in form of decreased ability to interact in afternoon/evenings. 2. Acute UTI, present on admission. Resolved. -Urinalysis appeared grossly infected, however, urine culture grew multiple organisms consistent with contamination. -Patient received ceftriaxone x5 days with significant improvement in overall mental status per son and medical staff. 3. Elevated liver enzymes, acute, present on admission. Resolving. -Suspect VILLA with possible DILI due to statin at this time given severity of elevations and slow improvement over the past few days. Differential includes ischemia but she had no other evidence of this including lactate, renal failure, etc. -Initial LFTs AST 1063, ALT 1149 and Bili 1.9 (peaked at 3.1) with downward trend and resolving. Recomment repeat LFT in 1 week to assure continued resolution. -Tylenol level was negative. -No new medications or herbal supplements recently per the patient's son. -Discontinued statin. -Abdominal ultrasound demonstrated increased hepatic echogenicity suggestive of steatosis without evidence of cholelithiasis, cholecystitis or biliary ductal dilatation. -MRCP demonstrated steatosis without cirrhosis and no hepatic and biliary pathology. 4. Hypertension, chronic, present on admission. Stable. -Continued metoprolol tartrate 100 mg twice daily and losartan 100 mg daily. Discontinued hydrochlorothiazide as the patient is highly susceptible for dehydration. 5. Paroxysmal atrial fibrillation, present on admission. Stable. -Previously noted as chronic but actually paroxysmal as patient is in sinus rhythm. -Continued metoprolol tartrate 100 mg twice daily. Exam Vital Signs (past 8 hours): - 02/24/19 04:20 02/24/19 08:00 Temperature 97.8 F 97.6 F Pulse Rate 73 86 Respiratory Rate 16 18 Blood Pressure 145/87 H 134/99 H Pulse Oximetry 97 97 Oxygen Delivery Method Room Air Oxygen Flow Rate 0 Narrative Exam Narrative: General: Elderly thin female lying in bed and in no acute distress, advanced dementia, occasionally answers questions with 1 word answers. HEENT: Normocephalic, atraumatic. External ears without defect. Pupils equal, round, and reactive to light. Anicteric sclerae, moist conjunctivae, and no lid lag. Neck: Supple with full range of motion. No lymphadenopathy or thyromegaly. Cardiovascular: Regular rate and rhythm without murmurs, rubs, or gallops appreciated Pulmonary: Clear to auscultation bilaterally without crackles, wheezes, or rhonchi. Normal respiratory effort with no use of accessory muscles. Abdomen: Soft, bowel sounds present, nontender, nondistended. No hepatosplenomegaly or masses appreciated. Extremities: No clubbing, cyanosis, or edema. Skin: Normal temperature, turgor, and texture; no rash, ulcers, or subcutaneous nodules appreciated. Neurological: Cranial nerves grossly intact. Psychiatric: Rocks back and forth. Advanced dementia and oriented to person only. Objective Labs Result Diagrams: 02/22/19 05:24 02/24/19 05:15 Labs: Laboratory Results - last 24 hr 02/24/19 05:15 Sodium 136 L Potassium 3.6 Chloride 103 Carbon Dioxide 29 BUN 13 Creatinine 0.50 L Estimated GFR > 60.0 BUN/Creatinine Ratio 26.0 H Glucose 93 Calcium 9.0 Total Bilirubin 2.2 H AST 680 H ALT 660 H Alkaline Phosphatase 347 H Total Protein 6.6 Albumin 3.0 L Globulin 3.6 Albumin/Globulin Ratio 0.8 L Discharge Plan Discharge Plan Patient Disposition: SNF Transfer to: [facility] Under care of provider: [employer] Attendant Labs: LFT's in 3 days Discharge Med Rec/Prescriptions Prescriptions: Continued aspirin 81 mg Tablet,Chewable 81 mg PO DAILY RF: 0 metoprolol tartrate 100 mg Tablet 100 mg PO BID RF: 0 losartan 100 mg Tablet 100 mg PO DAILY RF: 0 Discontinued atorvastatin 40 mg Tablet 40 mg PO [id number] RF: 0 Follow up/Referrals: Shellie Philip MD [Primary Care Provider] - Discharge Health Status Brief summary of current health status: Maricarmen Kowalski is an 83-year-old female with a past medical history significant for hypertension, paroxysmal atrial fibrillation and advanced dementia who was brought to the ED by her son for lethargy and decreased responsiveness. Patient was treated with for UTI with significant improvement in mentation to baseline. Patient has advanced dementia and would benefit from long-term memory care unit versus hospice with private ca re giving at home. Patient has generalized weakness and requires continued rehabilitation with physical and occupational therapy. Patient has significant elevation of LFTs possibly due to drug-induced liver injury in conjunction with VILLA with LFTs trending down and resolving and would recommend repeat LFTs in 3 days. Provider Discharge Instructions Diet: Diet as Tolerated, Low-fat, Low-sodium and Low-cholesterol Activity: Activity as tolerated with forward wheeled walker and physical and occupational therapy [facility] Rehab type: Physical therapy, Occupational therapy and Speech therapy Discharge Data Primary Care Provider: Shellie Philip Discharges patient from system. Discharge Date/Time: 02/24/19 15:57 Quality VTE Deep Vein Thrombosis/Pulmonary Embolism Present on Admission: No
--- NOTE | 2019-02-24 10:42 | CM.DPC ---
DCP Cont: Patient is to be discharged today to [facility]. Son, Jose M, updated. Confirmed with Catrina in admissions, [employer] time 1545, was originally going to be 11:30, but changed time. Had son sign IMM. Went over hospice music therapist discharge planning, and discussed hospice as well. Son stated, he has limited resources financially, for he is living off his mother's social security, since he is disabled as well. Discussed filling out [facility] paperwork, and let him know that [facility] can initiate the process. Suggested that he do this soon, since the process can take some time. Explained that [facility] can provide [facility] caregivers, and is based upon income. Son is hopeful that his mom can go back to baseline since he can care for her. Faxed over [facility], signed med sheet, and discharge summary to [facility]. Updated white board in main nurses station. P: Patient is to be discharged to [facility] today. Arianna Rivero RN/D[employer] Sales Consultant
[2019-02-24 15:19] LABS: Hepatitis A Antibody Total Nonreactive (Nonreactive); Hepatitis B Core Antibody Nonreactive (Nonreactive)
[2019-02-26 07:43] LABS: Hepatitis B Surf Ab Qualitativ Nonreactive (Nonreactive)
== END 2019-02-24 15:57 | DRG 689 ==
LOC: ED 23:30 → AC 23:44
PROVIDERS: Emergency Medicine; Internal Medicine; Nurse Practitioner Gerontology; Admitting Provider Nurse Practitioner Family; Emergency Provider Emergency Medicine; PCP Internal Medicine; Visit Provider Nurse Practitioner Family
DX: N39.0 Urinary tract infection, site not specified (principal); G93.41 Metabolic encephalopathy; F03.90 Unspecified dementia, unspecified severity, without behavioral disturbance, psychotic disturbance, mood disturbance, and anxiety; I10 Essential (primary) hypertension; K71.2 Toxic liver disease with acute hepatitis; R74.0 Nonspecific elevation of levels of transaminase and lactic acid dehydrogenase [LDH]; E78.5 Hyperlipidemia, unspecified; S01.01XS Laceration without foreign body of scalp, sequela; W18.30XS Fall on same level, unspecified, sequela; I48.0 Paroxysmal atrial fibrillation; K75.81 Nonalcoholic steatohepatitis (NASH); T50.905A Adverse effect of unspecified drugs, medicaments and biological substances, initial encounter
CPT/HCPCS: 36415; 51701; 70450; 71045; 74181; 76705; 80048; 80053; 80061; 80074; 80329; 81001; 82140; 82962; 83605; 83690; 84145; 84450; 84460; 85025; 86704; 86706; 86708; 86803; 87040; 87086; 87340; 96361; 96365; 97116; 97163; 97530; 99284; 99285; G0480; J0360; J0696; J1644; J3480; J7050

== ENCOUNTER 2019-03-05 15:02 | Emergency (ER) | payer MEDICARE, SELFPAY ==
[2019-02-19 01:00] VITALS: BMI 24.5
[2019-03-05 15:07] VITALS: BP 108/80; PULSE 64; RESP 13; TEMP 36.6; O2SAT 94
[2019-03-05 15:21] LABS: Add Manual Diff / Slide Review NO; Basophils Absolute Auto 0 /uL (0-100); Basophils Percent Auto 0.7 % (0-2); Eosinophils Absolute Auto 100 /uL (0-450); Eosinophils Percent Auto 1.1 % (2-4); Hematocrit 37.8 % (36-46); Hemoglobin 12.3 g/dL (12.0-16.0); Lymphocytes Absolute Auto 2000 /uL (1100-4500); Mean Corpuscular HGB Conc 32.5 % (30-36); Mean Corpuscular Volume 86.3 fL (80-100); Monocytes Absolute Auto 800 /uL (0-900); Monocytes Percent Auto 12.1 % (3-14); Neutrophils Absolute Auto 3600 /uL (1500-7000); Neutrophils Percent Auto 55.1 % (50-75); Platelet Count 141 X10^3/uL (150-400); Red Blood Cell Count 4.38 X10^6/uL (4.0-5.2); Red Cell Distribution Width 16.4 % (11.6-14.8); White Blood Cell Count 6.5 X10^3/uL (4.5-11.0)
[2019-03-05 16:17] LABS: Alanine Aminotransferase 358 IU/L (<35); Albumin 3.4 g/dL (3.5-5.0); Albumin Globulin Ratio 0.9 (1.0-2.8); Alkaline Phosphatase 230 U/L (38-126); Aspartate Aminotransferase 235 IU/L (14-36); Bilirubin Total 1.5 mg/dL (0.2-1.3); Blood Urea Nitrogen 24 mg/dL (7-17); Calcium 9.5 mg/dL (8.4-10.2); Carbon Dioxide 31 mmol/L (22-32); Chloride 99 mmol/L (98-107); Creatine Kinase < 20 U/L (30-135); Estimated Glomerular Filt Rate > 60.0 mL/min (>60); Globulin 3.6 g/dL (1.7-4.1); Glucose 142 mg/dL (80-110); HEMOLYSIS 41 (0-50); Potassium 3.8 mmol/L (3.4-5.1); Sodium 136 mmol/L (137-145)
--- NOTE | 2019-03-05 16:28 | ED_ITS ---
HPI - Syncope General Chief Complaint: Syncope Stated Complaint: Syncope Time Seen by Provider: 03/05/19 15:19 Source: EMS Mode of arrival: EMS Limitations: altered mental status History of Present Illness HPI narrative: Patient is brought to the emergency department by EMS after being found to be slumped over at the table in the dining keith at her care facility. Patient quickly awoke when stimulated, but was sent here for evaluation any way. Patient has a history of dementia, and is unable to offer any further information. No further information was sent with the medics from the care facility. Related Data Home Medications Medication Instructions Recorded Confirmed aspirin 81 mg PO DAILY 02/19/19 03/05/19 losartan 100 mg PO DAILY 02/19/19 03/05/19 metoprolol tartrate 100 mg PO BID 02/19/19 03/05/19 bisacodyl 5 - 10 mg PO PRN PRN 03/05/19 03/05/19 bisacodyl 10 mg WY DAILY PRN 03/05/19 03/05/19 magnesium hydroxide [Milk of 30 ml PO PRN PRN 03/05/19 03/05/19 Magnesia] sodium phosphates [Fleet Enema] 118 ml WY PRN PRN 03/05/19 03/05/19 Allergies Allergy/AdvReac Type Severity Reaction Status Date / Time No Known Drug Allergies Allergy Verified 11/25/17 14:32 Review of Systems Review of Systems ROS Unobtainable: Unobtainable due to mental condition 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) Dementia (Acute) Stroke (Acute) Social History household members: family Smoking Status: Unknown if ever smoked alcohol intake: never Substance Use Type: does not use Exam Initial Vital Signs Initial Vital Signs: Vital Signs Temperature 97.8 F 03/05/19 15:07 Pulse Rate 64 03/05/19 15:07 Respiratory Rate 13 03/05/19 15:07 Blood Pressure 108/80 03/05/19 15:07 Pulse Oximetry 94 03/05/19 15:07 Const General: cooperative and frail appearing Orientation: awake HENCA Head: normocephalic and atraumatic Ears: external ears normal Nose: external nose normal and No nasal discharge Face and sinus: face symmetric and No dry mucous membranes Mouth: oral mucosae normal and moist mucous membranes Teeth and gingiva: dentition normal Eyes General: appearance normal, both eyes and all related structures Eyelids: eyelids normal Conjunctivae: conjunctivae normal Sclera: sclerae normal Pupils: PERRL EOM: EOM intact bilaterally Neck Neck: normal visual inspection, trachea midline, No lymphadenopathy, No midline deformity and No JVD Lymphatic: No lymphedema Chest Chest: normal inspection of the chest Resp Effort & Inspection: normal respiratory effort, able to speak in complete sentences, no respiratory distress and no use of accessory muscles Auscultation: clear to auscultation bilaterally, no rales, no rhonchi and no wheezes Cardio Rate: regular rate Rhythm: regular rhythm Heart Sounds: no click, no gallops, no murmurs and no rubs Pulses: normal peripheral pulses GI Inspection: non-distended Palpation: soft, no hepatosplenomegaly, No guarding, No pulsatile mass and No tender Auscultation: normal bowel sounds Back/Spine/Pelvis Back: No CVA tenderness Cervical Spine: cervical ROM normal and No pain with cervical ROM Thoracic/Lumbar Spine: thoracic and lumbar spine normal to inspection Skin General: no rashes or lesions noted, No jaundice and No petechiae Neuro General: awake and no focal motor deficits Other: Patient is nonverbal. Remainder of neuro exam is grossly intact, except as noted. Extrem General: full ROM, no clubbing, cyanosis or edema, no pedal edema and no calf tenderness Psych Appearance: well kempt Mental Status: mental status grossly normal Attitude: cooperative Thought Content: normal and suicidality Judgment: judgment good Course Course Course Narrative: The patient had had a brief episode of syncope versus simply falling asleep. Her labs were unremarkable. I did not feel, given the overall circumstances, that further workup was indicated. Patient was deemed stable for discharge home. [facility] has been informed of symptomatic management and the usual indications for return. Orders Ordered: ED Orders 03/05/19 14:50 Complete Blood Count AUTO DIFF Stat Comprehensive Metabolic Panel Stat Troponin & CK Cardiac Panel Stat 03/05/19 15:09 EKG-12 Lead Stat Vital Signs Vital signs: Vital Signs - 8 hr 03/05/19 15:07 Temperature 97.8 F Pulse Rate 64 Respiratory Rate 13 Blood Pressure 108/80 Pulse Oximetry 94 MDM - Syncope Medical Records Attestation: I reviewed the patient's medical records. Lab Data Attestation: I reviewed the patient's lab results. Result diagrams: 03/05/19 14:50 03/05/19 14:50 Labs: Lab Results 03/05/19 03/05/19 Range/Units 14:50 14:50 WBC 6.5 (4.5-11.0) X10^3/uL RBC 4.38 (4.0-5.2) X10^6/uL Hgb 12.3 (12.0-16.0) g/dL Hct 37.8 (36-46) % MCV 86.3 (80-100) fL MCH 28.0 (26-34) PG MCHC 32.5 (30-36) % RDW 16.4 H (11.6-14.8) % Plt Count 141 L (150-400) X10^3/uL Neut % (Auto) 55.1 (50-75) % Lymph % (Auto) 31.0 (25-40) % [place] % (Auto) 12.1 (3-14) % Eos % (Auto) 1.1 L (2-4) % Baso % (Auto) 0.7 (0-2) % Neut # (Auto) 3600 (4906-1231) /uL Lymph # (Auto) 2000 (5074-6066) /uL [place] # (Auto) 800 (0-900) /uL Eos # (Auto) 100 (0-450) /uL Baso # (Auto) 0 (0-100) /uL Sodium 136 L (137-145) mmol/L Potassium 3.8 (3.4-5.1) mmol/L Chloride 99 (98-107) mmol/L Carbon Dioxide 31 (22-32) mmol/L BUN 24 H (7-17) mg/dL Creatinine 0.80 (0.52-1.04) mg/dL Estimated GFR > 60.0 (>60) mL/min BUN/Creatinine Ratio 30.0 H (6-22) Glucose 142 H (80-110) mg/dL Calcium 9.5 (8.4-10.2) mg/dL Total Bilirubin 1.5 H (0.2-1.3) mg/dL AST 235 H (14-36) IU/L ALT 358 H (<35) IU/L Alkaline Phosphatase 230 H (38-126) U/L Total Creatine Kinase < 20 L (30-135) U/L CK-MB (CK-2) TNP CK-MB (CK-2) Rel Index TNP Troponin I < 0.012 (0.01-0.034) ng/mL Total Protein 7.0 (6.3-8.2) g/dL Albumin 3.4 L (3.5-5.0) g/dL Globulin 3.6 (1.7-4.1) g/dL Albumin/Globulin Ratio 0.9 L (1.0-2.8) ECG Data Attestation: I personally reviewed and interpreted this ECG as follows: (See below) Interpretation: Twelve lead EKG performed March 05, 2019 at 3:09 p.m., as follows: Irregular ventricular rhythm with a rate of 72 beats per minute P waves and WY intervals undetectable QRS duration 101 milliseconds QTC interval 452 millisecond Interpretation: Atrial fibrillation; incomplete right bundle-branch block; anteroseptal OR, probably old; no signs of acute ischemia; abnormal EKG as interpreted by ED MD. Discharge Plan Departure Patient Disposition: Home Clinical Impression: Syncope Qualifiers: Syncope type: unspecified Qualified Code(s): R55 - Syncope and collapse Discharge Date/Time: 03/05/19 17:00 Instructions: DI for Syncope in Adults (Fainting) Prescriptions: No Action magnesium hydroxide [Milk of Magnesia] 400 mg/5 mL Suspension 30 ml PO PRN PRN (Reason: Constipation) RF: 0 bisacodyl 10 mg Suppository 10 mg WY DAILY PRN (Reason: Constipation) RF: 0 Fleet Enema 19-7 gram/118 mL Enema 118 ml WY PRN PRN (Reason: Constipation) RF: 0 bisacodyl 5 mg Tablet 5 - 10 mg PO PRN PRN (Reason: mild to severe constipation) RF: 0 aspirin 81 mg Tablet,Chewable 81 mg PO DAILY RF: 0 metoprolol tartrate 100 mg Tablet 100 mg PO BID RF: 0 losartan 100 mg Tablet 100 mg PO DAILY RF: 0 Referrals: Shellie Philip MD [Primary Care Provider] -
[2019-03-05 16:29] LABS: Troponin I < 0.012 ng/mL (0.01-0.034)
[2019-03-05 16:46] VITALS: BP 114/77; PULSE 81; RESP 14; O2SAT 100
--- NOTE | 2019-03-05 16:47 | PC.NURSE ---
patient nonverbal and was found slumped over in chair but arouseable. Brought to ED for near syncope
== END 2019-03-05 17:00 | disposition home or self-care (01) ==
PROVIDERS: Emergency Provider Emergency Medicine; PCP Internal Medicine
DX: R55 Syncope and collapse (principal); I48.91 Unspecified atrial fibrillation; R79.89 Other specified abnormal findings of blood chemistry
CPT/HCPCS: 36415; 80053; 82550; 84484; 85025; 93005; 93010; 99283; 99284

== ENCOUNTER 2019-03-14 17:34 | Observation (INO) | payer MEDICARE, SELFPAY ==
[2019-02-19 01:00] VITALS: BMI 24.5
[2019-03-14] VITALS (8 sets, daily range): BP systolic 134–167; BP diastolic 106–128; PULSE 74–99; RESP 15–32; TEMP 36.9–37.4; O2SAT 88–100; BMI 18.5
--- NOTE | 2019-03-14 17:36 | DI.CT.S_ITS ---
PROCEDURE: CT HEAD/BRAIN WO CON INDICATIONS: Code stroke TPA candidate TECHNIQUE: Noncontrast 4.5 mm thick angled axial sections acquired from the foramen magnum to the vertex, with coronal and sagittal reformats. For radiation dose reduction, the following was used: automated exposure control, adjustment of mA and/or kV according to patient size. COMPARISON: [facility], CT, CT HEAD/BRAIN WO CON, 02/18/2019, 18:44. FINDINGS: Image quality: Excellent. CSF spaces: Basal cisterns are patent. No extra-axial fluid collections. The ventricles are symmetric in size and shape. Brain: No intracranial bleeds or masses. There is cerebral volume loss for age, with resultant ventricular and sulcal prominence. There are periventricular and deep white matter chronic small vessel ischemic changes. There is intracranial internal carotid artery atherosclerosis. Old right basal ganglia a focus of ischemia. Scattered areas of the scooter ischemia are noted in the coronary bilaterally, as well as left cerebellum.. Skull and face: Calvarium and visualized facial bones appear intact, without suspicious lesions. Sinuses: Visualized sinuses and mastoids are clear. IMPRESSION: 1. No acute intracranial process. 2. Moderate atrophy and chronic microvascular ischemic changes. The findings were discussed with Dr. Aly Kang on 03/14/19 at 5:44 PM. Dictated by: Jennifer Blackburn M.D. on 03/14/2019 at 17:44 Approved by: Jennifer Blackburn M.D. on 03/14/2019 at 17:49
--- NOTE | 2019-03-14 18:03 | ED.GENADULT ---
HPI - General Adult General Chief complaint: Neuro Symptoms/Deficit Stated complaint: Stroke Time Seen by Provider: 03/14/19 17:35 Source: EMS Mode of arrival: EMS Limitations: altered mental status History of Present Illness HPI narrative: Patient is an 83-year-old female with a prior history of TIAs/CVAs. Also has a history of atrial fibrillation. She is not currently on any anticoagulation. Last known normal was at 0300 hours this afternoon. She is a resident of [facility]. Nursing staff went into the patient's room at approximately 0530 which is 2-1/2 hours after her last known normal. Brought into the Emergency Department for concerns of a possible stroke. EMS reports that they were told that the patient was potentially not moving her left side. They stated that on the ride here to the emergency department she was squeezing somewhat with her left side however was unable to hold her left arm up in the air. They stated that there blood glucose was greater than 90. No other interventions prior to arrival. Related Data Home Medications Medication Instructions Recorded Confirmed aspirin 81 mg PO DAILY 02/19/19 03/05/19 losartan 100 mg PO DAILY 02/19/19 03/05/19 metoprolol tartrate 100 mg PO BID 02/19/19 03/05/19 bisacodyl 5 - 10 mg PO PRN PRN 03/05/19 03/05/19 bisacodyl 10 mg MD DAILY PRN 03/05/19 03/05/19 magnesium hydroxide [Milk of 30 ml PO PRN PRN 03/05/19 03/05/19 Magnesia] sodium phosphates [Fleet Enema] 118 ml MD PRN PRN 03/05/19 03/05/19 Allergies Allergy/AdvReac Type Severity Reaction Status Date / Time No Known Drug Allergies Allergy Verified 11/25/17 14:32 Review of Systems Review of Systems ROS Unobtainable: Unobtainable due to mental status/LOC 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) Dementia (Acute) Stroke (Acute) Social History household members: family Smoking Status: Unknown if ever smoked alcohol intake: never Substance Use Type: does not use Exam Initial Vital Signs Initial Vital Signs: Vital Signs Pulse Rate 78 03/14/19 17:30 Respiratory Rate 32 H 03/14/19 17:30 Blood Pressure 134/113 H 03/14/19 17:30 Pulse Oximetry 88 L 03/14/19 17:30 Const General: No cooperative and comfortable Orientation: awake and obtunded Limitations: altered mental status HENMT Head: normal to inspection and normocephalic Resp Effort & Inspection: normal respiratory effort Auscultation: clear to auscultation bilaterally Cardio Rate: regular rate Rhythm: regular rhythm GI Inspection: non-distended Palpation: soft Skin Lesions: no lesions Rashes: no rashes Neuro General: awake and not oriented x3 Other: Patient unwilling/unable to participate in neurologic exam. We were unable to obtain a NIH score given this. GCS was 11. She did spontaneously move bilateral lower extremities and right upper extremity. I did not visualize her moving her left upper extremity. She did smile but did not follow any other commands. She did withdrawal to pain. Extrem General: capillary refill normal Psych Appearance: well kempt Scores GCS [place] coma scale eye opening: Spontaneous [place] coma scale verbal response: Sounds Jovanny coma scale motor response: Obey commands [place] coma scale total score: 12 Course Orders Ordered: ED Orders 03/14/19 17:36 CT head/brain wo con Stat 03/14/19 17:46 EKG-12 Lead Stat 03/14/19 17:55 B Type Natriuretic Peptide Stat Basic Metabolic Panel Stat Complete Blood Count AUTO DIFF Stat Lipase Stat Partial Thromboplastin Time Stat Prothrombin Time INR Stat Thyroid Stimulating Hormone Stat Troponin I Stat 03/14/19 18:09 XR chest 1V Stat Sodium Chloride (Normal Saline 0.9%) 1,000 mls @ 125 mls/hr IV CONT ISA Last Admin: 03/14/19 18:24 Dose: 125 mls/hr Documented by: VALE Vital Signs Vital signs: Vital Signs - 8 hr 03/14/19 17:30 03/14/19 18:00 03/14/19 18:30 Pulse Rate 78 74 99 H Respiratory Rate 32 H 22 27 H Blood Pressure 134/113 H Blood Pressure [Left Arm] 134/113 H 159/128 H Pulse Oximetry 88 L 92 92 03/14/19 19:00 Pulse Rate 74 Respiratory Rate 27 H Blood Pressure Blood Pressure [Left Arm] 167/123 H Pulse Oximetry 90 L Medical Decision Making Medical Records Medical records reviewed: Yes I reviewed the patient's medical records. Lab Data Lab results reviewed: Yes I reviewed the patient's lab results. Result diagrams: 03/14/19 17:55 03/14/19 17:55 Labs: Lab Results 03/14/19 03/14/19 03/14/19 Range/Units 17:55 17:55 17:55 WBC 7.0 (4.5-11.0) X10^3/uL RBC 4.47 (4.0-5.2) X10^6/uL Hgb 12.9 (12.0-16.0) g/dL Hct 39.2 (36-46) % MCV 87.9 (80-100) fL MCH 28.9 (26-34) PG MCHC 32.9 (30-36) % RDW 17.8 H (11.6-14.8) % Plt Count 165 (150-400) X10^3/uL Neut % (Auto) 52.5 (50-75) % Lymph % (Auto) 34.5 (25-40) % [place] % (Auto) 10.9 (3-14) % Eos % (Auto) 1.2 L (2-4) % Baso % (Auto) 0.9 (0-2) % Neut # (Auto) 3700 (5633-5360) /uL Lymph # (Auto) 2400 (3765-3321) /uL [place] # (Auto) 800 (0-900) /uL Eos # (Auto) 100 (0-450) /uL Baso # (Auto) 100 (0-100) /uL PT 12.4 (10.1-12.7) SECONDS INR 1.1 (0.9-1.3) APTT 41 H (26.4-36.2) SECONDS Sodium 137 (137-145) mmol/L Potassium 3.7 (3.4-5.1) mmol/L Chloride 98 (98-107) mmol/L Carbon Dioxide 29 (22-32) mmol/L BUN 16 (7-17) mg/dL Creatinine 0.60 (0.52-1.04) mg/dL Estimated GFR > 60.0 (>60) mL/min BUN/Creatinine Ratio 26.7 H (6-22) Glucose 81 (80-110) mg/dL Calcium 9.8 (8.4-10.2) mg/dL Troponin I < 0.012 (0.01-0.034) ng/mL B-Natriuretic Peptide (<100) Lipase 125 (23-300) U/L 03/14/ Range/Units 17:55 WBC (4.5-11.0) X10^3/uL RBC (4.0-5.2) X10^6/uL Hgb (12.0-16.0) g/dL Hct (36-46) % MCV (80-100) fL MCH (26-34) PG MCHC (30-36) % RDW (11.6-14.8) % Plt Count (150-400) X10^3/uL Neut % (Auto) (50-75) % Lymph % (Auto) (25-40) % [place] % (Auto) (3-14) % Eos % (Auto) (2-4) % Baso % (Auto) (0-2) % Neut # (Auto) (6283-1795) /uL Lymph # (Auto) (0719-1035) /uL [place] # (Auto) (0-900) /uL Eos # (Auto) (0-450) /uL Baso # (Auto) (0-100) /uL PT (10.1-12.7) SECONDS INR (0.9-1.3) APTT (26.4-36.2) SECONDS Sodium (137-145) mmol/L Potassium (3.4-5.1) mmol/L Chloride (98-107) mmol/L Carbon Dioxide (22-32) mmol/L BUN (7-17) mg/dL Creatinine (0.52-1.04) mg/dL Estimated GFR (>60) mL/min BUN/Creatinine Ratio (6-22) Glucose (80-110) mg/dL Calcium (8.4-10.2) mg/dL Troponin I (0.01-0.034) ng/mL B-Natriuretic Peptide 524 H (<100) Lipase (23-300) U/L Point of Care Testing Glucose POC 55 Point of care testing: Point of Care Testing Glucose POC [address] scan - head: Radiologist's impression: [address] [address] [address] Scan Report Signed Patient: Maricarmen Kowalski AMR#: [id number] : 8Acct:[id number] Age/Sex: 83 / FDate of Service: 03/14/19 Loc: ED Accession Number: [id number] Procedure: CT head/brain wo con Ordering Provider: Aly Kang D.O. PROCEDURE: CT HEAD/BRAIN WO CON INDICATIONS: Code stroke TPA candidate TECHNIQUE: Noncontrast 4.5 mm thick angled axial sections acquired from the foramen magnum to the vertex, with coronal and sagittal reformats. For radiation dose reduction, the following was used: automated exposure control, adjustment of mA and/or kV according to patient size. COMPARISON: [facility], CT, CT HEAD/BRAIN WO CON, 02/18/2019, 18:44. FINDINGS: Image quality: Excellent. CSF spaces: Basal cisterns are patent. No extra-axial fluid collections. The ventricles are symmetric in size and shape. Brain: No intracranial bleeds or masses. There is cerebral volume loss for age, with resultant ventricular and sulcal prominence. There are periventricular and deep white matter chronic small vessel ischemic changes. There is intracranial internal carotid artery atherosclerosis. Old right basal ganglia a focus of ischemia. Scattered areas of the scooter ischemia are noted in the coronary bilaterally, as well as left cerebellum.. Skull and face: Calvarium and visualized facial bones appear intact, without suspicious lesions. Sinuses: Visualized sinuses and mastoids are clear. IMPRESSION: 1. No acute intracranial process. 2. Moderate atrophy and chronic microvascular ischemic changes. The findings were discussed with Dr. Aly Kang on 03/14/19 at 5:44 PM. Dictated by: Jennifer Blackburn M.D. on 03/14/2019 at 17:44 Approved by: Jennifer Blackburn M.D. on 03/14/2019 at 17:49 Chest x-ray: Radiologist's impression: [address] [address] XRay Report Signed Patient: Maricarmen Kowalski AMR#: [id number] : 8Acct:[id number] Age/Sex: 83 / FDate of Service: 03/14/19 Loc: ED Accession Number: [id number] Procedure: XR chest 1V Ordering Provider: Aly Kang D.O. PROCEDURE: XR CHEST 1V INDICATIONS: SOB TECHNIQUE: One view of the chest was acquired. COMPARISON: [facility], , XR CHEST 1V, 02/18/2019, 18:46. FINDINGS: Surgical changes and devices: None. Lungs and pleura: Trace left effusion. Increased pulmonary vascularity is present. Mediastinum: Mediastinal contours appear normal. Heart size is enlarged Bones and chest wall: No suspicious bony lesions. Overlying soft tissues appear unremarkable. IMPRESSION: Trace left effusion with increased vascularity and cardiomegaly suggestive of CHF. Dictated by: Jennifer Blackburn M.D. on 03/14/2019 at 18:34 Approved by: Jennifer Blackburn M.D. on 03/14/2019 at 18:35 ECG Data Attestation: I personally reviewed and interpreted this ECG as follows: Prior ECG tracings: not available for review Interpretation: Atrial fibrillation LVH Ventricular rate is [address] T wave changes MDM Narrative Medical decision making narrative: Initial report from EMS was that the nursing facility stated that the patient has never had a stroke in the past. Review of her record here does show that she has had a stroke. I did discuss the case with her son Edin who stated that the patient has had a stroke as recently as 2 weeks ago. According to the note here in the emergency department she was seen here 2 weeks ago secondary to would have thought was a syncopal episode and was discharged home. There was also some concern about when the patient stop her anticoagulation. Her son states she is not on anticoagulation he thinks it was about a month ago but is not 100% sure. Nursing staff here in the emergency department stated that they knew the patient for the last time she was here in they thought that the patient seemed to be at baseline neurologic status from her last visit here. Given the uncertainty of when her last anticoagulation was, the timing of her last potential CVA, her history of dementia, I do not feel that tPA is warranted in this case. I feel that it is too great of a risk. I did discuss this with the patient's son. My last note on the patient from earlier this year shows that she is a DNR DNI. We do have a POLST form from earlier this month that shows that she is a full code. Discussion with the patient's son stated that he was okay with CPR but did not want her on artificial support. I did discuss the case with TONY Juarez. I do feel the patient needs admitted for further evaluation potential MRI versus discussion with the family about code status. Discharge Plan Departure Patient Disposition: Admitted as Observation Clinical Impression: Altered mental status Qualifiers: Altered mental status type: unspecified Qualified Code(s): R41.82 - Altered mental status, unspecified A-fib Qualifiers: Atrial fibrillation type: unspecified Qualified Code(s): I48.91 - Unspecified atrial fibrillation Admit Date/Time: 03/14/19 19:33 Admit Provider: Edin Juarez
--- NOTE | 2019-03-14 18:09 | DI.RAD.S_ITS ---
PROCEDURE: XR CHEST 1V INDICATIONS: SOB TECHNIQUE: One view of the chest was acquired. COMPARISON: [facility], CR, XR CHEST 1V, 02/18/2019, 18:46. FINDINGS: Surgical changes and devices: None. Lungs and pleura: Trace left effusion. Increased pulmonary vascularity is present. Mediastinum: Mediastinal contours appear normal. Heart size is enlarged Bones and chest wall: No suspicious bony lesions. Overlying soft tissues appear unremarkable. IMPRESSION: Trace left effusion with increased vascularity and cardiomegaly suggestive of CHF. Dictated by: Jennifer Blackburn M.D. on 03/14/2019 at 18:34 Approved by: Jennifer Blackburn M.D. on 03/14/2019 at 18:35
[2019-03-14] MEDS: DEXTROSE 50 % IN WATER 25 GM/50 ML SYRINGE (18:24)
[2019-03-14] MEDS: SODIUM CHLORIDE 0.9% 1,000 ML 125 ML IV (18:24)
[2019-03-14 18:31] LABS: Add Manual Diff / Slide Review NO; Basophils Absolute Auto 100 /uL (0-100); Basophils Percent Auto 0.9 % (0-2); Eosinophils Absolute Auto 100 /uL (0-450); Eosinophils Percent Auto 1.2 % (2-4); Hematocrit 39.2 % (36-46); Hemoglobin 12.9 g/dL (12.0-16.0); Lymphocytes Absolute Auto 2400 /uL (1100-4500); Lymphocytes Percent Auto 34.5 % (25-40); Mean Corpuscular HGB Conc 32.9 % (30-36); Mean Corpuscular Hemoglobin 28.9 PG (26-34); Mean Corpuscular Volume 87.9 fL (80-100); Monocytes Absolute Auto 800 /uL (0-900); Monocytes Percent Auto 10.9 % (3-14); Neutrophils Absolute Auto 3700 /uL (1500-7000); Neutrophils Percent Auto 52.5 % (50-75); Platelet Count 165 X10^3/uL (150-400); Red Blood Cell Count 4.47 X10^6/uL (4.0-5.2); Red Cell Distribution Width 17.8 % (11.6-14.8)
[2019-03-14 18:40] LABS: INR 1.1 (0.9-1.3); Prothrombin Time 12.4 SECONDS (10.1-12.7)
[2019-03-14 18:43] LABS: PTT Partial Thromboplastin Tim 41 SECONDS (26.4-36.2)
[2019-03-14 18:46] LABS: BUN Creatinine Ratio 26.7 (6-22); Blood Urea Nitrogen 16 mg/dL (7-17); Calcium 9.8 mg/dL (8.4-10.2); Carbon Dioxide 29 mmol/L (22-32); Chloride 98 mmol/L (98-107); Estimated Glomerular Filt Rate > 60.0 mL/min (>60); Glucose 81 mg/dL (80-110); HEMOLYSIS < 15 (0-50); Lipase 125 U/L (23-300); Potassium 3.7 mmol/L (3.4-5.1); Sodium 137 mmol/L (137-145)
--- NOTE | 2019-03-14 18:55 | PC.NURSE ---
Patient has a baseline of dementia. When checked on around 1730 for dinner patient was altered per staff. EMS noted patient had some left sided drift and weaknes sin left hand plater barrel. Patient turning head to verbal stimulation toward this writer technical publications in [place] but not responding verbally.
--- NOTE | 2019-03-14 18:57 | PC.NURSE ---
After amp of dextrose patient perked up some. Answering questions with one word appropriately.
[2019-03-14 18:59] LABS: Troponin I < 0.012 ng/mL (0.01-0.034)
[2019-03-14 19:34] LABS: B Type Natriuretic Peptide 524 (<100)
[2019-03-14 20:16] LABS: Thyroid Stimulating Hormone 2.29 uIU/mL (0.47-4.68)
--- NOTE | 2019-03-14 21:41 | PC.NURSE ---
Pt to room 214 from E.R. with eyes wide open and pt tracks with eyes. Does speak several words in response to this promotion writer's question re experiencing any pain. Pt denies pain and does ask this promotion writer to repeat self. Pt does not offer any other verbal exchange when asked questions. Does close eyes and turn head to left side. Rhythmic regular tremor of head. Keeps knees drawn up and arms drawn up to core. 02 2L nc sats 99% per continuous monitor. IV to right ac secured with bulky 4 x 4's, kerlix and netting. IV fluids infusing as per E.R. orders. Awaiting hospitalist to see patient. Bed alarm in place.
--- NOTE | 2019-03-14 21:48 | PM.HP.1 ---
History of Present Illness History of Present Illness Date Patient Seen: 03/14/19 Time Patient Seen: 21:05 Chief complaint: Stroke Narrative: Ms. Maricarmen Kowalski is an 83-year-old female with a past medical history of hypertension, paroxysmal atrial fibrillation and advanced dementia who was sent to the ED from [facility] with decreased responsiveness and left sided weakness. The patient was witnessed by facility staff have decreased responsiveness and left-sided weakness, her last know normal was approximately 2.5 hours earlier at 3:00 p.m.. The patient has a history of advanced dementia, is non-conversant with minimal responsive baseline. Patient also has history of prior CVA. Subjective history is unavailable, the patient does not have capacity to respond appropriately to saying ?okay? to all questions. The patient has a history of atrial fibrillation has been off anticoagulation for 2 weeks. No family is presented with the patient to facilitate medical history. Upon arrival to the ER the patient's heart rate of 78, blood pressure 134/113, respirations of 32 and oxygen saturation of 88% on room air. A stat head CT was obtained finding no acute intracranial pathology, moderate cerebral atrophy, chronic microvascular ischemic changes. Chest x-ray is also obtain reflecting enlarged sharp cardiomyopathy and possible CHF. The patient had initial glucose in the field reported at 90 mg dL upon arrival in the ER Accu-Chek reading was 55 in the patient received glucose IV. She has a normal white count of 7.0, hemoglobin of 12.9 and hematocrit of 39.2 with platelets of 165. Her chemistries are within normal limits with a BUN of 16 creatinine of 0.6 and a blood sugar documented 81. She has a BNP of 524 and a negative troponin at less than 0.012. On prior labs obtained on 03/05/2019 patient had an elevated bilirubin at 1.5, AST of 235, ALT of 358 and alk phos of 230 which is downward trending from prior admission. She has a PT of 12.4, PTT of 41 INR of 1.1. Patient History Medical History (Updated 03/14/19 @ 23:24 by AMERICA Kimble) A-fib (Acute) Broken foot (Acute) 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) Dementia (Acute) Elevated LFTs (Inactive) Hypertension (Acute) Stroke (Acute) Family & Social History Social History: household members family Safety & Behavioral: Feels Safe in Current Yes Environment Been Physically Hurt or No Threatened By a Person Tobacco & Substance use: Smoking Status Unknown if ever smoked alcohol intake never Substance Use Type does not use Comment: Patient currently resides at [facility]. The patient is unable to provide social or family history. Advanced directives: The patient does not possess capacity for decision making, POLST form indicates FULL CODE and full treatment. Patient's daughter Lakisha lives in [place] holds DPOA however her son Edin is in trigger early involved in her care and is next of kin. Meds Home Medications and Allergies Home Medications Medication Instructions Recorded Confirmed Type aspirin 81 mg PO DAILY 02/19/19 03/05/19 History losartan 100 mg PO DAILY 02/19/19 03/05/19 History metoprolol tartrate 100 mg PO BID 02/19/19 03/05/19 History bisacodyl 5 - 10 mg PO PRN PRN 03/05/19 03/05/19 History bisacodyl 10 mg UT DAILY PRN 03/05/19 03/05/19 History magnesium hydroxide [Milk of 30 ml PO PRN PRN 03/05/19 03/05/19 History Magnesia] sodium phosphates [Fleet Enema] 118 ml UT PRN PRN 03/05/19 03/05/19 History Allergies Allergy/AdvReac Type Severity Reaction Status Date / Time No Known Drug Allergies Allergy Verified 11/25/17 14:32 Review of Systems Review of Systems ROS Unobtainable: unobtainable due to mental condition Exam Vital Signs (past 8 hours): - 03/14/19 17:30 03/14/19 18:00 03/14/19 18:30 Temperature Pulse Rate 78 74 99 H Respiratory Rate 32 H 22 27 H Blood Pressure 134/113 H Blood Pressure [Left Arm] 134/113 H 159/128 H Pulse Oximetry 88 L 92 92 03/14/19 19:00 03/14/19 20:55 03/14/19 21:23 Temperature 98.4 F Pulse Rate 74 82 Respiratory Rate 27 H 18 Blood Pressure 159/118 H Blood Pressure [Left Arm] 167/123 H Pulse Oximetry 90 L 100 Oxygen Delivery Method Room Air Oxygen Flow Rate 2 Narrative Exam Narrative: GENERAL APPEARANCE: well developed, cachectic in appearance with BMI of 18.5, in no acute distress. HEENT: Normocephalic, PERRLA, will track bilaterally across midline, conjunctiva clear, mucous membranes are moist and pink. NECK/THYROID: neck supple, no JVD, no thyromegaly, trachea midline. LYMPH NODES: no cervical or supraclavicular lymphadenopathy. SKIN: Pale, warm and dry, redness medial aspect bilateral great toes right greater than left without warmth or swelling. HEART: regular rate and rhythm, S1-S2, no murmur, delayed capillary refill bilateral lower extremities, 4 seconds, no edema. LUNGS: clear to auscultation bilaterally, no coarseness crackles or wheezing, no cough present CHEST: Symmetrical movement, shallow tidal volume, no accessory muscle use, no pain to AP and lateral compression. ABDOMEN: Soft, no distention, no grimace on abdominal palpation, no organomegaly, active bowel tones. EXTREMITIES: moves all extremities, arms flexed chest with resistance to movement equal bilateral, no deformities or joint effusions. NEUROLOGIC: Awake, single word response of OK to all questions, stopped responding after to questions, will not follow commands. PSYCH: alert, withdrawn behavior, non communicative, turns her head away on the 3rd question. Objective Labs Result Diagrams: 03/14/19 17:55 03/14/19 17:55 Labs: Laboratory Results - last 24 hr 03/14/19 03/14/19 03/14/19 17:55 17:55 17:55 WBC 7.0 RBC 4.47 Hgb 12.9 Hct 39.2 MCV 87.9 MCH 28.9 MCHC 32.9 RDW 17.8 H Plt Count 165 Neut % (Auto) 52.5 Lymph % (Auto) 34.5 [place] % (Auto) 10.9 Eos % (Auto) 1.2 L Baso % (Auto) 0.9 Neut # (Auto) 3700 Lymph # (Auto) 2400 [place] # (Auto) 800 Eos # (Auto) 100 Baso # (Auto) 100 PT 12.4 INR 1.1 APTT 41 H Sodium 137 Potassium 3.7 Chloride 98 Carbon Dioxide 29 BUN 16 Creatinine 0.60 Estimated GFR > 60.0 BUN/Creatinine Ratio 26.7 H Glucose 81 Calcium 9.8 Troponin I < 0.012 B-Natriuretic Peptide Lipase 125 TSH 03/14/19 03/14/19 17:55 17:55 WBC RBC Hgb Hct MCV MCH MCHC RDW Plt Count Neut % (Auto) Lymph % (Auto) [place] % (Auto) Eos % (Auto) Baso % (Auto) Neut # (Auto) Lymph # (Auto) [place] # (Auto) Eos # (Auto) Baso # (Auto) PT INR APTT Sodium Potassium Chloride Carbon Dioxide BUN Creatinine Estimated GFR BUN/Creatinine Ratio Glucose Calcium Troponin I B-Natriuretic Peptide 524 H Lipase TSH 2.29 Assessment & Plan Assessment & Plan narrative: This is an 83-year-old female with advanced dementia who had a transient episode of alteration of mentation with observed left-sided weakness. Her evaluations confounded by advanced dementia limiting neurological evaluation but per report is currently functioning at baseline. 1. Possible TIA, acute, not present on admission, Active -Witnessed altered mental status with inability to move left side per facility staff resolved upon arrival. -Prior history of TIA and CVA as well as advanced dementia confounding ability to perform an comprehensive neurological assessment, patient is selectively cooperative with exam, no evidence of weakness. -ABCD2 score is 5, unable to obtain an NIH score. -it is questionable whether the patient will tolerate undergoing MRI, will re-evaluate in the morning. 2. Acute on chronic metabolic encephalopathy in setting of advanced dementia, present on admission, active -Patient with longstanding advanced dementia. Per the sending facility the patient had decreased responsiveness with left upper extremity weakness. -patient gives singular response OK to questions, reportedly at baseline mentation, mental status that tends to wax and wane with in form of decreased ability to interact in afternoon/evenings. -Patient with history of UTI's, will obtain urine analysis. 3. Elevated liver enzymes, acute, present on admission. Resolving. 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 -labs today: Total bilirubin 1.2, AST 57, ALT 95, alkaline phosphatase 181. -MRCP completed last month found seated ptosis, no cirrhosis, hepatic or biliary pathology, abdominal ultrasound with similar results with no biliary ductal dilatation -will avoid liver toxic agents, no liver toxic agents on review of medications 4. Hypertension, chronic, present on admission. Stable. -Hypertensive on admission with blood pressure 134/113. Validity of diastolic pressure is questionalbe related to patient arm flexion and tension. -Continued metoprolol tartrate 100 mg twice daily and losartan 100 mg daily. Discontinued hydrochlorothiazide as the patient is highly susceptible for dehydration. 5. Paroxysmal atrial fibrillation, not evident on admission. Stable. -History of atrial fibrillation, currently in sinus rhythm, unreliable historian related to chest pain or palpatitions. -Continued metoprolol tartrate 100 mg twice daily. VTE prophylaxis: Bilateral SCDs, heparin 5000 units subcutaneously twice daily. Goals of care discussion is appropriate due to the patient's advanced dementia and deteriorating quality of life. She currently remains a full code per her POLST form. The patient has a history of TIAs and CVA with resolution of symptoms to baseline. Aggressive treatment will not likely resulted in significant improvement in the patient's quality of life. The patient is admitted to the hospital due to the severity of the symptoms and risk for complications and adverse events. She is admitted as observation status with expected length of stay to be less than 2 midnights. Scores GCS Jovanny coma scale eye opening: To sound [place] coma scale verbal response: Words Jovanny coma scale motor response: Localising [place] coma scale total score: 11 ABCD2 Age >= 60 years: yes Initial BP. Either SBP >= 140 or DBP >= 90.: yes Clinical features of the TIA: unilateral weakness Duration of symptoms: 10-59 minutes History of diabetes: no ABCD2 Score: 5
[2019-03-14 22:22] LABS: Alanine Aminotransferase 95 IU/L (<35); Albumin 3.9 g/dL (3.5-5.0); Albumin Globulin Ratio 1.1 (1.0-2.8); Alkaline Phosphatase 181 U/L (38-126); Aspartate Aminotransferase 57 IU/L (14-36); Bilirubin Total 1.2 mg/dL (0.2-1.3); Bilirubin Unconjugated 0.8 mg/dL (0.0-1.1); Globulin 3.6 g/dL (1.7-4.1); HEMOLYSIS < 15 (0-50); Total Protein 7.5 g/dL (6.3-8.2)
[2019-03-14] MEDS: METOPROLOL IR 50 MG TABLET 100 MG PO (22:28)
[2019-03-14 23:24] LABS: Bacteria Urine None Seen
[2019-03-14 23:27] LABS: Appearance Urine UA CLEAR; Bilirubin Urine UA NEGATIVE (NEGATIVE); Color Urine UA YELLOW; Glucose Urine UA TRACE g/dL (Negative); Ketones Urine UA NEGATIVE (NEGATIVE); Leukocyte Esterase Urine UA NEGATIVE (NEGATIVE); Nitrite Urine UA NEGATIVE (Negative); Occult Blood Urine UA NEGATIVE (Negative); Protein Urine UA NEGATIVE (Negative); Urobilinogen Urine UA 0.2 E.U./dL (0.2)
[2019-03-14 23:29] LABS: pH Urine UA 7.5 (4.5-8.0)
[2019-03-15] MEDS: FUROSEMIDE 20 MG/2 ML VIAL IV (00:20)
[2019-03-15 00:52] LABS: Culture Indicated Urine Cult Not Indicated; RBC Urine 0-1/HPF (0-5/HPF); Squamous Epithelial Cell Urine 1-5 /HPF (0-5/HPF); WBC Urine 0-1/HPF (0-5/HPF)
[2019-03-15 03:50] VITALS: BP 162/96; PULSE 78; RESP 15; TEMP 36.8; O2SAT 99
--- NOTE | 2019-03-15 04:12 | PC.NURSE ---
Addendum entered by rIais Duval R.N. 03/15/19 04:15: Pt on tele, Afib BBB X2 this shift. Original Note: Noc Note: Pt has been non-verbal, makes eye contact and smiles, has difficulty with following directions. 99% O2 on RA. grossly incontinent, 2PA with bed mobility and to change brief.
[2019-03-15 05:49] LABS: Add Manual Diff / Slide Review NO; Basophils Absolute Auto 100 /uL (0-100); Basophils Percent Auto 0.8 % (0-2); Eosinophils Absolute Auto 100 /uL (0-450); Eosinophils Percent Auto 0.9 % (2-4); Hematocrit 37.5 % (36-46); Hemoglobin 12.3 g/dL (12.0-16.0); Lymphocytes Absolute Auto 1900 /uL (1100-4500); Mean Corpuscular HGB Conc 32.9 % (30-36); Mean Corpuscular Hemoglobin 28.7 PG (26-34); Mean Corpuscular Volume 87.3 fL (80-100); Monocytes Absolute Auto 800 /uL (0-900); Monocytes Percent Auto 12.6 % (3-14); Neutrophils Absolute Auto 3800 /uL (1500-7000); Neutrophils Percent Auto 56.7 % (50-75); Platelet Count 154 X10^3/uL (150-400); Red Cell Distribution Width 18.1 % (11.6-14.8); White Blood Cell Count 6.6 X10^3/uL (4.5-11.0)
[2019-03-15 05:58] LABS: BUN Creatinine Ratio 23.3 (6-22); Blood Urea Nitrogen 14 mg/dL (7-17); Calcium 9.4 mg/dL (8.4-10.2); Carbon Dioxide 29 mmol/L (22-32); Chloride 99 mmol/L (98-107); Estimated Glomerular Filt Rate > 60.0 mL/min (>60); Glucose 85 mg/dL (80-110); HEMOLYSIS < 15 (0-50); Potassium 3.5 mmol/L (3.4-5.1); Sodium 135 mmol/L (137-145)
[2019-03-15 07:30] VITALS: BP 91/62; PULSE 74; RESP 16; TEMP 36.4; O2SAT 99
[2019-03-15 08:20] VITALS: PULSE 77; O2SAT 100
[2019-03-15 09:01] LABS: Ammonia (NH3) < 9.0 umol/L (9-30)
[2019-03-15] MEDS: HEPARIN 5,000 UNIT/ML VIAL 5000 UNIT SUBCUT (09:56)
[2019-03-15 09:59] VITALS: BP 127/88; PULSE 76
[2019-03-15] MEDS: METOPROLOL IR 50 MG TABLET 100 MG PO (09:59)
[2019-03-15] MEDS: LOSARTAN 50 MG TABLET 100 MG PO (09:59)
[2019-03-15] MEDS: ASPIRIN 81 MG CHEW TAB PO (10:04)
--- NOTE | 2019-03-15 10:23 | CM.DANOTE ---
Addendum entered by Arianna Rivero R.N. 03/15/19 12:28: Updated hospitalist, Dr. Wheatley, that [facility] rehab can pick patient up at 1500. Original Note: DCP: Case received, EMR reviewed and checked on patient. Patient has advanced dementia, was able to obtain updated baseline care needs from September at [facility]. DCP assessment/template completed with information currently available. Patient is an 83 year old female who admitted yesterday evening to the care of the hospitalist team. PCP: Dr. Philip. Payer: confirmed: Medicare. Patient came to the hospital via ambulance secondary to symptoms of decreased mobility on her upper extremity with concerns of CVA. Patient came from [facility], formerly [facility]. Confirmed this with September in admissions. 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 She needs assist with toileting, feeding. Discussed patient with hospitalist, and patient should be able to go back to [facility] today, pending ammonia levels. Spoke to September at [facility] and gave her update. She will call back and go ahead and set up transport for this afternoon assuming that she will be discharged today. P: DCP will follow and look for discharge orders today if stable, and will fax over to [facility]. Arianna Rivero RN/Roof Bolter Helper
[2019-03-15 12:00] VITALS: BP 101/69; PULSE 67; RESP 16; TEMP 36.6; O2SAT 100
--- NOTE | 2019-03-15 12:31 | P.DS_ITS ---
History of Present Illness History of Present Illness Date Patient Seen: 03/15/19 Time Patient Seen: 11:30 Chief complaint: Stroke Narrative: Ms. Maricarmen Kowalski is an 83-year-old female with a past medical history of hypertension, paroxysmal atrial fibrillation and advanced dementia who was sent to the ED from [facility] with decreased responsiveness and left sided weakness. The patient was witnessed by facility staff have decreased responsiveness and left-sided weakness, her last know normal was approximately 2.5 hours earlier at 3:00 p.m.. The patient has a history of advanced dementia, is non-conversant with minimal responsive baseline. Patient also has history of prior CVA. Subjective history is unavailable, the patient does not have capacity to respond appropriately to saying ?okay? to all questions. The patient has a history of atrial fibrillation has been off anticoagulation for 2 weeks. No family is presented with the patient to facilitate medical history. Upon arrival to the ER the patient's heart rate of 78, blood pressure 134/113, respirations of 32 and oxygen saturation of 88% on room air. A stat head CT was obtained finding no acute intracranial pathology, moderate cerebral atrophy, chronic microvascular ischemic changes. Chest x-ray is also obtain reflecting enlarged sharp cardiomyopathy and possible CHF. The patient had initial glucose in the field reported at 90 mg dL upon arrival in the ER Accu-Chek reading was 55 in the patient received glucose IV. She has a normal white count of 7.0, hemoglobin of 12.9 and hematocrit of 39.2 with platelets of 165. Her chemistries are within normal limits with a BUN of 16 creatinine of 0.6 and a blood sugar documented 81. She has a BNP of 524 and a negative troponin at less than 0.012. On prior labs obtained on 03/05/2019 patient had an elevated bilirubin at 1.5, AST of 235, ALT of 358 and alk phos of 230 which is downward trending from prior admission. She has a PT of 12.4, PTT of 41 INR of 1.1. Discharge Providers Provider Date of admission: 03/14/19 19:33 Discharge Date: 03/15/19 Primary care physician: Shellie Philip MD Consults: 03/14/19 22:16 Consult to Dietitian, Adult Routine Comment: Reason For Exam: Health history indicates protein mili malnutrition Discharge provider: Edin Wharton DO Summary Hospital Course Discharge Diagnosis: 1. Possible TIA, acute, not present on admission, Active 2. advanced dementia, present on admission, active 3. Elevated liver enzymes, acute, present on admission. Resolving. 4. Hypertension, chronic, present on admission. Stable. 5. Paroxysmal atrial fibrillation, not evident on admission. Stable. Hospital Course: This is an 83-year-old female with advanced dementia who had a transient episode of alteration of mentation with observed left-sided weakness. Her evaluations confounded by advanced dementia limiting neurological evaluation but per report is currently functioning at baseline. She may have had a transient ischemic attack, however discussed with patient's son and does not want to add on any anticoagulation at this time including Plavix or resuming anticoagulation for her AFib. 1. Possible TIA, acute, not present on admission, Active -Witnessed altered mental status with inability to move left side per facility staff resolved upon arrival. -Prior history of TIA and CVA as well as advanced dementia confounding ability to perform an comprehensive neurological assessment, patient is selectively cooperative with exam, no evidence of weakness. -no MRI is necessary given treatment at this time will not change if patient has an infarct noted on imaging or not. -continue aspirin 2. advanced dementia, present on admission, active -Patient with longstanding advanced dementia. Per the sending facility the patient had decreased responsiveness with left upper extremity weakness. -patient gives singular response OK to questions, reportedly at baseline mentation, mental status that tends to wax and wane with in form of decreased ability to interact in afternoon/evenings. -Patient with history of UTI's, UA was unremarkable here and patient has no infectious etiologies -her lethargy likely represents advancing dementia given negative lab evaluation, with improving LFTs and no evidence of infection. 3. Elevated liver enzymes, acute, present on admission. Resolving. 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 -labs: Total bilirubin 1.2, AST 57, ALT 95, alkaline phosphatase 181. -MRCP completed last month found seated ptosis, no cirrhosis, hepatic or biliary pathology, abdominal ultrasound with similar results with no biliary ductal dilatation -will avoid liver toxic agents, no liver toxic agents on review of medications 4. Hypertension, chronic, present on admission. Stable. -Hypertensive on admission with blood pressure 134/113. Validity of diastolic pressure is questionalbe related to patient arm flexion and tension. -Continued metoprolol tartrate 100 mg twice daily and losartan 100 mg daily. Discontinued hydrochlorothiazide as the patient is highly susceptible for dehydration. 5. Paroxysmal atrial fibrillation, not evident on admission. Stable. -History of atrial fibrillation, currently in sinus rhythm, unreliable historian related to chest pain or palpatitions. -Continued metoprolol tartrate 100 mg twice daily. Goals of care discussion is appropriate due to the patient's advanced dementia and deteriorating quality of life. She currently remains a full code per her POLST form. The patient has a history of TIAs and CVA with resolution of symptoms to baseline. Aggressive treatment will not likely resulted in significant improvement in the patient's quality of life. This was discussed extensively with the son. His wish remains that some life-saving interventions be attempted, but also does not want to have her end up on prolonged life support. I discussed the difficulty in logistics of this full code decision, but given his wishes for the patient she should remain full code at this time. I asked him to think about the logistics as well as the patient's wishes regarding full code status, and he is considering changing her back to limited interventions, but will continue to think on this. Time Spent with Patient Time spent: Greater than 30 minutes Exam Vital Signs (past 8 hours): - 03/15/19 07:30 03/15/19 08:20 03/15/19 09:59 Temperature 97.6 F Pulse Rate 74 77 76 Respiratory Rate 16 Blood Pressure 91/62 127/88 Pulse Oximetry 99 100 03/15/19 12:00 Temperature 98 F Pulse Rate 67 Respiratory Rate 16 Blood Pressure 101/69 Pulse Oximetry 100 Oxygen Delivery Method Room Air Oxygen Flow Rate 0 Narrative Exam Narrative: GENERAL APPEARANCE: Chronically ill appearing. More alert today. SKIN: Inspection of the skin reveals no rashes, ulcerations or petechiae. HEENT: The sclerae were anicteric and conjunctivae were pink and moist. Extraocular movements were intact and pupils were equal, round with normal accommodation. External inspection of the ears and nose showed no scars, lesions, or masses. Lips, teeth, and gums showed normal mucosa. The oral mucosa, hard and soft palate, tongue and posterior pharynx were unremarkable. NECK: Supple and symmetric. There was no thyroid enlargement, and no tenderness, or masses were felt. CHEST: Normal AP diameter and normal contour without any kyphoscoliosis. LUNGS: Auscultation of the lungs revealed no wheezes, rhonchi, or rales. CARDIOVASCULAR: There was a regular rate and rhythm without any murmurs, gallops, rubs. Peripheral pulses were 2+ and symmetric. ABDOMEN: Soft and nontender with normal bowel sounds. No ascites was noted. MUSCULOSKELETAL: There was no tenderness or effusions noted. Muscle strength and tone were normal. EXTREMITIES: No cyanosis, clubbing or edema. NEUROLOGIC: no focal deficits, alert and oriented x1. Objective Labs Result Diagrams: 03/15/19 05:30 03/15/19 05:30 Labs: Laboratory Results - last 24 hr 03/14/19 03/14/19 03/14/19 17:55 17:55 17:55 WBC 7.0 RBC 4.47 Hgb 12.9 Hct 39.2 MCV 87.9 MCH 28.9 MCHC 32.9 RDW 17.8 H Plt Count 165 Neut % (Auto) 52.5 Lymph % (Auto) 34.5 [place] % (Auto) 10.9 Eos % (Auto) 1.2 L Baso % (Auto) 0.9 Neut # (Auto) 3700 Lymph # (Auto) 2400 [place] # (Auto) 800 Eos # (Auto) 100 Baso # (Auto) 100 PT 12.4 INR 1.1 APTT 41 H Sodium 137 Potassium 3.7 Chloride 98 Carbon Dioxide 29 BUN 16 Creatinine 0.60 Estimated GFR > 60.0 BUN/Creatinine Ratio 26.7 H Glucose 81 Calcium 9.8 Total Bilirubin Conjugated Bilirubin Unconjugated Bilirubin AST ALT Alkaline Phosphatase Ammonia Troponin I < 0.012 B-Natriuretic Peptide Total Protein Albumin Globulin Albumin/Globulin Ratio Lipase 125 TSH Urine Color Urine Appearance Urine pH Ur Specific [place] Urine Protein Urine Glucose (UA) Urine Ketones Urine Occult Blood Urine Nitrate Urine Bilirubin Urine Urobilinogen Ur Leukocyte Esterase Urine RBC Urine WBC Ur Squamous Epith Cells Urine Bacteria Ur Culture Indicated? 03/14/19 03/14/19 03/14/19 17:55 17:55 17:55 WBC RBC Hgb Hct MCV MCH MCHC RDW Plt Count Neut % (Auto) Lymph % (Auto) [place] % (Auto) Eos % (Auto) Baso % (Auto) Neut # (Auto) Lymph # (Auto) [place] # (Auto) Eos # (Auto) Baso # (Auto) PT INR APTT Sodium Potassium Chloride Carbon Dioxide BUN Creatinine Estimated GFR BUN/Creatinine Ratio Glucose Calcium Total Bilirubin 1.2 Conjugated Bilirubin 0.0 Unconjugated Bilirubin 0.8 AST 57 H ALT 95 H Alkaline Phosphatase 181 H Ammonia Troponin I B-Natriuretic Peptide 524 H Total Protein 7.5 Albumin 3.9 Globulin 3.6 Albumin/Globulin Ratio 1.1 Lipase TSH 2.29 Urine Color Urine Appearance Urine pH Ur Specific [place] Urine Protein Urine Glucose (UA) Urine Ketones Urine Occult Blood Urine Nitrate Urine Bilirubin Urine Urobilinogen Ur Leukocyte Esterase Urine RBC Urine WBC Ur Squamous Epith Cells Urine Bacteria Ur Culture Indicated? 03/14/19 03/15/19 03/15/19 23:20 05:30 05:30 WBC 6.6 RBC 4.30 Hgb 12.3 Hct 37.5 MCV 87.3 MCH 28.7 MCHC 32.9 RDW 18.1 H Plt Count 154 Neut % (Auto) 56.7 Lymph % (Auto) 29.0 [place] % (Auto) 12.6 Eos % (Auto) 0.9 L Baso % (Auto) 0.8 Neut # (Auto) 3800 Lymph # (Auto) 1900 [place] # (Auto) 800 Eos # (Auto) 100 Baso # (Auto) 100 PT INR APTT Sodium 135 L Potassium 3.5 Chloride 99 Carbon Dioxide 29 BUN 14 Creatinine 0.60 Estimated GFR > 60.0 BUN/Creatinine Ratio 23.3 H Glucose 85 Calcium 9.4 Total Bilirubin Conjugated Bilirubin Unconjugated Bilirubin AST ALT Alkaline Phosphatase Ammonia Troponin I B-Natriuretic Peptide Total Protein Albumin Globulin Albumin/Globulin Ratio Lipase TSH Urine Color Yellow Urine Appearance Clear Urine pH 7.5 Ur Specific [place] 1.010 Urine Protein Negative Urine Glucose (UA) Trace H Urine Ketones Negative Urine Occult Blood Negative Urine Nitrate Negative Urine Bilirubin Negative Urine Urobilinogen 0.2 Ur Leukocyte Esterase Negative Urine RBC 0-1/hpf Urine WBC 0-1/hpf Ur Squamous Epith Cells 1-5 /hpf Urine Bacteria None seen Ur Culture Indicated? Cult not indicated 03/15/19 08:30 WBC RBC Hgb Hct MCV MCH MCHC RDW Plt Count Neut % (Auto) Lymph % (Auto) [place] % (Auto) Eos % (Auto) Baso % (Auto) Neut # (Auto) Lymph # (Auto) [place] # (Auto) Eos # (Auto) Baso # (Auto) PT INR APTT Sodium Potassium Chloride Carbon Dioxide BUN Creatinine Estimated GFR BUN/Creatinine Ratio Glucose Calcium Total Bilirubin Conjugated Bilirubin Unconjugated Bilirubin AST ALT Alkaline Phosphatase Ammonia < 9.0 L Troponin I B-Natriuretic Peptide Total Protein Albumin Globulin Albumin/Globulin Ratio Lipase TSH Urine Color Urine Appearance Urine pH Ur Specific [place] Urine Protein Urine Glucose (UA) Urine Ketones Urine Occult Blood Urine Nitrate Urine Bilirubin Urine Urobilinogen Ur Leukocyte Esterase Urine RBC Urine WBC Ur Squamous Epith Cells Urine Bacteria Ur Culture Indicated? Discharge Plan Discharge Plan Patient Disposition: SNF Transfer to: [facility] Discharge comment: This is an 83-year-old female with advanced dementia who had a transient episode of alteration of mentation with observed left-sided weakness. Her evaluations confounded by advanced dementia limiting neurological evaluation but per report is currently functioning at baseline. She may have had a transient ischemic attack, however discussed with patient's son and does not want to add on any anticoagulation at this time including Plavix or resuming anticoagulation for her AFib. 1. Possible TIA, acute, not present on admission, Active -Witnessed altered mental status with inability to move left side per facility staff resolved upon arrival. -Prior history of TIA and CVA as well as advanced dementia confounding ability to perform an comprehensive neurological assessment, patient is selectively c ooperative with exam, no evidence of weakness. -no MRI is necessary given treatment at this time will not change if patient has an infarct noted on imaging or not. -continue aspirin 2. advanced dementia, present on admission, active -Patient with longstanding advanced dementia. Per the sending facility the patient had decreased responsiveness with left upper extremity weakness. -patient gives singular response OK to questions, reportedly at baseline mentation, mental status that tends to wax and wane with in form of decreased ability to interact in afternoon/evenings. -Patient with history of UTI's, UA was unremarkable here and patient has no infectious etiologies -her lethargy likely represents advancing dementia given negative lab evaluation, with improving LFTs and no evidence of infection. 3. Elevated liver enzymes, acute, present on admission. Resolving. 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 -labs: Total bilirubin 1.2, AST 57, ALT 95, alkaline phosphatase 181. -MRCP completed last month found seated ptosis, no cirrhosis, hepatic or biliary pathology, abdominal ultrasound with similar results with no biliary ductal dilatation -will avoid liver toxic agents, no liver toxic agents on review of medications 4. Hypertension, chronic, present on admission. Stable. -Hypertensive on admission with blood pressure 134/113. Validity of diastolic pressure is questionalbe related to patient arm flexion and tension. -Continued metoprolol tartrate 100 mg twice daily and losartan 100 mg daily. Discontinued hydrochlorothiazide as the patient is highly susceptible for dehydration. 5. Paroxysmal atrial fibrillation, not evident on admission. Stable. -History of atrial fibrillation, currently in sinus rhythm, unreliable historian related to chest pain or palpatitions. -Continued metoprolol tartrate 100 mg twice daily. Goals of care discussion is appropriate due to the patient's advanced dementia and deteriorating quality of life. She currently remains a full code per her POLST form. The patient has a history of TIAs and CVA with resolution of symptoms to baseline. Aggressive treatment will not likely resulted in significant improvement in the patient's quality of life. This was discussed extensively with the son. His wish remains that some life-saving interventions be attempted, but also does not want to have her end up on prolonged life support. I discussed the difficulty in logistics of this full code decision, but given his wishes for the patient she should remain full code at this time. I asked him to think about the logistics as well as the patient's wishes regarding full code status, and he is considering changing her back to limited interventions, but will continue to think on this. Discharge orders & Medications Prescriptions: Continued magnesium hydroxide [Milk of Magnesia] 400 mg/5 mL Suspension 30 ml PO PRN PRN (Reason: Constipation) RF: 0 bisacodyl 10 mg Suppository 10 mg AL DAILY PRN (Reason: Constipation) RF: 0 Fleet Enema 19-7 gram/118 mL Enema 118 ml AL PRN PRN (Reason: Constipation) RF: 0 bisacodyl 5 mg Tablet 5 - 10 mg PO PRN PRN (Reason: mild to severe constipation) RF: 0 aspirin 81 mg Tablet,Chewable 81 mg PO DAILY RF: 0 metoprolol tartrate 100 mg Tablet 100 mg PO BID RF: 0 losartan 100 mg Tablet 100 mg PO DAILY RF: 0 Follow up/Referrals: Shellie Philip MD [Primary Care Provider] - Discharge Data Primary Care Provider: Young,Shellie Quality VTE Deep Vein Thrombosis/Pulmonary Embolism Present on Admission: No
--- NOTE | 2019-03-15 12:42 | DIET.PN ---
Dietary Note Assessment: Ms. Kowalski is a 83 yof admitted for stroke and acute on chronic metabolic encephalopathy. She has severe dementia with delirium due to current disease state. I met with this patient during her last admission x 2 weeks ago. She has having difficulty swallowing. At that time son, who is main caregiver, reported difficulty with meats and other chewy foods. She follows a dysphagia diet at home. HT: 170.18cm WT: 51.5kg (56.6kg x 2 wks ago) UBW: 64.3kg BMI: 17.8 Labs: BNP: 524 Bili: 1.2 AST:57 ALT: 95 Alk Phos: 181 BG (on admit): 55 MNA: n/a (pt unable to answer assessment) Harsha: 12 Nutrition Diagnosis: Chronic severe PCM r/t decreased ability to consume sufficient energy aeb energy intake < 75% EER > 1 mo, weight loss > 5% in 1 mo, BMI < n21 (age > 65), inability to independently consume foods, difficulty chewing/swallowing, conditions associated with diagnosis dementia. Interventions: 1. ONS ensure enlive BID or added pro via yogurt (pt likes) w/ enlive @ dinner if PO's <70%. 2. Rec mech soft, thin liquid at this time for this patient as per previous admits and home regimen. Diet Order: Heart Healthy, (recs: Mech Soft/Easy Chew) EER: [id number] mili @ 27-30cal/kg Pro: 73g @ 1.3g/kg Monitoring/Evaluations: PO's, weight, need for ONS enlive BID
--- NOTE | 2019-03-15 14:26 | PC.NURSE ---
Patient assisted to have an ensure and yogurt for lunch, no signs of pain or other complaint. Minimal verbal responses, but opens eyes when spoken to. Brief in place for incontinence, with sylvain care and turning provided atleast every 2 hours. No BM noted this shift. Report given to Giovana for patient to return to [facility], plan to be picked up at 1500.
== END 2019-03-15 15:05 ==
LOC: ED 19:10 → AC 03-15 07:25
PROVIDERS: Admitting Provider Nurse Practitioner Adult Health; Emergency Provider Emergency Medicine; PCP Internal Medicine; Visit Provider Nurse Practitioner Adult Health
DX: R29.818 Other symptoms and signs involving the nervous system (principal); Z86.73 Personal history of transient ischemic attack (TIA), and cerebral infarction without residual deficits; G93.41 Metabolic encephalopathy; F03.90 Unspecified dementia, unspecified severity, without behavioral disturbance, psychotic disturbance, mood disturbance, and anxiety; E16.2 Hypoglycemia, unspecified; I10 Essential (primary) hypertension; I48.0 Paroxysmal atrial fibrillation
CPT/HCPCS: 36415; 70450; 71045; 80048; 80076; 81001; 82140; 82962; 83690; 83880; 84443; 84484; 85025; 85610; 85730; 93005; 94762; 96361; 96372; 96374; 99283; 99285; G0378; J1644; J1940

== ENCOUNTER 2019-04-07 22:30 | Emergency (ER) | payer MEDICARE, SELFPAY ==
[2019-03-14 21:33] VITALS: BMI 18.5
[2019-04-07 22:38] VITALS: BP 167/135; PULSE 72; RESP 18; TEMP 36.5; O2SAT 99
--- NOTE | 2019-04-07 22:54 | DI.RAD.S_ITS ---
PROCEDURE: XR CHEST 1V INDICATIONS: hypertension TECHNIQUE: One view of the chest was acquired. COMPARISON: [facility], , CHEST 1 VIEW, 04/19/2017, 14:09. [facility], CR, XR CHEST 1V, 02/18/2019, 18:46. [facility], CR, XR CHEST 1V, 03/14/2019, 18:17. FINDINGS: Surgical changes and devices: None. Lungs and pleura: There is hyperinflation of the lungs with flattening of the hemidiaphragms compatible with COPD. A small linear opacity in the left midlung zone likely represents confluence of vascular and bony structures. No focal consolidation. No pleural effusions or pneumothorax. Mediastinum: Mediastinal contours appear unchanged. Heart size is enlarged. Bones and chest wall: No suspicious bony lesions. Overlying soft tissues appear unremarkable. IMPRESSION: 1. Findings compatible with COPD redemonstrated. 2. No definite acute cardiopulmonary disease. Linear opacity in the left midlung likely represents confluence of vascular and bony structures. Dictated by: Piero Cook M.D. on 04/08/2019 at 6:49 Approved by: Piero Cook M.D. on 04/08/2019 at 6:51
[2019-04-07 23:00] VITALS: BP 172/119; PULSE 62; RESP 23; O2SAT 100
--- NOTE | 2019-04-07 23:25 | PC.NURSE ---
Hypertension tonight uncontrolled by PO medication.
[2019-04-07 23:28] LABS: INR 1.1 (0.9-1.3); Prothrombin Time 12.3 SECONDS (10.1-12.7)
--- NOTE | 2019-04-07 23:28 | PC.NURSE ---
[id number] Patient had foul smell smell in perineal area, I began to change her depends and discovered that there was no stool. The smell was form her urine. At this point I assumed she had a UTI and did a straight catheter to obtain urine specimen. Dr. Flores made aware of this.
[2019-04-07 23:30] VITALS: BP 178/109; PULSE 73; RESP 25; O2SAT 99
[2019-04-07 23:30] LABS: Add Manual Diff / Slide Review NO; Basophils Absolute Auto 0 /uL (0-100); Basophils Percent Auto 0.5 % (0-2); Eosinophils Absolute Auto 100 /uL (0-450); Eosinophils Percent Auto 2.3 % (2-4); Hemoglobin 13.2 g/dL (12.0-16.0); Lymphocytes Absolute Auto 2300 /uL (1100-4500); Mean Corpuscular Hemoglobin 29.5 PG (26-34); Mean Corpuscular Volume 89.6 fL (80-100); Monocytes Absolute Auto 700 /uL (0-900); Monocytes Percent Auto 12.7 % (3-14); Neutrophils Absolute Auto 2500 /uL (1500-7000); Neutrophils Percent Auto 43.5 % (50-75); PTT Partial Thromboplastin Tim 44 SECONDS (26.4-36.2); Platelet Count 133 X10^3/uL (150-400); Red Blood Cell Count 4.47 X10^6/uL (4.0-5.2); Red Cell Distribution Width 17.7 % (11.6-14.8); White Blood Cell Count 5.7 X10^3/uL (4.5-11.0)
[2019-04-07 23:32] LABS: Alanine Aminotransferase 18 IU/L (<35); Albumin 3.8 g/dL (3.5-5.0); Albumin Globulin Ratio 1.1 (1.0-2.8); Alkaline Phosphatase 98 U/L (38-126); Aspartate Aminotransferase 30 IU/L (14-36); BUN Creatinine Ratio 31.7 (6-22); Bilirubin Total 0.8 mg/dL (0.2-1.3); Blood Urea Nitrogen 19 mg/dL (7-17); Calcium 9.8 mg/dL (8.4-10.2); Carbon Dioxide 33 mmol/L (22-32); Chloride 103 mmol/L (98-107); Creatine Kinase < 20 U/L (30-135); Estimated Glomerular Filt Rate > 60.0 mL/min (>60); Globulin 3.4 g/dL (1.7-4.1); Glucose 90 mg/dL (80-110); HEMOLYSIS < 15 (0-50); Lipase 102 U/L (23-300); Sodium 140 mmol/L (137-145); Total Protein 7.2 g/dL (6.3-8.2)
[2019-04-07 23:33] LABS: RBC Urine None Seen (0-5/HPF)
[2019-04-07 23:34] LABS: Bilirubin Urine UA NEGATIVE (NEGATIVE); Color Urine UA YELLOW; Glucose Urine UA NEGATIVE (Negative); Ketones Urine UA NEGATIVE (NEGATIVE); Leukocyte Esterase Urine UA TRACE (NEGATIVE); Nitrite Urine UA POSITIVE (Negative); Occult Blood Urine UA NEGATIVE (Negative); Protein Urine UA NEGATIVE (Negative); Urobilinogen Urine UA 0.2 E.U./dL (0.2)
[2019-04-07 23:36] LABS: Appearance Urine UA CLOUDY
[2019-04-07 23:42] LABS: Bacteria Urine Many (>30); Culture Indicated Urine Specimen Cultured; WBC Urine 1-5/HPF (0-5/HPF)
[2019-04-07 23:43] LABS: Troponin I < 0.012 ng/mL (0.01-0.034)
[2019-04-07 23:52] LABS: B Type Natriuretic Peptide 411 (<100)
[2019-04-08] VITALS (7 sets, daily range): BP systolic 126–162; BP diastolic 84–127; PULSE 63–80; RESP 14–20; O2SAT 94–100
--- NOTE | 2019-04-08 00:31 | ED_ITS ---
HPI - Recheck/Abnormal Lab/Rx General Chief Complaint: Recheck/Abnormal Lab/Rx Stated Complaint: High BP Time Seen by Provider: 04/07/19 22:54 Source: EMS Mode of arrival: EMS Limitations: altered mental status History of Present Illness HPI narrative: This is an 83-year-old sent for hypertension. Patient has some history of dementia, she states she has no complaints at this time. She does know she is at the emergency department. Patient received some metoprolol around 530pm today her usual dose of 100 mg b.i.d. and sounds like she did receive a dose of amlodipine p.o. 2.5 mg at 9:00 p.m.. Looks like she takes 100 mg of losartan in the morning. Patient is unable to give me much history otherwise. She denies any chest pain, shortness of breath, she denies any headache. She denies any nausea vomiting or other GI or urinary symptoms. Based on her history of dementia and her answers when asking her other questions I suspect that she does not recall many these things. Related Data Home Medications Medication Instructions Recorded Confirmed aspirin 81 mg PO DAILY 02/19/19 03/05/19 losartan 100 mg PO DAILY 02/19/19 03/05/19 metoprolol tartrate 100 mg PO BID 02/19/19 03/05/19 Fleet Enema 118 ml NM PRN PRN 03/05/19 03/05/19 bisacodyl 5 - 10 mg PO PRN PRN 03/05/19 03/05/19 bisacodyl 10 mg NM DAILY PRN 03/05/19 03/05/19 magnesium hydroxide [Milk of 30 ml PO PRN PRN 03/05/19 03/05/19 Magnesia] Previous Rx's Medication Instructions Recorded hydralazine 10 mg PO TID #14 tab 04/08/19 Allergies Allergy/AdvReac Type Severity Reaction Status Date / Time No Known Drug Allergies Allergy Verified 11/25/17 14:32 Review of Systems Review of Systems ROS Unobtainable: Unobtainable due to mental status/LOC 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 HEENT: Atraumatic, pupils are equal round reactive to light, extraocular movements are intact, nares are clear, TMs are clear with no fluid, moist mucous membranes, no facial droop. No dysarthria. HEART: Regular rate and rhythm without murmur, clicks, rubs. Pulses are equal in upper and lower extremities LUNGS:Lungs clear to auscultation, no wheezes, rales, crackles, chest moves symmetrically ABD:bowel sounds normal, soft, non-tender, no guarding, rebound, rigidity, no masses noted, no hepatosplenomegaly :No CVA tenderness MSCL: Non-tender, patient's lower extremities are in heel protectors and she appears to have minimal use of her lower extremities. she appears to have full range of motion of her upper extremities. NEURO:CN 2-12 intact, sensation normal Initial Vital Signs Initial Vital Signs: Vital Signs Temperature 97.7 F 04/07/19 22:38 Pulse Rate 72 04/07/19 22:38 Respiratory Rate 18 04/07/19 22:38 Blood Pressure 167/135 H 04/07/19 22:38 Pulse Oximetry 99 04/07/19 22:38 Course Orders Ordered: ED Orders 04/07/19 22:54 XR chest 1V Stat 04/07/19 23:15 B Type Natriuretic Peptide Stat Complete Blood Count AUTO DIFF Stat Comprehensive Metabolic Panel Stat Lipase Stat Partial Thromboplastin Time Stat Prothrombin Time INR Stat Troponin & CK Cardiac Panel Stat 04/07/19 23:22 Urinalysis and Microscopic Stat Urine Culture Stat Discontinued Medications Hydralazine HCl (Apresoline) 10 mg PO NOW ONE Stop: 04/08/19 00:50 Last Admin: 04/08/19 01:14 Dose: Not Given Documented by: LOIS Hydralazine HCl (Apresoline) 10 mg IV NOW ONE Stop: 04/08/19 01:14 Last Admin: 04/08/19 01:24 Dose: 10 mg Documented by: HARPER Sodium Chloride (Normal Saline 0.9%) 1,000 mls @ 150 mls/hr IV CONT ISA Last Admin: 04/08/19 00:55 Dose: Not Given Documented by: LOIS Vital Signs Vital signs: Vital Signs - 8 hr 04/07/19 22:38 04/07/19 23:00 04/07/19 23:30 Temperature 97.7 F Pulse Rate 72 62 73 Respiratory Rate 18 23 25 H Blood Pressure 167/135 H Blood Pressure [Left Arm] 172/119 H 178/109 H Pulse Oximetry 99 100 99 04/08/19 00:20 04/08/19 00:30 04/08/19 01:00 Temperature Pulse Rate 73 63 67 Respiratory Rate 16 14 17 Blood Pressure Blood Pressure [Left Arm] 147/127 H 160/110 H 162/112 H Pulse Oximetry 97 94 97 04/08/19 01:31 04/08/19 02:02 04/08/19 02:08 Temperature Pulse Rate 78 80 80 Respiratory Rate 20 20 Blood Pressure 126/84 Blood Pressure [Left Arm] 133/99 H 126/84 Pulse Oximetry 98 97 04/08/19 02:46 Temperature Pulse Rate 75 Respiratory Rate 17 Blood Pressure Blood Pressure [Left Arm] 129/99 H Pulse Oximetry 100 MDM - Recheck/Abnormal Lab/Rx Lab Data Attestation: I reviewed the patient's lab results. Result diagrams: 04/07/19 23:15 04/07/19 23:15 Labs: Lab Results 04/07/19 04/07/19 04/07/19 Range/Units 23:15 23:15 23:15 WBC 5.7 (4.5-11.0) X10^3/uL RBC 4.47 (4.0-5.2) X10^6/uL Hgb 13.2 (12.0-16.0) g/dL Hct 40.0 (36-46) % MCV 89.6 (80-100) fL MCH 29.5 (26-34) PG MCHC 33.0 (30-36) % RDW 17.7 H (11.6-14.8) % Plt Count 133 L (150-400) X10^3/uL Neut % (Auto) 43.5 L (50-75) % Lymph % (Auto) 41.0 H (25-40) % [place] % (Auto) 12.7 (3-14) % Eos % (Auto) 2.3 (2-4) % Baso % (Auto) 0.5 (0-2) % Neut # (Auto) 2500 (9808-4494) /uL Lymph # (Auto) 2300 (8564-4276) /uL [place] # (Auto) 700 (0-900) /uL Eos # (Auto) 100 (0-450) /uL Baso # (Auto) 0 (0-100) /uL PT 12.3 (10.1-12.7) SECONDS INR 1.1 (0.9-1.3) APTT 44 H D (26.4-36.2) SECONDS Sodium (137-145) mmol/L Potassium (3.4-5.1) mmol/L Chloride (98-107) mmol/L Carbon Dioxide (22-32) mmol/L BUN (7-17) mg/dL Creatinine (0.52-1.04) mg/dL Estimated GFR (>60) mL/min BUN/Creatinine Ratio (6-22) Glucose (80-110) mg/dL Calcium (8.4-10.2) mg/dL Total Bilirubin (0.2-1.3) mg/dL AST (14-36) IU/L ALT (<35) IU/L Alkaline Phosphatase (38-126) U/L Total Creatine Kinase (30-135) U/L CK-MB (CK-2) CK-MB (CK-2) Rel Index Troponin I (0.01-0.034) ng/mL B-Natriuretic Peptide 411 H (<100) Total Protein (6.3-8.2) g/dL Albumin (3.5-5.0) g/dL Globulin (1.7-4.1) g/dL Albumin/Globulin Ratio (1.0-2.8) Lipase (23-300) U/L Urine Color Urine Appearance Urine pH (4.5-8.0) Ur Specific [place] (1.000-1.035) Urine Protein (Negative) Urine Glucose (UA) (Negative) g/dL Urine Ketones (NEGATIVE) Urine Occult Blood (Negative) Urine Nitrate (Negative) Urine Bilirubin (NEGATIVE) Urine Urobilinogen (0.2) E.U./dL Ur Leukocyte Esterase (NEGATIVE) Urine RBC (0-5/HPF) Urine WBC (0-5/HPF) Urine Bacteria (None) Ur Culture Indicated? 04/07/19 04/07/19 Range/Units 23:15 23:22 WBC (4.5-11.0) X10^3/uL RBC (4.0-5.2) X10^6/uL Hgb (12.0-16.0) g/dL Hct (36-46) % MCV (80-100) fL MCH (26-34) PG MCHC (30-36) % RDW (11.6-14.8) % Plt Count (150-400) X10^3/uL Neut % (Auto) (50-75) % Lymph % (Auto) (25-40) % [place] % (Auto) (3-14) % Eos % (Auto) (2-4) % Baso % (Auto) (0-2) % Neut # (Auto) (3234-3569) /uL Lymph # (Auto) (3289-0476) /uL [place] # (Auto) (0-900) /uL Eos # (Auto) (0-450) /uL Baso # (Auto) (0-100) /uL PT (10.1-12.7) SECONDS INR (0.9-1.3) APTT (26.4-36.2) SECONDS Sodium 140 (137-145) mmol/L Potassium 4.0 (3.4-5.1) mmol/L Chloride 103 (98-107) mmol/L Carbon Dioxide 33 H (22-32) mmol/L BUN 19 H (7-17) mg/dL Creatinine 0.60 (0.52-1.04) mg/dL Estimated GFR > 60.0 (>60) mL/min BUN/Creatinine Ratio 31.7 H (6-22) Glucose 90 (80-110) mg/dL Calcium 9.8 (8.4-10.2) mg/dL Total Bilirubin 0.8 (0.2-1.3) mg/dL AST 30 (14-36) IU/L ALT 18 (<35) IU/L Alkaline Phosphatase 98 (38-126) U/L Total Creatine Kinase < 20 L (30-135) U/L CK-MB (CK-2) TNP CK-MB (CK-2) Rel Index TNP Troponin I < 0.012 (0.01-0.034) ng/mL B-Natriuretic Peptide (<100) Total Protein 7.2 (6.3-8.2) g/dL Albumin 3.8 (3.5-5.0) g/dL Globulin 3.4 (1.7-4.1) g/dL Albumin/Globulin Ratio 1.1 (1.0-2.8) Lipase 102 (23-300) U/L Urine Color Yellow Urine Appearance Cloudy Urine pH 7.0 (4.5-8.0) Ur Specific [place] 1.010 (1.000-1.035) Urine Protein Negative (Negative) Urine Glucose (UA) Negative (Negative) g/dL Urine Ketones Negative (NEGATIVE) Urine Occult Blood Negative (Negative) Urine Nitrate Positive (Negative) Urine Bilirubin Negative (NEGATIVE) Urine Urobilinogen 0.2 (0.2) E.U./dL Ur Leukocyte Esterase Trace H (NEGATIVE) Urine RBC None seen (0-5/HPF) Urine WBC 1-5/hpf (0-5/HPF) Urine Bacteria Many (>30) H (None) Ur Culture Indicated? Specimen cultured ECG Data Attestation: I personally reviewed and interpreted this ECG as follows: Prior ECG tracings: available for review Interpretation: AFib with a rate of 66, QRS of 101 and QTC of 448. Patient has ST depression in lateral leads, aVL with bit at elevation in AVR. Patient has a prior EKG from 03/14/2019 which appears similar. [facility] Narrative Medical decision making narrative: Patient was given a dose of hydralazine here in the department and blood pressure did appear improved. On recheck her systolic number appears to be improving to the hydralazine without any intervention, her diastolic continues to be elevated appears that she has chronically elevated in her diastolic pressure. It appears that they did give her an extra dose of amlodipine 2.5 mg this evening. Urine shows trace leukocyte esterase with many bacteria. Patient has not had any other symptoms by report and been afebrile, would wait for urine culture. This is an unlikely cause of her hypertension. Discharge Plan Departure Patient Disposition: Home Clinical Impression: Hypertension, Asymptomatic bacteriuria Discharge Date/Time: 04/08/19 03:48 Instructions: Essential Hypertension Activity Restrictions/Additional Instructions: Follow-up with your physician as you likely needs your medications adjusted. Urine culture is pending. I would recommend adding hydralazine for the short term but I would have this discussed with primary care as patient may need other options for your blood pressure. Return for new alterations in mental status, persistent vomiting, chest pain, shortness of breath, difficulty breathing, new numbness, weakness or inability use upper extremities, new swelling in the lower extremities or other new or concerning symptoms. Prescriptions: New hydralazine 10 mg tablet 10 mg PO TID Qty: 14 RF: 0 No Action magnesium hydroxide [Milk of Magnesia] 400 mg/5 mL Suspension 30 ml PO PRN PRN (Reason: Constipation) RF: 0 bisacodyl 10 mg Suppository 10 mg NM DAILY PRN (Reason: Constipation) RF: 0 Fleet Enema 19-7 gram/118 mL Enema 118 ml NM PRN PRN (Reason: Constipation) RF: 0 bisacodyl 5 mg Tablet 5 - 10 mg PO PRN PRN (Reason: mild to severe constipation) RF: 0 aspirin 81 mg Tablet,Chewable 81 mg PO DAILY RF: 0 metoprolol tartrate 100 mg Tablet 100 mg PO BID RF: 0 losartan 100 mg Tablet 100 mg PO DAILY RF: 0 Referrals: Shellie Philip MD [Primary Care Provider] -
[2019-04-08] MEDS: HYDRALAZINE 20 MG/ML VIAL 10 MG IV (01:24)
--- NOTE | 2019-04-08 02:11 | PC.NURSE ---
Awaiting BLS transport back to [facility].
--- NOTE | 2019-04-14 15:15 | PC.NURSE ---
faxed to Nisha at [facility] while the patient resides.
== END 2019-04-08 03:48 | disposition home or self-care (01) ==
PROVIDERS: Emergency Provider Emergency Medicine; PCP Internal Medicine
DX: I10 Essential (primary) hypertension (principal); R82.71 Bacteriuria
CPT/HCPCS: 36415; 71045; 80053; 81001; 82550; 83690; 83880; 84484; 85025; 85610; 85730; 87077; 87086; 87186; 93005; 96374; 99284; 99285; J0360

== ENCOUNTER 2019-05-13 16:36 | Inpatient (IN) | payer MEDICARE, SELFPAY ==
[2019-03-14 21:33] VITALS: BMI 18.5
[2019-05-13] VITALS (12 sets, daily range): BP systolic 100–185; BP diastolic 73–137; PULSE 92–120; RESP 15–26; TEMP 36.1–37.6; O2SAT 90–96; BMI 22.6
--- NOTE | 2019-05-13 17:00 | DI.RAD.S_ITS ---
PROCEDURE: XR CHEST 1V INDICATIONS: suspected sepsis TECHNIQUE: One view of the chest was acquired. COMPARISON: [facility], CR, XR CHEST 1V, 04/07/2019, 23:01. FINDINGS: Surgical changes and devices: None. Lungs and pleura: Increased density is evident within the right infrahilar region. No lobar consolidation, effusion, or pneumothorax is identified. Mediastinum: Mediastinal contours appear normal. Heart size is enlarged. There is aortic atherosclerosis. Bones and chest wall: No suspicious bony lesions. Overlying soft tissues appear unremarkable. IMPRESSION: 1. Possible developing right infrahilar pneumonia. 2. Cardiomegaly without overt heart failure. Dictated by: Alfredo Padron M.D. on 05/13/2019 at 17:00 Approved by: Alfredo Padron M.D. on 05/13/2019 at 17:01
[2019-05-13 17:18] LABS: Appearance Urine UA CLOUDY; Bilirubin Urine UA NEGATIVE (NEGATIVE); Color Urine UA YELLOW; Glucose Urine UA NEGATIVE (Negative); Ketones Urine UA TRACE (NEGATIVE); Leukocyte Esterase Urine UA 1+ (NEGATIVE); Nitrite Urine UA NEGATIVE (Negative); Occult Blood Urine UA 3+ (Negative); Protein Urine UA 3+ (Negative); Urobilinogen Urine UA 0.2 E.U./dL (0.2)
[2019-05-13 17:20] LABS: pH Urine UA 7.5 (4.5-8.0)
[2019-05-13 17:26] LABS: RBC Urine 30-100/HPF (0-5/HPF); Squamous Epithelial Cell Urine 0-1 /HPF (0-5/HPF); WBC Urine 10-30/HPF (0-5/HPF)
[2019-05-13 17:27] LABS: Amorphous Sediment Urine 3+; Bacteria Urine Many (>30); Culture Indicated Urine Specimen Cultured; Mucus Urine 3+ (Negative); Triple Phosphate Crystal Urine Few
[2019-05-13 17:42] LABS: INR 1.1 (0.9-1.3); Prothrombin Time 12.7 SECONDS (10.1-12.7)
[2019-05-13 17:45] LABS: PTT Partial Thromboplastin Tim 27 SECONDS (26.4-36.2)
[2019-05-13 17:46] LABS: Lactate (Lactic Acid) 2.5 mmol/L (0.7-2.1)
[2019-05-13] MEDS: SODIUM CHLORIDE 0.9% 1,000 ML 1000 ML IV (17:50)
[2019-05-13 18:01] LABS: Add Manual Diff / Slide Review NO; Basophils Absolute Auto 0 /uL (0-100); Basophils Percent Auto 0.2 % (0-2); Eosinophils Absolute Auto 0 /uL (0-450); Eosinophils Percent Auto 0.1 % (2-4); Hematocrit 43.6 % (36-46); Hemoglobin 14.5 g/dL (12.0-16.0); Lymphocytes Absolute Auto 1200 /uL (1100-4500); Mean Corpuscular HGB Conc 33.3 % (30-36); Mean Corpuscular Hemoglobin 29.9 PG (26-34); Mean Corpuscular Volume 89.6 fL (80-100); Monocytes Absolute Auto 1900 /uL (0-900); Monocytes Percent Auto 11.2 % (3-14); Neutrophils Absolute Auto 13800 /uL (1500-7000); Neutrophils Percent Auto 81.5 % (50-75); Platelet Count 106 X10^3/uL (150-400); Red Blood Cell Count 4.86 X10^6/uL (4.0-5.2); Red Cell Distribution Width 14.7 % (11.6-14.8)
--- NOTE | 2019-05-13 18:09 | ED_ITS ---
HPI - Altered Mental Status <Remedios Ritter MD - Last Filed: 05/13/19 18:57> General Chief Complaint: Altered Mental Status Stated Complaint: Decreased LOC Time Seen by Provider: 05/13/19 16:43 Source: EMS Mode of arrival: EMS Limitations: no limitations History of Present Illness HPI narrative: Patient is brought to the emergency department for chief complaint altered mental status. Patient's son states that the patient usually can say a few words and will smile and laugh. However, today, the patient does seem like she was not very responsive. [facility] staff also noticed patient did not seem to be ?acting like herself?. Patient has not had any measured fevers. She has had ?a cold? for the past few days, according to the patient's son. No nausea vomiting as far as anybody knows. No diarrhea. Related Data Home Medications Medication Instructions Recorded Confirmed aspirin 81 mg PO DAILY 02/19/19 03/05/19 losartan 100 mg PO DAILY 02/19/19 03/05/19 metoprolol tartrate 100 mg PO BID 02/19/19 03/05/19 Fleet Enema 118 ml SD PRN PRN 03/05/19 03/05/19 bisacodyl 5 - 10 mg PO PRN PRN 03/05/19 03/05/19 bisacodyl 10 mg SD DAILY PRN 03/05/19 03/05/19 magnesium hydroxide [Milk of 30 ml PO PRN PRN 03/05/19 03/05/19 Magnesia] Previous Rx's Medication Instructions Recorded hydralazine 10 mg PO TID #14 tab 04/08/19 Allergies Allergy/AdvReac Type Severity Reaction Status Date / Time No Known Drug Allergies Allergy Verified 11/25/17 14:32 Review of Systems <Remedios Ritter MD - Last Filed: 05/13/19 18:57> Review of Systems ROS Unobtainable: Unobtainable due to mental status/LOC Patient History <Remedios Ritter MD - Last Filed: 05/13/19 18:57> Medical History A-fib (Acute) Broken foot (Acute) 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) Dementia (Acute) Elevated LFTs (Inactive) Hypertension (Acute) Stroke (Acute) Social History household members: family Smoking Status: Unknown if ever smoked alcohol intake: never Smoking Status: Unknown if ever smoked Substance Use Type: does not use Exam <Remedios Ritter MD - Last Filed: 05/13/19 18:57> Initial Vital Signs Initial Vital Signs: Vital Signs Temperature 99.7 F H 05/13/19 16:45 Pulse Rate 92 H 05/13/19 16:45 Respiratory Rate 05/13/19 16:45 Blood Pressure 176/137 H 05/13/19 16:45 Pulse Oximetry 90 L 05/13/19 16:45 Const General: cooperative and well developed Nutritional Appearance: well nourished HENMT Head: normocephalic and atraumatic Ears: external ears normal and TM's normal bilaterally Nose: external nose normal and No nasal discharge Face and sinus: face symmetric and No dry mucous membranes Mouth: oral mucosae normal and moist mucous membranes Teeth and gingiva: dentition normal Eyes General: appearance normal, both eyes and all related structures Eyelids: eyelids normal Conjunctivae: conjunctivae normal Sclera: sclerae normal Pupils: PERRL EOM: EOM intact bilaterally Neck Neck: normal visual inspection, trachea midline, No lymphadenopathy, No midline deformity and No JVD Lymphatic: No lymphedema Chest Chest: normal inspection of the chest Resp Effort & Inspection: normal respiratory effort, able to speak in complete sentences, no respiratory distress and no use of accessory muscles Auscultation: clear to auscultation bilaterally, no rales, no rhonchi and no wheezes Cardio Rate: regular rate Rhythm: regular rhythm Heart Sounds: no click, no gallops, no murmurs and no rubs Pulses: normal peripheral pulses GI Inspection: non-distended Palpation: soft, no hepatosplenomegaly, No guarding, No pulsatile mass and No tender Back/Spine/Pelvis Back: No CVA tenderness Cervical Spine: cervical ROM normal and No pain with cervical ROM Thoracic/Lumbar Spine: thoracic and lumbar spine normal to inspection Skin General: no rashes or lesions noted, No jaundice and No petechiae Neuro General: other (Somnolent) Other: The patient moves all 4 extremities. She arouses to noxious stimuli. Extrem General: full ROM, no clubbing, cyanosis or edema, no pedal edema and no calf tenderness Psych Appearance: disheveled Thought Content: suicidality Other: Patient is somnolent. <Aly Kang DO - Last Filed: 05/13/19 21:34> Initial Vital Signs Initial Vital Signs: Vital Signs Temperature 99.7 F H 05/13/19 16:45 Pulse Rate 92 H 05/13/19 16:45 Respiratory Rate 20 05/13/19 16:45 Blood Pressure 176/137 H 05/13/19 16:45 Pulse Oximetry 90 L 05/13/19 16:45 <Aly Kang DO - Last Filed: 05/13/19 21:34> [facility] [place]ner coma scale eye opening: Spontaneous Jovanny coma scale verbal response: Sounds Jovanny coma scale motor response: Obey commands Sayner coma scale total score: 12 Course <Remedios Ritter MD - Last Filed: 05/13/19 18:57> Course Course Narrative: The patient was worked up with labs, EKG chest x-ray, and urinalysis. She was started on IV fluids while laboratory studies were pending. Patient signed out to Dr. Kang, pending remainder of workup and disposition. Orders Ordered: ED Orders 05/13/19 16:38 Respiratory Panel (Film Array) Stat 05/13/19 16:55 Urinalysis and Microscopic Stat Urine Culture Stat 05/13/19 17:00 XR chest 1V Stat RT Consult Eval and Treat Now 05/13/19 17:18 Lactate (Lactic Acid) Stat Partial Thromboplastin Time Stat Prothrombin Time INR Stat 05/13/19 17:21 EKG-12 Lead Stat 05/13/19 17:53 Blood Culture Stat Complete Blood Count AUTO DIFF Stat Comprehensive Metabolic Panel Stat Lipase Stat Procalcitonin Stat Discontinued Medications Sodium Chloride (Normal Saline 0.9%) 1,000 mls @ 1,000 mls/hr IV BOLUS ONE Stop: 05/13/19 17:59 Last Infusion: 05/13/19 19:42 Dose: 0 mls/hr Documented by: Admin: 05/13/19 17:50 Dose: 1,000 mls/hr Documented by: LAVERN Levofloxacin (Levaquin) 750 mg in 150 mls @ 100 mls/hr IV NOW ONE Stop: 05/13/19 19:49 Last Infusion: 05/13/19 20:11 Dose: 0 mls/hr Documented by: Admin: 05/13/19 18:37 Dose: 100 mls/hr Documented by: LAVERN Vital Signs Vital signs: Vital Signs - 8 hr 05/13/19 16:45 05/13/19 16:50 05/13/19 17:00 Temperature 99.7 F H Pulse Rate 92 H 120 H 100 H Respiratory Rate 20 20 26 H Blood Pressure 176/137 H Blood Pressure [Left Arm] 173/125 H 173/125 H Pulse Oximetry 90 L 94 92 05/13/19 17:30 05/13/19 18:00 05/13/19 18:30 Temperature Pulse Rate 115 H 110 H 98 H Respiratory Rate 19 21 17 Blood Pressure Blood Pressure [Left Arm] 185/116 H 183/132 H 175/131 H Pulse Oximetry 96 95 94 05/13/19 19:00 Temperature Pulse Rate 96 H Respiratory Rate 16 Blood Pressure Blood Pressure [Left Arm] 154/119 H Pulse Oximetry 94 <Aly Kang, - Last Filed: 05/13/19 21:34> Orders Ordered: ED Orders 05/13/19 16:38 Respiratory Panel (Film Array) Stat 05/13/19 16:55 Urinalysis and Microscopic Stat Urine Culture Stat 05/13/19 17:00 XR chest 1V Stat RT Consult Eval and Treat Now 05/13/19 17:18 Lactate (Lactic Acid) Stat Partial Thromboplastin Time Stat Prothrombin Time INR Stat 05/13/19 17:21 EKG-12 Lead Stat 05/13/19 17:53 Blood Culture Stat Complete Blood Count AUTO DIFF Stat Comprehensive Metabolic Panel Stat Lipase Stat Procalcitonin Stat Discontinued Medications Sodium Chloride (Normal Saline 0.9%) 1,000 mls @ 1,000 mls/hr IV BOLUS ONE Stop: 05/13/19 17:59 Last Infusion: 05/13/19 19:42 Dose: 0 mls/hr Documented by: Admin: 05/13/19 17:50 Dose: 1,000 mls/hr Documented by: LAVERN Levofloxacin (Levaquin) 750 mg in 150 mls @ 100 mls/hr IV NOW ONE Stop: 05/13/19 19:49 Last Infusion: 05/13/19 20:11 Dose: 0 mls/hr Documented by: Admin: 05/13/19 18:37 Dose: 100 mls/hr Documented by: LAVERN Vital Signs Vital signs: Vital Signs - 8 hr 05/13/19 16:45 05/13/19 16:50 05/13/19 17:00 Temperature 99.7 F H Pulse Rate 92 H 120 H 100 H Respiratory Rate 20 20 26 H Blood Pressure 176/137 H Blood Pressure [Left Arm] 173/125 H 173/125 H Pulse Oximetry 90 L 94 92 05/13/19 17:30 05/13/19 18:00 05/13/19 18:30 Temperature Pulse Rate 115 H 110 H 98 H Respiratory Rate 19 21 17 Blood Pressure Blood Pressure [Left Arm] 185/116 H 183/132 H 175/131 H Pulse Oximetry 96 95 94 05/13/19 19:00 Temperature Pulse Rate 96 H Respiratory Rate 16 Blood Pressure Blood Pressure [Left Arm] 154/119 H Pulse Oximetry 94 MDM - Altered Mental Status <Remedios Ritter MD - Last Filed: 05/13/19 18:57> Lab Data Result diagrams: 05/13/19 17:53 05/13/19 17:53 Labs: Lab Results 05/13/19 05/13/19 05/13/19 Range/Units 16:38 16:55 17:18 WBC (4.5-11.0) X10^3/uL RBC (4.0-5.2) X10^6/uL Hgb (12.0-16.0) g/dL Hct (36-46) % MCV (80-100) fL MCH (26-34) PG MCHC (30-36) % RDW (11.6-14.8) % Plt Count (150-400) X10^3/uL Neut % (Auto) (50-75) % Lymph % (Auto) (25-40) % [place] % (Auto) (3-14) % Eos % (Auto) (2-4) % Baso % (Auto) (0-2) % Neut # (Auto) (6825-1152) /uL Lymph # (Auto) (9403-0377) /uL [place] # (Auto) (0-900) /uL Eos # (Auto) (0-450) /uL Baso # (Auto) (0-100) /uL PT 12.7 (10.1-12.7) SECONDS INR 1.1 (0.9-1.3) APTT 27 D (26.4-36.2) SECONDS Sodium (137-145) mmol/L Potassium (3.4-5.1) mmol/L Chloride (98-107) mmol/L Carbon Dioxide (22-32) mmol/L BUN (7-17) mg/dL Creatinine (0.52-1.04) mg/dL Estimated GFR (>60) mL/min BUN/Creatinine Ratio (6-22) Glucose (80-110) mg/dL Lactate (0.7-2.1) mmol/L Calcium (8.4-10.2) mg/dL Total Bilirubin (0.2-1.3) mg/dL AST (14-36) IU/L ALT (<35) IU/L Alkaline Phosphatase (38-126) U/L Total Protein (6.3-8.2) g/dL Albumin (3.5-5.0) g/dL Globulin (1.7-4.1) g/dL Albumin/Globulin Ratio (1.0-2.8) Lipase (23-300) U/L Procalcitonin (<0.5) ng/mL Urine Color Yellow Urine Appearance Cloudy Urine pH 7.5 (4.5-8.0) Ur Specific [place] 1.020 (1.000-1.035) Urine Protein 3+ H (Negative) Urine Glucose (UA) Negative (Negative) g/dL Urine Ketones Trace H (NEGATIVE) Urine Occult Blood 3+ H (Negative) Urine Nitrate Negative (Negative) Urine Bilirubin Negative (NEGATIVE) Urine Urobilinogen 0.2 (0.2) E.U./dL Ur Leukocyte Esterase 1+ H (NEGATIVE) Urine RBC 30-100/hpf H (0-5/HPF) Urine WBC 10-30/hpf H (0-5/HPF) Ur Squamous Epith Cells 0-1 /hpf (0-5/HPF) Triple Phos Crystals Few Amorphous Sediment 3+ Urine Bacteria Many (>30) H (None) Urine Mucus 3+ H (Negative) Ur Culture Indicated? Specimen cultured Chlamy pneumoniae PCR Not detected (Not Detect) Adenovirus (PCR) Not detected (Not Detect) B.parapertussis DNA PCR Not detected (Not Detect) Coronavirus OC43 (PCR) Not detected (Not Detect) Coronavirus HKU1 (PCR) Not detected (Not Detect) Coronavirus 229E (PCR) Not detected (Not Detect) Coronavirus NL63 (PCR) Not detected (Not Detect) Human Metapneumovir PCR Not detected (Not Detect) Influenza Type A (PCR) Not detected (Not Detect) Influenza Type B (PCR) Not detected (Not Detect) M. pneumoniae (PCR) Not detected (Not Detect) Parainfluenza 1 (PCR) Not detected (Not Detect) Parainfluenza 2 (PCR) Not detected (Not Detect) Parainfluenza 3 (PCR) Not detected (Not Detect) Parainfluenza 4 (PCR) Not detected (Not Detect) RSV (PCR) Not detected (Not Detect) Entero/Rhino (PCR) Not detected (Not Detect) 05/13/19 05/13/19 05/13/19 Range/Units 17:18 17:53 17:53 WBC 17.0 H (4.5-11.0) X10^3/uL RBC 4.86 (4.0-5.2) X10^6/uL Hgb 14.5 (12.0-16.0) g/dL Hct 43.6 (36-46) % MCV 89.6 (80-100) fL MCH 29.9 (26-34) PG MCHC 33.3 (30-36) % RDW 14.7 (11.6-14.8) % Plt Count 106 L (150-400) X10^3/uL Neut % (Auto) 81.5 H (50-75) % Lymph % (Auto) 7.0 L (25-40) % [place] % (Auto) 11.2 (3-14) % Eos % (Auto) 0.1 L (2-4) % Baso % (Auto) 0.2 (0-2) % Neut # (Auto) 99976 H (4754-4857) /uL Lymph # (Auto) 1200 (2368-0165) /uL [place] # (Auto) 1900 H (0-900) /uL Eos # (Auto) 0 (0-450) /uL Baso # (Auto) 0 (0-100) /uL PT (10.1-12.7) SECONDS INR (0.9-1.3) APTT (26.4-36.2) SECONDS Sodium (137-145) mmol/L Potassium (3.4-5.1) mmol/L Chloride (98-107) mmol/L Carbon Dioxide (22-32) mmol/L BUN (7-17) mg/dL Creatinine (0.52-1.04) mg/dL Estimated GFR (>60) mL/min BUN/Creatinine Ratio (6-22) Glucose (80-110) mg/dL Lactate 2.5 H (0.7-2.1) mmol/L Calcium (8.4-10.2) mg/dL Total Bilirubin (0.2-1.3) mg/dL AST (14-36) IU/L ALT (<35) IU/L Alkaline Phosphatase (38-126) U/L Total Protein (6.3-8.2) g/dL Albumin (3.5-5.0) g/dL Globulin (1.7-4.1) g/dL Albumin/Globulin Ratio (1.0-2.8) Lipase (23-300) U/L Procalcitonin 0.05 (<0.5) ng/mL Urine Color Urine Appearance Urine pH (4.5-8.0) Ur Specific [place] (1.000-1.035) Urine Protein (Negative) Urine Glucose (UA) (Negative) g/dL Urine Ketones (NEGATIVE) Urine Occult Blood (Negative) Urine Nitrate (Negative) Urine Bilirubin (NEGATIVE) Urine Urobilinogen (0.2) E.U./dL Ur Leukocyte Esterase (NEGATIVE) Urine RBC (0-5/HPF) Urine WBC (0-5/HPF) Ur Squamous Epith Cells (0-5/HPF) Triple Phos Crystals Amorphous Sediment Urine Bacteria (None) Urine Mucus (Negative) Ur Culture Indicated? Chlamy pneumoniae PCR (Not Detect) Adenovirus (PCR) (Not Detect) B.parapertussis DNA PCR (Not Detect) Coronavirus OC43 (PCR) (Not Detect) Coronavirus HKU1 (PCR) (Not Detect) Coronavirus 229E (PCR) (Not Detect) Coronavirus NL63 (PCR) (Not Detect) Human Metapneumovir PCR (Not Detect) Influenza Type A (PCR) (Not Detect) Influenza Type B (PCR) (Not Detect) M. pneumoniae (PCR) (Not Detect) Parainfluenza 1 (PCR) (Not Detect) Parainfluenza 2 (PCR) (Not Detect) Parainfluenza 3 (PCR) (Not Detect) Parainfluenza 4 (PCR) (Not Detect) RSV (PCR) (Not Detect) Entero/Rhino (PCR) (Not Detect) 05/13/19 Range/Units 17:53 WBC (4.5-11.0) X10^3/uL RBC (4.0-5.2) X10^6/uL Hgb (12.0-16.0) g/dL Hct (36-46) % MCV (80-100) fL MCH (26-34) PG MCHC (30-36) % RDW (11.6-14.8) % Plt Count (150-400) X10^3/uL Neut % (Auto) (50-75) % Lymph % (Auto) (25-40) % [place] % (Auto) (3-14) % Eos % (Auto) (2-4) % Baso % (Auto) (0-2) % Neut # (Auto) (1889-0136) /uL Lymph # (Auto) (6656-9633) /uL [place] # (Auto) (0-900) /uL Eos # (Auto) (0-450) /uL Baso # (Auto) (0-100) /uL PT (10.1-12.7) SECONDS INR (0.9-1.3) APTT (26.4-36.2) SECONDS Sodium 142 (137-145) mmol/L Potassium 4.1 (3.4-5.1) mmol/L Chloride 103 (98-107) mmol/L Carbon Dioxide 31 (22-32) mmol/L BUN 35 H (7-17) mg/dL Creatinine 0.90 (0.52-1.04) mg/dL Estimated GFR > 60.0 (>60) mL/min BUN/Creatinine Ratio 38.9 H (6-22) Glucose 127 H (80-110) mg/dL Lactate (0.7-2.1) mmol/L Calcium 10.5 H (8.4-10.2) mg/dL Total Bilirubin 1.3 (0.2-1.3) mg/dL AST 207 H (14-36) IU/L ALT 139 H (<35) IU/L Alkaline Phosphatase 83 (38-126) U/L Total Protein 8.3 H (6.3-8.2) g/dL Albumin 4.3 (3.5-5.0) g/dL Globulin 4.0 (1.7-4.1) g/dL Albumin/Globulin Ratio 1.1 (1.0-2.8) Lipase 62 (23-300) U/L Procalcitonin (<0.5) ng/mL Urine Color Urine Appearance Urine pH (4.5-8.0) Ur Specific [place] (1.000-1.035) Urine Protein (Negative) Urine Glucose (UA) (Negative) g/dL Urine Ketones (NEGATIVE) Urine Occult Blood (Negative) Urine Nitrate (Negative) Urine Bilirubin (NEGATIVE) Urine Urobilinogen (0.2) E.U./dL Ur Leukocyte Esterase (NEGATIVE) Urine RBC (0-5/HPF) Urine WBC (0-5/HPF) Ur Squamous Epith Cells (0-5/HPF) Triple Phos Crystals Amorphous Sediment Urine Bacteria (None) Urine Mucus (Negative) Ur Culture Indicated? Chlamy pneumoniae PCR (Not Detect) Adenovirus (PCR) (Not Detect) B.parapertussis DNA PCR (Not Detect) Coronavirus OC43 (PCR) (Not Detect) Coronavirus HKU1 (PCR) (Not Detect) Coronavirus 229E (PCR) (Not Detect) Coronavirus NL63 (PCR) (Not Detect) Human Metapneumovir PCR (Not Detect) Influenza Type A (PCR) (Not Detect) Influenza Type B (PCR) (Not Detect) M. pneumoniae (PCR) (Not Detect) Parainfluenza 1 (PCR) (Not Detect) Parainfluenza 2 (PCR) (Not Detect) Parainfluenza 3 (PCR) (Not Detect) Parainfluenza 4 (PCR) (Not Detect) RSV (PCR) (Not Detect) Entero/Rhino (PCR) (Not Detect) <Aly Kang DO - Last Filed: 05/13/19 21:34> Lab Data Attestation: I reviewed the patient's lab results. Labs: Lab Results 05/13/19 05/13/19 05/13/19 Range/Units 16:38 16:55 17:18 WBC (4.5-11.0) X10^3/uL RBC (4.0-5.2) X10^6/uL Hgb (12.0-16.0) g/dL Hct (36-46) % MCV (80-100) fL MCH (26-34) PG MCHC (30-36) % RDW (11.6-14.8) % Plt Count (150-400) X10^3/uL Neut % (Auto) (50-75) % Lymph % (Auto) (25-40) % [place] % (Auto) (3-14) % Eos % (Auto) (2-4) % Baso % (Auto) (0-2) % Neut # (Auto) (7947-7298) /uL Lymph # (Auto) (7221-8439) /uL [place] # (Auto) (0-900) /uL Eos # (Auto) (0-450) /uL Baso # (Auto) (0-100) /uL PT 12.7 (10.1-12.7) SECONDS INR 1.1 (0.9-1.3) APTT 27 D (26.4-36.2) SECONDS Sodium (137-145) mmol/L Potassium (3.4-5.1) mmol/L Chloride (98-107) mmol/L Carbon Dioxide (22-32) mmol/L BUN (7-17) mg/dL Creatinine (0.52-1.04) mg/dL Estimated GFR (>60) mL/min BUN/Creatinine Ratio (6-22) Glucose (80-110) mg/dL Lactate (0.7-2.1) mmol/L Calcium (8.4-10.2) mg/dL Total Bilirubin (0.2-1.3) mg/dL AST (14-36) IU/L ALT (<35) IU/L Alkaline Phosphatase (38-126) U/L Total Protein (6.3-8.2) g/dL Albumin (3.5-5.0) g/dL Globulin (1.7-4.1) g/dL Albumin/Globulin Ratio (1.0-2.8) Lipase (23-300) U/L Procalcitonin (<0.5) ng/mL Urine Color Yellow Urine Appearance Cloudy Urine pH 7.5 (4.5-8.0) Ur Specific [place] 1.020 (1.000-1.035) Urine Protein 3+ H (Negative) Urine Glucose (UA) Negative (Negative) g/dL Urine Ketones Trace H (NEGATIVE) Urine Occult Blood 3+ H (Negative) Urine Nitrate Negative (Negative) Urine Bilirubin Negative (NEGATIVE) Urine Urobilinogen 0.2 (0.2) E.U./dL Ur Leukocyte Esterase 1+ H (NEGATIVE) Urine RBC 30-100/hpf H (0-5/HPF) Urine WBC 10-30/hpf H (0-5/HPF) Ur Squamous Epith Cells 0-1 /hpf (0-5/HPF) Triple Phos Crystals Few Amorphous Sediment 3+ Urine Bacteria Many (>30) H (None) Urine Mucus 3+ H (Negative) Ur Culture Indicated? Specimen cultured Chlamy pneumoniae PCR Not detected (Not Detect) Adenovirus (PCR) Not detected (Not Detect) B.parapertussis DNA PCR Not detected (Not Detect) Coronavirus OC43 (PCR) Not detected (Not Detect) Coronavirus HKU1 (PCR) Not detected (Not Detect) Coronavirus 229E (PCR) Not detected (Not Detect) Coronavirus NL63 (PCR) Not detected (Not Detect) Human Metapneumovir PCR Not detected (Not Detect) Influenza Type A (PCR) Not detected (Not Detect) Influenza Type B (PCR) Not detected (Not Detect) M. pneumoniae (PCR) Not detected (Not Detect) Parainfluenza 1 (PCR) Not detected (Not Detect) Parainfluenza 2 (PCR) Not detected (Not Detect) Parainfluenza 3 (PCR) Not detected (Not Detect) Parainfluenza 4 (PCR) Not detected (Not Detect) RSV (PCR) Not detected (Not Detect) Entero/Rhino (PCR) Not detected (Not Detect) 05/13/19 05/13/19 05/13/19 Range/Units 17:18 17:53 17:53 WBC 17.0 H (4.5-11.0) X10^3/uL RBC 4.86 (4.0-5.2) X10^6/uL Hgb 14.5 (12.0-16.0) g/dL Hct 43.6 (36-46) % MCV 89.6 (80-100) fL MCH 29.9 (26-34) PG MCHC 33.3 (30-36) % RDW 14.7 (11.6-14.8) % Plt Count 106 L (150-400) X10^3/uL Neut % (Auto) 81.5 H (50-75) % Lymph % (Auto) 7.0 L (25-40) % [place] % (Auto) 11.2 (3-14) % Eos % (Auto) 0.1 L (2-4) % Baso % (Auto) 0.2 (0-2) % Neut # (Auto) 28019 H (1154-0578) /uL Lymph # (Auto) 1200 (7058-7963) /uL [place] # (Auto) 1900 H (0-900) /uL Eos # (Auto) 0 (0-450) /uL Baso # (Auto) 0 (0-100) /uL PT (10.1-12.7) SECONDS INR (0.9-1.3) APTT (26.4-36.2) SECONDS Sodium (137-145) mmol/L Potassium (3.4-5.1) mmol/L Chloride (98-107) mmol/L Carbon Dioxide (22-32) mmol/L BUN (7-17) mg/dL Creatinine (0.52-1.04) mg/dL Estimated GFR (>60) mL/min BUN/Creatinine Ratio (6-22) Glucose (80-110) mg/dL Lactate 2.5 H (0.7-2.1) mmol/L Calcium (8.4-10.2) mg/dL Total Bilirubin (0.2-1.3) mg/dL AST (14-36) IU/L ALT (<35) IU/L Alkaline Phosphatase (38-126) U/L Total Protein (6.3-8.2) g/dL Albumin (3.5-5.0) g/dL Globulin (1.7-4.1) g/dL Albumin/Globulin Ratio (1.0-2.8) Lipase (23-300) U/L Procalcitonin 0.05 (<0.5) ng/mL Urine Color Urine Appearance Urine pH (4.5-8.0) Ur Specific [place] (1.000-1.035) Urine Protein (Negative) Urine Glucose (UA) (Negative) g/dL Urine Ketones (NEGATIVE) Urine Occult Blood (Negative) Urine Nitrate (Negative) Urine Bilirubin (NEGATIVE) Urine Urobilinogen (0.2) E.U./dL Ur Leukocyte Esterase (NEGATIVE) Urine RBC (0-5/HPF) Urine WBC (0-5/HPF) Ur Squamous Epith Cells (0-5/HPF) Triple Phos Crystals Amorphous Sediment Urine Bacteria (None) Urine Mucus (Negative) Ur Culture Indicated? Chlamy pneumoniae PCR (Not Detect) Adenovirus (PCR) (Not Detect) B.parapertussis DNA PCR (Not Detect) Coronavirus OC43 (PCR) (Not Detect) Coronavirus HKU1 (PCR) (Not Detect) Coronavirus 229E (PCR) (Not Detect) Coronavirus NL63 (PCR) (Not Detect) Human Metapneumovir PCR (Not Detect) Influenza Type A (PCR) (Not Detect) Influenza Type B (PCR) (Not Detect) M. pneumoniae (PCR) (Not Detect) Parainfluenza 1 (PCR) (Not Detect) Parainfluenza 2 (PCR) (Not Detect) Parainfluenza 3 (PCR) (Not Detect) Parainfluenza 4 (PCR) (Not Detect) RSV (PCR) (Not Detect) Entero/Rhino (PCR) (Not Detect) 05/13/19 Range/Units 17:53 WBC (4.5-11.0) X10^3/uL RBC (4.0-5.2) X10^6/uL Hgb (12.0-16.0) g/dL Hct (36-46) % MCV (80-100) fL MCH (26-34) PG MCHC (30-36) % RDW (11.6-14.8) % Plt Count (150-400) X10^3/uL Neut % (Auto) (50-75) % Lymph % (Auto) (25-40) % [place] % (Auto) (3-14) % Eos % (Auto) (2-4) % Baso % (Auto) (0-2) % Neut # (Auto) (8529-6632) /uL Lymph # (Auto) (1440-0862) /uL [place] # (Auto) (0-900) /uL Eos # (Auto) (0-450) /uL Baso # (Auto) (0-100) /uL PT (10.1-12.7) SECONDS INR (0.9-1.3) APTT (26.4-36.2) SECONDS Sodium 142 (137-145) mmol/L Potassium 4.1 (3.4-5.1) mmol/L Chloride 103 (98-107) mmol/L Carbon Dioxide 31 (22-32) mmol/L BUN 35 H (7-17) mg/dL Creatinine 0.90 (0.52-1.04) mg/dL Estimated GFR > 60.0 (>60) mL/min BUN/Creatinine Ratio 38.9 H (6-22) Glucose 127 H (80-110) mg/dL Lactate (0.7-2.1) mmol/L Calcium 10.5 H (8.4-10.2) mg/dL Total Bilirubin 1.3 (0.2-1.3) mg/dL AST 207 H (14-36) IU/L ALT 139 H (<35) IU/L Alkaline Phosphatase 83 (38-126) U/L Total Protein 8.3 H (6.3-8.2) g/dL Albumin 4.3 (3.5-5.0) g/dL Globulin 4.0 (1.7-4.1) g/dL Albumin/Globulin Ratio 1.1 (1.0-2.8) Lipase 62 (23-300) U/L Procalcitonin (<0.5) ng/mL Urine Color Urine Appearance Urine pH (4.5-8.0) Ur Specific [place] (1.000-1.035) Urine Protein (Negative) Urine Glucose (UA) (Negative) g/dL Urine Ketones (NEGATIVE) Urine Occult Blood (Negative) Urine Nitrate (Negative) Urine Bilirubin (NEGATIVE) Urine Urobilinogen (0.2) E.U./dL Ur Leukocyte Esterase (NEGATIVE) Urine RBC (0-5/HPF) Urine WBC (0-5/HPF) Ur Squamous Epith Cells (0-5/HPF) Triple Phos Crystals Amorphous Sediment Urine Bacteria (None) Urine Mucus (Negative) Ur Culture Indicated? Chlamy pneumoniae PCR (Not Detect) Adenovirus (PCR) (Not Detect) B.parapertussis DNA PCR (Not Detect) Coronavirus OC43 (PCR) (Not Detect) Coronavirus HKU1 (PCR) (Not Detect) Coronavirus 229E (PCR) (Not Detect) Coronavirus NL63 (PCR) (Not Detect) Human Metapneumovir PCR (Not Detect) Influenza Type A (PCR) (Not Detect) Influenza Type B (PCR) (Not Detect) M. pneumoniae (PCR) (Not Detect) Parainfluenza 1 (PCR) (Not Detect) Parainfluenza 2 (PCR) (Not Detect) Parainfluenza 3 (PCR) (Not Detect) Parainfluenza 4 (PCR) (Not Detect) RSV (PCR) (Not Detect) Entero/Rhino (PCR) (Not Detect) Imaging Data Chest x-ray: Radiologist's Impression: [address] [address] XRay Report Signed Patient: Maricarmen Kowalski [facility]#: [id number] : 8Acct:[id number] Age/Sex: 83 / FDate of Service: 05/13/19 Loc: ED Accession Number: [id number] Procedure: XR chest 1V Ordering Provider: Remedios Ritter MD PROCEDURE: XR CHEST 1V INDICATIONS: suspected sepsis TECHNIQUE: One view of the chest was acquired. COMPARISON: [facility], , XR CHEST 1V, 04/07/2019, 23:01. FINDINGS: Surgical changes and devices: None. Lungs and pleura: Increased density is evident within the right infrahilar region. No lobar consolidation, effusion, or pneumothorax is identified. Mediastinum: Mediastinal contours appear normal. Heart size is enlarged. There is aortic atherosclerosis. Bones and chest wall: No suspicious bony lesions. Overlying soft tissues appear unremarkable. IMPRESSION: 1. Possible developing right infrahilar pneumonia. 2. Cardiomegaly without overt heart failure. Dictated by: Alfredo Padron M.D. on 05/13/2019 at 17:00 Approved by: Alfredo Padron M.D. on 05/13/2019 at 17:01 ECG Data Attestation: I personally reviewed and interpreted this ECG as follows: Prior ECG tracings: not available for review Interpretation: Atrial fibrillation Ventricular rate of 100 Incomplete right bundle branch block One PVC Nonspecific ST T wave changes MDM Narrative Medical decision making narrative: Dr Kang: Received turned over from day provider. Urinalysis is concerning for urinary tract infection. Chest x-ray is concerning for developing pneumonia. Does have an elevated white count. Lactate 2.5. Procalcitonin is negative. Patient is tachycardic or does have a history of atrial fibrillation. Not on anticoagulation GCS of 12. Reported to me that at baseline the patient is dependent greatly upon others for her ADLs. Here in the ER patient does squeeze of the right hand and has her eyes open however only makes sounds. Apparently this is different. She was given Levaquin to cover for urine/respiratory etiology of possible infection. Discussed the case with night nurse practitioner who will admit for further evaluation and treatment. Discharge Plan Departure Patient Disposition: Admitted As Inpatient Clinical Impression: Acute UTI, Pneumonia AMS (altered mental status) Qualifiers: Altered mental status type: unspecified Qualified Code(s): R41.82 - Altered mental status, unspecified Discharge Date/Time: 05/13/19 21:17 Admit Date/Time: 05/13/19 19:47 Admit Provider: Perry Bliss
[2019-05-13 18:17] LABS: Alanine Aminotransferase 139 IU/L (<35); Albumin 4.3 g/dL (3.5-5.0); Albumin Globulin Ratio 1.1 (1.0-2.8); Alkaline Phosphatase 83 U/L (38-126); Aspartate Aminotransferase 207 IU/L (14-36); BUN Creatinine Ratio 38.9 (6-22); Bilirubin Total 1.3 mg/dL (0.2-1.3); Blood Urea Nitrogen 35 mg/dL (7-17); Calcium 10.5 mg/dL (8.4-10.2); Carbon Dioxide 31 mmol/L (22-32); Chloride 103 mmol/L (98-107); Estimated Glomerular Filt Rate > 60.0 mL/min (>60); Glucose 127 mg/dL (80-110); HEMOLYSIS 16 (0-50); Lipase 62 U/L (23-300); Potassium 4.1 mmol/L (3.4-5.1); Sodium 142 mmol/L (137-145); Total Protein 8.3 g/dL (6.3-8.2)
[2019-05-13 18:32] LABS: Procalcitonin 0.05 ng/mL (<0.5)
[2019-05-13] MEDS: levoFLOXacin 750 MG/150 ML PIGGYBACK 100 MG IV (18:37)
[2019-05-13 18:44] LABS: Adenovirus Not Detected (Not Detect); Bordetella pertussis Not Detected (Not Detect); Chlamydophila pneumoniae Not Detected (Not Detect); Coronavirus 229E Not Detected (Not Detect); Coronavirus HKU1 Not Detected (Not Detect); Coronavirus NL 63 Not Detected (Not Detect); Coronavirus OC43 Not Detected (Not Detect); Human Metapneumovirus Not Detected (Not Detect); Human Rhinovirus/Enterovirus Not Detected (Not Detect); Influenza A Not Detected (Not Detect); Influenza B Not Detected (Not Detect); Mycoplasma pneumoniae Not Detected (Not Detect); Parainfluenza Virus 1 Not Detected (Not Detect); Parainfluenza Virus 2 Not Detected (Not Detect); Parainfluenza Virus 3 Not Detected (Not Detect); Parainfluenza Virus 4 Not Detected (Not Detect); Respiratory Syncytial Virus Not Detected (Not Detect)
[2019-05-13 19:33] LABS: Reflexed Lactate in 2 Hours Y
--- NOTE | 2019-05-13 19:49 | PC.NURSE ---
Pt resting comfortably. Appears in no distress. Respirations even and unlabored. Pt arouses to sound and touch. Still not talking but does produce some sounds. Informed of getting admitted to hospital.
[2019-05-13 20:55] LABS: Lactate 2HR (Lactic Acid Rflx) 2.5 mmol/L (0.7-2.1)
--- NOTE | 2019-05-13 23:07 | PM.HP.1 ---
History of Present Illness History of Present Illness Date Patient Seen: 05/13/19 Time Patient Seen: 23:07 Chief complaint: Decreased LOC Narrative: HPI is obtained via review of records and information provided for from the ED provider. Patient resides at [facility]; however, did not come with any records. The patient is an 83-year-old female with PMH of severe dementia, HTN, CVA (w/ left sided weakness), AFIB (not on AC), non-rheumatic , ascending thoracic aortic aneurysm, HLD and PAD. Patient presented via EMS from [facility] out of concern for altered mental status. Specifically patient was noted to be progressively more somnolent and less responsive. Associated symptoms of chills, cough, diaphoresis, loss of appetite, weakness and malodorous urine per ED records. ED records note GCS of 9. Patient's baseline is not entirely known; however, it was communicated that patient requires assistance with essentially all activities of daily living. ED work-up revealed abnormal urinalysis with finding suggestive of a UTI. Records show that patient had a urine culture earlier in the month that grew Enterococcus faecalis (05/03/19) with colony count of greater than 100,000. urine culture revealed resistance to tetracyclines. This species is sensitive to levofloxacin. Chest x-ray revealed increased density in the right infrahilar region with concern for developing pneumonia. Procalcitonin and respiratory viral panel were negative. Leukocytosis (WBC 17) noted. Lactate level was elevated at 2.5. In ED patient was treated with IV levofloxacin 750 mg and 1L NS bolus. 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) Dementia (Acute) Elevated LFTs (Inactive) Hypertension (Acute) Stroke (Acute) Family & Social History Social History: household members Lives at [facility] Safety & Behavioral: Feels Safe in Current Unable to Answer, somnolent Environment Been Physically Hurt or Unable to Answer, somnolent Threatened By a Person Tobacco & Substance use: Smoking Status Lifelong non-smoker alcohol intake never Substance Use Type does not use Meds Home Medications and Allergies Home Medications Medication Instructions Recorded Confirmed Type aspirin 81 mg PO DAILY 02/19/19 05/14/19 History losartan 100 mg PO DAILY 02/19/19 05/14/19 History metoprolol tartrate 100 mg PO BID 02/19/19 05/14/19 History bisacodyl 5 - 10 mg PO PRN PRN 03/05/19 05/14/19 History bisacodyl 10 mg MN DAILY PRN 03/05/19 05/14/19 History ipratropium-albuterol 3 ml INHALATION Q6H PRN 05/14/19 05/14/19 History polyethylene glycol 3350 [Miralax] 17 g PO DAILY PRN 05/14/19 05/14/19 History Allergies Allergy/AdvReac Type Severity Reaction Status Date / Time No Known Drug Allergies Allergy Verified 11/25/17 14:32 Review of Systems Review of Systems Narrative: beatriz is unable to provide ROS due to altered mental status, specifically she is somnolent and unable to maintain wakeful state to answer questions ROS Unobtainable: unobtainable due to mental status Exam Vital Signs (past 8 hours): - 05/13/19 16:45 05/13/19 16:50 05/13/19 17:00 Temperature 99.7 F H Pulse Rate 92 H 120 H 100 H Respiratory Rate 20 20 26 H Blood Pressure 176/137 H Blood Pressure [Left Arm] 173/125 H 173/125 H Pulse Oximetry 90 L 94 92 05/13/19 17:30 05/13/19 18:00 05/13/19 18:30 Temperature Pulse Rate 115 H 110 H 98 H Respiratory Rate 19 21 17 Blood Pressure Blood Pressure [Left Arm] 185/116 H 183/132 H 175/131 H Pulse Oximetry 96 95 94 05/13/19 19:00 05/13/19 19:59 05/13/19 20:20 Temperature Pulse Rate 96 H 95 H 92 H Respiratory Rate 16 24 22 Blood Pressure Blood Pressure [Left Arm] 154/119 H 148/109 H 137/116 H Pulse Oximetry 94 95 92 05/13/19 21:16 05/13/19 21:20 05/13/19 22:40 Temperature 99.4 F 97.0 F L Pulse Rate 95 H 99 H 94 H Respiratory Rate 21 15 Blood Pressure 154/113 H 100/73 Blood Pressure [Left Arm] 158/110 H Pulse Oximetry 94 94 94 Oxygen Delivery Method Room Air Narrative Exam Narrative: Constitutional: minimal participation in exam, resting w/ eyes closed, BMI 22.6 Neurologic: GCS E(2) V(3) M(4) somnolent, unable to arouse to verbal stimuli; patient does arouse with tactile stimuli Does not follow commands Head: NC, AT Eyes: gaze w/ right preference Ears: external ears normal (h/o of being deaf in left ear) Nose: external nose normal, no rhinorrhea or epistaxis Throat: dry MM, oropharynx w/o exudate Neck: no JVD Chest / Respiratory: On RA. Clear breath sounds w/ exceptin of RLL (crackles) and LLL (diminished) Respiratory effort is nonlabored, no dyspnea or tachypnea at rest Heart / CV: Irregularly irregular Abdomen / GI: round, NT, ND, + BS, no organomegaly : suprapubic tenderness / distention Peripheral / Vascular: RLE DP pulse +, edema and erythema of right foot and toes LLE DP pulse +, no edema or erythema or extremity, foot or toes Musc: diminished muscle tone (h/o left hemiplegia) Skin: mycotic toe nails Objective Labs Result Diagrams: 05/13/19 17:53 05/13/19 17:53 Labs: Laboratory Results - last 24 hr 05/13/19 05/13/19 05/13/19 16:38 16:55 17:18 WBC RBC Hgb Hct MCV MCH MCHC RDW Plt Count Neut % (Auto) Lymph % (Auto) [place] % (Auto) Eos % (Auto) Baso % (Auto) Neut # (Auto) Lymph # (Auto) [place] # (Auto) Eos # (Auto) Baso # (Auto) PT 12.7 INR 1.1 APTT 27 D Sodium Potassium Chloride Carbon Dioxide BUN Creatinine Estimated GFR BUN/Creatinine Ratio Glucose Lactate Calcium Total Bilirubin AST ALT Alkaline Phosphatase Total Protein Albumin Globulin Albumin/Globulin Ratio Lipase Procalcitonin Urine Color Yellow Urine Appearance Cloudy Urine pH 7.5 Ur Specific [place] 1.020 Urine Protein 3+ H Urine Glucose (UA) Negative Urine Ketones Trace H Urine Occult Blood 3+ H Urine Nitrate Negative Urine Bilirubin Negative Urine Urobilinogen 0.2 Ur Leukocyte Esterase 1+ H Urine RBC 30-100/hpf H Urine WBC 10-30/hpf H Ur Squamous Epith Cells 0-1 /hpf Triple Phos Crystals Few Amorphous Sediment 3+ Urine Bacteria Many (>30) H Urine Mucus 3+ H Ur Culture Indicated? Specimen cultured Chlamy pneumoniae PCR Not detected Adenovirus (PCR) Not detected B.parapertussis DNA PCR Not detected Coronavirus OC43 (PCR) Not detected Coronavirus HKU1 (PCR) Not detected Coronavirus 229E (PCR) Not detected Coronavirus NL63 (PCR) Not detected Human Metapneumovir PCR Not detected Influenza Type A (PCR) Not detected Influenza Type B (PCR) Not detected M. pneumoniae (PCR) Not detected Parainfluenza 1 (PCR) Not detected Parainfluenza 2 (PCR) Not detected Parainfluenza 3 (PCR) Not detected Parainfluenza 4 (PCR) Not detected RSV (PCR) Not detected Entero/Rhino (PCR) Not detected 05/13/19 05/13/19 05/13/19 17:18 17:53 17:53 WBC 17.0 H RBC 4.86 Hgb 14.5 Hct 43.6 MCV 89.6 MCH 29.9 MCHC 33.3 RDW 14.7 Plt Count 106 L Neut % (Auto) 81.5 H Lymph % (Auto) 7.0 L [place] % (Auto) 11.2 Eos % (Auto) 0.1 L Baso % (Auto) 0.2 Neut # (Auto) 45478 H Lymph # (Auto) 1200 [place] # (Auto) 1900 H Eos # (Auto) 0 Baso # (Auto) 0 PT INR APTT Sodium Potassium Chloride Carbon Dioxide BUN Creatinine Estimated GFR BUN/Creatinine Ratio Glucose Lactate 2.5 H Calcium Total Bilirubin AST ALT Alkaline Phosphatase Total Protein Albumin Globulin Albumin/Globulin Ratio Lipase Procalcitonin 0.05 Urine Color Urine Appearance Urine pH Ur Specific [place] Urine Protein Urine Glucose (UA) Urine Ketones Urine Occult Blood Urine Nitrate Urine Bilirubin Urine Urobilinogen Ur Leukocyte Esterase Urine RBC Urine WBC Ur Squamous Epith Cells Triple Phos Crystals Amorphous Sediment Urine Bacteria Urine Mucus Ur Culture Indicated? Chlamy pneumoniae PCR Adenovirus (PCR) B.parapertussis DNA PCR Coronavirus OC43 (PCR) Coronavirus HKU1 (PCR) Coronavirus 229E (PCR) Coronavirus NL63 (PCR) Human Metapneumovir PCR Influenza Type A (PCR) Influenza Type B (PCR) M. pneumoniae (PCR) Parainfluenza 1 (PCR) Parainfluenza 2 (PCR) Parainfluenza 3 (PCR) Parainfluenza 4 (PCR) RSV (PCR) Entero/Rhino (PCR) 05/13/19 05/13/19 17:53 20:31 WBC RBC Hgb Hct MCV MCH MCHC RDW Plt Count Neut % (Auto) Lymph % (Auto) [place] % (Auto) Eos % (Auto) Baso % (Auto) Neut # (Auto) Lymph # (Auto) [place] # (Auto) Eos # (Auto) Baso # (Auto) PT INR APTT Sodium 142 Potassium 4.1 Chloride 103 Carbon Dioxide 31 BUN 35 H Creatinine 0.90 Estimated GFR > 60.0 BUN/Creatinine Ratio 38.9 H Glucose 127 H Lactate 2.5 H Calcium 10.5 H Total Bilirubin 1.3 AST 207 H ALT 139 H Alkaline Phosphatase 83 Total Protein 8.3 H Albumin 4.3 Globulin 4.0 Albumin/Globulin Ratio 1.1 Lipase 62 Procalcitonin Urine Color Urine Appearance Urine pH Ur Specific [place] Urine Protein Urine Glucose (UA) Urine Ketones Urine Occult Blood Urine Nitrate Urine Bilirubin Urine Urobilinogen Ur Leukocyte Esterase Urine RBC Urine WBC Ur Squamous Epith Cells Triple Phos Crystals Amorphous Sediment Urine Bacteria Urine Mucus Ur Culture Indicated? Chlamy pneumoniae PCR Adenovirus (PCR) B.parapertussis DNA PCR Coronavirus OC43 (PCR) Coronavirus HKU1 (PCR) Coronavirus 229E (PCR) Coronavirus NL63 (PCR) Human Metapneumovir PCR Influenza Type A (PCR) Influenza Type B (PCR) M. pneumoniae (PCR) Parainfluenza 1 (PCR) Parainfluenza 2 (PCR) Parainfluenza 3 (PCR) Parainfluenza 4 (PCR) RSV (PCR) Entero/Rhino (PCR) Assessment & Plan Assessment & Plan narrative: Patient is being admitted under inpatient status with acute metabolic encephalopathy, UTI, and community-acquired pneumonia. UTI, recurrent, present on admission, active - UA +LE, WBC 10-30, bacteria (many > 30); presence of mucus and amorphous sediment (3+) noted - Urine cx (05/03/19) + Enterococcus faecalis with resistance to tetracyclines; treated with a 5 day course of nitrofurantoin 100 mg Q6H - Received levofloxacin 750 mg IV in ED, continue Sepsis, acute w/o septic shock, present on admission, active - suspected to be in the setting of a UTI - SIRS (tachypnea, tachycardia, leukocytosis, and elevated lactate) + Infection (UTI, also suspected early PNA) + organ dysfunction (acute metabolic encephalopathy) No hypotension or hemodynamic decompensation - WBC 17 PCT 0.05 Lactate 2.5 - Blood and urine cx pending, to be followed - Received 1L NS bolus in ED. Will give additional 700 ml bolus of LR. - Trend lactate until normal Acute metabolic encephalopathy, present on admission, active - suspected to be in in the setting of an underlying infection - check ammonia level (normal < 9.0) - neuro / loc checks Q4H Chronic atrial fibrillation w/controlled ventricular rate, present on admission, active - EKG. AFIB (v-rate 100), aberrant conduction /ventricular premature complexes. R-BBB. ST deviation and moderate T-wave abnormality II / aVF. QTc 485. - Telemetry monitoring - Check Trop and BNP - Not on anticoagulation - CONCERT PROMOTER on metoprolol tartrate 100 mg BID, will hold at this time as she is somnolent; instead, will order metoprolol 5 mg IV Q6H H/O CVA w/ residual deficits (left hemiplegia, dysphagia, deaf in the left ear), chronic condition, present on admission, active / at baseline Elevated liver enzymes, chronic condition, present on admission, active - AST 207 ALT 139 Alk Phos 83 T.Bili 1.3 Lipase 62 - Trend liver enzymes w/ routine lab DNR. Son is the DPOA. VTE prophylaxis w/ SQ heparin 5000 units Q8H Outpatient medications reviewed and reconcilled accordingly Quality VTE Deep Vein Thrombosis/Pulmonary Embolism Present on Admission: No
[2019-05-14] VITALS (10 sets, daily range): BP systolic 144–153; BP diastolic 98–124; PULSE 89–115; RESP 17–21; TEMP 36.5–37.5; O2SAT 95–99
[2019-05-14 00:58] LABS: Ammonia (NH3) < 9.0 umol/L (9-30); Creatine Kinase < 20 U/L (30-135); Lactate (Lactic Acid) 1.6 mmol/L (0.7-2.1)
[2019-05-14] MEDS: LACTATED RINGERS 1,000 ML 700 ML IV (01:04)
[2019-05-14 01:07] LABS: B Type Natriuretic Peptide 627 (<100)
[2019-05-14] MEDS: HEPARIN 5,000 UNIT/ML VIAL 5000 UNIT SUBCUT ×4 (01:09→21:11)
[2019-05-14 01:11] LABS: Troponin I 0.013 ng/mL (0.01-0.034)
--- NOTE | 2019-05-14 01:50 | PC.NURSE ---
Addendum entered by Irais Duval R.N. 05/14/19 06:13: ICU nurse notified this nurse of occ pauses and episodes of bradicardia during the night. HR is currently at her baseline. Original Note: NOC Note: Home med list reconciled, REHAB DEPARTMENT MANAGER was notified of elevated BP, Bladder scan done per REHAB DEPARTMENT MANAGER request with 228 cc in bladder, Tele in place Pt in A-fib, this is chronic, IVF bolus hung as ordered. BGC done with BG of 98. Will given IVP metoprolol when verified by pharmacy. Pt has been pleasantly confused, cooperative with care, smiles at staff and tracks staff when she is spoken to and will look at staff when her name is said.
[2019-05-14] MEDS: METOPROLOL TARTRATE 5 MG/5 ML INJ IV ×3 (02:00→13:44)
[2019-05-14 08:37] LABS: Add Manual Diff / Slide Review NO; Basophils Absolute Auto 0 /uL (0-100); Basophils Percent Auto 0.2 % (0-2); Eosinophils Absolute Auto 0 /uL (0-450); Hematocrit 40.6 % (36-46); Hemoglobin 13.1 g/dL (12.0-16.0); Lymphocytes Absolute Auto 1300 /uL (1100-4500); Mean Corpuscular HGB Conc 32.3 % (30-36); Mean Corpuscular Hemoglobin 29.1 PG (26-34); Mean Corpuscular Volume 90.3 fL (80-100); Monocytes Absolute Auto 1600 /uL (0-900); Monocytes Percent Auto 11.1 % (3-14); Neutrophils Absolute Auto 11300 /uL (1500-7000); Neutrophils Percent Auto 79.7 % (50-75); Platelet Count 86 X10^3/uL (150-400); Red Cell Distribution Width 14.5 % (11.6-14.8); White Blood Cell Count 14.2 X10^3/uL (4.5-11.0)
[2019-05-14 08:46] LABS: Alanine Aminotransferase 93 IU/L (<35); Albumin 3.6 g/dL (3.5-5.0); Albumin Globulin Ratio 1.1 (1.0-2.8); Alkaline Phosphatase 69 U/L (38-126); Aspartate Aminotransferase 109 IU/L (14-36); BUN Creatinine Ratio 31.1 (6-22); Bilirubin Total 1.2 mg/dL (0.2-1.3); Blood Urea Nitrogen 28 mg/dL (7-17); Calcium 9.8 mg/dL (8.4-10.2); Carbon Dioxide 33 mmol/L (22-32); Chloride 105 mmol/L (98-107); Estimated Glomerular Filt Rate > 60.0 mL/min (>60); Globulin 3.4 g/dL (1.7-4.1); Glucose 97 mg/dL (80-110); HEMOLYSIS < 15 (0-50); Potassium 3.7 mmol/L (3.4-5.1); Sodium 142 mmol/L (137-145)
--- NOTE | 2019-05-14 10:23 | PC.NURSE ---
Day shift: Speech/swallow eval ordered per Dr Resendiz. Pt did tolerate drinking approx 1/2 of a vanilla Ensure as well as 1 spoonful of vanilla pudding. Pt's Son at bedside assisted. No s/s of compromised swallowing ability. Will continue to monitor. Also, Pt'sSon stated that Pt's head does mynor at times and Pt is not choking. This head mynor has been going on for the last 40 years per Pt's Son. Call light in reach. Bed alarm on and door to room open for line of sight.
--- NOTE | 2019-05-14 10:45 | PC.NURSE ---
Day shift: Pt left unit at approx 1045 in w/ SYSTEM OPERATOR Joine to car driven by Pt's spouse. Paperwork signed and all questions answered. Pt has all personal belongings and all MD scrips. Dressing changed per MD. Pt and Pt's spouse instructed on dressing change if needed. Pt encouraged by this marketing underwriter to make an PCP appointment very soon for her recent increased urine output. She said she would today.
--- NOTE | 2019-05-14 11:03 | CM.DANOTE ---
Addendum entered by Arianna Rivero R.N. 05/14/19 15:44: Called Jaleesa at [facility] to ensure that they can take patient back tomorrow, which stated that they will. Asked Jaleesa if she has a current POLST form. Stated that she will look in record, and fax over to us if available. Addendum entered by Arianna Rivero R.N. 05/14/19 14:01: Left another message for Akanksha at [facility] at [facility] Addendum entered by Arianna Rivero R.N. 05/14/19 12:08: Called [facility] and confirmed that patient does not qualify for Medicaid. Original Note: DCP: Case received, EMR reviewed. Called [facility], and spoke to Jaleesa in admissions. Was able to obtain some baseline history from her, secondary to patient having dementia. Also, called son, Edin Kowalski, and received additional information. Patient was here back in January. DCP assessment completed with information currently available. Patient is an 83 year old female who admitted yesterday evening to the care of the hospitalist team. PCP: Dr. Shellie Philip. Currently is under provider's care at [facility]. Payer: confirmed: Medicare. Patient came to the hospital via ambulance from [facility] secondary to decreased LOC. Patient has history of dementia. Spoke to Jaleesa in admissions from [facility]. Patient has been staying at [facility] since January, which is when patient was here. Prior to hospital admission in January, patient was residing at home with son as primary care program director, Edin Kowalski. Son had not been able to work secondary to caring for his mother. Obtained some information from Jaleesa at [facility]. Patient is there under private pay, Medicare ran out months ago. Son also confirmed that he is getting bills from [facility], they are charging 375.00 a day. Son mentioned, they applied for Medicaid, but don't qualify, for there is an account with money that he can't access. financial services manager at [facility] has been working on placement, and looking for guardian. Asked Jaleesa if they can accept patient back, for she can potentially be discharged tomorrow if stable. Stated, they could take her back. Left a message with [facility]'s social professionals, Akanksha, to call this case checker with any progress in placement, and advertising editor planning. P: DCP to continue to follow closely, and will continue to reach out to Akanksha at [facility]. Patient could possibly discharge tomorrow. Arianna Rivero RN/Erector Operator
--- NOTE | 2019-05-14 12:09 | PC.NURSE ---
Day shift: Per Dr Richter Pt placed on dysphagia mechanical diet. Pt tolerated 3/4 of a vanilla Ensure this AM as well as 1/2 of a vanilla pudding. Tray just arrived from kitchen. HOSPICE CASE MANAGER will help Pt eat lunch. Will continue to monitor.
--- NOTE | 2019-05-14 14:18 | PM.PN.1 ---
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 The patient is resting in bed comfortably. The patient has history of CVA with left-sided weakness and advanced dementia in which she is dependent for all ADLs. She is back to her baseline mentation per the patient's son and I am familiar with the patient and she does appear to be at her baseline mentation. She intermittently speaks with several 2-3 word sentences and will occasionally answer yes or no questions. She has a tic or tremor in which she rocks back and forth. She is able to deny pain and endorse hunger. She is incontinent but voiding without difficulty. She is unable to carry out any of her own ADLs and requires assistance with feeding. She is bed-bound. Exam Vital Signs (past 8 hours): - 05/14/19 07:58 05/14/19 11:00 Temperature 98.6 F 98.2 F Pulse Rate 101 H 108 H Respiratory Rate 19 Blood Pressure 148/98 H 153/124 H Pulse Oximetry 99 95 Oxygen Delivery Method Room Air Oxygen Flow Rate 0 Narrative Exam Narrative: General: Elderly thin female lying in bed and in no acute distress, advanced dementia, occasionally answers questions with 1 word answers. HEENT: Normocephalic, atraumatic. External ears without defect. Pupils equal, round, and reactive to light. Anicteric sclerae, moist conjunctivae, and no lid lag. Neck: Supple with full range of motion. No lymphadenopathy or thyromegaly. Cardiovascular: Regular rate and rhythm without murmurs, rubs, or gallops appreciated. Pulmonary: Clear to auscultation bilaterally without crackles, wheezes, or rhonchi. Normal respiratory effort with no use of accessory muscles. Abdomen: Soft, bowel sounds present, nontender, nondistended. No hepatosplenomegaly or masses appreciated. Extremities: No clubbing, cyanosis, or edema. Skin: Normal temperature, turgor, and texture; no rash, ulcers, or subcutaneous nodules appreciated. Neurological: Cranial nerves grossly intact. Lower extremities flaccid with paresis. Psychiatric: Rocks back and forth. Advanced dementia and oriented to person only. Objective Labs Result Diagrams: 05/14/19 08:14 05/14/19 08:14 Labs: Laboratory Results - last 24 hr 05/13/19 05/13/19 05/13/19 16:38 16:55 17:18 WBC RBC Hgb Hct MCV MCH MCHC RDW Plt Count Neut % (Auto) Lymph % (Auto) [place] % (Auto) Eos % (Auto) Baso % (Auto) Neut # (Auto) Lymph # (Auto) [place] # (Auto) Eos # (Auto) Baso # (Auto) PT 12.7 INR 1.1 APTT 27 D Sodium Potassium Chloride Carbon Dioxide BUN Creatinine Estimated GFR BUN/Creatinine Ratio Glucose Lactate Calcium Magnesium Total Bilirubin AST ALT Alkaline Phosphatase Ammonia Total Creatine Kinase CK-MB (CK-2) CK-MB (CK-2) Rel Index Troponin I B-Natriuretic Peptide Total Protein Albumin Globulin Albumin/Globulin Ratio Lipase Procalcitonin Urine Color Yellow Urine Appearance Cloudy Urine pH 7.5 Ur Specific [place] 1.020 Urine Protein 3+ H Urine Glucose (UA) Negative Urine Ketones Trace H Urine Occult Blood 3+ H Urine Nitrate Negative Urine Bilirubin Negative Urine Urobilinogen 0.2 Ur Leukocyte Esterase 1+ H Urine RBC 30-100/hpf H Urine WBC 10-30/hpf H Ur Squamous Epith Cells 0-1 /hpf Triple Phos Crystals Few Amorphous Sediment 3+ Urine Bacteria Many (>30) H Urine Mucus 3+ H Ur Culture Indicated? Specimen cultured Chlamy pneumoniae PCR Not detected Adenovirus (PCR) Not detected B.parapertussis DNA PCR Not detected Coronavirus OC43 (PCR) Not detected Coronavirus HKU1 (PCR) Not detected Coronavirus 229E (PCR) Not detected Coronavirus NL63 (PCR) Not detected Human Metapneumovir PCR Not detected Influenza Type A (PCR) Not detected Influenza Type B (PCR) Not detected M. pneumoniae (PCR) Not detected Parainfluenza 1 (PCR) Not detected Parainfluenza 2 (PCR) Not detected Parainfluenza 3 (PCR) Not detected Parainfluenza 4 (PCR) Not detected RSV (PCR) Not detected Entero/Rhino (PCR) Not detected 05/13/19 05/13/19 05/13/19 17:18 17:53 17:53 WBC 17.0 H RBC 4.86 Hgb 14.5 Hct 43.6 MCV 89.6 MCH 29.9 MCHC 33.3 RDW 14.7 Plt Count 106 L Neut % (Auto) 81.5 H Lymph % (Auto) 7.0 L [place] % (Auto) 11.2 Eos % (Auto) 0.1 L Baso % (Auto) 0.2 Neut # (Auto) 02914 H Lymph # (Auto) 1200 [place] # (Auto) 1900 H Eos # (Auto) 0 Baso # (Auto) 0 PT INR APTT Sodium Potassium Chloride Carbon Dioxide BUN Creatinine Estimated GFR BUN/Creatinine Ratio Glucose Lactate 2.5 H Calcium Magnesium Total Bilirubin AST ALT Alkaline Phosphatase Ammonia Total Creatine Kinase CK-MB (CK-2) CK-MB (CK-2) Rel Index Troponin I B-Natriuretic Peptide Total Protein Albumin Globulin Albumin/Globulin Ratio Lipase Procalcitonin 0.05 Urine Color Urine Appearance Urine pH Ur Specific [place] Urine Protein Urine Glucose (UA) Urine Ketones Urine Occult Blood Urine Nitrate Urine Bilirubin Urine Urobilinogen Ur Leukocyte Esterase Urine RBC Urine WBC Ur Squamous Epith Cells Triple Phos Crystals Amorphous Sediment Urine Bacteria Urine Mucus Ur Culture Indicated? Chlamy pneumoniae PCR Adenovirus (PCR) B.parapertussis DNA PCR Coronavirus OC43 (PCR) Coronavirus HKU1 (PCR) Coronavirus 229E (PCR) Coronavirus NL63 (PCR) Human Metapneumovir PCR Influenza Type A (PCR) Influenza Type B (PCR) M. pneumoniae (PCR) Parainfluenza 1 (PCR) Parainfluenza 2 (PCR) Parainfluenza 3 (PCR) Parainfluenza 4 (PCR) RSV (PCR) Entero/Rhino (PCR) 05/13/19 05/13/19 05/14/19 17:53 20:31 00:32 WBC RBC Hgb Hct MCV MCH MCHC RDW Plt Count Neut % (Auto) Lymph % (Auto) [place] % (Auto) Eos % (Auto) Baso % (Auto) Neut # (Auto) Lymph # (Auto) [place] # (Auto) Eos # (Auto) Baso # (Auto) PT INR APTT Sodium 142 Potassium 4.1 Chloride 103 Carbon Dioxide 31 BUN 35 H Creatinine 0.90 Estimated GFR > 60.0 BUN/Creatinine Ratio 38.9 H Glucose 127 H Lactate 2.5 H 1.6 Calcium 10.5 H Magnesium Total Bilirubin 1.3 AST 207 H ALT 139 H Alkaline Phosphatase 83 Ammonia Total Creatine Kinase CK-MB (CK-2) CK-MB (CK-2) Rel Index Troponin I B-Natriuretic Peptide Total Protein 8.3 H Albumin 4.3 Globulin 4.0 Albumin/Globulin Ratio 1.1 Lipase 62 Procalcitonin Urine Color Urine Appearance Urine pH Ur Specific [place] Urine Protein Urine Glucose (UA) Urine Ketones Urine Occult Blood Urine Nitrate Urine Bilirubin Urine Urobilinogen Ur Leukocyte Esterase Urine RBC Urine WBC Ur Squamous Epith Cells Triple Phos Crystals Amorphous Sediment Urine Bacteria Urine Mucus Ur Culture Indicated? Chlamy pneumoniae PCR Adenovirus (PCR) B.parapertussis DNA PCR Coronavirus OC43 (PCR) Coronavirus HKU1 (PCR) Coronavirus 229E (PCR) Coronavirus NL63 (PCR) Human Metapneumovir PCR Influenza Type A (PCR) Influenza Type B (PCR) M. pneumoniae (PCR) Parainfluenza 1 (PCR) Parainfluenza 2 (PCR) Parainfluenza 3 (PCR) Parainfluenza 4 (PCR) RSV (PCR) Entero/Rhino (PCR) 05/14/19 05/14/19 05/14/19 00:32 00:32 00:32 WBC RBC Hgb Hct MCV MCH MCHC RDW Plt Count Neut % (Auto) Lymph % (Auto) [place] % (Auto) Eos % (Auto) Baso % (Auto) Neut # (Auto) Lymph # (Auto) [place] # (Auto) Eos # (Auto) Baso # (Auto) PT INR APTT Sodium Potassium Chloride Carbon Dioxide BUN Creatinine Estimated GFR BUN/Creatinine Ratio Glucose Lactate Calcium Magnesium Total Bilirubin AST ALT Alkaline Phosphatase Ammonia < 9.0 L Total Creatine Kinase < 20 L CK-MB (CK-2) TNP CK-MB (CK-2) Rel Index TNP Troponin I 0.013 B-Natriuretic Peptide 627 H Total Protein Albumin Globulin Albumin/Globulin Ratio Lipase Procalcitonin Urine Color Urine Appearance Urine pH Ur Specific [place] Urine Protein Urine Glucose (UA) Urine Ketones Urine Occult Blood Urine Nitrate Urine Bilirubin Urine Urobilinogen Ur Leukocyte Esterase Urine RBC Urine WBC Ur Squamous Epith Cells Triple Phos Crystals Amorphous Sediment Urine Bacteria Urine Mucus Ur Culture Indicated? Chlamy pneumoniae PCR Adenovirus (PCR) B.parapertussis DNA PCR Coronavirus OC43 (PCR) Coronavirus HKU1 (PCR) Coronavirus 229E (PCR) Coronavirus NL63 (PCR) Human Metapneumovir PCR Influenza Type A (PCR) Influenza Type B (PCR) M. pneumoniae (PCR) Parainfluenza 1 (PCR) Parainfluenza 2 (PCR) Parainfluenza 3 (PCR) Parainfluenza 4 (PCR) RSV (PCR) Entero/Rhino (PCR) 05/14/19 05/14/19 05/14/19 08:14 08:14 08:14 WBC 14.2 H RBC 4.50 Hgb 13.1 Hct 40.6 MCV 90.3 MCH 29.1 MCHC 32.3 RDW 14.5 Plt Count 86 L Neut % (Auto) 79.7 H Lymph % (Auto) 9.0 L [place] % (Auto) 11.1 Eos % (Auto) 0.0 L Baso % (Auto) 0.2 Neut # (Auto) 45553 H Lymph # (Auto) 1300 [place] # (Auto) 1600 H Eos # (Auto) 0 Baso # (Auto) 0 PT INR APTT Sodium 142 Potassium 3.7 Chloride 105 Carbon Dioxide 33 H BUN 28 H Creatinine 0.90 Estimated GFR > 60.0 BUN/Creatinine Ratio 31.1 H Glucose 97 Lactate Calcium 9.8 Magnesium 2.0 Total Bilirubin 1.2 AST 109 H ALT 93 H Alkaline Phosphatase 69 Ammonia Total Creatine Kinase CK-MB (CK-2) CK-MB (CK-2) Rel Index Troponin I B-Natriuretic Peptide Total Protein 7.0 Albumin 3.6 Globulin 3.4 Albumin/Globulin Ratio 1.1 Lipase Procalcitonin Urine Color Urine Appearance Urine pH Ur Specific [place] Urine Protein Urine Glucose (UA) Urine Ketones Urine Occult Blood Urine Nitrate Urine Bilirubin Urine Urobilinogen Ur Leukocyte Esterase Urine RBC Urine WBC Ur Squamous Epith Cells Triple Phos Crystals Amorphous Sediment Urine Bacteria Urine Mucus Ur Culture Indicated? Chlamy pneumoniae PCR Adenovirus (PCR) B.parapertussis DNA PCR Coronavirus OC43 (PCR) Coronavirus HKU1 (PCR) Coronavirus 229E (PCR) Coronavirus NL63 (PCR) Human Metapneumovir PCR Influenza Type A (PCR) Influenza Type B (PCR) M. 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 1. Acute sepsis, present on admission. Resolved. -Patient presented with tachypnea, tachycardia, leukocytosis, and elevated lactate) with organ dysfunction acute metabolic encephalopathy and source UTI. The patient does not have pneumonia on clinical exam, respiratory viral PCR negative and chest x-ray as interpreted by me does not demonstrate any clear infiltrate. -Early goal-directed therapy met including: IV fluid resuscitation and broad-spectrum antibiotic. -Initial lactic acid 2.5. Trended lactate until under 2.0. 2. Acute recurrent Enterococcus UTI, present on admission. Active. -Initial WBC 17.0 and procalcitonin 0.05. WBC trending down to 14.2 and procalcitonin 0.06. Continue to monitor WBC and procalcitonin daily. -Blood culture x2 pending. -Urinalysis appeared grossly infected with urine culture preliminarily growing Enterococcus species. -Continue levofloxacin 750 mg daily. -Received approximately 2 L IV fluid. 3. Acute metabolic encephalopathy in setting of advanced dementia, present on admission. Acute metabolic encephalopathy resolved. -Acute alteration in mental status secondary to infection with UTI and continue to treat as above. -Ammonia level normal < 9.0. -Patient is close to baseline mentation per son with significant decreased functional and mental status at baseline. She is dependent for all ADLs, requires 1:1 assistance with feeding and is bed-bound. 4. VILLA with transaminitis, chronic, present on admission. Stable. -AST 207, ALT 139, Alk Phos 83 T.Bili 1.3 Lipase 62. AST and ALT trending down at 109 and 93 respectively. -previous abdominal ultrasound and MRCP demonstrated hepatic steatosis without biliary disease. -Avoid liver toxic agents. -Continue to monitor liver enzymes periodically. 5. Hypertension, chronic, present on admission. Stable. -Continue metoprolol tartrate 100 mg twice daily and losartan 100 mg daily. Discontinued hydrochlorothiazide as the patient is highly susceptible for dehydration. 6. Paroxysmal atrial fibrillation, chronic, present on admission. Stable. -EKG AFIB (v-rate 100), aberrant conduction /ventricular premature complexes. R-BBB. ST deviation and moderate T-wave abnormality II / aVF. QTc 485. -Continue to monitor closely on telemetry. -Continue metoprolol tartrate 100 mg twice daily. 7. History of CVA with residual deficits (left hemiplegia, dysphagia, deaf in the left ear), chronic, present on admission. Stable. -Continue dysphagia mechanical diet with 1:1 assist. -Continue nursing to perform [id number] exercises. Code: DNR/DNI Disposition: Patient will discharge back to snf facility in the next 1-2 days pending urine culture identification and sensitivities. Quality VTE Deep Vein Thrombosis/Pulmonary Embolism Present on Admission: No
[2019-05-14] MEDS: LOSARTAN 50 MG TABLET 100 MG PO (15:37)
[2019-05-14 15:49] LABS: Procalcitonin 0.06 ng/mL (<0.5)
--- NOTE | 2019-05-14 16:10 | OT.IP.TRT ---
Current Diagnoses Sepsis, unspecified organism (05/13/19) Occupational Therapy Treatment Note M3 OT- IP Subjective and Pain Start: 05/14/19 16:08 Freq: Status: Active Protocol: Document 05/14/19 16:08 [facility] (Rec: 05/14/19 16:10 [facility] [id number]) OT- Subjective Occupational Therapy Visit Type Type Administrative Note Notes Called [facility] for pt's prior level of function and they states was in a supervised dining area and able to eat on her own hand to mouth, otherwise for ADl's needing extensive assist for all needs. Pt able to transfer stand pivot with 1-2 person assist. To check on pt tomorrow during meal time for OT idania.
--- NOTE | 2019-05-14 17:13 | PT-IP ANOTE ---
PT orders received. On chart review, noted that pt has been at [facility] since January. Per OT conversation with [facility], pt was able to trnasfer stand pivot with 1-2 person assist. Will check on pt tomorrow for PT eval after discussion at rounds.
[2019-05-14] MEDS: METOPROLOL IR 50 MG TABLET 100 MG PO (21:11)
--- NOTE | 2019-05-14 23:21 | PC.NURSE ---
Evening note: Ida continues to be hypertensive tonight, RUE BP 157/115 and LUE BP 179/126. I notified Radha CROSS of continued hypertension. Patient able to take PO meds one at-a-time in applesauce, otherwise refusing other PO intake, keeping mouth closed when nurse/[employer] offered her spoonfulls of meal. Harsha score 12, patient repositioned q1-2 hours per protocol. Incontinent of urine, brief changes with repositioning, barrier creme to buttocks, no redness observed to sylvain-area/buttocks/coccyx. Fall precautions in place,
[2019-05-15 00:05] VITALS: BP 162/132; PULSE 92; RESP 18; TEMP 36.9; O2SAT 97
--- NOTE | 2019-05-15 01:12 | PC.NURSE ---
Addendum entered by Day Fernandez R.N. 05/15/19 04:43: Noticed on alarm security or surveillance monitor that patient's heart rate temporarily went down to 31 but now back up to 90's. AMERICA Amador, informed. Reviewed recent 0400 VS and patient is currently asleep. Order received for EKG. Original Note: Patient not verbally responsive; did respond to painful stimuli and then opened eyes when asked to do so. Respirations shallow and does not follow direction to deep breathe. Breath sounds diminished throughout but RA sat is 97%; on continuous oximetry. HR irregular with telemetry reading of afib CVR. BP elevated at 162/132 and Perry CROSS, is aware of elevated BP. BT present and abdomen is soft. Incontinent of B&B Not moving herself in bed so is being repositioned q2h. Has red spot on posterior left calf and anterior right LE. Bilateral heels are red and are being floated. FLACC score is 0. Fall risk score is high per RN discretion and bed alarm is activated.
[2019-05-15 04:00] VITALS: BP 180/85; PULSE 96; RESP 18; TEMP 37.1; O2SAT 93
[2019-05-15] MEDS: HEPARIN 5,000 UNIT/ML VIAL 5000 UNIT SUBCUT (05:43)
[2019-05-15 06:04] LABS: Alanine Aminotransferase 68 IU/L (<35); Albumin 3.8 g/dL (3.5-5.0); Albumin Globulin Ratio 1.1 (1.0-2.8); Alkaline Phosphatase 69 U/L (38-126); Aspartate Aminotransferase 62 IU/L (14-36); BUN Creatinine Ratio 31.1 (6-22); Bilirubin Total 1.3 mg/dL (0.2-1.3); Blood Urea Nitrogen 28 mg/dL (7-17); Calcium 10.2 mg/dL (8.4-10.2); Carbon Dioxide 34 mmol/L (22-32); Chloride 107 mmol/L (98-107); Estimated Glomerular Filt Rate > 60.0 mL/min (>60); Globulin 3.5 g/dL (1.7-4.1); Glucose 110 mg/dL (80-110); HEMOLYSIS < 15 (0-50); Magnesium 2.2 mg/dL (1.6-2.3); Potassium 4.5 mmol/L (3.4-5.1); Sodium 144 mmol/L (137-145); Total Protein 7.3 g/dL (6.3-8.2)
[2019-05-15 06:08] LABS: Add Manual Diff / Slide Review NO; Basophils Absolute Auto 0 /uL (0-100); Basophils Percent Auto 0.2 % (0-2); Eosinophils Absolute Auto 0 /uL (0-450); Hematocrit 40.9 % (36-46); Hemoglobin 13.4 g/dL (12.0-16.0); Lymphocytes Absolute Auto 1600 /uL (1100-4500); Lymphocytes Percent Auto 13.5 % (25-40); Mean Corpuscular HGB Conc 32.8 % (30-36); Mean Corpuscular Hemoglobin 29.4 PG (26-34); Mean Corpuscular Volume 89.9 fL (80-100); Monocytes Absolute Auto 1400 /uL (0-900); Monocytes Percent Auto 11.2 % (3-14); Neutrophils Absolute Auto 9100 /uL (1500-7000); Neutrophils Percent Auto 75.1 % (50-75); Platelet Count 81 X10^3/uL (150-400); Red Blood Cell Count 4.55 X10^6/uL (4.0-5.2); Red Cell Distribution Width 14.3 % (11.6-14.8); White Blood Cell Count 12.1 X10^3/uL (4.5-11.0)
[2019-05-15 09:00] VITALS: BP 170/123; PULSE 96; RESP 20; TEMP 36.9; O2SAT 94
[2019-05-15] MEDS: LOSARTAN 50 MG TABLET 100 MG PO (09:14)
[2019-05-15] MEDS: ASPIRIN 81 MG CHEW TAB PO (09:14)
[2019-05-15] MEDS: METOPROLOL IR 50 MG TABLET 100 MG PO (09:14)
[2019-05-15] MEDS: SODIUM CHLORIDE 0.9% FLUSH 10 ML IV (09:14)
--- NOTE | 2019-05-15 09:55 | OT.IP.TRT ---
Current Diagnoses Sepsis, unspecified organism (05/13/19) Occupational Therapy Treatment Note M3 OT- IP Subjective and Pain Start: 05/14/19 16:08 Freq: Status: Active Protocol: Document 05/15/19 09:54 [facility] (Rec: 05/15/19 09:55 [facility] [id number]) OT- Subjective Occupational Therapy Visit Type Type Administrative Note Notes Per Hospitalist, pt going back to custodial home today , therefore discharge OT eval orders.
--- NOTE | 2019-05-15 10:53 | CM.DPC ---
DCP Cont: Spoke to Haritha in social work at [facility]. She gave brief history on patient. Confirmed that they have found guardian ship in [place]. Stated that son feels overwhelmed , and not wanting to seen guardianship. Stated that daughter who lives in [place] is afraid to fly up here, has fear of flying. Haritha mentioned that patient has $73,000 set in a savings account that son can't access. [facility] is going to accept her back, for they have been working with patient and family. Dr. Richter is to be discharging patient today, is medically stable. Updated September in admissions at [facility]. Due to weather, does not yet have a specific time, between [id number], depending on cat driver. Will fax over discharge summary and signed meds when completed, no PASSR needed since she is returning to [facility] and has not had any behavioral changes. P: Patient is to return to [facility] today. Will send over signed orders when completed. Arianna Rivero RN/[place] [employer]
--- NOTE | 2019-05-15 11:35 | PT-IP ANOTE ---
Per Hospitalist, pt is at baseline function and is going back to longterm home today, therefore discharge PT eval orders.
[2019-05-15 12:00] VITALS: PULSE 79; TEMP 36.9; O2SAT 98
[2019-05-15 12:08] VITALS: BP 154/108
--- NOTE | 2019-05-15 13:05 | DIET.PN ---
Dietary Note Assessment: Ms. 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 Ms. Kowalski is familiar to me through several admits over the last few months. She continues to follow a dysphagia diet. Requests yogurt or fruit smoothies w/ trays. HT: 157.48cm WT: 56.1g UBW: 64.3kg BMI: 22.6 Labs: CO2: 34 BUN: 28 AST: 62 ALT: 68 BNP: 627 Bili: 1.2, 1.3 MNA: n/a (pt unable to answer assessment) Harsha: 8,12 Nutrition Diagnosis: Difficulty chewing/swallowing r/t disease state alt mental status, dementia, h/o CVA aeb [facility]/ honey thick liquid plus 1:1 feed assist. Interventions: 1. Initiate added protein via yogurt 1 x/day breakfast, high pro strawb/banana smoothie 1x/day lunch. Diet Order: Dysphagia Mechanical, HTK liquid, 1:1 feed assist EER: [id number] mili @ 27-30cal/kg Pro: 73g @ 1.3g/kg Monitoring/Evaluations: PO's, weight, smoothie acceptance
--- NOTE | 2019-05-15 13:17 | P.DS_ITS ---
History of Present Illness History of Present Illness Date Patient Seen: 05/13/19 Chief complaint: Decreased LOC Narrative: Written by Perry CROSS: HPI is obtained via review of records and information provided for from the ED provider. Patient resides at [facility]; however, did not come with any records. The patient is an 83-year-old female with PMH of severe dementia, HTN, CVA (w/ left sided weakness), AFIB (not on AC), non-rheumatic , ascending thoracic aortic aneurysm, HLD and PAD. Patient presented via EMS from [facility] out of concern for altered mental status. Specifically patient was noted to be progressively more somnolent and less responsive. Associated symptoms of chills, cough, diaphoresis, loss of appetite, weakness and malodorous urine per ED records. ED records note GCS of 9. Patient's baseline is not entirely known; however, it was communicated that patient requires assistance with essentially all activities of daily living. ED work-up revealed abnormal urinalysis with finding suggestive of a UTI. Records show that patient had a urine culture earlier in the month that grew Enterococcus faecalis (05/03/19) with colony count of greater than 100,000. urine culture revealed resistance to tetracyclines. This species is sensitive to levofloxacin. Chest x-ray revealed increased density in the right infrahilar region with concern for developing pneumonia. Procalcitonin and respiratory viral panel were negative. Leukocytosis (WBC 17) noted. Lactate level was elevated at 2.5. In ED patient was treated with IV levofloxacin 750 mg and 1L NS bolus. Discharge Providers Provider Date of admission: 05/13/19 19:47 Discharge Date: 05/15/19 Consults: 05/14/19 10:01 Consult to Physical Therapy Evaluate & Treat Comment: Physician Instructions: Evaluate and Treat Consult to Speech Therapy Evaluate & Treat Comment: Physician Instructions: Evaluate and treat 05/14/19 10:02 Consult to Occupational Therapy Evaluate & Treat Comment: Physician Instructions: Evaluate and treat 05/14/19 22:34 Consult to Dietitian, Adult Routine Comment: dementia, UTI Reason For Exam: refusing most all PO intake Discharge provider: Gianna Richter DO Summary Hospital Course Discharge Diagnosis: 1. Acute sepsis, present on admission. Resolved. 2. Acute recurrent Enterococcus UTI, present on admission. Resolving. 3. Acute metabolic encephalopathy in setting of advanced dementia, present on admission. Acute metabolic encephalopathy resolved. 4. VILLA with transaminitis, chronic, present on admission. Stable. 5. Paroxysmal atrial fibrillation, chronic, present on admission. Stable. 6. Hypertension, chronic, present on admission. Stable. 7. History of CVA with residual deficits (left hemiplegia, dysphagia, deaf in the left ear), chronic, present on admission. Stable. Hospital Course: Maricarmen Kowalski is an 83-year-old female with a past medical history significant for advanced dementia with previous CVA and left-sided weakness, hypertension, hyperlipidemia, peripheral arterial disease, paroxysmal atrial fibrillation not on anticoagulation, nonrheumatic aortic stenosis, and ascending thoracic aortic aneurysm who presented via EMS from group home care facility out of concern for decreased level of consciousness and was found to have recurrent En terococcus faecalis UTI. 1. Acute sepsis, present on admission. Resolved. -Patient presented with tachypnea, tachycardia, leukocytosis, and elevated lactate) with organ dysfunction acute metabolic encephalopathy and source UTI. The patient does not have pneumonia on clinical exam, respiratory viral PCR negative and chest x-ray as interpreted by me does not demonstrate any clear infiltrate. -Early goal-directed therapy met including: IV fluid resuscitation and broad- spectrum antibiotic. -Initial lactic acid 2.5. Trended lactate until under 2.0. 2. Acute recurrent Enterococcus UTI, present on admission. Resolving. -Initial WBC 17.0 and procalcitonin 0.05. WBC trending down to 14.2 and procalcitonin 0.06. Continue to monitor WBC and procalcitonin daily. -Blood culture x2 has no growth to date. -Urinalysis appeared grossly infected with urine culture preliminarily growing Enterococcus species. Received approximately 2 L of IV fluid then discontinued as patient is adequately hydrated. -Continued renally dosed levofloxacin 750 mg every 48 hours. Patient discharged on levofloxacin to be received on 05/17/2019 and 05/19/2019 to finish an 8 day course total. The patient then will start fosfomycin 3 g every week for 6 months to prophylactically treat UTI as patient has had 3 Enterococcus UTIs in the last 1.5 months. 3. Acute metabolic encephalopathy in setting of advanced dementia, present on admission. Acute metabolic encephalopathy resolved. -Acute alteration in mental status secondary to infection with UTI and continue to treat as above. -Ammonia level normal < 9.0. -Patient is close to baseline mentation per son with significant decreased functional and mental status at baseline. She is dependent for all ADLs, requires 1:1 assistance with feeding and is bed-bound. 4. VILLA with transaminitis, chronic, present on admission. Stable. -Initial LFTs: AST 207, ALT 139, Alk Phos 83 T.Bili 1.3 Lipase 62. AST and ALT trending down at 62 and 68 respectively. -Previous abdominal ultrasound and MRCP demonstrated hepatic steatosis without biliary disease. -Avoided liver toxic agents. -Continued to monitor liver enzymes periodically. 5. Paroxysmal atrial fibrillation, chronic, present on admission. Stable. -EKG demonstrated atrial fibrillation (v-rate 100), aberrant conduction /ventricular premature complexes. R-BBB. ST deviation and moderate T-wave abnormality II / aVF. QTc 485. -Continued to monitor closely on telemetry. The patient had significant bra dycardia overnight with heart rate down into the 30s and one 3 second sinus pause. -Continued metoprolol tartrate decreased from 100 mg twice daily to 100 mg daily and 25 mg daily at bedtime. 6. Hypertension, chronic, present on admission. Stable. -Continued metoprolol tartrate decreased from 100 mg twice daily to 100 mg daily and 25 mg daily at bedtime as above and losartan 100 mg daily. 7. History of CVA with residual deficits (left hemiplegia, dysphagia, deaf in the left ear), chronic, present on admission. Stable. -Continued dysphagia mechanical diet with 1:1 assist. -Continued nursing to perform [id number] exercises. -Pursuing guardianship for patient due to family difficulty with financial arrangements and placement. Exam Vital Signs (past 8 hours): - 05/15/19 09:00 05/15/19 12:00 05/15/19 12:08 Temperature 98.4 F 98.4 F Pulse Rate 96 H 79 Respiratory Rate 20 Blood Pressure 170/123 H 154/108 H Pulse Oximetry 94 98 Oxygen Delivery Method Room Air Oxygen Flow Rate 0 Narrative Exam Narrative: General: Elderly thin female lying in bed and in no acute distress, advanced dementia, occasionally answers questions with 1 word answers and rarely several word sentences. HEENT: Normocephalic, atraumatic. External ears without defect. Pupils equal, round, and reactive to light. Anicteric sclerae, moist conjunctivae, and no lid lag. Neck: Supple with full range of motion. No lymphadenopathy or thyromegaly. Cardiovascular: Regular rate and rhythm without murmurs, rubs, or gallops appreciated. Pulmonary: Clear to auscultation bilaterally without crackles, wheezes, or rh onchi. Normal respiratory effort with no use of accessory muscles. Abdomen: Soft, bowel sounds present, nontender, nondistended. No hepatosplenomegaly or masses appreciated. Extremities: No clubbing, cyanosis, or edema. Skin: Normal temperature, turgor, and texture; no rash, ulcers, or subcutaneous nodules appreciated. Neurological: Cranial nerves grossly intact. Lower extremities flaccid with paresis. Psychiatric: Chronic tic/tremor with rocking back and forth. Advanced dementia and oriented to person only. The patient is much more bright, awake, alert and responsive. Objective Labs Result Diagrams: 05/15/19 05:44 05/15/19 05:44 Labs: Laboratory Results - last 24 hr 05/14/19 05/15/19 05/15/19 08:15 05:44 05:44 WBC 12.1 H RBC 4.55 Hgb 13.4 Hct 40.9 MCV 89.9 MCH 29.4 MCHC 32.8 RDW 14.3 Plt Count 81 L Neut % (Auto) 75.1 H Lymph % (Auto) 13.5 L [place] % (Auto) 11.2 Eos % (Auto) 0.0 L Baso % (Auto) 0.2 Neut # (Auto) 9100 H Lymph # (Auto) 1600 [place] # (Auto) 1400 H Eos # (Auto) 0 Baso # (Auto) 0 Sodium Potassium Chloride Carbon Dioxide BUN Creatinine Estimated GFR BUN/Creatinine Ratio Glucose Calcium Magnesium Total Bilirubin AST ALT Alkaline Phosphatase Total Protein Albumin Globulin Albumin/Globulin Ratio Procalcitonin 0.06 0.10 05/15/19 05:44 WBC RBC Hgb Hct MCV MCH MCHC RDW Plt Count Neut % (Auto) Lymph % (Auto) [place] % (Auto) Eos % (Auto) Baso % (Auto) Neut # (Auto) Lymph # (Auto) [place] # (Auto) Eos # (Auto) Baso # (Auto) Sodium 144 Potassium 4.5 Chloride 107 Carbon Dioxide 34 H BUN 28 H Creatinine 0.90 Estimated GFR > 60.0 BUN/Creatinine Ratio 31.1 H Glucose 110 Calcium 10.2 Magnesium 2.2 Total Bilirubin 1.3 AST 62 H ALT 68 H Alkaline Phosphatase 69 Total Protein 7.3 Albumin 3.8 Globulin 3.5 Albumin/Globulin Ratio 1.1 Procalcitonin Discharge Plan Discharge Plan Patient Disposition: SNF Under care of provider: Health Education Assistant Discharge orders & Medications Prescriptions: New docusate sodium [DOK] 100 mg Capsule 100 mg PO BID PRN (Reason: constipation) Qty: 60 RF: 0 ondansetron 4 mg Tablet,Disintegrating 4 mg PO Q8HR PRN (Reason: Nausea And Vomiting) Qty: 30 RF: 0 fosfomycin tromethamine 3 gram packet 1 packet PO .Q7days Qty: 25 RF: 0 levofloxacin 750 mg tablet 750 mg PO Q48H Qty: 2 RF: 0 metoprolol tartrate 100 mg tablet 100 mg PO DAILY Qty: 30 RF: 0 metoprolol tartrate 25 mg tablet 25 mg PO BEDTIME Qty: 30 RF: 0 Continued bisacodyl 10 mg Suppository 10 mg SD DAILY PRN (Reason: Constipation) RF: 0 bisacodyl 5 mg Tablet 5 - 10 mg PO PRN PRN (Reason: mild to severe constipation) RF: 0 ipratropium-albuterol 0.5 mg-3 mg(2.5 mg base)/3 mL Solution For Nebulization 3 ml INHALATION Q6H PRN (Reason: Cough) RF: 0 polyethylene glycol 3350 [Miralax] 17 gram/dose Powder 17 g PO DAILY PRN (Reason: Constipation) RF: 0 aspirin 81 mg Tablet,Chewable 81 mg PO DAILY RF: 0 losartan 100 mg Tablet 100 mg PO DAILY RF: 0 Discontinued metoprolol tartrate 100 mg Tablet 100 mg PO BID RF: 0 Discharge Health Status Health Concerns: Maricarmen Kowalski is an 83-year-old female with a past medical history significant for advanced dementia with previous CVA and left-sided weakness, hypertension, hyperlipidemia, peripheral arterial disease, paroxysmal atrial fibrillation not on anticoagulation, nonrheumatic aortic stenosis, and ascending thoracic aortic aneurysm who presented via EMS from group home care facility due to decreased level of consciousness from UTI. The patient is on levofloxacin every 48 hours and will have 2 more doses on 05/17/19 and 05/19/19 to finish the antibiotic course. She will then start on 05/21/19 fosfomycin 3 g every week for UTI prophylaxis for 6 months and then need to be re-evaluated. The patient has paroxysmal atrial fibrillation is on rate control with metoprolol succinate 100 mg twice daily which has been lowered to 100 mg daily due to significant bradycardia at night with heart rate into the 30s and one 3 second pause. Diet/Activity/Treatments Diet: Low-fat, Low-sodium and Low-cholesterol Liquid consistency: Honey Consistency Food texture: Soft Diet comment: dysphagia mechanical soft [facility] Rehab type: Physical therapy, Occupational therapy and Speech therapy Quality VTE Deep Vein Thrombosis/Pulmonary Embolism Present on Admission: No
[2019-05-15] MEDS: levoFLOXacin 250 MG TABLET 750 MG PO (13:24)
--- NOTE | 2019-05-15 14:01 | PC.NURSE ---
Addendum entered by Kirsten Martin R.N. 05/15/19 14:29: Report given to Giovana at [facility], with specific mention about the change in Metoprolol dosing and the dosing of the Levaquin (Q48h), then changing over to a maintenance abx for longer period of time. Original Note: Transfer to SNF: [facility] and clean brief just prior to transfer. Packet given to transport staff. Lily lifted patient into wheelchair. Attempted to call report to [facility] without reaching anyone. Message left on charge nurse line, awaiting call back.
== END 2019-05-15 14:31 | DRG 871 ==
LOC: ED 19:10 → AC 19:48
PROVIDERS: Emergency Medicine; Internal Medicine; Admitting Provider Nurse Practitioner Gerontology; Emergency Provider Emergency Medicine; Visit Provider Nurse Practitioner Gerontology
DX: A41.9 Sepsis, unspecified organism (principal); G93.41 Metabolic encephalopathy; N39.0 Urinary tract infection, site not specified; I69.354 Hemiplegia and hemiparesis following cerebral infarction affecting left non-dominant side; R65.20 Severe sepsis without septic shock; F03.90 Unspecified dementia, unspecified severity, without behavioral disturbance, psychotic disturbance, mood disturbance, and anxiety; I69.391 Dysphagia following cerebral infarction; R13.10 Dysphagia, unspecified; I48.0 Paroxysmal atrial fibrillation; K75.81 Nonalcoholic steatohepatitis (NASH); I10 Essential (primary) hypertension; I73.9 Peripheral vascular disease, unspecified; B95.2 Enterococcus as the cause of diseases classified elsewhere; I69.30 Unspecified sequelae of cerebral infarction; H91.8X2 Other specified hearing loss, left ear
CPT/HCPCS: 36415; 71045; 80053; 81001; 82140; 82550; 82962; 83605; 83690; 83735; 83880; 84145; 84484; 85025; 85610; 85730; 87040; 87077; 87086; 87186; 87633; 93005; 94760; 94762; 96361; 96365; 96366; 99284; 99285; J1644; J1956

== ENCOUNTER → 2019-07-22 15:52 | Outpatient (ROUT) | payer MEDICARE, SELFPAY ==
[2019-05-13 21:47] VITALS: BMI 22.6
[2019-07-22 16:33] LABS: Influenza A - CEPHEID Flu A NEGATIVE (NEGATIVE); Influenza B - CEPHEID Flu B NEGATIVE (NEGATIVE)
[2019-07-24 18:07] LABS: COVID19 Sendout Not Detected (Not Detected)
== END ==
PROVIDERS: Visit Provider Internal Medicine
DX: R09.02 Hypoxemia (principal); N39.0 Urinary tract infection, site not specified
CPT/HCPCS: 87502; 87635

== ENCOUNTER 2019-07-22 19:42 | Emergency (ER) | payer MEDICARE, SELFPAY ==
[2019-05-13 21:47] VITALS: BMI 22.6
[2019-07-22] VITALS (11 sets, daily range): BP systolic 138–179; BP diastolic 91–132; PULSE 70–95; RESP 14–39; TEMP 36.1–36.5; O2SAT 96–100
--- NOTE | 2019-07-22 20:11 | DI.RAD.S_ITS ---
PROCEDURE: XR CHEST 1V INDICATIONS: hypoxic, SOB TECHNIQUE: One view of the chest was acquired. COMPARISON: [facility], CT, PE STUDY (CTA CHEST), 04/19/2017, 15:34. [facility], CR, XR CHEST 1V, 05/13/2019, 17:42. FINDINGS: Surgical changes and devices: None. Lungs and pleura: Chronic appearing diffuse interstitial prominence. Minimal patchy opacities involving the medial right lung apex. Streaky left basilar opacities. No pneumothorax. No pleural effusion. Mediastinum: The cardiomediastinal contours remain stable with enlargement of the cardiac silhouette. Bones and chest wall: No suspicious bony lesions. Overlying soft tissues appear unremarkable. IMPRESSION: 1. Chronic appearing interstitial prominence. Minimal patchy opacity of the medial right lung apex which may represent chronic interstitial disease versus early airspace disease. Streaky left basilar opacities favored to represent atelectasis. This may also represent aspiration versus early air space disease. No focal consolidations. 2. Persistent cardiomegaly without overt pulmonary edema. Dictated by: John Zhou M.D. on 07/22/2019 at 20:48 Approved by: John Zhou M.D. on 07/22/2019 at 20:54
--- NOTE | 2019-07-22 20:16 | ED.SOB ---
HPI - SOB/Dyspnea General Chief Complaint: Shortness of Breath/Dyspnea Stated Complaint: SOB Time Seen by Provider: 07/22/19 19:53 Source: EMS Mode of arrival: EMS History of Present Illness HPI Narrative: HPI: The patient is an 83-year-old female who is a resident of a local [place] [facility] who was sent into the emergency department to be evaluated because she developed hypoxia and difficulty in breathing. There is no mention as to how long she has been having shortness of breath or when she was last known. The patient herself is nonverbal and not providing and unable to provide any history. Review of the old records revealed that on May 14, 2019 the patient was admitted to the hospital and at that time was made do not resuscitate. There is no family at this time in the emergency department to provide any further history. It is unknown whether not the patient has had any recent fever. Related Data Home Medications Medication Instructions Recorded Confirmed aspirin 81 mg PO DAILY 02/19/19 05/14/19 losartan 100 mg PO DAILY 02/19/19 05/14/19 bisacodyl 5 - 10 mg PO PRN PRN 03/05/19 05/14/19 bisacodyl 10 mg [place] DAILY PRN 03/05/19 05/14/19 ipratropium-albuterol 3 ml INHALATION Q6H PRN 05/14/19 05/14/19 polyethylene glycol 3350 [Miralax] 17 g PO DAILY PRN 05/14/19 05/14/19 Previous Rx's Medication Instructions Recorded docusate sodium [DOK] 100 mg PO BID PRN #60 cap 05/15/19 fosfomycin tromethamine 1 packet PO .Q7days #25 each 05/15/19 levofloxacin 750 mg PO Q48H #2 tab 05/15/19 metoprolol tartrate 25 mg PO BEDTIME #30 tab 05/15/19 metoprolol tartrate 100 mg PO DAILY #30 tab 05/15/19 ondansetron 4 mg PO Q8HR PRN #30 tab 05/15/19 cefdinir 300 mg PO BID #7 cap 07/22/19 Allergies Allergy/AdvReac Type Severity Reaction Status Date / Time No Known Drug Allergies Allergy Verified 11/25/17 14:32 Review of Systems Review of Systems Narrative: Review of systems are unobtainable at this time secondary to her medical and mental condition. 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 She looks around the room. She has a head Etienne that is rhythm medical and is almost tardive in nature. The patient also opens her mouth periodically. She does not appear to be in any acute distress. On 3 L of oxygen the patient's saturation is 98-100%. HEAD: AT/NC EENT: PERRL, no discharge, No epistaxis or nasal drainage Oral mucosa is moist and pink,. The patient does not follow directions an open her mouth wide enough to look at the posterior pharynx. NECK: Supple, no obvious JVD, Trachea is midline without stridor, no palpable LN SPINE: The patient is not able to sit up on her own. She is very stiff when we tried to sit her up.There is no gross deformity, no apparent palpable tenderness of the cervical, thoracic, lumbar or sacral spine. No CVA tenderness. THORAX: No deformity, retractions, chest wall tenderness. LUNGS: Crackles in both lower lung grover with symmetrical breath sounds that are clear otherwise. HEART: Normal heart tones, regular rhythm and rate without murmur. ABDOMEN: Soft, non-tender, without guarding, rebound, rigidity or palpable mass . EXTREMITIES: No edema, cyanosis, deformity or tenderness. The patient has a diffuse erythematous discoloration over the distal legs. SKIN: No rash, bruising, petechiae or purpura otherwise appreciated. NEURO: Awake, no facial asymmetry:cranial nerves II-XII are symmetrical, moves all 4 extremities spontaniously but does not follow directions. Initial Vital Signs Initial Vital Signs: Vital Signs Temperature 97.7 F 07/22/19 19:43 Pulse Rate 85 07/22/19 19:43 Respiratory Rate 39 H 07/22/19 19:43 Blood Pressure 179/132 H 07/22/19 19:43 Pulse Oximetry 98 07/22/19 19:43 Course Course Course Narrative: 2121: The patient's chest x-ray shows mild cardiomegaly without any evidence of acute infiltrates pneumonia cardiopulmonary pathology by my review. Her white blood count is 6.7, hemoglobin 13.2 hematocrit 40.5 creatinine is 0.65 EGFR is greater than 60, CPK is less than 20, troponin is less than 0.012. Her CRP is less than 0.5. Influenza a and B and procalcitonin were pending. The plan is to return the patient to the care home she does not have acute hypoxia here. A minor virus because of living in the [place] [facility] has been arm ordered on the patient which was ordered at the [place] [facility]. 4: A D-dimer has been ordered on the patient to try and explain why she has the acute hypoxia. Calling the [place] [facility] the patient is not on oxygen at the [place] [facility]. The patient has become more confused according to the care home staff which may be related to her hypoxia.. 5 the patient has an acute urinary tract infection. She will be administered 1 g of ceftriaxone and discharged home on cefuroxime. Since being here in the emergency department the patient has not been hypoxic. For the last 20-30 minutes the patient has been on room air maintaining a oxygen saturation of 97%. The patient became very verbal or when the nurses performed with the urinary catheterization. Orders Ordered: ED Orders 07/22/19 20:10 C-Reactive Protein Quant Stat Complete Blood Count AUTO DIFF Stat Comprehensive Metabolic Panel Stat D Dimer Stat Lactate (Lactic Acid) Stat Magnesium Stat Procalcitonin Stat Troponin & CK Cardiac Panel Stat 07/22/19 20:11 XR chest 1V Stat 07/22/19 20:50 Influenza A & B (PCR) Stat 07/22/19 21:02 EKG-12 Lead Stat 07/22/19 21:40 UA Complete [Urinalysis and Microscopic] Stat Urine Culture Stat Discontinued Medications Ceftriaxone Sodium 1,000 mg/ (Dextrose) 50 mls @ 100 mls/hr IV NOW ONE Stop: 07/22/19 22:46 Ceftriaxone Sodium/Dextrose (Rocephin) 1 gm in 50 mls @ 100 mls/hr IV NOW ONE Stop: 07/22/19 23:25 Last Infusion: 07/22/19 23:39 Dose: 0 mls/hr Documented by: Admin: 07/22/19 23:05 Dose: 100 mls/hr Documented by: PARKER Methylprednisolone (Solu-Medrol 125 Mg Vial) 125 mg IV NOW ONE Stop: 07/22/19 20:10 Last Admin: 07/22/19 20:21 Dose: 125 mg Documented by: WALDO Vital Signs Vital signs: Vital Signs - 8 hr 07/22/19 19:43 07/22/19 20:10 07/22/19 20:41 Temperature 97.7 F Pulse Rate 85 93 H 70 Respiratory Rate 39 H 24 39 H Blood Pressure 179/132 H Blood Pressure [Left Arm] 176/96 H Blood Pressure [Right Arm] Pulse Oximetry 98 99 100 07/22/19 20:50 07/22/19 21:30 07/22/19 22:04 Temperature Pulse Rate 71 72 84 Respiratory Rate 20 24 16 Blood Pressure Blood Pressure [Left Arm] Blood Pressure [Right Arm] 176/96 H 155/111 H 168/113 H Pulse Oximetry 100 100 07/22/19 22:06 07/22/19 22:18 07/22/19 22:49 Temperature 97.0 F L Pulse Rate 95 H 82 71 Respiratory Rate 18 16 14 Blood Pressure Blood Pressure [Left Arm] Blood Pressure [Right Arm] 152/97 H 141/91 H Pulse Oximetry 100 97 96 07/22/19 23:30 07/22/19 23:50 07/23/19 00:33 Temperature Pulse Rate 76 73 71 Respiratory Rate 14 14 14 Blood Pressure Blood Pressure [Left Arm] Blood Pressure [Right Arm] 138/93 H 139/93 H 133/94 H Pulse Oximetry 96 97 98 MDM - SOB/Dyspnea Lab Data Result diagrams: 07/22/19 20:10 07/22/19 20:10 Labs: Lab Results 07/22/19 07/22/19 07/22/19 Range/Units 20:10 20:10 20:10 WBC 6.7 (4.5-11.0) X10^3/uL RBC 4.54 (4.0-5.2) X10^6/uL Hgb 13.2 (12.0-16.0) g/dL Hct 40.5 (36-46) % MCV 89.2 (80-100) fL MCH 29.1 (26-34) PG MCHC 32.6 (30-36) % RDW 13.7 (11.6-14.8) % Plt Count 142 L (150-400) X10^3/uL Neut % (Auto) 45.4 L (50-75) % Lymph % (Auto) 39.5 (25-40) % Rooks % (Auto) 11.2 (3-14) % Eos % (Auto) 3.0 (2-4) % Baso % (Auto) 0.9 (0-2) % Neut # (Auto) 3000 (8729-4134) /uL Lymph # (Auto) 2600 (2899-5315) /uL Rooks # (Auto) 800 (0-900) /uL Eos # (Auto) 200 (0-450) /uL Baso # (Auto) 100 (0-100) /uL D-Dimer (<230) ng/mL Sodium (137-145) mmol/L Potassium (3.4-5.1) mmol/L Chloride (98-107) mmol/L Carbon Dioxide (22-32) mmol/L BUN (7-17) mg/dL Creatinine (0.52-1.04) mg/dL Estimated GFR (>60) mL/min BUN/Creatinine Ratio (6-22) Glucose (80-110) mg/dL Lactate (0.7-2.1) mmol/L Calcium (8.4-10.2) mg/dL Magnesium 2.2 (1.6-2.3) mg/dL Total Bilirubin (0.2-1.3) mg/dL AST (14-36) IU/L ALT (<35) IU/L Alkaline Phosphatase (38-126) U/L Total Creatine Kinase < 20 L (30-135) U/L CK-MB (CK-2) TNP CK-MB (CK-2) Rel Index TNP Troponin I < 0.012 (0.01-0.034) ng/mL C-Reactive Protein < 0.5 (<1.0) mg/dL Total Protein (6.3-8.2) g/dL Albumin (3.5-5.0) g/dL Globulin (1.7-4.1) g/dL Albumin/Globulin Ratio (1.0-2.8) Procalcitonin < 0.05 (<0.5) ng/mL Urine Color Urine Appearance Urine pH (4.5-8.0) Ur Specific Maunie (1.000-1.035) Urine Protein (Negative) Urine Glucose (UA) (Negative) g/dL Urine Ketones (NEGATIVE) Urine Occult Blood (Negative) Urine Nitrate (Negative) Urine Bilirubin (NEGATIVE) Urine Urobilinogen (0.2) E.U./dL Ur Leukocyte Esterase (NEGATIVE) Urine RBC (0-5/HPF) Urine WBC (0-5/HPF) Urine Bacteria (None) Ur Culture Indicated? Influenza A (RT-PCR) (NEGATIVE) Influenza B (RT-PCR) (NEGATIVE) 07/22/19 07/22/19 07/22/19 Range/Units 20:10 20:10 20:10 WBC (4.5-11.0) X10^3/uL RBC (4.0-5.2) X10^6/uL Hgb (12.0-16.0) g/dL Hct (36-46) % MCV (80-100) fL MCH (26-34) PG MCHC (30-36) % RDW (11.6-14.8) % Plt Count (150-400) X10^3/uL Neut % (Auto) (50-75) % Lymph % (Auto) (25-40) % Rooks % (Auto) (3-14) % Eos % (Auto) (2-4) % Baso % (Auto) (0-2) % Neut # (Auto) (8736-6177) /uL Lymph # (Auto) (2882-7482) /uL Rooks # (Auto) (0-900) /uL Eos # (Auto) (0-450) /uL Baso # (Auto) (0-100) /uL D-Dimer 731 H (<230) ng/mL Sodium 137 (137-145) mmol/L Potassium 4.3 (3.4-5.1) mmol/L Chloride 102 (98-107) mmol/L Carbon Dioxide 30 (22-32) mmol/L BUN 21 H (7-17) mg/dL Creatinine 0.65 (0.52-1.04) mg/dL Estimated GFR > 60.0 (>60) mL/min BUN/Creatinine Ratio 32.3 H (6-22) Glucose 82 (80-110) mg/dL Lactate 1.3 (0.7-2.1) mmol/L Calcium 9.9 (8.4-10.2) mg/dL Magnesium (1.6-2.3) mg/dL Total Bilirubin 0.6 (0.2-1.3) mg/dL AST 31 (14-36) IU/L ALT 13 (<35) IU/L Alkaline Phosphatase 75 (38-126) U/L Total Creatine Kinase (30-135) U/L CK-MB (CK-2) CK-MB (CK-2) Rel Index Troponin I (0.01-0.034) ng/mL C-Reactive Protein (<1.0) mg/dL Total Protein 7.7 (6.3-8.2) g/dL Albumin 4.1 (3.5-5.0) g/dL Globulin 3.6 (1.7-4.1) g/dL Albumin/Globulin Ratio 1.1 (1.0-2.8) Procalcitonin (<0.5) ng/mL Urine Color Urine Appearance Urine pH (4.5-8.0) Ur Specific Maunie (1.000-1.035) Urine Protein (Negative) Urine Glucose (UA) (Negative) g/dL Urine Ketones (NEGATIVE) Urine Occult Blood (Negative) Urine Nitrate (Negative) Urine Bilirubin (NEGATIVE) Urine Urobilinogen (0.2) E.U./dL Ur Leukocyte Esterase (NEGATIVE) Urine RBC (0-5/HPF) Urine WBC (0-5/HPF) Urine Bacteria (None) Ur Culture Indicated? Influenza A (RT-PCR) (NEGATIVE) Influenza B (RT-PCR) (NEGATIVE) 07/22/19 07/22/19 Range/Units 20:50 21:40 WBC (4.5-11.0) X10^3/uL RBC (4.0-5.2) X10^6/uL Hgb (12.0-16.0) g/dL Hct (36-46) % MCV (80-100) fL MCH (26-34) PG MCHC (30-36) % RDW (11.6-14.8) % Plt Count (150-400) X10^3/uL Neut % (Auto) (50-75) % Lymph % (Auto) (25-40) % Rooks % (Auto) (3-14) % Eos % (Auto) (2-4) % Baso % (Auto) (0-2) % Neut # (Auto) (1985-3155) /uL Lymph # (Auto) (8831-0662) /uL Rooks # (Auto) (0-900) /uL Eos # (Auto) (0-450) /uL Baso # (Auto) (0-100) /uL D-Dimer (<230) ng/mL Sodium (137-145) mmol/L Potassium (3.4-5.1) mmol/L Chloride (98-107) mmol/L Carbon Dioxide (22-32) mmol/L BUN (7-17) mg/dL Creatinine (0.52-1.04) mg/dL Estimated GFR (>60) mL/min BUN/Creatinine Ratio (6-22) Glucose (80-110) mg/dL Lactate (0.7-2.1) mmol/L Calcium (8.4-10.2) mg/dL Magnesium (1.6-2.3) mg/dL Total Bilirubin (0.2-1.3) mg/dL AST (14-36) IU/L ALT (<35) IU/L Alkaline Phosphatase (38-126) U/L Total Creatine Kinase (30-135) U/L CK-MB (CK-2) CK-MB (CK-2) Rel Index Troponin I (0.01-0.034) ng/mL C-Reactive Protein (<1.0) mg/dL Total Protein (6.3-8.2) g/dL Albumin (3.5-5.0) g/dL Globulin (1.7-4.1) g/dL Albumin/Globulin Ratio (1.0-2.8) Procalcitonin (<0.5) ng/mL Urine Color Yellow Urine Appearance Sl cloudy Urine pH 7.0 (4.5-8.0) Ur Specific Maunie 1.020 (1.000-1.035) Urine Protein Negative (Negative) Urine Glucose (UA) Negative (Negative) g/dL Urine Ketones Negative (NEGATIVE) Urine Occult Blood Negative (Negative) Urine Nitrate Negative (Negative) Urine Bilirubin Negative (NEGATIVE) Urine Urobilinogen 0.2 (0.2) E.U./dL Ur Leukocyte Esterase 1+ H (NEGATIVE) Urine RBC 0-1/hpf D (0-5/HPF) Urine WBC 30-100/hpf H (0-5/HPF) Urine Bacteria Many (>30) H (None) Ur Culture Indicated? Specimen cultured Influenza A (RT-PCR) Flu a negative (NEGATIVE) Influenza B (RT-PCR) Flu b negative (NEGATIVE) Discharge Plan Departure Patient Disposition: Home Clinical Impression: Acute confusion Dementia Qualifiers: Dementia type: unspecified type Dementia behavioral disturbance: without behavioral disturbance Qualified Code(s): F03.90 - Unspecified dementia without behavioral disturbance Urinary tract infection Qualifiers: Urinary tract infection type: acute cystitis Hematuria presence: without hematuria Qualified Code(s): N30.00 - Acute cystitis without hematuria Discharge Date/Time: 07/23/19 00:50 Instructions: DI for Urinary Tract Infection (UTI), DI for Hypoxia Activity Restrictions/Additional Instructions: 1. The patient has had no evidence of hypoxia while here in the emergency department. The patient's laboratory chemistries were all within normal limits and the chest x-ray did not reveal any evidence of of an infiltrate or patchy pneumonia is. 2. The patient has a baseline dementia with increased confusion secondary to an acute urinary tract infection. 3. The patient needs to be further evaluated by her primary care physician in 48-72 hours. 4, she takes her cefdinir 300 mg twice a day until gone for her acute urinary tract infection. 5. To keep the patient appropriately hydrated need to encourage 2-3 L of fluid per day orally. 6. The patient is to return to the emergency department if she develops worsening hypoxia, high fever greater than 101 on her current medications respiratory distress collapse or passing out. Prescriptions: New cefdinir 300 mg capsule 300 mg PO BID Qty: 7 RF: 0 No Action bisacodyl 10 mg Suppository 10 mg [place] DAILY PRN (Reason: Constipation) RF: 0 bisacodyl 5 mg Tablet 5 - 10 mg PO PRN PRN (Reason: mild to severe constipation) RF: 0 ipratropium-albuterol 0.5 mg-3 mg(2.5 mg base)/3 mL Solution For Nebulization 3 ml INHALATION Q6H PRN (Reason: Cough) RF: 0 polyethylene glycol 3350 [Miralax] 17 gram/dose Powder 17 g PO DAILY PRN (Reason: Constipation) RF: 0 docusate sodium [DOK] 100 mg Capsule 100 mg PO BID PRN (Reason: constipation) Qty: 60 RF: 0 ondansetron 4 mg Tablet,Disintegrating 4 mg PO Q8HR PRN (Reason: Nausea And Vomiting) Qty: 30 RF: 0 fosfomycin tromethamine 3 gram packet 1 packet PO .Q7days Qty: 25 RF: 0 levofloxacin 750 mg tablet 750 mg PO Q48H Qty: 2 RF: 0 metoprolol tartrate 100 mg tablet 100 mg PO DAILY Qty: 30 RF: 0 metoprolol tartrate 25 mg tablet 25 mg PO BEDTIME Qty: 30 RF: 0 aspirin 81 mg Tablet,Chewable 81 mg PO DAILY RF: 0 losartan 100 mg Tablet 100 mg PO DAILY RF: 0 ED Sign-out Cosign ED Attending Cosignature Attestation: I was immediately available in the department for consultation. This documentation has been reviewed and I agree with assessment and plan. Supervised by Wm Aponte MD
[2019-07-22] MEDS: methylPREDNISolone 125 MG/2 ML VIAL IV (20:21)
[2019-07-22 20:45] LABS: Add Manual Diff / Slide Review NO; Basophils Absolute Auto 100 /uL (0-100); Basophils Percent Auto 0.9 % (0-2); Eosinophils Absolute Auto 200 /uL (0-450); Hematocrit 40.5 % (36-46); Hemoglobin 13.2 g/dL (12.0-16.0); Lymphocytes Absolute Auto 2600 /uL (1100-4500); Lymphocytes Percent Auto 39.5 % (25-40); Mean Corpuscular HGB Conc 32.6 % (30-36); Mean Corpuscular Hemoglobin 29.1 PG (26-34); Mean Corpuscular Volume 89.2 fL (80-100); Monocytes Absolute Auto 800 /uL (0-900); Monocytes Percent Auto 11.2 % (3-14); Neutrophils Absolute Auto 3000 /uL (1500-7000); Neutrophils Percent Auto 45.4 % (50-75); Platelet Count 142 X10^3/uL (150-400); Red Blood Cell Count 4.54 X10^6/uL (4.0-5.2); Red Cell Distribution Width 13.7 % (11.6-14.8); White Blood Cell Count 6.7 X10^3/uL (4.5-11.0)
[2019-07-22 20:53] LABS: Alanine Aminotransferase 13 IU/L (<35); Albumin 4.1 g/dL (3.5-5.0); Albumin Globulin Ratio 1.1 (1.0-2.8); Alkaline Phosphatase 75 U/L (38-126); Aspartate Aminotransferase 31 IU/L (14-36); BUN Creatinine Ratio 32.3 (6-22); Bilirubin Total 0.6 mg/dL (0.2-1.3); Blood Urea Nitrogen 21 mg/dL (7-17); Calcium 9.9 mg/dL (8.4-10.2); Carbon Dioxide 30 mmol/L (22-32); Chloride 102 mmol/L (98-107); Estimated Glomerular Filt Rate > 60.0 mL/min (>60); Globulin 3.6 g/dL (1.7-4.1); Glucose 82 mg/dL (80-110); HEMOLYSIS 36 (0-50); Potassium 4.3 mmol/L (3.4-5.1); Sodium 137 mmol/L (137-145); Total Protein 7.7 g/dL (6.3-8.2)
[2019-07-22 20:54] LABS: Creatine Kinase < 20 U/L (30-135); Lactate (Lactic Acid) 1.3 mmol/L (0.7-2.1); Magnesium 2.2 mg/dL (1.6-2.3)
[2019-07-22 21:05] LABS: Troponin I < 0.012 ng/mL (0.01-0.034)
[2019-07-22 21:07] LABS: C-Reactive Protein Quant < 0.5 mg/dL (<1.0)
[2019-07-22 21:25] LABS: Procalcitonin < 0.05 ng/mL (<0.5)
[2019-07-22 21:25] LABS: Influenza A - CEPHEID Flu A NEGATIVE (NEGATIVE); Influenza B - CEPHEID Flu B NEGATIVE (NEGATIVE)
--- NOTE | 2019-07-22 21:30 | PC.NURSE ---
The nurse at [facility] reports that pt is on room air at baseline.
[2019-07-22 21:55] LABS: D Dimer 731 ng/mL (<230)
[2019-07-22 22:04] LABS: Appearance Urine UA SL CLOUDY; Bacteria Urine Many (>30); Bilirubin Urine UA NEGATIVE (NEGATIVE); Color Urine UA YELLOW; Glucose Urine UA NEGATIVE (Negative); Ketones Urine UA NEGATIVE (NEGATIVE); Leukocyte Esterase Urine UA 1+ (NEGATIVE); Nitrite Urine UA NEGATIVE (Negative); Occult Blood Urine UA NEGATIVE (Negative); Protein Urine UA NEGATIVE (Negative); RBC Urine 0-1/HPF (0-5/HPF); Urobilinogen Urine UA 0.2 E.U./dL (0.2); WBC Urine 30-100/HPF (0-5/HPF)
[2019-07-22 22:05] LABS: Culture Indicated Urine Specimen Cultured
[2019-07-22] MEDS: CEFTRIAXONE 1 GM/50 ML FROZ.PIGGY IV (23:05)
--- NOTE | 2019-07-22 23:55 | PC.NURSE ---
Cardiac,BP & O2 sensor monitors dc'd.Awaiting for transport back to [facility].
[2019-07-23 00:33] VITALS: BP 133/94; PULSE 71; RESP 14; O2SAT 98
== END 2019-07-23 00:50 | disposition home or self-care (01) ==
PROVIDERS: Emergency Provider Emergency Medicine
DX: N30.00 Acute cystitis without hematuria (principal); R41.0 Disorientation, unspecified; F03.90 Unspecified dementia, unspecified severity, without behavioral disturbance, psychotic disturbance, mood disturbance, and anxiety; R09.02 Hypoxemia; R06.02 Shortness of breath
CPT/HCPCS: 36415; 51701; 51705; 71045; 80053; 81001; 82550; 83605; 83735; 84145; 84484; 85025; 85379; 86140; 87077; 87086; 87502; 93005; 96365; 96375; 99285; J2930

== ENCOUNTER 2019-09-14 19:10 | Emergency (ER) | payer MEDICARE, SELFPAY ==
[2019-05-13 21:47] VITALS: BMI 22.6
[2019-09-14 19:18] VITALS: BP 184/119; PULSE 71; RESP 24; TEMP 36.3; O2SAT 93
--- NOTE | 2019-09-14 19:31 | PC.NURSE ---
Pt brought in to ER by medics. Pt with no response, pupils sluggish, Had nasal trumpet in place upon arrival. Pt has episodes of apnea, Low End title, Oxygen put in place. Suctioned mouth to assist with breathing. Placed o2 at 6l via Nasal Cannula. Positioned head to assist with airway. Minimal response to IV start. Placed warm blankets on pt.
--- NOTE | 2019-09-14 19:49 | PC.NURSE ---
Pt's son has arrived and is at bedside. Provider aware.
[2019-09-14 21:12] VITALS: PULSE 92; RESP 24; O2SAT 90
--- NOTE | 2019-09-15 00:10 | ED_ITS ---
HPI - General Adult General Chief complaint: Unresponsive Stated complaint: Unresponsive Time Seen by Provider: 09/14/19 19:13 Mode of arrival: EMS History of Present Illness HPI narrative: 83-year-old woman with increasing lethargy over the course of to the day to the point that she is unresponsive at her long-term facility. She is comfort care only. The staff called her son to let him know and asked what he would like to do. He deferred to their clinical decision making in the opted to request transfer to the emergency department. Upon arrival in the emergency department she is completely of tended, nasal trumpet in place, agonal breathing, with very dry mucous membranes, extraordinarily hypertensive with a heart rate at 82. POLST form is available and does indicate comfort measures only. Son is later available and states that she actually had been doing well 2 days ago and seemed to be rallying and then yesterday was a bit more tired and he was aware that she was increasingly fatigued today. Related Data Home Medications Medication Instructions Recorded Confirmed aspirin 81 mg PO DAILY 02/19/19 05/14/19 losartan 100 mg PO DAILY 02/19/19 05/14/19 bisacodyl 5 - 10 mg PO PRN PRN 03/05/19 05/14/19 bisacodyl 10 mg [place] DAILY PRN 03/05/19 05/14/19 ipratropium-albuterol 3 ml INHALATION Q6H PRN 05/14/19 05/14/19 polyethylene glycol 3350 [Miralax] 17 g PO DAILY PRN 05/14/19 05/14/19 Previous Rx's Medication Instructions Recorded docusate sodium [DOK] 100 mg PO BID PRN #60 cap 05/15/19 fosfomycin tromethamine 1 packet PO .Q7days #25 each 05/15/19 levofloxacin 750 mg PO Q48H #2 tab 05/15/19 metoprolol tartrate 25 mg PO BEDTIME #30 tab 05/15/19 metoprolol tartrate 100 mg PO DAILY #30 tab 05/15/19 ondansetron 4 mg PO Q8HR PRN #30 tab 05/15/19 cefdinir 300 mg PO BID #7 cap 07/22/19 Allergies Allergy/AdvReac Type Severity Reaction Status Date / Time No Known Drug Allergies Allergy Verified 07/27/18 14:32 Review of Systems Review of Systems ROS Unobtainable: Unobtainable due to medical condition 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) Dementia (Acute) Elevated LFTs (Inactive) Hypertension (Acute) Stroke (Acute) Social History household members: family Smoking Status: Unknown if ever smoked alcohol intake: never Smoking Status: Unknown if ever smoked Substance Use Type: does not use Exam Narrative Exam Narrative: General: Pale, completely of tended, nasal trumpet in place, mouth widely open with tongue leaning to the right side and extraordinarily dry mucous membranes HEENT: Pupils are 2 mm bilaterally and sluggishly responsive Chest: Shallow breathing, minor rales bilaterally Cardiac: Irregularly irregular with no significant murmurs appreciated Abdomen: Soft. No bruising or contusions. No pain behaviors elicited with palpation Spine and pelvis: No obvious trauma and no pain behaviors elicited with palpation Skin: Pale poorly perfused peripherally Neurologic: Completely attended Initial Vital Signs Initial Vital Signs: Vital Signs Temperature 97.3 F L 09/14/19 19:18 Pulse Rate 71 09/14/19 19:18 Respiratory Rate 24 09/14/19 19:18 Blood Pressure 184/119 H 09/14/19 19:18 Pulse Oximetry 93 09/14/19 19:18 Course Orders Ordered: ED Orders 09/14/19 19:22 EKG-12 Lead Routine Vital Signs Vital signs: Vital Signs - 8 hr 09/14/19 19:18 09/14/19 21:12 Temperature 97.3 F L Pulse Rate 71 92 H Respiratory Rate 24 24 Blood Pressure 184/119 H Pulse Oximetry 93 90 L Medical Decision Making Lab Data Labs: Point of Care Testing Glucose POC 152 Point of care testing: Point of Care Testing Glucose POC 152 MDM Narrative Medical decision making narrative: 83-year-old woman with altered mental status now unresponsive and appears to be in early stages of active dying. She has a POLST form that indicates comfort measures only. Given her lack of other symptoms including signs or symptoms suggestive of infection, I suspect that she had some type of intracranial hemorrhage. Care and findings are reviewed with her son. In accordance with her wishes there was minimal workup done. With agonal breathing becoming more pronounced did share with her son that was likely. We shared decision making we opted to have her transferred back to her long-term facility understanding that she does appear to be actively dying. She currently is unresponsive and does not appear to be in any pain or discomfort. Findings and decision-making as well as patient's status is discussed with the [facility] and [facility] is arranged. Discharge Plan Departure Patient Disposition: Home Clinical Impression: Acute alteration in mental status Discharge Date/Time: 09/14/19 21:19 Activity Restrictions/Additional Instructions: Patient was seen and evaluated in the emergency department today Given her clinical exam in her significantly elevated blood pressure there is a strong suspicion for intracranial hemorrhage. With shared decision making in accordance with her POLST form and in discussion with her son we opted to treat with comfort measures only. No imaging or blood work was done. Patient has remained completely obtain ended with at times, agonal breathing. She will be transported back to her long-term long-term facility via BLS transport. Have shared with her son that I do expect that she will within the next 1-2 days and the chance of her dying this evening is quite high. He understands and is in full agreement with comfort care only. Prescriptions: No Action bisacodyl 10 mg Suppository 10 mg [place] DAILY PRN (Reason: Constipation) RF: 0 bisacodyl 5 mg Tablet 5 - 10 mg PO PRN PRN (Reason: mild to severe constipation) RF: 0 ipratropium-albuterol 0.5 mg-3 mg(2.5 mg base)/3 mL Solution For Nebulization 3 ml INHALATION Q6H PRN (Reason: Cough) RF: 0 polyethylene glycol 3350 [Miralax] 17 gram/dose Powder 17 g PO DAILY PRN (Reason: Constipation) RF: 0 docusate sodium [DOK] 100 mg Capsule 100 mg PO BID PRN (Reason: constipation) Qty: 60 RF: 0 ondansetron 4 mg Tablet,Disintegrating 4 mg PO Q8HR PRN (Reason: Nausea And Vomiting) Qty: 30 RF: 0 fosfomycin tromethamine 3 gram packet 1 packet PO .Q7days Qty: 25 RF: 0 levofloxacin 750 mg tablet 750 mg PO Q48H Qty: 2 RF: 0 metoprolol tartrate 100 mg tablet 100 mg PO DAILY Qty: 30 RF: 0 metoprolol tartrate 25 mg tablet 25 mg PO BEDTIME Qty: 30 RF: 0 cefdinir 300 mg capsule 300 mg PO BID Qty: 7 RF: 0 aspirin 81 mg Tablet,Chewable 81 mg PO DAILY RF: 0 losartan 100 mg Tablet 100 mg PO DAILY RF: 0
== END 2019-09-14 21:19 | disposition home or self-care (01) ==
PROVIDERS: Emergency Provider Emergency Medicine
DX: R41.82 Altered mental status, unspecified (principal)
CPT/HCPCS: 82962; 93005; 99283